=== PATIENT | male | born 1980 | race Caucasian/White ===

== ENCOUNTER 2016-11-16 15:42 | Observation (INO) | payer OTHER ==
[2016-11-16] MEDS ORDERED: SODIUM CHLORIDE 0.9% 500 ML IV ONE (16:40)
[2016-11-16] MEDS ORDERED: INSULIN REGULAR 100 UNIT/ML VIAL IV ONE (16:41)
[2016-11-16 16:42] LABS: Glucose,Whole Blood 486 mg/dL (75-99)
[2016-11-16] MEDS: SODIUM CHLORIDE 0.9% 1,000 ML IV SCH ×2 (19:01→23:22)
[2016-11-16 19:15] LABS: Glucose,Whole Blood >600 mg/dL (75-99)
[2016-11-16 19:16] LABS: Basophils % (A) 0 %; CH 31.2; CHCM 34.3; Eosinophils % (A) 0 %; HCT 46.8 % (39.0-53.0); HDW 2.73; HGB 15.6 gm/dL (13.0-17.5); Luc # (Auto) 0.36; Luc % (Auto) 4; Lymphocytes % (A) 31 %; MCH 30.4 pg (25.0-35.0); MCHC 33.3 g/dL (31.0-37.0); MCV 91.2 fL (80.0-100.0); Mean Platelet Volume 7.9; Monocytes # (A) 0.7 k/uL (0-1.0); Monocytes % (A) 7 %; Neutrophils # (A) 5.4 k/uL (1.3-7.7); Neutrophils % (A) 57 %; RBC 5.13 m/uL (4.30-5.90); RDW 13.6 % (11.5-15.5); WBC 9.5 k/uL (3.8-10.6); WBC (Perox) 9.28
[2016-11-16 19:22] LABS: ALT 38 U/L (21-72); AST 33 U/L (17-59); Alkaline Phosphatase 73 U/L (38-126); Anion Gap 16 mmol/L; Blood Urea Nitrogen 24 mg/dL (9-20); Calcium 10.5 mg/dL (8.4-10.2); Carbon Dioxide 19 mmol/L (22-30); Chloride 100 mmol/L (98-107); Non-African American GFR(MDRD) >60 (>60 ml/min/1.73 sqM); Potassium 4.9 mmol/L (3.5-5.1); Sodium 135 mmol/L (137-145); Total Bilirubin 0.7 mg/dL (0.2-1.3); Total Protein 7.8 g/dL (6.3-8.2)
[2016-11-16 19:32] LABS: Glucose 587 mg/dL (74-99)
[2016-11-16 20:10] LABS: Glucose,Whole Blood 347 mg/dL (75-99)
--- NOTE | 2016-11-16 20:29 | ED ---
General Adult HPI - General Chief complaint: Psychiatric Symptoms Stated complaint: Mental health Time Seen by Provider: 11/16/16 16:29 Source: patient, police, EMS, RN notes reviewed, old records reviewed Mode of arrival: EMS Limitations: no limitations - History of Present Illness Initial comments: Chief complaint and history of present illness a 36-year-old male with history of depression. Petition was filled out because he stated he missed his father wanted to kill himself. Patient was brought emergency room. Emergency room the patient's blood sugar was elevated at 500. The patient is noncompliant. Patient denying wanting to at this time. - Related Data Home Medications Medication Instructions Recorded Confirmed Acarbose 50 mg PO TID 11/16/16 11/16/16 Desmopressin [Ddavp] 0.2 mg PO DAILY 11/16/16 11/16/16 Divalproex ER [Depakote ER] 250 mg PO DAILY 11/16/16 11/16/16 Divalproex Sodium [Depakote] 1,000 mg PO BID 11/16/16 11/16/16 Famotidine [Pepcid] 20 mg PO BID 11/16/16 11/16/16 Fluticasone [place] [Flonase 1 spray EA NOSTRIL DAILY PRN 11/16/16 11/16/16 [place]] Levothyroxine Sodium [Synthroid] 50 mcg PO DAILY 11/16/16 11/16/16 Lisinopril [Zestril] 10 mg PO DAILY 11/16/16 11/16/16 Prazosin [Minipress] 3 mg PO HS 11/16/16 11/16/16 Simvastatin [Zocor] 20 mg PO HS 11/16/16 11/16/16 Venlafaxine HCl [Effexor XR] 75 mg PO HS 11/16/16 11/16/16 Venlafaxine HCl [Effexor XR] 150 mg PO QAM 11/16/16 11/16/16 cloZAPine [Clozaril] 100 mg PO QAM 11/16/16 11/16/16 cloZAPine [Clozaril] 400 mg PO HS 11/16/16 11/16/16 metFORMIN HCL [Glucophage] 850 mg PO TID 11/16/16 11/16/16 Allergies Allergy/AdvReac Type Severity Reaction Status Date / Time No Known Allergies Allergy Verified 06/02/15 13:42 Review of Systems ROS Statement: Those systems with pertinent positive or pertinent negative responses have been documented in the HPI. Review of systems. Patient denies any headache chest pain shortness breath GI/ problems. Patient has mental health issues. He is noncompliant with his diet. His medications are apparently set out for him and the geriatric social work professor who visits him weekly states the pills are normally gone in normal fashion. But she states she is otherwise noncompliant with diet. After being made to find him a spot where he can be better controlled. Past medical problems non-insulin diabetes mellitus but extremely poorly compliant. GERD reflex. Hernia repair. Mental health issues. Medications as listed on the chart. Family history unknown no known ALLERGIES. Patient is a heavy smoker. Strongly encouraged to stop ROS Other: All systems not noted in ROS Statement are negative. Past Medical History Past Medical History: Diabetes Mellitus, GERD/Reflux History of Any Multi-Drug Resistant Organisms: None Reported Past Surgical History: Hernia Repair Past Psychological History: Anxiety Smoking Status: Current every day smoker Past Alcohol Use History: None Reported Past Drug Use History: None Reported General Exam - General Exam Comments Initial Comments: General: The patient is awake and alert, in no distress, and does not appear acutely ill. At this time is patient's denying wanting to kill himself. He did say that his father soldering technician with a petition. He states he misses his father. Vital signs show temperature 98.9 pulse 89 respiratory rate 22 pulse ox 96 been room air blood pressure 165/106. Repeat blood pressure was 161/76. Eye: Pupils are equal, round and reactive to light, extra-ocular movements are intact ; there is normal conjunctiva bilaterally. No signs of icterus. Ears, nose, mouth and throat: Patient has had surgery for cleft lip and cleft palate. Neck: The neck is supple, there is no tenderness. Cardiovascular: There is a regular rate and rhythm. No murmur, rub or gallop is appreciated. Respiratory: Lungs are clear to auscultation, respirations are non-labored, breath sounds are equal. No wheezes, stridor, rales, or rhonchi. Gastrointestinal: Soft, non-distended, non-tender abdomen without masses or organomegaly noted. There is no rebound or guarding present. No CVA tenderness. Bowel sounds are unremarkable. Back: There is no tenderness to palpation in the midline. There is no obvious deformity. No rashes noted. Musculoskeletal: Normal ROM, no tenderness, There is no pedal edema. There is no calf tenderness or swelling. Sensation intact. Pulses equal bilaterally 2+. Neurological: No evidence of a neurological problems at this time. Skin: Skin is warm and dry and no rashes or lesions are noted. Psychiatric: Patient's a constant talker. Easily becomes angry. Denies being suicidal does not want to kill himself now. States he does misses father though. States she does not want to live with others in a usp. Admits doesn't eat properly therefore control his glucose and diabetic problem better than he should. Limitations: no limitations Course Vital Signs 11/16/16 11/16/16 16:14 21:00 Temperature 98.9 F 98.9 F Pulse Rate 89 78 Respiratory 22 18 Rate Blood Pressure 165/106 163/71 O2 Sat by Pulse 96 96 Oximetry Medical Decision Making - Medical Decision Making Medical decision making patient is noncompliant. Pills are set up for him by his psychiatric team. Does not follow a proper diet. Average being made to find him a facility where he can be watched more closely and group-type home. His vital signs were stable upon arrival to emergency room because blood sugar was significantly elevated. The patient's initial blood glucose per laboratories over 600. Patient had IV hydration was given 5 units of regular insulin IV and repeat blood test was IV hydration. Patient will be placed on subcu insulin scale. The patient's potassium is 4.9 BUN 24 creatinine 0.92 with a GFR greater than 60. Glucose as noted above. Acetone negative. 370. Case discussed with Dr. Saleh on-call hospitalist. The patient be admitted continued IV hydration with sliding insulin scale. - Lab Data Result diagrams: 11/16/16 18:56 11/16/16 18:56 Lab Results 11/16/16 11/16/16 11/16/16 Range/Units 16:13 18:53 18:56 WBC 9.5 (3.8-10.6) k/uL RBC 5.13 (4.30-5.90) m/uL Hgb 15.6 (13.0-17.5) gm/dL Hct 46.8 (39.0-53.0) % MCV 91.2 (80.0-100.0) fL MCH 30.4 (25.0-35.0) pg MCHC 33.3 (31.0-37.0) g/dL RDW 13.6 (11.5-15.5) % Plt Count 204 (150-450) k/uL Neutrophils % 57 % Lymphocytes % 31 % Monocytes % 7 % Eosinophils % 0 % Basophils % 0 % Neutrophils # 5.4 (1.3-7.7) k/uL Lymphocytes # 3.0 (1.0-4.8) k/uL Monocytes # 0.7 (0-1.0) k/uL Eosinophils # 0.0 (0-0.7) k/uL Basophils # 0.0 (0-0.2) k/uL Sodium (137-145) mmol/L Potassium (3.5-5.1) mmol/L Chloride (98-107) mmol/L Carbon Dioxide (22-30) mmol/L Anion Gap mmol/L BUN (9-20) mg/dL Creatinine (0.66-1.25) mg/dL Est GFR (MDRD) Af Amer (>60 ml/min/1.73 sqM) Est GFR (MDRD) Non-Af (>60 ml/min/1.73 sqM) Glucose (74-99) mg/dL POC Glucose (mg/dL) 486 H >600 H (75-99) mg/dL POC Glu Recoil [place] Winder ID Mitra, Alysha Manriquez, Alysha Calcium (8.4-10.2) mg/dL Total Bilirubin (0.2-1.3) mg/dL AST (17-59) U/L ALT (21-72) U/L Alkaline Phosphatase (38-126) U/L Total Protein (6.3-8.2) g/dL Albumin (3.5-5.0) g/dL Urine Opiates Screen (NotDetected) Ur Oxycodone Screen (NotDetected) Urine Methadone Screen (NotDetected) Ur Propoxyphene Screen (NotDetected) Ur Barbiturates Screen (NotDetected) U Tricyclic Antidepress (NotDetected) Ur Phencyclidine Scrn (NotDetected) Ur Amphetamines Screen (NotDetected) U Methamphetamines Scrn (NotDetected) U Benzodiazepines Scrn (NotDetected) Urine Cocaine Screen (NotDetected) U Marijuana (THC) Screen (NotDetected) Acetone, Qual (Negative) 11/16/16 11/16/16 11/16/16 Range/Units 18:56 20:06 20:09 WBC (3.8-10.6) k/uL RBC (4.30-5.90) m/uL Hgb (13.0-17.5) gm/dL Hct (39.0-53.0) % MCV (80.0-100.0) fL MCH (25.0-35.0) pg MCHC (31.0-37.0) g/dL RDW (11.5-15.5) % Plt Count (150-450) k/uL Neutrophils % % Lymphocytes % % Monocytes % % Eosinophils % % Basophils % % Neutrophils # (1.3-7.7) k/uL Lymphocytes # (1.0-4.8) k/uL Monocytes # (0-1.0) k/uL Eosinophils # (0-0.7) k/uL Basophils # (0-0.2) k/uL Sodium 135 L (137-145) mmol/L Potassium 4.9 (3.5-5.1) mmol/L Chloride 100 (98-107) mmol/L Carbon Dioxide 19 L (22-30) mmol/L Anion Gap 16 mmol/L BUN 24 H (9-20) mg/dL Creatinine 0.92 (0.66-1.25) mg/dL Est GFR (MDRD) Af Amer >60 (>60 ml/min/1.73 sqM) Est GFR (MDRD) Non-Af >60 (>60 ml/min/1.73 sqM) Glucose 587 H* (74-99) mg/dL POC Glucose (mg/dL) 347 H (75-99) mg/dL POC Glu [place]oil [place] Winder ID [place], Nguyen Calcium 10.5 H (8.4-10.2) mg/dL Total Bilirubin 0.7 (0.2-1.3) mg/dL AST 33 (17-59) U/L ALT 38 (21-72) U/L Alkaline Phosphatase 73 (38-126) U/L Total Protein 7.8 (6.3-8.2) g/dL Albumin 4.7 (3.5-5.0) g/dL Urine Opiates Screen Not Detected (NotDetected) Ur Oxycodone Screen Not Detected (NotDetected) Urine Methadone Screen Not Detected (NotDetected) Ur Propoxyphene Screen Not Detected (NotDetected) Ur Barbiturates Screen Not Detected (NotDetected) U Tricyclic Antidepress Not Detected (NotDetected) Ur Phencyclidine Scrn Not Detected (NotDetected) Ur Amphetamines Screen Not Detected (NotDetected) U Methamphetamines Scrn Not Detected (NotDetected) U Benzodiazepines Scrn Not Detected (NotDetected) Urine Cocaine Screen Not Detected (NotDetected) U Marijuana (THC) Screen Not Detected (NotDetected) Acetone, Qual Negative (Negative) 11/16/16 Range/Units 20:50 WBC (3.8-10.6) k/uL RBC (4.30-5.90) m/uL Hgb (13.0-17.5) gm/dL Hct (39.0-53.0) % MCV (80.0-100.0) fL MCH (25.0-35.0) pg MCHC (31.0-37.0) g/dL RDW (11.5-15.5) % Plt Count (150-450) k/uL Neutrophils % % Lymphocytes % % Monocytes % % Eosinophils % % Basophils % % Neutrophils # (1.3-7.7) k/uL Lymphocytes # (1.0-4.8) k/uL Monocytes # (0-1.0) k/uL Eosinophils # (0-0.7) k/uL Basophils # (0-0.2) k/uL Sodium (137-145) mmol/L Potassium (3.5-5.1) mmol/L Chloride (98-107) mmol/L Carbon Dioxide (22-30) mmol/L Anion Gap mmol/L BUN (9-20) mg/dL Creatinine (0.66-1.25) mg/dL Est GFR (MDRD) Af Amer (>60 ml/min/1.73 sqM) Est GFR (MDRD) Non-Af (>60 ml/min/1.73 sqM) Glucose (74-99) mg/dL POC Glucose (mg/dL) 371 H (75-99) mg/dL POC Glu Recoil [place] Winder ID Nguyen Kovacs Calcium (8.4-10.2) mg/dL Total Bilirubin (0.2-1.3) mg/dL AST (17-59) U/L ALT (21-72) U/L Alkaline Phosphatase (38-126) U/L Total Protein (6.3-8.2) g/dL Albumin (3.5-5.0) g/dL Urine Opiates Screen (NotDetected) Ur Oxycodone Screen (NotDetected) Urine Methadone Screen (NotDetected) Ur Propoxyphene Screen (NotDetected) Ur Barbiturates Screen (NotDetected) U Tricyclic Antidepress (NotDetected) Ur Phencyclidine Scrn (NotDetected) Ur Amphetamines Screen (NotDetected) U Methamphetamines Scrn (NotDetected) U Benzodiazepines Scrn (NotDetected) Urine Cocaine Screen (NotDetected) U Marijuana (THC) Screen (NotDetected) Acetone, Qual (Negative) Disposition Clinical Impression: Acute anxiety, Hyperglycemia without ketosis Disposition: ADMITTED IP TO THIS [facility] Condition: Stable
[2016-11-16 20:51] LABS: Glucose,Whole Blood 371 mg/dL (75-99)
[2016-11-16] MEDS ORDERED: INSULIN REGULAR 100 UNIT/ML VIAL IV STA (20:55)
[2016-11-16] MEDS ORDERED: NALOXONE 0.4 MG/ML 1 ML VIAL IV PRN (21:31)
[2016-11-16] MEDS ORDERED: ACETAMINOPHEN TAB 325 MG TAB PO PRN (21:31)
[2016-11-16 21:32] LABS: Glucose,Whole Blood 324 mg/dL (75-99)
[2016-11-16] MEDS ORDERED: FLUTICASONE 50MCG/SPRAY NASAL 16GM EA NOSTRIL PRN (21:34)
[2016-11-16 23:15] VITALS: BMI 30.7
[2016-11-16 23:19] LABS: Glucose,Whole Blood 308 mg/dL (75-99)
[2016-11-16] MEDS: ACARBOSE 25 MG TAB PO SCH (23:22)
[2016-11-16] MEDS: metFORMIN 850 MG TAB PO SCH (23:23)
[2016-11-17] MEDS: INSULIN LISPRO (humaLOG) 300 UNIT/3 ML VIAL SQ SCH ×4 (00:13→17:16)
[2016-11-17 04:59] LABS: Glucose,Whole Blood 331 mg/dL (75-99)
[2016-11-17] MEDS ORDERED: LEVOTHYROXINE 50 MCG TAB PO SCH (06:30)
[2016-11-17 06:37] LABS: Anion Gap 15 mmol/L; Blood Urea Nitrogen 23 mg/dL (9-20); Calcium 10.1 mg/dL (8.4-10.2); Carbon Dioxide 18 mmol/L (22-30); Chloride 108 mmol/L (98-107); Glucose 359 mg/dL (74-99); Magnesium 1.3 mg/dL (1.6-2.3); Non-African American GFR(MDRD) >60 (>60 ml/min/1.73 sqM); Potassium 4.4 mmol/L (3.5-5.1); Sodium 141 mmol/L (137-145)
[2016-11-17] MEDS: SODIUM CHLORIDE 0.9% 1,000 ML IV SCH ×4 (06:46→17:17)
[2016-11-17] MEDS ORDERED: LORazepam 2 MG/ML SYRINGE IV STA (07:17)
[2016-11-17] MEDS ORDERED: LORazepam 2 MG/ML SYRINGE ONE (07:20)
[2016-11-17] MEDS ORDERED: HALOPERIDOL LACTATE 5 MG/ML 1 ML VIAL IM PRN ×2 (07:32→08:35)
[2016-11-17] MEDS ORDERED: LORazepam 2 MG/ML SYRINGE IM ONE (08:36)
[2016-11-17] MEDS ORDERED: diphenhydrAMINE 50 MG/ML 1 ML VIAL IM STA (08:37)
[2016-11-17] MEDS ORDERED: FAMOTIDINE 20 MG TAB PO SCH (09:00)
[2016-11-17] MEDS ORDERED: VENLAFAXINE HCL ER 150 MG CAP PO SCH (09:00)
[2016-11-17] MEDS ORDERED: DESMOPRESSIN 0.2 MG TAB PO SCH (09:00)
[2016-11-17] MEDS ORDERED: LISINOPRIL 10 MG TAB PO SCH (09:00)
[2016-11-17] MEDS ORDERED: cloZAPine 100 MG TAB PO SCH ×2 (09:00→21:00)
[2016-11-17] MEDS ORDERED: DIVALPROEX 500 MG TABLET.DR PO SCH (09:00)
[2016-11-17 11:31] VITALS: RESP 16
[2016-11-17 11:43] LABS: Glucose,Whole Blood 266 mg/dL (75-99)
[2016-11-17] MEDS: ACARBOSE 25 MG TAB PO SCH ×2 (11:50→15:59)
[2016-11-17] MEDS: metFORMIN 850 MG TAB PO SCH ×2 (11:50→15:59)
[2016-11-17] MEDS ORDERED: DIVALPROEX ER 250 MG TAB.ER.24H PO SCH (12:00)
[2016-11-17 16:06] VITALS: BP 106/57; PULSE 70; TEMP 96.8
--- NOTE | 2016-11-17 16:59 | HP ---
H&P and DISCHARGE SUMMARY DATE OF ADMISSION: Patient is a 36-year-old who was agitated and petitioned by law enforcement people and patient was subsequently brought in here. He was admitted to Medical Service because of hyperglycemia with highly elevated blood sugars. Patient received IV fluids last night. Patient also has some anion gap metabolic acidosis secondary to hyperchloremia. Patient was unable to prior much of the history to me, as just before my evaluation he received his antipsychotic medications, because of which patient was excessively drowsy, although I was able to get history from the patient. Patient denied any fever, chills, nausea, vomiting, abdominal pain. REVIEW OF SYSTEMS: As mentioned above. The rest of the review of systems was not reviewed because of his clinical condition. Home medications include: 1. Acarbose. 2. Desmopressin. 3. Divalproex. 4. Famotidine. 5. Fluticasone. 6. Levothyroxine. 7. Lisinopril. 8. Prazosin. 9. Simvastatin. 10. Venlafaxine. 11. Clozapine. 12. Metformin. ALLERGIES: NO KNOWN DRUG ALLERGIES. PAST MEDICAL HISTORY: 1. Diabetes mellitus. 2. Gastroesophageal reflux disease. 3. Bipolar disorder. 4. Patient had hernia repair in the past. Patient does smoke 2 packs per day. Denied any alcohol abuse or any drug abuse. FAMILY HISTORY: Significant for lung cancer. Dad of lung cancer in 2011. PHYSICAL EXAMINATION: VITAL SIGNS: Temperature 97.5, pulse of 74, respiratory rate of 16. Blood pressure is 116/59. Saturating at 99% on room air. GENERAL: The patient is alert and oriented x3, not in any acute distress. Well developed, well nourished. HEENT: Pupils are round and equally reacting to light. EOMI. No scleral icterus. No conjunctival pallor. Normocephalic, atraumatic. No pharyngeal erythema. No thyromegaly. CARDIOVASCULAR: S1 and S2 present. No murmurs, rubs, or gallops. PULMONARY: Chest is clear to auscultation, no wheezing or crackles. ABDOMEN: Soft, nontender, nondistended, normoactive bowel sounds. No palpable organomegaly. MUSCULOSKELETAL: No joint swelling or deformity. EXTREMITIES: No cyanosis, clubbing, or pedal edema. NEUROLOGICAL: As mentioned above in the history itself. SKIN: No rashes. PSYCHIATRIC: As mentioned above. LABORATORY DATA: CBC, CMP are abnormal for mildly elevated chloride secondary to IV fluids; 108. Bicarbonate of 18. Anion gap of 15. Blood sugars when he came in were 587, now 359. Patient was resumed on metformin. Magnesium is 1.3. ASSESSMENT AND PLAN: 1. Hyperglycemia secondary to noncompliance with medications. I will change his regimen to metformin 1000 b.i.d. Patient is cleared to be discharged from medical perspective to psychiatric facility. I will also start him on Januvia. I recommend checking blood sugars twice a day. 2. Gastroesophageal reflux disease. 3. Psychiatric issues. Management as per Psychiatry. 4. Acute psychosis and suicidal ideations. I did complete the medical certification. 5. Hypomagnesemia. Magnesium will be supplemented. 6. Anion gap metabolic acidosis secondary to hyperchloremia. 7. Hypothyroidism. Patient is cleared to be discharged from medical perspective to psychiatric facility. This dictation is both H&P and discharge summary. Discharge diet diabetic 1800-calorie diet. Activity as tolerated. Patient is on lisinopril as well. Patient probably has hypertension, or patient may be on lisinopril as ( ) agent because of diabetes mellitus.
[2016-11-17 17:38] LABS: Glucose,Whole Blood 203 mg/dL (75-99)
[2016-11-17] MEDS ORDERED: PRAZOSIN 1 MG CAP PO SCH (21:00)
[2016-11-17] MEDS ORDERED: ATORVASTATIN 10 MG TAB PO SCH (21:00)
[2016-11-17] MEDS ORDERED: VENLAFAXINE HCL ER 75 MG CAP PO SCH (21:00)
[2016-11-18 08:17] LABS: Norclozapine <25 ng/mL (200-700)
[2016-11-29 08:29] LABS: Glucose,Whole Blood 250 mg/dL (75-99)
== END 2016-11-17 17:26 ==
LOC: SUPCPDRO 15:42 → EC 15:42 → 6SEL 21:31 → INTOOBSV 21:31 → 6SEL 23:11
PROVIDERS: ADMIT Internal Medicine; ATTEND Internal Medicine
DX: E11.65 Type 2 diabetes mellitus with hyperglycemia (principal); E87.2 Acidosis; R45.851 Suicidal ideations; F23 Brief psychotic disorder; F31.9 Bipolar disorder, unspecified; I10 Essential (primary) hypertension; K21.9 Gastro-esophageal reflux disease without esophagitis; F41.9 Anxiety disorder, unspecified; E87.8 Other disorders of electrolyte and fluid balance, not elsewhere classified; E83.42 Hypomagnesemia; E03.9 Hypothyroidism, unspecified; F17.200 Nicotine dependence, unspecified, uncomplicated; Z79.84 Long term (current) use of oral hypoglycemic drugs; Z79.51 Long term (current) use of inhaled steroids; Z79.899 Other long term (current) drug therapy; Z80.1 Family history of malignant neoplasm of trachea, bronchus and lung; Z71.6 Tobacco abuse counseling; Z91.11 Patient's noncompliance with dietary regimen; Z91.14 Patient's other noncompliance with medication regimen; Z87.730 Personal history of (corrected) cleft lip and palate
CPT/HCPCS: 99285; 96374; 96376; 82075; 96361; 36415; 80159; 80164; 80053; 80048; 83036; 82009; 83735; 85025; 80306; G0378 ×2; J2060; J1200; J1630; 96372; 96375

== ENCOUNTER 2016-11-17 15:24 | Inpatient (IN) | payer MEDICAID, OTHER ==
--- NOTE | 2016-11-17 17:28 | HP ---
DATE OF ADMISSION: 11/17/2016 IDENTIFYING DATA: Patient is a 36-year-old male, date of 1980. He came to the emergency department after some difficulties in the community. He lives alone. He is followed by [facility]. Patient was admitted to the medical floor initially and referred to the psychiatric unit for followup. CHIEF COMPLAINT: The patient had an episode of agitation and [place] He then came to the emergency room reporting he was depressed and that he had thoughts of killing himself because he was missing his father and wanted to . He was petitioned for involuntary hospitalization. HISTORY OF PRESENTING ILLNESS: The patient has long-term psychiatric issues. His current situation is not completely clear. It is noted that he saw Dr. Conti at [facility] November 09. In Dr. Conti's note, he indicates that the patient was saying he had nightmares of seeing people from [facility] in his room. He was not sure if he was awake or asleep when he saw these visions. He had anger at having lost his father in [place]. He talked about being angry at the president. He described a lot of frustration when he misses the bus or believes the business teacher does not pick him up. He described feeling like he wanted to throw things at the bus, though he had not been doing that. He described [place] time as going well. When he saw Dr. Conti on this past Tuesday, he was quite animated and loud. He expressed wishes that he could act out his rage, but he had no plans to do so. He was assessed as being oriented. At his appointment, Dr. Conti increased his Clozaril to 450 mg at bedtime in addition to Clozaril 100 mg in the morning. Also he was on Depakote 1250 mg in the morning, 1000 mg in the evening, and Effexor 150 mg in the morning, 75 mg in the evening[address] Dr. Conti indicated that he would get a Depakote and Clozaril level prior to his appointment in one month. It is noted that September 07 his Clozapine level was 172/88. The patient was admitted to the medical floor from the emergency room due to blood glucose of 500 early in the morning on the day after admission to the medical floor. He got very agitated and loud. He was very restless. He required physical intervention, IM medications, and ultimately he was placed in restraints. He had an initial dose of Haldol 2 mg IM and Ativan 2 mg IM around 7:30 in the morning. At 9:17 in the morning he received Haldol 10 mg IM, Ativan 2 mg IM and Benadryl 100 mg IM due to continued agitation. After he received the medications he was able to rest. Restraints were removed. Patient has been resting quietly. I had contact with the patient's disease case manager rn, Ms. Rodriguez, at [facility]. She indicated that on the day prior to admission she had seen the patient in the community. He apparently had created quite a scene at the bus garage and was in an agitate state and was angry at the business teacher. She was able to calm him down, and afterwards he did fairly well. She saw him in the emergency department and said that he was talking appropriately; he was laughing and joking prior to being seen by the doctors. She indicates that he has tended to have a behavior pattern where he can easily get into an agitated state, often over issues that are difficult to be clear about, but then he gets back to his baseline quickly. She was not aware of any ongoing issues of stress that might be affecting his behavior currently. She stated that she was uncertain whether or not he would take medications appropriately when at home, though she had concerns that he might not be able to do that, as he has had a history in the past of not being able to keep up with his medications. She indicated that there may be an option through Mental Health for him to go into a supervised home where he could get additional support, though she does understand that he would not be inclined to make that change. It is noted that today we did a Depakote level that was less than 10, suggesting that he has not been taking his medications. I also ordered a Clozapine level, which is a send-out and not available today. When I talked to the patient later in the day, he agreed with the thought that he probably was not taking medications for the last 2 weeks, although it is not clear how accurate his reporting is of that. It is noted that the patient's last psychiatric hospitalization at this facility was July 2012. At that time he was admitted due to an episode of agitation, threatening suicide and homicide. He stated that "I snapped." He said that someone at [facility] had made a motion with their hands as if they were shooting a gun, and then he started focusing on that and that it expanded into his having persistent thoughts about killing in general. It was reported that he has a history of auditory hallucinations with voices telling him to kill others and to commit suicide. According to the admission note, he denied any prior psychiatric hospitalizations. He apparently has been on a number of psychotropic medications in the past. When he was admitted in 2011 he was on in Effexor, Risperdal, Zyprexa, Depakote, clonidine and Strattera. There was no report of substance abuse history. During his hospitalization he was started on Clozapine. He improved and was stable for discharge. He was continued on Effexor, Strattera, clonidine and Depakote, though Risperdal and Zyprexa were discontinued. The patient was not able to provide much information about current function or current psychiatric symptoms. He is admitted for further evaluation. Medical history, review of systems and physical exam as per medical consultation from his general hospital admission. MENTAL STATUS EXAM: Patient was seen initially when he was in restraints. He was moderately restless. He would fight against the restraints for 20 to 30 seconds, then he would relax. He made various comments. He said that he had seen someone at the foot of his bed named Wagner Murrieta. He made a comment at one point that he can see him, though he knows I cannot see him. He made references to some other people in vague ways. He was somewhat disorganized in his thoughts. He did respond generally in an appropriate way to questions asked. He seemed oriented to his immediate circumstances. He was somewhat angry at times, though he could calm himself down for short periods as well. His mood was dysphoric. He was significantly distressed. When I saw the patient about 3 in the afternoon he was sleeping. He was arousable. He answered a few questions. He said he was having some trouble with a hoarse throat. He indicated that he had not been taking medications. He was in a calm state. He was out of restraints. He was resting quietly. ASSESSMENT: This 36-year-old male has long-term psychiatric issues. He has been diagnosed with bipolar 1 disorder and mild intellectual disability. He may have difficulties functioning in an independent setting. It is quite likely that he has not been taking medications for some time. Even the Clozapine blood level going back to August suggests that he was not taking it consistently. His other level is likely to be lower than would be expected for a dose of 500 mg a day. We will continue to coordinate with [facility] for treatment and discharge planning. DIAGNOSES: 1. Bipolar 1 disorder. 2. Intellectual disability, mild. 3. Type 2 diabetes. 4. Willis's palsy. 5. Essential hypertension. RECOMMENDATIONS: Patient will be admitted for comprehensive medical, psychiatric and psychosocial evaluation. We will make efforts to engage the patient in individual and group therapeutic activities. Will restart the patient on Clozapine. We will need to do a titration, given that he likely has not been on the medication for some period of time. I will continue him off Effexor and Depakote at this point. We may need to stabilize him with an oral antipsychotic such as Haldol in the short term until Clozapine can get established. Will coordinate with [facility] for treatment and discharge planning.
[2016-11-17] MEDS ORDERED: FLUTICASONE 50MCG/SPRAY NASAL 16GM EA NOSTRIL PRN (17:58)
[2016-11-17] MEDS ORDERED: HALOPERIDOL LACTATE 5 MG/ML 1 ML VIAL IM PRN ×2 (17:58)
[2016-11-17] MEDS ORDERED: MAGNESIUM HYDROXIDE 2,400 MG/10 ML CUP PO PRN (18:00)
[2016-11-17 20:16] LABS: Glucose,Whole Blood 261 mg/dL (75-99)
[2016-11-17] MEDS ORDERED: metFORMIN 850 MG TAB PO SCH (22:00)
[2016-11-17] MEDS: INSULIN LISPRO (humaLOG) 300 UNIT/3 ML VIAL SQ SCH ×2 (22:29→22:33)
[2016-11-17] MEDS: ATORVASTATIN 10 MG TAB PO SCH (22:36)
[2016-11-17] MEDS: ACARBOSE 25 MG TAB PO SCH (22:36)
[2016-11-17] MEDS: PRAZOSIN 1 MG CAP PO SCH (22:36)
[2016-11-17] MEDS: metFORMIN 500 MG TAB PO SCH (22:37)
[2016-11-17] MEDS: FAMOTIDINE 20 MG TAB PO SCH (22:37)
[2016-11-17 22:53] LABS: Hemoglobin A1C 10.3 % (4.2-6.1)
[2016-11-18] MEDS: LEVOTHYROXINE 50 MCG TAB PO SCH (06:04)
[2016-11-18] MEDS: INSULIN LISPRO (humaLOG) 300 UNIT/3 ML VIAL SQ SCH ×4 (08:04→20:43)
[2016-11-18] MEDS: DESMOPRESSIN 0.2 MG TAB PO SCH (08:07)
[2016-11-18] MEDS: ACARBOSE 25 MG TAB PO SCH ×3 (08:07→21:25)
[2016-11-18] MEDS: LISINOPRIL 10 MG TAB PO SCH (08:09)
[2016-11-18] MEDS: LINAGLIPTIN 5 MG TABLET PO SCH (08:09)
[2016-11-18] MEDS: FAMOTIDINE 20 MG TAB PO SCH ×2 (08:11→20:13)
[2016-11-18] MEDS: metFORMIN 500 MG TAB PO SCH ×2 (08:11→20:28)
[2016-11-18] MEDS ORDERED: cloZAPine 25 MG TAB PO STA (09:07)
[2016-11-18] MEDS ORDERED: LORazepam 2 MG/ML SYRINGE IV PRN (09:56)
[2016-11-18] MEDS ORDERED: LORazepam 2 MG/ML SYRINGE IM PRN (09:58)
--- NOTE | 2016-11-18 10:36 | PN ---
DATE OF SERVICE: 11/18/2016 CHIEF COMPLAINT: The patient had an episode of agitation and [place]. He then came to the emergency room reporting he was depressed and that he had thoughts of killing himself because he was missing his father and wanted to . He was petitioned for involuntary hospitalization. INTERVAL HISTORY: Patient has been doing fair. He had a quiet evening last night. He slept on and off during the day after he received his p.r.n. Haldol of 10 mg IM along with a p.r.n. of Ativan 2 mg. He was transferred to the psychiatric unit late afternoon. He was quiet in the evening. He spent a fair amount of time in his room. He was awake. He responded appropriately to staff. He was quiet and calm. He slept fairly well last night. Today, he has been up and about. He prefers to stay in his room. He says he needs some quiet time today so he can adjust to the unit. He was a little reluctant to think about going to any groups today. He did again confirm today that he has not been taking medications, though he was vague about the length of time he has been off medications. It is noted that his clozapine level that was drawn yesterday was 0 as was his Depakote level. So the likelihood is he has not been taking medications at least for one week though probably longer. He does not voice any significant complaints today. He is reserved in his manner. He did make a number of comments about feeling relieved that he has been transferred to the psychiatric unit. He did not identify any immediate problems or concerns. He has not had change in his general health. He tolerates his psychotropic medications. MENTAL STATUS: Patient was initially seen in the day area than he was later seen in his room. He gave fair eye contact. Psychomotor activity was a little restless. Speech was coherent and goal directed. He does have some articulation difficulties. He was spontaneous and somewhat interactive. His thoughts were generally reality based. His affect was a little blunted. His mood was quiet. He seemed somewhat anxious and it was difficult to say how distressed he might feel. ASSESSMENT: I will continue the current diagnosis and treatment plan. We will make efforts to engage the patient in individual and group therapeutic activities. I discussed his case with the [facility] liaison who did have communication with Dr. Patel. Dr. Patel was concerned about how his medications would be reinitiated given that he has been off of medications. The plan is to restart him on clozapine. We will make an effort to do a somewhat more rapid titration though being cautious regarding risk for seizures. Today he will be on 25 mg twice a day, tomorrow he will be on 25 mg 3 times a day depending on how he tolerates the medication will continue to titrate up on his medication. He will continue off Depakote and Effexor if we can get him into a reasonable therapeutic level on clozapine and he can get somewhat stable in his mood, I would look to discharge him early to mid week next week.
[2016-11-18 12:56] LABS: Glucose,Whole Blood 231 mg/dL (75-99)
[2016-11-18] MEDS: HALOPERIDOL LACTATE 5 MG/ML 1 ML VIAL IM PRN (13:46)
[2016-11-18 15:11] VITALS: BMI 34.2
[2016-11-18] MEDS: MAG HYDROX/AL HYDROX/SIMETH 30 ML CUP PO PRN (16:30)
[2016-11-18 17:47] LABS: Glucose,Whole Blood 179 mg/dL (75-99)
[2016-11-18 20:04] LABS: Glucose,Whole Blood 224 mg/dL (75-99)
--- NOTE | 2016-11-18 20:04 | CONS ---
DATE OF CONSULTATION: REASON FOR CONSULTATION: Recommendations regarding multiple medical problems including diabetes mellitus. Patient was admitted to my service yesterday because of elevated blood sugars. Patient was transitioned to oral medications. Patient was having suicidal ideations and agitation episodes. Because of this, patient was transferred to psychiatric facility and patient is still agitated apparently today morning and I am not able to get much of the history from the patient; although, patient denied any chest pain. The patient denied any fevers or chills. Patient denied any nausea, vomiting, abdominal pain, shortness of breath. Patient has been eating well and patient is on diabetic diet. REVIEW OF SYSTEMS: Apart from above mentioned review of systems the rest of the review of systems are negative. MEDICATIONS: His medications were reviewed. The patient's blood sugars are high in spite of three oral hypoglycemic agents, because of which I added Lantus. PAST MEDICAL HISTORY: Diabetes mellitus, gastroesophageal reflux disease, bipolar disorder. The patient does smoke 2 packs per day. FAMILY HISTORY: Significant for lung cancer in father who in 2011. PHYSICAL EXAMINATION: VITAL SIGNS: Temperature 98.0, pulse 77, respiratory rate of 16, blood pressure is 103/59. Saturating at 100% on room air. GENERAL: The patient is alert and oriented x3, not in any acute distress. Well developed, well nourished. HEENT: Pupils are round and equally reacting to light. EOMI. No scleral icterus. No conjunctival pallor. Normocephalic, atraumatic. No pharyngeal erythema. No thyromegaly. CARDIOVASCULAR: S1 and S2 present. No murmurs, rubs, or gallops. PULMONARY: Chest is clear to auscultation, no wheezing or crackles. ABDOMEN: Soft, nontender, nondistended, normoactive bowel sounds. No palpable organomegaly. MUSCULOSKELETAL: No joint swelling or deformity. EXTREMITIES: No cyanosis, clubbing, or pedal edema. NEUROLOGICAL: Gross neurological examination did not reveal any focal deficits. SKIN: No rashes. PSYCHIATRIC: Defer to primary service. LABORATORY DATA: Hemoglobin A1c is 10.3. TSH is 1.95. ASSESSMENT AND PLAN: 1. Diabetes mellitus, uncontrolled blood sugars due to noncompliance with medications. Management as mentioned above. Will add 10 units of Lantus. Continue to recheck blood sugars twice a day. 2. Gastroesophageal reflux disease. 3. Acute psychosis and suicidal ideation and management as per primary services. 4. Hypomagnesemia was supplemented and will recheck the magnesium today. 5. Hypothyroidism. Continue with levothyroxine. TSH is essentially within normal limits at this time. Thank you for letting me participate in this patient's care. Will sign off at this point of time. Call us back if needed.
[2016-11-18] MEDS: ATORVASTATIN 10 MG TAB PO SCH (20:28)
[2016-11-18] MEDS: ACETAMINOPHEN TAB 325 MG TAB PO PRN (20:29)
[2016-11-18] MEDS ORDERED: cloZAPine 25 MG TAB PO SCH (21:00)
[2016-11-18] MEDS: PRAZOSIN 1 MG CAP PO SCH (21:25)
[2016-11-18] MEDS: INSULIN GLARGINE 100 UNIT/ML 10 ML VIAL SQ SCH (21:25)
[2016-11-19] MEDS: LEVOTHYROXINE 50 MCG TAB PO SCH (05:48)
[2016-11-19 05:52] LABS: Glucose,Whole Blood 247 mg/dL (75-99)
[2016-11-19] MEDS: INSULIN LISPRO (humaLOG) 300 UNIT/3 ML VIAL SQ SCH ×4 (07:56→19:50)
[2016-11-19] MEDS ORDERED: cloZAPine 25 MG TAB PO SCH (09:00)
[2016-11-19] MEDS: metFORMIN 500 MG TAB PO SCH ×2 (09:36→19:55)
[2016-11-19] MEDS: MAGNESIUM OXIDE 400 MG TAB PO SCH ×3 (09:36→19:55)
[2016-11-19] MEDS: DESMOPRESSIN 0.2 MG TAB PO SCH (09:36)
[2016-11-19] MEDS: LISINOPRIL 10 MG TAB PO SCH (09:36)
[2016-11-19] MEDS: ACARBOSE 25 MG TAB PO SCH ×3 (09:36→19:54)
[2016-11-19] MEDS: LINAGLIPTIN 5 MG TABLET PO SCH (09:37)
[2016-11-19] MEDS: FAMOTIDINE 20 MG TAB PO SCH ×2 (09:37→19:56)
[2016-11-19 12:50] LABS: Glucose,Whole Blood 238 mg/dL (75-99)
[2016-11-19] MEDS: MAG HYDROX/AL HYDROX/SIMETH 30 ML CUP PO PRN (15:51)
[2016-11-19] MEDS: cloZAPine 25 MG TAB PO SCH ×2 (16:39→19:55)
[2016-11-19 16:52] LABS: Glucose,Whole Blood 231 mg/dL (75-99)
[2016-11-19 19:40] LABS: Glucose,Whole Blood 282 mg/dL (75-99)
[2016-11-19] MEDS: INSULIN GLARGINE 100 UNIT/ML 10 ML VIAL SQ SCH (19:51)
[2016-11-19] MEDS: ATORVASTATIN 10 MG TAB PO SCH (19:54)
[2016-11-19] MEDS: PRAZOSIN 1 MG CAP PO SCH (19:54)
--- NOTE | 2016-11-19 20:00 | PN ---
DATE OF SERVICE: 11/19/2015 CHIEF COMPLAINT: The patient had an episode of agitation and threatening [place]. He then came to the emergency room reporting he was depressed and that he had thoughts of killing himself because he was missing his father and wanted to . He was petitioned for involuntary hospitalization. INTERVAL HISTORY: Patient has been doing fair. He had a quiet evening last night. He had an episode of vomiting one time. He was saying that his stomach was upset. He has not had any more problems with GI upset. He slept fairly well today. He spent some time in bed. He will come out in the day area. He does not attend groups. He has some times when he suddenly can get in an agitated state of some kind. He can quickly change from that back to a very calm and smiling manner. He had an episode earlier of saying he was going to hit his head against the wall, though he only went through some very slight motions without actual self-harm behavior. He has said that he needs to spend some time to get adjusted to the unit before he feels he can get to groups. He has generally been cooperative. He does have some ups and downs in his mood, though it seems as though it mostly relates to how he may choose to interact with others. He has not had change in his general health. He tolerates his startup of Clozaril. MENTAL STATUS: Patient was in his room. He gave fair eye contact. Psychomotor activity was mostly quiet, then at one point he started rubbing his right wrist. He very quickly started pulling on his wrist band and then got into a restless state where he was hitting his hand against the bed. He quieted down from that fairly quickly. His affect was a little constricted, his mood reserved. It was difficult to say if he was distressed. ASSESSMENT: I will continue the current diagnosis and treatment plan. Will continue psychotropic medications the same. Today he will receive Clozaril a total of 75 mg a day. Tomorrow he will start 50 mg twice a day. We will continue to titrate up in a fairly quick fashion. Input from Mental Health has raised concern that he may not be able to take his medications appropriately on his own without adequate supervision. Apparently he has had bubble packs, and we were informed that the bubble packs appeared to be opened up appropriately, yet blood levels have revealed that he has not been taking medications. Mental Health has shared that it would be very difficult for him to make an adjustment to a alf, though independent living is also something of question. We will continue to coordinate with Mental Health. We will continue to focus on stabilization and discharge planning.
[2016-11-19] MEDS: ACETAMINOPHEN TAB 325 MG TAB PO PRN (20:13)
[2016-11-20] MEDS: LEVOTHYROXINE 50 MCG TAB PO SCH (05:33)
[2016-11-20 06:16] LABS: Glucose,Whole Blood 236 mg/dL (75-99)
[2016-11-20] MEDS: INSULIN LISPRO (humaLOG) 300 UNIT/3 ML VIAL SQ SCH ×4 (07:42→20:01)
[2016-11-20] MEDS: LINAGLIPTIN 5 MG TABLET PO SCH (08:26)
[2016-11-20] MEDS: ACARBOSE 25 MG TAB PO SCH ×3 (08:26→20:09)
[2016-11-20] MEDS: MAGNESIUM OXIDE 400 MG TAB PO SCH ×3 (08:26→20:08)
[2016-11-20] MEDS: cloZAPine 25 MG TAB PO SCH ×2 (08:27→20:09)
[2016-11-20] MEDS: metFORMIN 500 MG TAB PO SCH ×2 (08:27→20:09)
[2016-11-20] MEDS: ACETAMINOPHEN TAB 325 MG TAB PO PRN ×2 (08:28→14:52)
[2016-11-20] MEDS: LISINOPRIL 10 MG TAB PO SCH (08:40)
[2016-11-20] MEDS: FAMOTIDINE 20 MG TAB PO SCH ×2 (08:40→20:09)
[2016-11-20] MEDS: DESMOPRESSIN 0.2 MG TAB PO SCH (08:41)
[2016-11-20 12:43] LABS: Glucose,Whole Blood 322 mg/dL (75-99)
[2016-11-20] MEDS: NICOTINE 21MG/24HR PATCH TRANSDERM SCH (16:19)
[2016-11-20 17:54] LABS: Glucose,Whole Blood 295 mg/dL (75-99)
--- NOTE | 2016-11-20 18:44 | PN ---
DATE OF SERVICE : 11/20/2016 CHIEF COMPLAINT: The patient had an episode of agitation and threatening when he was [place] the [place]. He then came to the emergency room reporting he was depressed and that he had thoughts of killing himself because he was missing his father and wanted to . He was petitioned for involuntary hospitalization. INTERVAL HISTORY: Patient has been doing fair. He continues on ups and downs in mood and function. He can get loud and intense. Sometimes he can be demanding, though it is difficult to be clear what he might actually be wanting, then very quickly with staff support he can get into a calm mood with reasonable manner. He attends some groups and not others. He may tend to be loud and at times can monopolize the discussion. It may take some support from staff to help him be a little bit more connected to the discussion at hand. He seems to be showing gradual improvement in his mood. He does wander about the unit. Sometimes he gets a little loud though, that can be as much in a good mood as anything else. We discussed discharge planning. The patient is willing to focus on discharge by the middle of the week. It is noteworthy that he said that at home, he was only taking oral medicines. In regards to his diabetes though he has been running high blood sugars here. It is uncertain whether he has been able to manage his diabetes at home on his own with the resources that he has. Given that he has struggled just to take oral medications it would be uncertain whether he would be able to find a regimen for managing insulin that he could handle. He does say he has a glucometer at home, though he seemed to suggest that it may have been an older one that his father has had. We will need to address issues regarding the management of his diabetes. He tolerates his psychotropic medications. He has not had problems with the titration of Clozaril. MENTAL STATUS: Patient was in the day area. He gave fair eye contact. He was a little restless. His thoughts were clear. Sometimes he gets loud and intense. Other times he responds in a more contained manner. He has clear thoughts. Sometimes he does ramble a little. His affect was intense. His mood upbeat at times. He did not appear to be distressed. ASSESSMENT: I will continue the current diagnosis and general treatment plan. Today his clozapine is up to 50 mg twice a day. I will increase his dose tomorrow to 50 mg in the morning, 100 mg in the evening. We may be able to give him up to at least 300 mg prior to discharge. We will need to coordinate with community mental health in regards to a number of issues including a supportive living situation and medication management. The patient has had some problems with ambulation and was requesting a cane. It is noted that he has had problems in the past when he had a cane because it apparently had become a weapon for him. I will get a physical therapy consult, though would be quite reluctant to look at something such as a cane for ambulation. He might benefit by a referral for some ongoing physical therapy. LUCY
[2016-11-20 19:52] LABS: Glucose,Whole Blood 277 mg/dL (75-99)
[2016-11-20] MEDS: INSULIN GLARGINE 100 UNIT/ML 10 ML VIAL SQ SCH (20:02)
[2016-11-20] MEDS: PRAZOSIN 1 MG CAP PO SCH (20:08)
[2016-11-20] MEDS: ATORVASTATIN 10 MG TAB PO SCH (20:09)
[2016-11-21] MEDS: ACETAMINOPHEN TAB 325 MG TAB PO PRN ×3 (00:29→18:09)
[2016-11-21] MEDS: HALOPERIDOL LACTATE 5 MG/ML 1 ML VIAL IM PRN (02:23)
[2016-11-21] MEDS: LEVOTHYROXINE 50 MCG TAB PO SCH (04:49)
[2016-11-21 05:24] LABS: Glucose,Whole Blood 301 mg/dL (75-99)
[2016-11-21] MEDS: INSULIN LISPRO (humaLOG) 300 UNIT/3 ML VIAL SQ SCH ×4 (07:40→20:36)
[2016-11-21] MEDS ORDERED: cloZAPine 25 MG TAB PO SCH (09:00)
[2016-11-21] MEDS: metFORMIN 500 MG TAB PO SCH ×2 (09:47→20:18)
[2016-11-21] MEDS: DESMOPRESSIN 0.2 MG TAB PO SCH (09:47)
[2016-11-21] MEDS: MAGNESIUM OXIDE 400 MG TAB PO SCH ×3 (09:47→20:18)
[2016-11-21] MEDS: ACARBOSE 25 MG TAB PO SCH ×3 (09:47→20:18)
[2016-11-21] MEDS: NICOTINE 21MG/24HR PATCH TRANSDERM SCH (09:48)
[2016-11-21] MEDS ORDERED: INSULIN GLARGINE 100 UNIT/ML 10 ML VIAL SQ ONE (09:54)
[2016-11-21] MEDS: FAMOTIDINE 20 MG TAB PO SCH ×2 (10:00→20:19)
[2016-11-21] MEDS: LISINOPRIL 10 MG TAB PO SCH (10:00)
[2016-11-21] MEDS: LINAGLIPTIN 5 MG TABLET PO SCH (10:00)
[2016-11-21 12:43] LABS: Glucose,Whole Blood 230 mg/dL (75-99)
[2016-11-21 17:40] LABS: Glucose,Whole Blood 185 mg/dL (75-99)
[2016-11-21] MEDS: PRAZOSIN 1 MG CAP PO SCH (20:18)
[2016-11-21] MEDS: cloZAPine 100 MG TAB PO SCH (20:19)
[2016-11-21] MEDS: ATORVASTATIN 10 MG TAB PO SCH (20:19)
[2016-11-21] MEDS: INSULIN GLARGINE 100 UNIT/ML 10 ML VIAL SQ SCH (20:19)
[2016-11-21 20:30] LABS: Glucose,Whole Blood 263 mg/dL (75-99)
[2016-11-21] MEDS ORDERED: cloZAPine 100 MG TAB PO SCH (21:00)
[2016-11-22] MEDS: LEVOTHYROXINE 50 MCG TAB PO SCH (07:14)
[2016-11-22 07:29] LABS: Glucose,Whole Blood 311 mg/dL (75-99)
[2016-11-22] MEDS: INSULIN LISPRO (humaLOG) 300 UNIT/3 ML VIAL SQ SCH ×5 (08:03→20:55)
[2016-11-22] MEDS: LISINOPRIL 10 MG TAB PO SCH (09:02)
[2016-11-22] MEDS: DESMOPRESSIN 0.2 MG TAB PO SCH (09:02)
[2016-11-22] MEDS: NICOTINE 21MG/24HR PATCH TRANSDERM SCH (09:02)
[2016-11-22] MEDS: cloZAPine 100 MG TAB PO SCH ×2 (09:02→20:46)
[2016-11-22] MEDS: ACARBOSE 25 MG TAB PO SCH ×3 (09:02→20:50)
[2016-11-22] MEDS: LINAGLIPTIN 5 MG TABLET PO SCH (09:03)
[2016-11-22] MEDS: metFORMIN 500 MG TAB PO SCH ×2 (09:03→20:46)
[2016-11-22] MEDS: MAGNESIUM OXIDE 400 MG TAB PO SCH ×3 (09:03→20:51)
--- NOTE | 2016-11-22 10:12 | PN ---
DATE OF SERVICE: 11/21/2016 CHIEF COMPLAINT: The patient had an episode of agitation and threatening [place]. He then came to the emergency room reporting he was depressed and that he had thoughts of killing himself because he was missing his father and wanted to . He was petitioned for involuntary hospitalization. INTERVAL HISTORY: Patient has been doing fair. He had a quiet evening last night. He said that he found out his uncle had . He was quite distressed about that. He has not been attending activities or groups. He will attend a group on occasion. When he does some of the time he can get quite loud and intense. He may talk excessively and does not really present in a way where he interacts with others. At times he can get intense and will be insistent on one thing or another. His mood fluctuates very quickly. He can be upset one moment, where he is almost yelling very loudly and the next moment he might be smiling and joking. He slept fairly well last night. Today, he has been more withdrawn. He spent much of the day in his room lying down. He does not really identify what issues or concerns he has. He has not done much interacting with staff or others today. He has not had change in his general health. He tolerates his psychotropic medications. He has not shown any difficulty with the titration up on his clozapine. MENTAL STATUS: I saw the patient at 2 different times, one late in the morning and the other mid-afternoon. Both times, he was in bed. He gave fair eye contact. He said a few things. He did not say much. His thoughts were clear. His affect was blunted. His mood quiet. It was difficult to say if he was distressed. ASSESSMENT: I will continue the current diagnosis and treatment plan. Will continue to titrate up on his clozapine starting tomorrow. He will be on 100 mg twice a day. I would look to get the patient up to 300 mg a day and possibly higher than that. He is not on any other psychotropic medication. We may need to be prepared to give the patient's some p.r.n. medications, given that he does have an inclination towards getting quite intense over things that are very difficult for others to discern. I will add Haldol 5 mg IM twice a day. In this regard, will continue to focus on stabilization. Will coordinate with [facility] for discharge planning.
[2016-11-22] MEDS: FAMOTIDINE 20 MG TAB PO SCH ×2 (10:15→20:46)
[2016-11-22 12:08] LABS: Glucose,Whole Blood 257 mg/dL (75-99)
[2016-11-22 17:33] LABS: Glucose,Whole Blood 257 mg/dL (75-99)
--- NOTE | 2016-11-22 20:39 | PN ---
DATE OF SERVICE : 11/22/2016 CHIEF COMPLAINT: The patient had an episode of agitation and threatening [place]. He then came to the emergency room reporting he was depressed and that he had thoughts of killing himself because he was missing his father and wanted to . He was petitioned for involuntary hospitalization. INTERVAL HISTORY: Patient has been doing fair. He had a quiet evening last night. He did not attend groups. He does wander about the unit. At times he can get loud and mostly his mood has been fairly even. He will get loud and intense more as a person in his personality style of interacting with others than out of that any signs of distress. He slept fairly well last night. Today he has been up and about. We had a discussion about his attending groups and working to compose himself to interact appropriately in group. He was able to do that this morning. Staff thought he had a good interaction in groups. He had one period where he was crying talking about family losses, though he seemed to get back to good mood fairly quickly. He had been choosing to eat in a separate room from others in the dining room. I encouraged him to use the dining room and to develop more comfort in social settings. I discussed with the patient that it would be likely that he would go into foster care temporarily with the main focus to get better control of his diabetes. For the most part the patient was accepting of this idea. Had a discussion with his psychiatrist Dr. Conti who agreed with the treatment plan. It is noted that his blood sugars have been running over 200, at noon today it was 257, yesterday at 4:00 p.m. it was 311. It is not likely that the patient would be able to manage insulin any time soon and would need quite a bit of support. We have made contact with the hospitalist for further attention to his elevated blood sugars. He has not had problems with the titration up on his clozapine. He has been cooperative. He tolerates his clozapine fairly well. MENTAL STATUS: Patient was in the day area. He generally was appropriate in his interactions. He responded to questions with direct responses. He seemed calmer than he has been on the previous day. His affect was in a reasonable range. He joked a little. There were times where people could passed him by without him getting into any kind of reaction response where as previously he tended to get stimulated by anyone going by him. His affect was in a reasonable range. His mood was even. He did not appear to be distressed. There were no psychotic symptoms. ASSESSMENT: I will continue the current diagnosis and treatment plan. He will be on 200 mg at clozapine today. Tomorrow will go up to 300 mg. It is noted that we are coordinating with [facility] for a placement in a jail at least temporarily to help address issues of his diabetes. I will order a basic metabolic profile and hemoglobin A1c for the morning. It is noted that he just had an eye exam with Dr. Booth in October. I discussed with the patient the risks regarding his diabetes, particularly in terms of eye sight and major organs. The patient has some understanding of the effects of diabetes. On 11/17 his creatinine was 0.8. His magnesium was low 1.1. He is on supplementation, hemoglobin A1c was 10.3. We will continue to focus on stabilization, particularly for his diabetes as well as mental health issues. I would look to discharge the patient later in the week. LUCY
[2016-11-22] MEDS: ATORVASTATIN 10 MG TAB PO SCH (20:45)
[2016-11-22 20:46] LABS: Glucose,Whole Blood 199 mg/dL (75-99)
[2016-11-22] MEDS: PRAZOSIN 1 MG CAP PO SCH (20:52)
[2016-11-22] MEDS: INSULIN GLARGINE 100 UNIT/ML 10 ML VIAL SQ SCH (20:54)
[2016-11-22] MEDS ORDERED: INSULIN GLARGINE 100 UNIT/ML 10 ML VIAL SQ SCH (21:00)
[2016-11-23] MEDS: LEVOTHYROXINE 50 MCG TAB PO SCH (06:51)
[2016-11-23 06:59] LABS: Glucose,Whole Blood 214 mg/dL (75-99)
[2016-11-23] MEDS: INSULIN LISPRO (humaLOG) 300 UNIT/3 ML VIAL SQ SCH ×7 (07:34→21:17)
[2016-11-23] MEDS: DESMOPRESSIN 0.2 MG TAB PO SCH (08:06)
[2016-11-23] MEDS: ACARBOSE 25 MG TAB PO SCH ×3 (08:06→21:19)
[2016-11-23] MEDS: NICOTINE 21MG/24HR PATCH TRANSDERM SCH (08:06)
[2016-11-23] MEDS: cloZAPine 100 MG TAB PO SCH (08:07)
[2016-11-23] MEDS: metFORMIN 500 MG TAB PO SCH ×2 (08:07→21:17)
[2016-11-23] MEDS: LINAGLIPTIN 5 MG TABLET PO SCH (08:07)
[2016-11-23] MEDS: FAMOTIDINE 20 MG TAB PO SCH ×2 (08:08→21:16)
[2016-11-23] MEDS: LISINOPRIL 10 MG TAB PO SCH (08:41)
[2016-11-23] MEDS: MAGNESIUM OXIDE 400 MG TAB PO SCH ×3 (08:41→21:20)
[2016-11-23 12:07] LABS: Anion Gap 12 mmol/L; Blood Urea Nitrogen 12 mg/dL (9-20); Calcium 9.6 mg/dL (8.4-10.2); Carbon Dioxide 26 mmol/L (22-30); Chloride 102 mmol/L (98-107); Glucose 269 mg/dL (74-99); Non-African American GFR(MDRD) >60 (>60 ml/min/1.73 sqM); Potassium 4.8 mmol/L (3.5-5.1); Sodium 140 mmol/L (137-145)
[2016-11-23 12:12] LABS: Hemoglobin A1C 10.1 % (4.2-6.1)
[2016-11-23 12:44] LABS: Glucose,Whole Blood 248 mg/dL (75-99)
[2016-11-23] MEDS: ACETAMINOPHEN TAB 325 MG TAB PO PRN (16:11)
[2016-11-23 17:20] LABS: Glucose,Whole Blood 208 mg/dL (75-99)
--- NOTE | 2016-11-23 18:17 | PN ---
DATE OF SERVICE: 11/23/2016 INTERVAL HISTORY: Patient has been doing fair. He had a quiet evening last night He slept fairly well. Apparently at one point he woke up and was angry because his heater was noisy. He was able to settle down after that and slept the rest of the night. Today he has been up and about. He has been a little more appropriate overall in his behavior. He has attended some groups. He does do better when he is given some cleared by guidelines in regards to the expectations for his behavior and general function. It is noteworthy that this morning he had demonstrated to me that he was able to appropriately administer his insulin. He prepared the skin and injected the insulin appropriately in his abdomen without difficulty. He has been getting along fairly well. He does have some ups and downs in his mood, though he seems to be managing adequately. He has not had significant change in his general health. It is noteworthy that his blood sugars are improving. He has had 5 blood sugars in the last 24 hours that generally are in the low to mid 200 range. Last evening his blood sugar was 199. He had a hemoglobin A1c of 10.1 this morning with a glucose of 269. He had some ups and downs and thoughts about moving into a foster home was supposed to return to independent living. He seems to tolerate his psychotropic medications. MENTAL STATUS: Patient was in the day area. He gave good eye contact. He was not restless. Psychomotor activity was normal. Thoughts were clear. He responded appropriately. His affect was a little blunted. His mood was quiet. He did not appear to be distressed. ASSESSMENT: I will continue the current diagnosis and treatment plan. We will continue psychotropic medications the same with the continued titration up on his clozapine. Tomorrow we will start 100 mg in the morning and 300 mg in the evening, on Tuesday I will get a clozapine level, I would aim to discharge by the end of the week or early in the following week.
[2016-11-23 20:17] LABS: Glucose,Whole Blood 116 mg/dL (75-99)
[2016-11-23] MEDS ORDERED: cloZAPine 100 MG TAB PO SCH (21:00)
[2016-11-23] MEDS: ATORVASTATIN 10 MG TAB PO SCH (21:15)
[2016-11-23] MEDS: INSULIN GLARGINE 100 UNIT/ML 10 ML VIAL SQ SCH (21:26)
[2016-11-23] MEDS: PRAZOSIN 1 MG CAP PO SCH (23:05)
[2016-11-24 07:30] LABS: Glucose,Whole Blood 176 mg/dL (75-99)
[2016-11-24] MEDS: INSULIN LISPRO (humaLOG) 300 UNIT/3 ML VIAL SQ SCH ×7 (07:53→21:38)
[2016-11-24] MEDS: LEVOTHYROXINE 50 MCG TAB PO SCH (07:56)
[2016-11-24] MEDS: NICOTINE 21MG/24HR PATCH TRANSDERM SCH (09:40)
[2016-11-24] MEDS: metFORMIN 500 MG TAB PO SCH ×2 (09:40→21:41)
[2016-11-24] MEDS: cloZAPine 100 MG TAB PO SCH ×2 (09:41→21:35)
[2016-11-24] MEDS: MAGNESIUM OXIDE 400 MG TAB PO SCH ×3 (09:41→21:37)
[2016-11-24] MEDS: LISINOPRIL 10 MG TAB PO SCH (09:41)
[2016-11-24] MEDS: DESMOPRESSIN 0.2 MG TAB PO SCH (09:41)
[2016-11-24] MEDS: LINAGLIPTIN 5 MG TABLET PO SCH (09:41)
[2016-11-24] MEDS: ACARBOSE 25 MG TAB PO SCH ×3 (09:41→21:37)
[2016-11-24] MEDS: FAMOTIDINE 20 MG TAB PO SCH ×2 (09:43→21:37)
[2016-11-24 13:14] LABS: Glucose,Whole Blood 206 mg/dL (75-99)
--- NOTE | 2016-11-24 13:32 | PN ---
DATE OF SERVICE: 11/24/2016 CHIEF COMPLAINT: The patient had an episode of agitation and threatening [place]. He then came to the emergency room reporting he was depressed and that he had thoughts of killing himself because he was missing his father and wanted to . He was petitioned for involuntary hospitalization. INTERVAL HISTORY: Patient has been doing better. He continues with some ups and downs where he will have times that he gets loud and intense sometimes he can seem irritable and negative. Generally with the staff support he can get out of that mood fairly quickly. He continues to have negative thoughts about going into a assisted, though he overall has been excepting accepting that. He has been attending groups and has been more appropriate in groups. He responds to staff support and some guidance in regards to proper behavior. He has been improving in terms of blood sugars. His numbers are trending below 200. He tolerates his psychotropic medications. MENTAL STATUS: Patient gave good eye contact. He was a little restless. He answered questions appropriately, sometimes he rambles though he can be brought back on track. His affect was in a reasonable range. His mood was even. He was not distressed. ASSESSMENT: I will continue the current diagnosis and treatment plan. Will continue to focus on discharge planning. His clozapine and is up to 100 mg in the morning and 300 mg at bedtime. I will keep him at that dose. We will get a blood level of clozapine on Tuesday. We will plan for discharge when a assisted bed is available, that will be as per [facility] direction.
[2016-11-24 17:16] LABS: Glucose,Whole Blood 201 mg/dL (75-99)
[2016-11-24] MEDS: ATORVASTATIN 10 MG TAB PO SCH (21:35)
[2016-11-24] MEDS: PRAZOSIN 1 MG CAP PO SCH (21:36)
[2016-11-24] MEDS: INSULIN GLARGINE 100 UNIT/ML 10 ML VIAL SQ SCH (21:38)
[2016-11-24 21:41] LABS: Glucose,Whole Blood 153 mg/dL (75-99)
[2016-11-25] MEDS: LEVOTHYROXINE 50 MCG TAB PO SCH (06:53)
[2016-11-25 07:03] LABS: Glucose,Whole Blood 171 mg/dL (75-99)
[2016-11-25] MEDS: INSULIN LISPRO (humaLOG) 300 UNIT/3 ML VIAL SQ SCH ×7 (08:08→20:05)
[2016-11-25] MEDS: ACARBOSE 25 MG TAB PO SCH ×3 (08:11→20:10)
[2016-11-25] MEDS: cloZAPine 100 MG TAB PO SCH ×2 (08:12→20:09)
[2016-11-25] MEDS: LISINOPRIL 10 MG TAB PO SCH (08:12)
[2016-11-25] MEDS: DESMOPRESSIN 0.2 MG TAB PO SCH (08:12)
[2016-11-25] MEDS: LINAGLIPTIN 5 MG TABLET PO SCH (08:12)
[2016-11-25] MEDS: MAGNESIUM OXIDE 400 MG TAB PO SCH ×3 (08:12→20:09)
[2016-11-25] MEDS: metFORMIN 500 MG TAB PO SCH ×2 (08:12→20:10)
[2016-11-25] MEDS: FAMOTIDINE 20 MG TAB PO SCH ×2 (08:12→20:09)
[2016-11-25] MEDS: NICOTINE 21MG/24HR PATCH TRANSDERM SCH (09:10)
[2016-11-25 12:42] LABS: Glucose,Whole Blood 207 mg/dL (75-99)
[2016-11-25] MEDS: ACETAMINOPHEN TAB 325 MG TAB PO PRN (17:49)
[2016-11-25 18:05] LABS: Glucose,Whole Blood 167 mg/dL (75-99)
--- NOTE | 2016-11-25 19:07 | PN ---
DATE OF SERVICE: 11/25/2016 CHIEF COMPLAINT: Patient had an episode of agitation and threatening [place] He then came to the emergency room reporting he was depressed and that he had thoughts of killing himself because he was missing his father and wanted to . He was petition for involuntary hospitalization. INTERVAL HISTORY: Patient has been doing fairly well. He has been making progress. He continues with some ups and downs in his behavior. He can get intense and at times somewhat distressed. He gets frustrated easily and then will show a lot of physical reaction like waving his arms, getting loud or at times jumping up and down for the most part. For the most part, he quiets down fairly easily. He does respond to staff support. He has been making more effort in most of his activities. He comes to most of the groups and is appropriate in the groups. He continues to work on managing his insulin injections. He has a better outlook. He has been cooperative. He has not had change in his general health other than his blood sugars have been improving. He does tend to run a high blood sugar at noon though other than his numbers come down, he tolerates his psychotropic medications. MENTAL STATUS: Patient had good eye contact. He was a little restless. He answered questions with direct responses. His thoughts were clear. His affect was at times a little intense. His mood was even. He did not appear to be distressed. ASSESSMENT: I will continue the current diagnosis and treatment plan. We will continue psychotropic medications the same. At this point we have coordinated with [facility] with a plan that when an appropriate bed opens up in a foster home, that she would be discharged. There may be an opening available as early as tomorrow at which time it would be appropriate for him to be discharged.
[2016-11-25] MEDS: INSULIN GLARGINE 100 UNIT/ML 10 ML VIAL SQ SCH (20:04)
[2016-11-25 20:07] LABS: Glucose,Whole Blood 204 mg/dL (75-99)
[2016-11-25] MEDS: PRAZOSIN 1 MG CAP PO SCH (20:09)
[2016-11-25] MEDS: ATORVASTATIN 10 MG TAB PO SCH (20:09)
[2016-11-26 05:19] LABS: Glucose,Whole Blood 241 mg/dL (75-99)
[2016-11-26] MEDS: LEVOTHYROXINE 50 MCG TAB PO SCH (05:41)
[2016-11-26 07:10] VITALS: BP 143/73; PULSE 103; RESP 16; TEMP 97.3
[2016-11-26] MEDS: INSULIN LISPRO (humaLOG) 300 UNIT/3 ML VIAL SQ SCH ×6 (08:01→18:19)
[2016-11-26] MEDS: DESMOPRESSIN 0.2 MG TAB PO SCH (08:32)
[2016-11-26] MEDS: ACARBOSE 25 MG TAB PO SCH ×2 (08:32→16:19)
[2016-11-26] MEDS: cloZAPine 100 MG TAB PO SCH (08:32)
[2016-11-26] MEDS: FAMOTIDINE 20 MG TAB PO SCH (08:33)
[2016-11-26] MEDS: MAGNESIUM OXIDE 400 MG TAB PO SCH ×2 (08:34→16:19)
[2016-11-26] MEDS: NICOTINE 21MG/24HR PATCH TRANSDERM SCH (08:34)
[2016-11-26] MEDS: LINAGLIPTIN 5 MG TABLET PO SCH (08:34)
[2016-11-26] MEDS: metFORMIN 500 MG TAB PO SCH (08:34)
[2016-11-26] MEDS: LISINOPRIL 10 MG TAB PO SCH (08:34)
[2016-11-26 12:28] LABS: Glucose,Whole Blood 216 mg/dL (75-99)
[2016-11-26 13:49] LABS: Basophils % (A) 1 %; CH 30.8; CHCM 33.2; Eosinophils % (A) 1 %; HCT 45.4 % (39.0-53.0); HDW 2.72; HGB 14.9 gm/dL (13.0-17.5); Luc # (Auto) 0.19; Luc % (Auto) 3; Lymphocytes # (A) 2.3 k/uL (1.0-4.8); Lymphocytes % (A) 38 %; MCH 30.5 pg (25.0-35.0); MCHC 32.8 g/dL (31.0-37.0); Mean Platelet Volume 7.1; Monocytes # (A) 0.4 k/uL (0-1.0); Monocytes % (A) 6 %; Neutrophils # (A) 3.2 k/uL (1.3-7.7); Neutrophils % (A) 52 %; RBC 4.88 m/uL (4.30-5.90); RDW 13.4 % (11.5-15.5); WBC 6.1 k/uL (3.8-10.6); WBC (Perox) 6.49
[2016-11-26] MEDS: ACETAMINOPHEN TAB 325 MG TAB PO PRN (16:20)
[2016-11-26 17:37] LABS: Glucose,Whole Blood 146 mg/dL (75-99)
--- NOTE | 2016-11-27 09:34 | DS ---
DATE OF ADMISSION: 11/17/2016 DATE OF DISCHARGE: 11/26/2016 DIAGNOSES: 1. Bipolar one disorder. 2. Intellectual disability, mild. 3. Type 2 diabetes. 4. History of Willis's palsy. 5. Essential hypertension. HISTORY OF PRESENTING ILLNESS: Patient had an episode of agitation and [place] He then came to the emergency room reporting he was depressed and had thoughts of killing himself. He had grief over his father dying, apparently this happened many years ago. He has long-term psychiatric issues. He is followed by Dr. Patel at [facility]. His last contact was November 09. Dr. Conti documented that the patient was complaining of nightmares seeing people from [facility] in his room. He described anger issues. He acknowledged frustration when he misses the bus and then feels that he wants to throw things at the bus, though he assured Dr. Patel he has not been doing that. He expressed wishes that he could act out his rage, though again he had not had plans to do that. At November 09 appointment, Dr. Patel increased Clozaril to 450 mg at bedtime and 100 mg in the morning. He was also on Depakote 1250 mg in the morning and 1000 mg in the evening, Effexor 150 mg in the morning, 75 mg in the evening. Dr. Patel indicated he would order a Depakote and Clozaril level at the next appointment. It was noted that September 07 the patient's Clozaril level was 172/88, which likely was low compared to his 500 mg a day dose. During this admission, the patient was seen in the emergency room and then admitted to the medical floor for blood glucose of 500. He was in an agitated state and received p.r.n. medications including Haldol and Ativan IM. He required restraints at one point. We made contacts with [facility] including to his casework manager Jennifer. She had indicated that the patient has had behavior such as described on very common basis that he can go from being agitated to completely normal very quickly. In fact she saw him in the emergency room and he was laughing and joking. She was not aware of any ongoing stress issues that might be affecting his behavior currently. It was noted that on this admission his Depakote level was less than 10. A clozapine level drawn on November 17 was less than 25 for both clozapine and norclozapine. Urine drug screen was unremarkable. The patient was admitted for further evaluation. Medical history and physical exam as per Dr. Law. MENTAL STATUS EXAM: When the patient was initially seen he was in restraints. He had received some p.r.n. medications. He was moderately restless and would fight against his restraints. He would do this for 20 or 30 seconds at a time and then relax for a while. He made various comments that did not make much sense including saying that he saw someone named "Wagner Murrieta" at the foot of his bed that he knew no one else could see. He seemed to be oriented to immediate circumstances. He was angry at times. He could calm down. He was able to cooperate to answer a few questions about recent history. He seemed to be able to give an adequate information in regards to some things of his daily life. He acknowledges that he probably had not been taking medications for the last 2 weeks. He was intense in his affect. His mood dysphoric. He was significantly distressed. There was no clear evidence of a thought disorder despite his talking about seeing someone at the foot of his bed. He was not able to respond adequately to formal cognitive questions. He appeared to be reasonably in touch with his environment. DIAGNOSTIC STUDIES: CBC was unremarkable. Hemoglobin 15.6, MCV 91, Depakote level 0 clozapine level, comprehensive metabolic profile included an elevated glucose 269, creatinine 0.7, hemoglobin A1c 10.1. TSH 1.95, urinalysis 4+ for glucose. COURSE OF HOSPITALIZATION: The patient was admitted for comprehensive medical, psychiatric and psychosocial evaluation. We made efforts to engage the patient in individual and group therapeutic activities. Early at the start of his hospitalization, he was restarted on clozapine. He was titrated with a fairly assertive schedule and by November 24 his dose was 100 mg in the morning and 300 mg in the evening, in the early course of his hospital stay he had a lot of ups and downs in his mood. He could get easily irritated and would start getting into quite a bit of distress. He would flail his arms. He would get loud. He would make various complaints. It was noteworthy that it did not take much in terms of staff support and redirection to calm him down, then a few minutes later he could be smiling and joking. He was resistant to any group activities. He insisted on having his meals in one of the rooms outside of the dining room. He was not attending groups. It was noteworthy that he started showing a reasonable response to staff support and general guidance. We would give him directions that he needed to eat at the dining room. We also gave him some guidance as to how he should maintain his behavior. When he does that, he was able to reach a point where he could regularly eat in the dining room and seemed to be fairly comfortable with that and also maintain appropriate behavior. The same was true for groups. We would give him guidance as to the importance of attending groups, sitting quietly, not being disruptive, though talking about things that would be important for him. Early on when he started attending groups, he at times would take over the conversation and ramble about things not felt connected to the issues at hand. As his hospital stay went on he became more appropriate in groups and actually was able to contribute in quite a positive way. He slept well at night. His mood gradually improved to where he was not having much for any kind of upsets, irritability or disruptive behavior. Initially he was quite resistant to the idea of going into a mcc, though we worked on helping him make an adjustment to the idea that he would be discharged to a mcc. The main reason for mcc placement was his difficulties with his diabetes. Early on in his hospital stay his blood sugars were running consistently over 300. His levels gradually came down and over the last 3 days of his hospitalization, his blood sugars were in the 200 or lower range. Typically he would have a high glucose around noon time and later in the afternoon. It was noteworthy that we spent time doing diabetic education with the patient. He seemed to respond fairly well to that. He voiced good understanding about dietary issues. He was able to administer his own insulin. He said he did have a glucometer at home, though it was questionable whether it was functioning adequately. We discussed with the patient that it is critical for him to go to a mcc and get close support for managing his diabetes before he would return to any more independent living situation. We also encouraged him towards thinking about socialization activities which he had responded to in a fairly positive way. He was able to engage in productive conversations regarding discharge planning. He felt positive about the plan to move into a mcc, which was set up for the time of discharge. CONDITION AT DISCHARGE: The patient was stable. His mood was significantly improved. He was cooperative. He was making efforts to learn more on diabetic management. He was not having significant mood changes or difficulties in his behavior. He tolerated his Clozaril well. RECOMMENDATIONS AND FOLLOW-UP: The patient is discharged to a mcc that is being set up for this afternoon. DISCHARGE MEDICATIONS include: 1. Clozapine 100 mg in the morning, 300 mg in the evening. Clozapine level was drawn on the day of discharge. 2. His other psychotropic medications were discontinued and will not be continued. 3. He is also on Precose 50 mg 3 times a day. 4. Lipitor 10 mg daily. 5. DDAVP 0.1 mg daily. 6. Pepcid 20 mg twice a day, 7. Flonase. 8. Humalog. 9. Lantus insulin as per diabetic protocol. 10. Synthroid 50 mcg daily. 11. Tradjenta 5 mg daily. 12. Zestril 10 mg daily. 13. Minipres 3 mg at bedtime. 14. Metformin 1000 mg twice a day. 15. Januvia 100 mg daily. He will have a follow-up appointment set up with Dr. Patel and with his primary care physician.
[2016-11-29 12:57] LABS: Norclozapine 308 ng/mL (200-700)
== END 2016-11-26 19:25 | disposition home or self-care (01) | DRG 885 ==
LOC: 3MHU 17:27
PROVIDERS: ADMIT Psychiatry & Neurology Psychiatry; ATTEND Psychiatry & Neurology Psychiatry
DX: F31.9 Bipolar disorder, unspecified (principal); E11.65 Type 2 diabetes mellitus with hyperglycemia; R45.851 Suicidal ideations; I10 Essential (primary) hypertension; E03.9 Hypothyroidism, unspecified; E83.42 Hypomagnesemia; F70 Mild intellectual disabilities; G51.0 Bell's palsy; K21.9 Gastro-esophageal reflux disease without esophagitis; Z78.1 Physical restraint status; Z87.891 Personal history of nicotine dependence; Z91.14 Patient's other noncompliance with medication regimen; Z79.84 Long term (current) use of oral hypoglycemic drugs; Z79.899 Other long term (current) drug therapy
CPT/HCPCS: 80048; 80159; 83036; 83735; 84443; 85025

== ENCOUNTER 2017-11-26 16:33 | Emergency (ER) | payer OTHER ==
[2017-11-26] MEDS ORDERED: HALOPERIDOL LACTATE 5 MG/ML 1 ML VIAL IM PRN (16:50)
[2017-11-26] MEDS ORDERED: LORazepam 2 MG/ML INJ IM STA (16:50)
--- NOTE | 2017-11-26 16:53 | ED ---
General Adult HPI - General Chief complaint: Psychiatric Symptoms Stated complaint: Mental health Time Seen by Provider: 11/26/17 16:36 Source: patient, police, EMS, RN notes reviewed Mode of arrival: EMS - History of Present Illness Initial comments: Patient is an agitated 37-year-old male presenting to the emergency department with police escort. Patient is angry and agitated. Patient is attempting to bite police officers on arrival. Patient also tries to bite myself during examination. Patient states his feelings have been hurt. Patient has no complaints otherwise. - Related Data Home Medications Medication Instructions Recorded Confirmed Acarbose [Precose] 50 mg PO AC-TID 09/30/17 11/26/17 Ibuprofen [Motrin] 600 mg PO BID PRN 09/30/17 11/26/17 Insulin Glargine [Lantus] 31 unit SQ HS 09/30/17 11/26/17 Levothyroxine Sodium [Synthroid] 50 mcg PO DAILY 09/30/17 11/26/17 Magnesium Oxide [Mag-Ox] 250 mg PO DAILY 09/30/17 11/26/17 Prazosin [Minipress] 5 mg PO HS 09/30/17 11/26/17 Simvastatin [Zocor] 20 mg PO HS 09/30/17 11/26/17 Albuterol Inhaler [Ventolin Hfa 2 puff INHALATION RT-Q6H PRN 11/26/17 11/26/17 Inhaler] Benztropine Mesylate [Cogentin] 2 mg PO BID 11/26/17 11/26/17 Desmopressin Acetate [DDAVP] 0.1 mg PO DAILY 11/26/17 11/26/17 Gabapentin [Neurontin] 300 mg PO BID 11/26/17 11/26/17 cloZAPine [Clozaril] 400 mg PO HS 11/26/17 11/26/17 fluPHENAZine DECANOATE [Prolixin 50 mg IM Q7D 11/26/17 11/26/17 Decanoate] Previous Rx's Medication Instructions Recorded Famotidine [Pepcid] 20 mg PO BID 30 Days tab 11/26/16 INSULIN LISPRO (humaLOG) [humaLOG] 5 unit SQ AC-TID 30 Days vial 11/26/16 Lisinopril [Zestril] 10 mg PO DAILY 30 Days tab 11/26/16 cloZAPine [Clozaril] 100 mg PO DAILY 30 Days tab 11/26/16 metFORMIN HCL [Glucophage] 1,000 mg PO BID 30 Days tab 11/26/16 sitaGLIPtin [Januvia] 100 mg PO DAILY #30 tab 11/26/16 Allergies Allergy/AdvReac Type Severity Reaction Status Date / Time No Known Allergies Allergy Verified 11/26/17 17:18 Review of Systems ROS Statement: Those systems with pertinent positive or pertinent negative responses have been documented in the HPI. ROS Other: All systems not noted in ROS Statement are negative. Constitutional: Denies: fever Eyes: Denies: eye pain ENT: Denies: ear pain Respiratory: Denies: cough Cardiovascular: Denies: chest pain Endocrine: Denies: fatigue Gastrointestinal: Denies: abdominal pain Genitourinary: Denies: dysuria Musculoskeletal: Denies: back pain Skin: Denies: rash Neurological: Denies: headache Past Medical History Past Medical History: Diabetes Mellitus, GERD/Reflux, Hypertension, Neurologic Disorder, Thyroid Disorder Additional Past Medical History / Comment(s): This is obtained by reviewing medical records History of Any Multi-Drug Resistant Organisms: None Reported Past Surgical History: Hernia Repair Additional Past Surgical History / Comment(s): tubes in both ears, cleft lip surgery Past Anesthesia/Blood Transfusion Reactions: No Reported Reaction Past Psychological History: Bipolar, Depression Smoking Status: Heavy tobacco smoker Past Alcohol Use History: Occasional Past Drug Use History: None Reported - Past Family History Father Family Medical History: Cancer Additional Family Medical History / Comment(s): Dad had lung cancer, in 2011 Mother Family Medical History: Rheumatoid Arthritis (RA) Additional Family Medical History / Comment(s): Mother has paranoia schizophrenic General Exam Limitations: no limitations General appearance: alert, in no apparent distress Head exam: Present: atraumatic Eye exam: Present: normal appearance Neck exam: Present: normal inspection. Absent: tenderness Respiratory exam: Present: normal lung sounds bilaterally Cardiovascular Exam: Present: regular rate, normal rhythm GI/Abdominal exam: Present: soft. Absent: tenderness Extremities exam: Present: normal inspection Neurological exam: Present: alert Psychiatric exam: Present: agitated Skin exam: Present: normal color Course Vital Signs 11/26/17 16:40 Temperature 98 F Pulse Rate 75 Respiratory 20 Rate Blood Pressure 148/69 O2 Sat by Pulse 96 Oximetry - Reevaluation(s) Reevaluation #1: 11/26/17 20:48 Patient was seen by mental health services with plans for discharge. Patient is reevaluated and resting comfortably in bed. Restraints have been removed. Patient no longer appears combative. Patient denies suicidal or homicidal thoughts. Procedures - Restraint - Face to Face Restraint Occurrence 1 Patient's Immediate Situation: Endangers self safety, Endangers others' safety, Endangers staff safety, Violent behavior Patient's Reaction to the Intervention: Angry Patient's Medical & Behavioral Condition: Awake, Alert Need to Continue or Terminate Restraint or Seclusion: Continue Face to Face Eval of Restraint Date: 11/26/17 Face to Face Eval of Restraint Time: 16:51 Medical Decision Making - Lab Data Result diagrams: 11/26/17 17:20 11/26/17 17:20 Lab Results 11/26/17 11/26/17 Range/Units 17:20 17:20 WBC 6.9 (3.8-10.6) k/uL RBC 5.34 (4.30-5.90) m/uL Hgb 15.8 (13.0-17.5) gm/dL Hct 47.4 (39.0-53.0) % MCV 88.7 (80.0-100.0) fL MCH 29.6 (25.0-35.0) pg MCHC 33.4 (31.0-37.0) g/dL RDW 12.8 (11.5-15.5) % Plt Count 168 (150-450) k/uL Neutrophils % 72 % Lymphocytes % 21 % Monocytes % 4 % Eosinophils % 0 % Basophils % 0 % Neutrophils # 5.0 (1.3-7.7) k/uL Lymphocytes # 1.5 (1.0-4.8) k/uL Monocytes # 0.3 (0-1.0) k/uL Eosinophils # 0.0 (0-0.7) k/uL Basophils # 0.0 (0-0.2) k/uL Sodium 140 (137-145) mmol/L Potassium 3.9 (3.5-5.1) mmol/L Chloride 105 (98-107) mmol/L Carbon Dioxide 20 L (22-30) mmol/L Anion Gap 15 mmol/L BUN 16 (9-20) mg/dL Creatinine 0.70 (0.66-1.25) mg/dL Est GFR (MDRD) Af Amer >60 (>60 ml/min/1.73 sqM) Est GFR (MDRD) Non-Af >60 (>60 ml/min/1.73 sqM) Glucose 176 H (74-99) mg/dL Calcium 10.3 H (8.4-10.2) mg/dL Serum Alcohol <10 mg/dL Disposition Clinical Impression: Aggression Disposition: HOME SELF-CARE Condition: Stable Instructions: Bipolar Disorder (ED), Depression (ED) Additional Instructions: Please follow-up with mental health services tomorrow and Tuesday as planned. Please follow-up with primary care physician in the next day or 2 for recheck, number provided. Return for worsening symptoms or other concerns. Referrals: Bonifacio Aldridge MD [REFERRING] - 1-2 days Time of Disposition: 20:50
[2017-11-26 17:34] LABS: Basophils % (A) 0 %; Eosinophils % (A) 0 %; HCT 47.4 % (39.0-53.0); HGB 15.8 gm/dL (13.0-17.5); Lymphocytes # (A) 1.5 k/uL (1.0-4.8); Lymphocytes % (A) 21 %; MCH 29.6 pg (25.0-35.0); MCHC 33.4 g/dL (31.0-37.0); MCV 88.7 fL (80.0-100.0); Mean Platelet Volume 7.3; Monocytes # (A) 0.3 k/uL (0-1.0); Monocytes % (A) 4 %; Neutrophils % (A) 72 %; Platelet Count 168 k/uL (150-450); RBC 5.34 m/uL (4.30-5.90); RDW 12.8 % (11.5-15.5); WBC 6.9 k/uL (3.8-10.6)
[2017-11-26 17:56] LABS: Alcohol <10 mg/dL; Anion Gap 15 mmol/L; Blood Urea Nitrogen 16 mg/dL (9-20); Calcium 10.3 mg/dL (8.4-10.2); Carbon Dioxide 20 mmol/L (22-30); Chloride 105 mmol/L (98-107); Glucose 176 mg/dL (74-99); Potassium 3.9 mmol/L (3.5-5.1); Sodium 140 mmol/L (137-145)
[2017-11-26 22:27] VITALS: BP 136/66; PULSE 92; RESP 14; TEMP 98.7
== END 2017-11-26 22:40 | disposition home or self-care (01) ==
LOC: EC 16:33
DX: F91.2 Conduct disorder, adolescent-onset type (principal); I10 Essential (primary) hypertension; E11.9 Type 2 diabetes mellitus without complications; E07.9 Disorder of thyroid, unspecified; F31.9 Bipolar disorder, unspecified; F17.200 Nicotine dependence, unspecified, uncomplicated; Z79.4 Long term (current) use of insulin; Z79.899 Other long term (current) drug therapy; Z81.8 Family history of other mental and behavioral disorders
CPT/HCPCS: 99285; 96372; 36415; 80048; 85025; 80320; J2060

== ENCOUNTER 2017-11-27 08:38 | Inpatient (IN) | payer MEDICAID, OTHER ==
[2017-11-27] MEDS ORDERED: LORazepam 2 MG/ML INJ IM STA (08:47)
--- NOTE | 2017-11-27 08:49 | ED ---
Psych HPI - General Source: patient, police, EMS, RN notes reviewed Mode of arrival: EMS Limitations: no limitations <Samir Koo - Last Filed: 11/27/17 10:48> <Ramón Celaya - Last Filed: 11/27/17 10:52> - General Stated Complaint: Mental Health Time Seen by Provider: 11/27/17 08:39 - History of Present Illness Initial Comments: 37-year-old male presents emergency Department via EMS with police escort for psychiatric evaluation. Patient was here yesterday for similar complaints. Patient states he is suicidal and is screaming out for his dad. Patient states that he wants to hurt himself. Patient is attempting to his arm staff. Patient reportedly had a knife at home when he called stating that usually kill himself. (Samir Koo) - Related Data Home Medications Medication Instructions Recorded Confirmed Acarbose [Precose] 50 mg PO AC-TID 09/30/17 11/27/17 Ibuprofen [Motrin] 600 mg PO BID PRN 09/30/17 11/27/17 Insulin Glargine [Lantus] 31 unit SQ HS 09/30/17 11/27/17 Levothyroxine Sodium [Synthroid] 50 mcg PO DAILY 09/30/17 11/27/17 Magnesium Oxide [Mag-Ox] 250 mg PO DAILY 09/30/17 11/27/17 Prazosin [Minipress] 5 mg PO HS 09/30/17 11/27/17 Simvastatin [Zocor] 20 mg PO HS 09/30/17 11/27/17 Albuterol Inhaler [Ventolin Hfa 2 puff INHALATION RT-Q6H PRN 11/26/17 11/27/17 Inhaler] Benztropine Mesylate [Cogentin] 2 mg PO BID 11/26/17 11/27/17 Desmopressin Acetate [DDAVP] 0.1 mg PO DAILY 11/26/17 11/27/17 Gabapentin [Neurontin] 300 mg PO BID 11/26/17 11/27/17 cloZAPine [Clozaril] 400 mg PO HS 11/26/17 11/27/17 fluPHENAZine DECANOATE [Prolixin 50 mg IM Q7D 11/26/17 11/27/17 Decanoate] Previous Rx's Medication Instructions Recorded Famotidine [Pepcid] 20 mg PO BID 30 Days tab 11/26/16 INSULIN LISPRO (humaLOG) [humaLOG] 5 unit SQ AC-TID 30 Days vial 11/26/16 Lisinopril [Zestril] 10 mg PO DAILY 30 Days tab 11/26/16 cloZAPine [Clozaril] 100 mg PO DAILY 30 Days tab 11/26/16 metFORMIN HCL [Glucophage] 1,000 mg PO BID 30 Days tab 11/26/16 sitaGLIPtin [Januvia] 100 mg PO DAILY #30 tab 11/26/16 Allergies Allergy/AdvReac Type Severity Reaction Status Date / Time No Known Allergies Allergy Verified 11/27/17 08:58 Review of Systems ROS Other: All systems not noted in ROS Statement are negative. <Samir Koo - Last Filed: 11/27/17 10:48> ROS Other: All systems not noted in ROS Statement are negative. <Ramón Celaya - Last Filed: 11/27/17 10:52> ROS Statement: Those systems with pertinent positive or pertinent negative responses have been documented in the HPI. Past Medical History Past Medical History: Diabetes Mellitus, GERD/Reflux, Hypertension, Neurologic Disorder, Thyroid Disorder Additional Past Medical History / Comment(s): This is obtained by reviewing medical records History of Any Multi-Drug Resistant Organisms: None Reported Past Surgical History: Hernia Repair Additional Past Surgical History / Comment(s): tubes in both ears, cleft lip surgery Past Anesthesia/Blood Transfusion Reactions: No Reported Reaction Past Psychological History: Bipolar, Depression Smoking Status: Heavy tobacco smoker Past Alcohol Use History: Occasional Past Drug Use History: None Reported - Past Family History Father Family Medical History: Cancer Additional Family Medical History / Comment(s): Dad had lung cancer, in 2011 Mother Family Medical History: Rheumatoid Arthritis (RA) Additional Family Medical History / Comment(s): Mother has paranoia schizophrenic <Samir Koo - Last Filed: 11/27/17 10:48> General Exam General appearance: alert, in no apparent distress, anxious Head exam: Present: atraumatic, normocephalic, normal inspection Eye exam: Present: normal appearance, PERRL, EOMI. Absent: scleral icterus, conjunctival injection, periorbital swelling ENT exam: Present: normal exam, normal oropharynx, mucous membranes moist Neck exam: Present: normal inspection, full ROM. Absent: tenderness, meningismus, lymphadenopathy Respiratory exam: Present: normal lung sounds bilaterally. Absent: respiratory distress, wheezes, rales, rhonchi, stridor Cardiovascular Exam: Present: regular rate, normal rhythm, normal heart sounds. Absent: systolic murmur, diastolic murmur, rubs, gallop, clicks GI/Abdominal exam: Present: soft, normal bowel sounds. Absent: distended, tenderness, guarding, rebound, rigid Psychiatric exam: Present: agitated Skin exam: Present: warm, dry, intact, normal color. Absent: rash <Samir Koo - Last Filed: 11/27/17 10:48> Course <Samir Koo - Last Filed: 11/27/17 10:48> <Ramón Celaya - Last Filed: 11/27/17 10:52> Vital Signs 11/27/17 08:44 Temperature 97.4 F L Pulse Rate 84 Respiratory 16 Rate Blood Pressure 155/113 O2 Sat by Pulse 95 Oximetry - Reevaluation(s) Reevaluation #1: 11/27/17 10:52 Patient was seen by mental health services, who will admit. Patient reevaluated by myself, Dr. Celaya. Patient resting comfortably in bed. Patient has continued suicidal thoughts. Positive clinical certificate completed. ( Ramón Celaya) Procedures - Restraint - Face to Face Restraint Occurrence 1 Patient's Immediate Situation: Endangers staff safety, Violent behavior Patient's Reaction to the Intervention: Uncooperative Patient's Medical & Behavioral Condition: Awake, Alert, Follows directions, Suicidal thoughts Need to Continue or Terminate Restraint or Seclusion: Continue Face to Face Eval of Restraint Date: 11/27/17 Face to Face Eval of Restraint Time: 08:48 <Samir Koo - Last Filed: 11/27/17 10:48> Disposition <Samir Koo - Last Filed: 11/27/17 10:48> <Ramón Celaya - Last Filed: 11/27/17 10:52> Clinical Impression: Depression, Suicidal ideation Disposition: ADMITTED IP TO THIS [facility] Condition: Stable Referrals: None,Stated [Primary Care Provider] - 1-2 days
[2017-11-27 11:25] LABS: Basophils % (A) 0 %; Eosinophils % (A) 1 %; HCT 48.7 % (39.0-53.0); HGB 15.9 gm/dL (13.0-17.5); Lymphocytes # (A) 1.7 k/uL (1.0-4.8); Lymphocytes % (A) 26 %; MCH 29.2 pg (25.0-35.0); MCHC 32.6 g/dL (31.0-37.0); MCV 89.6 fL (80.0-100.0); Mean Platelet Volume 7.5; Monocytes # (A) 0.3 k/uL (0-1.0); Monocytes % (A) 4 %; Neutrophils # (A) 4.4 k/uL (1.3-7.7); Neutrophils % (A) 67 %; Platelet Count 164 k/uL (150-450); RBC 5.44 m/uL (4.30-5.90); WBC 6.5 k/uL (3.8-10.6)
[2017-11-27 11:41] LABS: ALT 28 U/L (21-72); AST 26 U/L (17-59); Albumin 4.6 g/dL (3.5-5.0); Alkaline Phosphatase 49 U/L (38-126); Anion Gap 13 mmol/L; Blood Urea Nitrogen 16 mg/dL (9-20); Calcium 10.4 mg/dL (8.4-10.2); Carbon Dioxide 25 mmol/L (22-30); Chloride 102 mmol/L (98-107); Glucose 208 mg/dL (74-99); Potassium 4.3 mmol/L (3.5-5.1); Sodium 140 mmol/L (137-145); Total Bilirubin 0.7 mg/dL (0.2-1.3); Total Protein 7.2 g/dL (6.3-8.2)
[2017-11-27] MEDS ORDERED: MAGNESIUM HYDROXIDE 2,400 MG/10 ML CUP PO PRN (11:49)
[2017-11-27] MEDS ORDERED: MAG HYDROX/AL HYDROX/SIMETH 30 ML CUP PO PRN (11:49)
[2017-11-27] MEDS ORDERED: IBUPROFEN 600 MG TAB PO PRN (12:12)
[2017-11-27] MEDS ORDERED: LORazepam 2 MG/ML INJ IM PRN (12:39)
[2017-11-27] MEDS: INSULIN ASPART 100 UNIT/ML 1 ML 10 ML VIAL SQ SCH ×2 (13:18→18:01)
[2017-11-27] MEDS: NICOTINE 7MG/24HR PATCH TRANSDERM SCH (13:19)
[2017-11-27] MEDS: ACARBOSE 25 MG TAB PO SCH ×3 (13:20→18:01)
[2017-11-27 13:56] LABS: Glucose,Whole Blood 165 mg/dL (75-99)
[2017-11-27 14:01] VITALS: BMI 26.1
--- NOTE | 2017-11-27 14:27 | HP ---
HISTORY AND PHYSICAL DATE OF SERVICE: 11/27/2017. IDENTIFYING DATA: This patient is a 37-year-old single male who was admitted to the mental health unit on a petition filled out by police for acute suicidal ideation. HISTORY OF PRESENT ILLNESS: The patient presents with a petition completed by police officers stating "observed Pack holding knife stating that he wished to kill himself. Pack stated he wished to multiple times." The patient was brought to the emergency room. In the emergency room, he became acutely agitated and required use of physical restraints. He was medicated in the emergency room and transferred to the mental health unit. At this time, the patient is a tired-appearing, almost lethargic. He is able to participate in interview in a very limited capacity. Of note, he does have an established diagnosis of intellectual disability. The patient states that he is here because he misses his father. He indicates that he has seen his father at the foot of the bed. He endorses ongoing thoughts of wanting to kill himself and hurt other people. He identifies no specific person that he wants to harm. He has a history of bipolar disorder and is on several medications. He does follow with [facility] for outpatient mental health services. This is his 2nd presentation to the emergency room this weekend. Initially, he was seen the other day and found to be not an acute risk. We contacted [facility] crisis unit to come up with a safety plan to divert the admission. The patient, however, presented again to the hospital feeling unsafe. PAST PSYCHIATRIC HISTORY: He has had several hospitalizations in the past. He was last on this mental health unit under the care of Dr. Francis in September of 2017. He was also here under the care of Dr. Reyes in November of 2016. CURRENT PSYCHOTROPIC MEDICATIONS: Include Cogentin 2 mg twice daily, Clozaril 100 mg in the morning, 400 mg in the evening. He may be on an additional 50 mg of Clozaril as well. Neurontin 300 mg twice daily. Minipress 5 mg at bedtime. He may also be receiving Prolixin Decanoate weekly. The patient is unable to provide any information regarding his medications. SUICIDE ATTEMPT HISTORY: Unknown. PAST MEDICAL HISTORY: Has a history of diabetes, GERD, hypertension, hypothyroidism, and hyperlipidemia. ALLERGIES: No known drug allergies. CHEMICAL DEPENDENCY HISTORY: He reports using no alcohol or illicit drugs. FAMILY PSYCHIATRIC AND CHEMICAL DEPENDENCY HISTORY: Unknown. SOCIAL HISTORY: The patient is a single male. He has no children. He lives alone. He states he manages his medications on his own. However, he does believe that he has [facility] involvement in his outpatient care. LEGAL AND ABUSE HISTORY: Unknown. MENTAL STATUS EXAM: The patient is a male appearing older than the stated age. He has an upper lip deformity consistent with cleft palate. His speech is mumbled at this time. He is in no acute distress. He is dressed in hospital attire. Because of recent medication he has difficulty standing or with ambulation but is doing well lying in bed. He keeps his eyes close for the duration of our conversation. He indicates he has ongoing suicidal ideation. He endorses having aggressive thoughts toward others, but specifies no individual or group. He states that he can see his father sitting at the foot of his bed and indicates he can hear his voice. Due to the patient's lethargy, the interview was terminated. Strengths: Housing income, [facility] support as an outpatient. Weaknesses: Poor coping skill, development. Intellect: Below average. IMPRESSIONS: 1. Bipolar I disorder, depressed, intellectual disability. 2. Medical comorbidities include diabetes, GERD, hypertension, hypothyroidism, hyperlipidemia. PLAN: The patient has been admitted to the mental health unit. I did complete a 2nd clinical certificate. The patient will be continued on his Clozaril 100 mg in the morning, 400 mg at bedtime, Neurontin 300 mg twice daily, Cogentin 2 mg twice daily, Minipress 5 mg at bedtime. We will have to confirm with [facility] when he received his last Prolixin Decanoate injection. Vital signs reviewed. He will be seen by internal medicine for routine history and physical exam. Social Work will meet with the patient to complete a psychosocial assessment. We will monitor him for safety. MMODL / IJN: [id number] /
[2017-11-27] MEDS: ALBUTEROL INHALER 60 PUFF/8 GM INHALER INHALATION PRN (16:51)
[2017-11-27 17:28] LABS: Glucose,Whole Blood 108 mg/dL (75-99)
[2017-11-27 17:58] LABS: Hemoglobin A1C 7.6 % (4.0-6.0)
--- NOTE | 2017-11-27 18:22 | P.HPMEDMHU ---
History of Present Illness H&P Date: 11/27/17 Chief Complaint: suicidal ideations 37-year-old male that comes in with suicidal ideation. Patient with some history of mental retardation. Patient says he misses his dad Review of Systems Constitutional: Denies fatigue, Denies weakness, Denies weight loss Cardiovascular: Denies chest pain, Denies edema, Denies orthopnea Respiratory: Denies cough, Denies hemoptysis, Denies pleurisy Gastrointestinal: Denies abdominal pain, Denies hematochezia, Denies melena Genitourinary: Denies dysuria, Denies nocturia Musculoskeletal: Denies atrophy, Denies gait dysfunction, Denies leg numbness/ tingling Integumentary: Denies acne, Denies rash Neurological: Denies head injury, Denies tingling, Denies tremors Psychiatric: Reports depression, Reports sadness/tearfulness, Reports suicidal ideation, Denies anxiety Endocrine: Denies flushing Hematologic/Lymphatic: Denies lymphedema Allergic/Immunologic: Denies urticaria, Denies wheezing Past Medical History Past Medical History: Diabetes Mellitus, GERD/Reflux, Hypertension, Neurologic Disorder, Thyroid Disorder Additional Past Medical History / Comment(s): This is obtained by reviewing medical records History of Any Multi-Drug Resistant Organisms: None Reported Past Surgical History: Hernia Repair Additional Past Surgical History / Comment(s): tubes in both ears, cleft lip surgery Past Anesthesia/Blood Transfusion Reactions: No Reported Reaction Past Psychological History: Bipolar, Depression Additional Psychological History / Comment(s): mild intellectual disorder Smoking Status: Current every day smoker Past Alcohol Use History: Occasional Past Drug Use History: None Reported - Past Family History Father Family Medical History: Cancer Additional Family Medical History / Comment(s): Dad had lung cancer, in 2011 Mother Family Medical History: Rheumatoid Arthritis (RA) Additional Family Medical History / Comment(s): Mother has paranoia schizophrenic Medications and Allergies Home Medications Medication Instructions Recorded Confirmed Type Famotidine [Pepcid] 20 mg PO BID 30 Days tab 11/26/16 11/27/17 Rx INSULIN LISPRO (humaLOG) [humaLOG] 5 unit SQ AC-TID 30 Days vial 11/26/1611/27 Rx Lisinopril [Zestril] 10 mg PO DAILY 30 Days tab 11/26/16 11/27/17 Rx cloZAPine [Clozaril] 100 mg PO DAILY 30 Days tab 11/26/16 11/27/17 Rx metFORMIN HCL [Glucophage] 1,000 mg PO BID 30 Days tab 11/26/16 11/27/17 Rx sitaGLIPtin [Januvia] 100 mg PO DAILY #30 tab 11/26/16 11/27/17 Rx Acarbose [Precose] 50 mg PO AC-TID 09/30/17 11/27/17 History Ibuprofen [Motrin] 600 mg PO BID PRN 09/30/17 11/27/17 History Insulin Glargine [Lantus] 31 unit SQ HS 09/30/17 11/27/17 History Levothyroxine Sodium [Synthroid] 50 mcg PO DAILY 09/30/17 11/27/17 History Magnesium Oxide [Mag-Ox] 250 mg PO DAILY 09/30/17 11/27/17 History Prazosin [Minipress] 5 mg PO HS 09/30/17 11/27/17 History Simvastatin [Zocor] 20 mg PO HS 09/30/17 11/27/17 History Albuterol Inhaler [Ventolin Hfa 2 puff INHALATION RT-Q6H PRN 11/26/17 11/27/17 History Inhaler] Benztropine Mesylate [Cogentin] 2 mg PO BID 11/26/17 11/27/17 History Desmopressin Acetate [DDAVP] 0.1 mg PO DAILY 11/26/17 11/27/17 History Gabapentin [Neurontin] 300 mg PO BID 11/26/17 11/27/17 History cloZAPine [Clozaril] 400 mg PO HS 11/26/17 11/27/17 History fluPHENAZine DECANOATE [Prolixin 50 mg IM Q7D 11/26/17 11/27/17 History Decanoate] Allergies Allergy/AdvReac Type Severity Reaction Status Date / Time No Known Allergies Allergy Verified 11/27/17 08:58 Physical Exam Vitals: Vital Signs Temp Pulse Pulse Resp BP BP Pulse Ox 11/27/17 13:47 90 16 104/56 99 11/27/17 11:58 97.7 F 102 H 15 126/62 97 11/27/17 10:54 98.2 F 90 18 129/70 98 11/27/17 08:44 97.4 F L 84 16 155/113 95 Intake and Output 02/11/18 02/11/18 02/11/18 06:59 14:59 22:59 Other: Weight 64.8 kg Patient Weight 11/28/17 06:59 Weight 64.8 kg - Constitutional General appearance: no acute distress - EENT Scar over his lip from previous surgery of cleft palate Eyes: EOMI, PERRLA - Neck Neck: no lymphadenopathy - Respiratory Respiratory: bilateral: CTA, negative: rales, rhonchi, wheezing - Cardiovascular Heart sounds: normal: S1, S2 - Gastrointestinal Scar in mid abdomen which seems from a previous exploratory laparotomy General gastrointestinal: no scaphoid, soft, no splenomegaly - Neurologic Neurologic: CNII-XII intact - Musculoskeletal Musculoskeletal: gait normal - Psychiatric Psychiatric: A&O x's 3, intact judgment & insight Cranial Nerve Examination - Cranial Nerves Cranial Nerve II- Optic: Intact Cranial Nerve III- Oculomotor: Intact Cranial Nerve IV- Trochlear: Intact Cranial Nerve V- Trigeminal: Intact Cranial Nerve - Abducens: Intact Cranial Nerve VII- Facial: Intact Cranial Nerve VIII- Auditory: Intact Cranial Nerve IX- Glossopharyngeal: Intact Cranial Nerve X- Vagus: Intact Cranial Nerve XI- Accessory: Intact Cranial Nerve XII- Hypoglossal: Intact Results CBC & Chem 7: 11/27/17 11:11 11/27/17 11:11 Labs: Abnormal Lab Results - Last 24 Hours (Table) 11/27/17 11/27/17 11/27/17 Range/Units 11:11 13:08 17:14 Glucose 208 H (74-99) mg/dL POC Glucose (mg/dL) 165 H 108 H (75-99) mg/dL Calcium 10.4 H (8.4-10.2) mg/dL Thrombosis Risk Factor Assmnt - Choose All That Apply Each Factor Represents 1 point: Abnormal pulmonary function (COPD) Other Risk Factors: No Thrombosis Risk Factor Assessment Total Risk Factor Score: 1 Thrombosis Risk Factor Assessment Level: Low Risk Assessment and Plan (1) Suicidal ideation Current Visit: Yes Status: Acute Code(s): R45.851 - SUICIDAL IDEATIONS SNOMED Code(s): 5569345 (2) Diabetes mellitus Narrative/Plan: Accu-Chek before meals and at bedtime Patient not sure what he takes at home Told that he takes insulin Not clear whether patient is compliant List shows patient on trajendta and metformin and metformin Current Visit: No Status: Acute Code(s): E11.9 - TYPE 2 DIABETES MELLITUS WITHOUT COMPLICATIONS SNOMED Code(s): 48989076 (3) Hyperlipidemia Narrative/Plan: Lipitor Current Visit: No Status: Acute Code(s): E78.5 - HYPERLIPIDEMIA, UNSPECIFIED SNOMED Code(s): 70800451 (4) Hypertension Narrative/Plan: Mostly controlled Current Visit: Yes Status: Acute Code(s): I10 - ESSENTIAL (PRIMARY) HYPERTENSION SNOMED Code(s): 53736565 (5) Hypothyroidism Narrative/Plan: On Synthroid Current Visit: No Status: Acute Code(s): E03.9 - HYPOTHYROIDISM, UNSPECIFIED SNOMED Code(s): 61039621
[2017-11-27 20:07] LABS: Glucose,Whole Blood 207 mg/dL (75-99)
[2017-11-27] MEDS: metFORMIN 500 MG TAB PO SCH (20:31)
[2017-11-27] MEDS: PRAZOSIN 1 MG CAP PO SCH (20:32)
[2017-11-27] MEDS: BENZTROPINE MESYLATE 1 MG TAB PO SCH (20:32)
[2017-11-27] MEDS: ATORVASTATIN 10 MG TAB PO SCH (20:32)
[2017-11-27] MEDS: GABAPENTIN 300 MG CAP PO SCH (20:33)
[2017-11-27] MEDS: FAMOTIDINE 20 MG TAB PO SCH (20:33)
[2017-11-27] MEDS: cloZAPine 100 MG TAB PO SCH (20:33)
[2017-11-27] MEDS ORDERED: INSULIN DETEMIR 100 UNIT/ML 10 ML VIAL SQ SCH (21:00)
[2017-11-28] MEDS: LEVOTHYROXINE 50 MCG TAB PO SCH (06:07)
[2017-11-28 06:24] LABS: Glucose,Whole Blood 166 mg/dL (75-99)
[2017-11-28] MEDS: INSULIN ASPART 100 UNIT/ML 1 ML 10 ML VIAL SQ SCH ×4 (08:26→19:13)
[2017-11-28] MEDS: ACARBOSE 25 MG TAB PO SCH ×3 (08:26→19:12)
[2017-11-28] MEDS: GABAPENTIN 300 MG CAP PO SCH (08:27)
[2017-11-28] MEDS: BENZTROPINE MESYLATE 1 MG TAB PO SCH (08:27)
[2017-11-28] MEDS: cloZAPine 100 MG TAB PO SCH (08:27)
[2017-11-28] MEDS: FAMOTIDINE 20 MG TAB PO SCH (08:27)
[2017-11-28] MEDS: LINAGLIPTIN 5 MG TABLET PO SCH (08:27)
[2017-11-28] MEDS: metFORMIN 500 MG TAB PO SCH (08:27)
[2017-11-28] MEDS: LISINOPRIL 10 MG TAB PO SCH (08:28)
[2017-11-28] MEDS: DESMOPRESSIN 0.2 MG TAB PO SCH (08:30)
[2017-11-28] MEDS: NICOTINE 7MG/24HR PATCH TRANSDERM SCH (08:30)
[2017-11-28] MEDS: ALBUTEROL INHALER 60 PUFF/8 GM INHALER INHALATION PRN ×2 (10:00→14:16)
[2017-11-28 12:52] LABS: Glucose,Whole Blood 186 mg/dL (75-99)
[2017-11-28] MEDS: LORazepam 1 MG TAB PO PRN (15:00)
--- NOTE | 2017-11-28 15:31 | P.PN ---
Progress Note - Text Progress Note Date: 11/28/17 Interval History: Patient is a 37-year-old male who was admitted after he was threatening suicide with a knife the police brought him to the emergency room. Patient has a history of an intellectual disability. Patient has been followed at [facility]. Patient reports today that he misses his father who in 2011 and states that his father's birthday is coming up soon in November. He states that he is not currently suicidal and states that he slept well last evening and his appetite is good. He states when he gets scared she gets upset and stated to me that he was scared about meeting with the court appointed forestry extension specialist and made the statement that he will "kick some [place] ass" . Patient states he gets loud when he is scared and has threatened people with his cane in the past when he has been scared or angry such as when someone wanted him to quit smoking at a bus stop. Patient had no other concerns at this time. Mental Status:Appearance/Attitude: Patient is appropriately dressed, makes good eye contact and is superficially cooperative. Behavior: Patient does not display any psychomotor agitation or retardation. Speech/Language: Patient's speech is at times slightly garbled, he easily increases the volume of his speech and he is coherent. Thought Process: Patient was goal-directed, was no evidence of tangential circumstantial thought and he exhibited no loose associations or flight of ideas. Thought Content: Patient denied any auditory or visual hallucinations and no paranoid or delusional ideation was elicited. Patient stated that he had become upset at home about his father's which was in 2011 and with further questioning stated his father's birthday is coming up soon. The patient then went on to discuss how when he becomes scared he can become physically threatening and his voice increased in volume throughout this period patient was redirected to lower his voice which he did so. Patient states that he has been sleeping and eating well. Patient when discussing his concerns about meeting with the court appointed forestry extension specialist tomorrow stated that if he gets scared he will "kick some [place] ass". Suicidal/Homicidal Ideation: Denied any current suicidal or homicidal ideation. Sensorium/Cognition: Patient is alert and oriented to person, place, and time and his recent and remote memory were grossly intact. Patient has a history of intellectual disability. Mood/Affect: Patient's mood is irritable and his affect is labile. Insight/Judgment: Patient's insight and judgment are impaired. Assessment: Patient was admitted and continued on his current medications of Clozaril 100 mg in the morning 4 mg at bedtime, his Neurontin and Cogentin and will receive Prolixin Decanoate 50milligrams intramuscularly tomorrow. Patient has been living alone there is some concern about whether he should return to live in his own apartment. Patient can be loud and intrusive at times with redirection he will lower his voice. Patient states that he felt suicidal on admission due to being upset about his father's . He currently is denying any suicidal ideation and no psychotic symptoms were elicited. Plan: Patient will continue on Clozaril 100 mg in the morning 400 mg at bedtime , Neurontin 300 mg twice a day and Cogentin 2 mg twice a day confirmed with [facility] that the patient will receive Prolixin Decanoate 50mg tomorrow and then on a weekly basis. We'll continue to explore discharge plans regarding where he will live. Patient has a public guardian.
[2017-11-28] MEDS: ZIPRASIDONE 20 MG VIAL IM PRN (15:40)
[2017-11-28 17:22] LABS: Glucose,Whole Blood 104 mg/dL (75-99)
[2017-11-28 20:12] LABS: Glucose,Whole Blood 101 mg/dL (75-99)
[2017-11-28] MEDS: INSULIN DETEMIR 100 UNIT/ML 10 ML VIAL SQ SCH (21:12)
[2017-11-29] MEDS: ATORVASTATIN 10 MG TAB PO SCH ×2 (01:18→20:42)
[2017-11-29] MEDS: metFORMIN 500 MG TAB PO SCH ×3 (01:19→20:46)
[2017-11-29] MEDS: PRAZOSIN 1 MG CAP PO SCH ×2 (01:19→20:42)
[2017-11-29] MEDS: FAMOTIDINE 20 MG TAB PO SCH ×3 (01:19→20:45)
[2017-11-29] MEDS: BENZTROPINE MESYLATE 1 MG TAB PO SCH ×3 (01:19→20:46)
[2017-11-29] MEDS: GABAPENTIN 300 MG CAP PO SCH ×3 (01:19→20:47)
[2017-11-29] MEDS: cloZAPine 100 MG TAB PO SCH ×3 (01:19→20:42)
[2017-11-29 06:57] VITALS: TEMP 97.5
[2017-11-29 07:36] LABS: Glucose,Whole Blood 162 mg/dL (75-99)
[2017-11-29] MEDS: LEVOTHYROXINE 50 MCG TAB PO SCH (07:44)
[2017-11-29] MEDS: DESMOPRESSIN 0.2 MG TAB PO SCH (07:51)
[2017-11-29] MEDS: ACARBOSE 25 MG TAB PO SCH ×4 (07:52→18:13)
[2017-11-29] MEDS: LINAGLIPTIN 5 MG TABLET PO SCH (07:53)
[2017-11-29] MEDS: NICOTINE 7MG/24HR PATCH TRANSDERM SCH (07:54)
[2017-11-29] MEDS: INSULIN ASPART 100 UNIT/ML 1 ML 10 ML VIAL SQ SCH ×3 (07:59→18:11)
[2017-11-29 08:16] LABS: Clozapine (Clozaril) <25 ng/mL (200-700); Norclozapine <25 ng/mL (200-700)
[2017-11-29] MEDS ORDERED: fluPHENAZine DECANOATE 25 MG/ML 5ML MDV IM SCH (09:00)
[2017-11-29] MEDS: ALBUTEROL INHALER 60 PUFF/8 GM INHALER INHALATION PRN ×2 (09:06→14:10)
[2017-11-29] MEDS: LISINOPRIL 10 MG TAB PO SCH (09:13)
[2017-11-29] MEDS: ACETAMINOPHEN TAB 325 MG TAB PO PRN (10:37)
[2017-11-29 12:40] LABS: Glucose,Whole Blood 141 mg/dL (75-99)
[2017-11-29] MEDS: LORazepam 1 MG TAB PO PRN (15:56)
--- NOTE | 2017-11-29 17:44 | P.PN ---
Progress Note - Text Progress Note Date: 11/29/17 Interval History: Patient is a 37-year-old male who was seen today and states that he wants to have the knives removed from his apartment so that he doesn't hurt himself or anyone else. Patient deferred and hearing today. Patient reported that he was still slightly depressed and began crying when he mentioned his father and stated that he still misses him. He stated that he was sleeping well and eating well and denied having any suicidal or homicidal thoughts. Patient denied any auditory hallucinations. Patient denied any side effects from his medication. Mental Status: Appearance/Attitude: Patient is appropriately dressed, makes good eye contact and was cooperative. Behavior: Patient did not display any psychomotor agitation or retardation however he can become easily agitated and irritated on the unit becoming loud and intrusive. Speech/Language: Patient's speech is spontaneous and at times he can become very loud and is coherent and speaks with a slight speech impediment Thought Process: Patient is goal-directed, there is no evidence of loose associations or flight of ideas. Thought Content: Patient denies any auditory or visual hallucinations and no paranoid or delusional ideation was elicited. Patient states that he is sleeping and eating well. Patient discussed still missing his father and becomes tearful when he discusses this. Patient also discussed his becoming anxious and then agitated. Suicidal/Homicidal Ideation: Patient denies any current suicidal or homicidal ideation Sensorium/Cognition: Patient is alert and oriented to person, place, and time and his memory is grossly intact. Mood/Affect: Patient's mood is slightly depressed regarding the of his father, he can become irritable on the unit and loud in his affect is appropriate to his mood. Insight/Judgment: Patient's insight and judgment are limited. Assessment: Patient has been loud and intrusive at times on the unit, he responds to verbal redirection. Patient deferred at the hearing today per social work the plan is for the patient to return to his apartment with an increase in services from community mental health. Patient is not exhibiting any suicidal or homicidal ideation. Patient has been attending some groups and activities. Patient reports no side effects from the medications there is no evidence of a psychotic process Plan: Patient will continue on Clozaril 100 mg in the morning foreigner milligrams at bedtime, Cogentin 2 mg twice a day and Prolixin decanoate 50 mg every week, receiving his last injection today. Patient and I discussed discharge for him to return home tomorrow when he was agreeable with this. Patient also asked that the knives be removed from his apartment to prevent him from using them in the future.
[2017-11-29 18:02] LABS: Glucose,Whole Blood 171 mg/dL (75-99)
[2017-11-29 20:27] LABS: Glucose,Whole Blood 90 mg/dL (75-99)
[2017-11-29] MEDS: INSULIN DETEMIR 100 UNIT/ML 10 ML VIAL SQ SCH (20:57)
[2017-11-29] MEDS: ZIPRASIDONE 20 MG VIAL IM PRN (21:17)
[2017-11-30] MEDS: INSULIN ASPART 100 UNIT/ML 1 ML 10 ML VIAL SQ SCH (07:56)
[2017-11-30] MEDS: BENZTROPINE MESYLATE 1 MG TAB PO SCH (08:07)
[2017-11-30] MEDS: metFORMIN 500 MG TAB PO SCH (08:07)
[2017-11-30] MEDS: DESMOPRESSIN 0.2 MG TAB PO SCH (08:07)
[2017-11-30] MEDS: FAMOTIDINE 20 MG TAB PO SCH (08:07)
[2017-11-30] MEDS: GABAPENTIN 300 MG CAP PO SCH (08:07)
[2017-11-30] MEDS: LEVOTHYROXINE 50 MCG TAB PO SCH (08:07)
[2017-11-30] MEDS: cloZAPine 100 MG TAB PO SCH (08:08)
[2017-11-30] MEDS: LINAGLIPTIN 5 MG TABLET PO SCH (08:08)
[2017-11-30] MEDS: LISINOPRIL 10 MG TAB PO SCH (08:08)
[2017-11-30] MEDS: NICOTINE 7MG/24HR PATCH TRANSDERM SCH (08:09)
[2017-11-30 08:27] LABS: Glucose,Whole Blood 150 mg/dL (75-99)
[2017-11-30 08:35] VITALS: BP 117/61; PULSE 102; RESP 18
[2017-11-30] MEDS: ACETAMINOPHEN TAB 325 MG TAB PO PRN (08:55)
--- NOTE | 2017-11-30 11:53 | P.DS ---
Providers Date of admission: 11/27/17 11:42 Expected date of discharge: 11/30/17 Attending physician: Shaila Spangler MD Consults: 11/27/17 12:09 Consult Physician Routine Consulting Provider: Eric Madrid Consult Reason/Comments: H&P, with medical follow up Do you want consulting provider notified?: Already Contacted Primary care physician: Stated None Hospital Course: Discharge Diagnosis: Bipolar type I disorder, depressed; intellectual disability Reason for Admission: Patient is a 37-year-old male who was brought to the emergency room by the police for suicidal ideation. Patient states that he was holding a knife to his throat and wish to kill himself. Patient was extremely agitated and required physical restraints in the emergency room. He was medicated there and then admitted to the mental health unit. Patient reported that he was feeling depressed because he missed his father and stated that he had seen his father at the foot of his bed. He stated that he had suicidal thoughts of wanting to kill himself as well as hurt other people. He identified no person that he wanted to harm. Patient had been seen earlier this weekend and was deemed not a risk and return to his home. Patient is followed by [facility], lives in his own apartment. Patient also has a diagnosis of intellectual disability. Patient was recently in the hospital here in September 2017 as well as in November 2016. Patient on admission presented with mumbled speech at times is likely due to a cleft palate. He endorsed suicidal ideation and on admission as well as aggressive thoughts toward others. He identified no specific target. He reported that he can see and hear his father and misses him. Patient had a knife and stated that he was going to kill himself and so was admitted to the hospital. Patient is followed by [facility] and also has a public guardian. Hospital Course: Patient was admitted on a involuntary basis and deferred his hearing. Patient was ordered group and activity therapy as well as was maintained on routine observation. Routine laboratory studies as well as a medical consultation were obtained. Patient was maintained on his prior medications of Clozaril 100 mg in the morning and 400 mg at bedtime, Neurontin 300 mg twice a day, Cogentin 2 mg twice a day and it was confirmed that he received Prolixin decanoate 50mg IM on a weekly basis, his next dose was due on November 29. Patient remained loud at times on the unit and stated that he becomes easily agitated when he is anxious or scared. Patient discussed that he missed his father, became anxious and upset and took out a knife and was thinking of killing himself. Patient stated that he has become agitated when asked to not smoke on the bus and raised his cane at people. Patient maintained on his medications and he reported no side effects. Patient attended some groups and activities, was discussed with the patient that when he is feeling frightened or scared that he needs to not threaten others or thinking of hurting himself. Patient reported that he would contact his casework manager at [facility] if he was feeling these things during business hours or the crisis line if he was feeling this way outside of business hours. Patient was to return to his apartment and services from [facility] would be increased. Patient improved and he reported no further suicidal or homicidal ideation, stated that he was sleeping and eating well and was not experiencing any paranoid ideation. Patient reported that he had a dream about one of his uncles and in this dream the uncle encouraged the patient to not get agitated when he was anxious or frightened. Patient felt that he was ready to return back to his own apartment Allergies No Known Allergies Allergy (Verified 11/28/17 21:50) Lab Results 11/26/17 11/27/17 11/27/17 Range/Units 17:20 11:11 11:11 WBC 6.5 (3.8-10.6) k/uL RBC 5.44 (4.30-5.90) m/uL Hgb 15.9 (13.0-17.5) gm/dL Hct 48.7 (39.0-53.0) % MCV 89.6 (80.0-100.0) fL MCH 29.2 (25.0-35.0) pg MCHC 32.6 (31.0-37.0) g/dL RDW 13.0 (11.5-15.5) % Plt Count 164 (150-450) k/uL Neutrophils % 67 % Lymphocytes % 26 % Monocytes % 4 % Eosinophils % 1 % Basophils % 0 % Neutrophils # 4.4 (1.3-7.7) k/uL Lymphocytes # 1.7 (1.0-4.8) k/uL Monocytes # 0.3 (0-1.0) k/uL Eosinophils # 0.0 (0-0.7) k/uL Basophils # 0.0 (0-0.2) k/uL Sodium 140 (137-145) mmol/L Potassium 4.3 (3.5-5.1) mmol/L Chloride 102 (98-107) mmol/L Carbon Dioxide 25 (22-30) mmol/L Anion Gap 13 mmol/L BUN 16 (9-20) mg/dL Creatinine 0.75 (0.66-1.25) mg/dL Est GFR (MDRD) Af Amer >60 (>60 ml/min/1.73 sqM) Est GFR (MDRD) Non-Af >60 (>60 ml/min/1.73 sqM) Glucose 208 H (74-99) mg/dL POC Glucose (mg/dL) (75-99) mg/dL POC Glu Metal Temperer ID [address] Glu mg/dL Hemoglobin A1c (4.0-6.0) % Calcium 10.4 H (8.4-10.2) mg/dL Total Bilirubin 0.7 (0.2-1.3) mg/dL AST 26 (17-59) U/L ALT 28 (21-72) U/L Alkaline Phosphatase 49 (38-126) U/L Total Protein 7.2 (6.3-8.2) g/dL Albumin 4.6 (3.5-5.0) g/dL Triglycerides 75 (<150) mg/dL Cholesterol 152 (<200) mg/dL LDL Cholesterol, Calc 89 (0-99) mg/dL HDL Cholesterol 48 (40-60) mg/dL TSH 0.627 (0.465-4.680) mIU/L Clozapine (200-700) ng/mL Norclozapine (200-700) ng/mL 11/27/17 11/27/17 11/27/17 Range/Units 11:11 11:11 13:08 WBC (3.8-10.6) k/uL RBC (4.30-5.90) m/uL Hgb (13.0-17.5) gm/dL Hct (39.0-53.0) % MCV (80.0-100.0) fL MCH (25.0-35.0) pg MCHC (31.0-37.0) g/dL RDW (11.5-15.5) % Plt Count (150-450) k/uL Neutrophils % % Lymphocytes % % Monocytes % % Eosinophils % % Basophils % % Neutrophils # (1.3-7.7) k/uL Lymphocytes # (1.0-4.8) k/uL Monocytes # (0-1.0) k/uL Eosinophils # (0-0.7) k/uL Basophils # (0-0.2) k/uL Sodium (137-145) mmol/L Potassium (3.5-5.1) mmol/L Chloride (98-107) mmol/L Carbon Dioxide (22-30) mmol/L Anion Gap mmol/L BUN (9-20) mg/dL Creatinine (0.66-1.25) mg/dL Est GFR (MDRD) Af Amer (>60 ml/min/1.73 sqM) Est GFR (MDRD) Non-Af (>60 ml/min/1.73 sqM) Glucose (74-99) mg/dL POC Glucose (mg/dL) 165 H (75-99) mg/dL POC Glu Metal Temperer Heather العلي [address] Glu mg/dL 171 Hemoglobin A1c 7.6 H (4.0-6.0) % Calcium (8.4-10.2) mg/dL Total Bilirubin (0.2-1.3) mg/dL AST (17-59) U/L ALT (21-72) U/L Alkaline Phosphatase (38-126) U/L Total Protein (6.3-8.2) g/dL Albumin (3.5-5.0) g/dL Triglycerides (<150) mg/dL Cholesterol (<200) mg/dL LDL Cholesterol, Calc (0-99) mg/dL HDL Cholesterol (40-60) mg/dL TSH (0.465-4.680) mIU/L Clozapine <25 L (200-700) ng/mL Norclozapine <25 (200-700) ng/mL 11/27/17 11/27/17 11/28/17 Range/Units 17:14 20:06 06:16 WBC (3.8-10.6) k/uL RBC (4.30-5.90) m/uL Hgb (13.0-17.5) gm/dL Hct (39.0-53.0) % MCV (80.0-100.0) fL MCH (25.0-35.0) pg MCHC (31.0-37.0) g/dL RDW (11.5-15.5) % Plt Count (150-450) k/uL Neutrophils % % Lymphocytes % % Monocytes % % Eosinophils % % Basophils % % Neutrophils # (1.3-7.7) k/uL Lymphocytes # (1.0-4.8) k/uL Monocytes # (0-1.0) k/uL Eosinophils # (0-0.7) k/uL Basophils # (0-0.2) k/uL Sodium (137-145) mmol/L Potassium (3.5-5.1) mmol/L Chloride (98-107) mmol/L Carbon Dioxide (22-30) mmol/L Anion Gap mmol/L BUN (9-20) mg/dL Creatinine (0.66-1.25) mg/dL Est GFR (MDRD) Af Amer (>60 ml/min/1.73 sqM) Est GFR (MDRD) Non-Af (>60 ml/min/1.73 sqM) Glucose (74-99) mg/dL POC Glucose (mg/dL) 108 H 207 H 166 H (75-99) mg/dL POC Glu Metal Temperer Heather العلي [place], [place] [address] Glu mg/dL Hemoglobin A1c (4.0-6.0) % Calcium (8.4-10.2) mg/dL Total Bilirubin (0.2-1.3) mg/dL AST (17-59) U/L ALT (21-72) U/L Alkaline Phosphatase (38-126) U/L Total Protein (6.3-8.2) g/dL Albumin (3.5-5.0) g/dL Triglycerides (<150) mg/dL Cholesterol (<200) mg/dL LDL Cholesterol, Calc (0-99) mg/dL HDL Cholesterol (40-60) mg/dL TSH (0.465-4.680) mIU/L Clozapine (200-700) ng/mL Norclozapine (200-700) ng/mL 02/10/0311/28/17 11/28/17 Range/Units 12:46 17:12 20:08 WBC (3.8-10.6) k/uL RBC (4.30-5.90) m/uL Hgb (13.0-17.5) gm/dL Hct (39.0-53.0) % MCV (80.0-100.0) fL MCH (25.0-35.0) pg MCHC (31.0-37.0) g/dL RDW (11.5-15.5) % Plt Count (150-450) k/uL Neutrophils % % Lymphocytes % % Monocytes % % Eosinophils % % Basophils % % Neutrophils # (1.3-7.7) k/uL Lymphocytes # (1.0-4.8) k/uL Monocytes # (0-1.0) k/uL Eosinophils # (0-0.7) k/uL Basophils # (0-0.2) k/uL Sodium (137-145) mmol/L Potassium (3.5-5.1) mmol/L Chloride (98-107) mmol/L Carbon Dioxide (22-30) mmol/L Anion Gap mmol/L BUN (9-20) mg/dL Creatinine (0.66-1.25) mg/dL Est GFR (MDRD) Af Amer (>60 ml/min/1.73 sqM) Est GFR (MDRD) Non-Af (>60 ml/min/1.73 sqM) Glucose (74-99) mg/dL POC Glucose (mg/dL) 186 H 104 H 101 H (75-99) mg/dL POC Glu Metal Temperer Kevin Napoles, Zina Pompa [address] Glu mg/dL Hemoglobin A1c (4.0-6.0) % Calcium (8.4-10.2) mg/dL Total Bilirubin (0.2-1.3) mg/dL AST (17-59) U/L ALT (21-72) U/L Alkaline Phosphatase (38-126) U/L Total Protein (6.3-8.2) g/dL Albumin (3.5-5.0) g/dL Triglycerides (<150) mg/dL Cholesterol (<200) mg/dL LDL Cholesterol, Calc (0-99) mg/dL HDL Cholesterol (40-60) mg/dL TSH (0.465-4.680) mIU/L Clozapine (200-700) ng/mL Norclozapine (200-700) ng/mL 11/29/17 11/29/17 11/29/17 Range/Units 07:30 12:24 17:59 WBC (3.8-10.6) k/uL RBC (4.30-5.90) m/uL Hgb (13.0-17.5) gm/dL Hct (39.0-53.0) % MCV (80.0-100.0) fL MCH (25.0-35.0) pg MCHC (31.0-37.0) g/dL RDW (11.5-15.5) % Plt Count (150-450) k/uL Neutrophils % % Lymphocytes % % Monocytes % % Eosinophils % % Basophils % % Neutrophils # (1.3-7.7) k/uL Lymphocytes # (1.0-4.8) k/uL Monocytes # (0-1.0) k/uL Eosinophils # (0-0.7) k/uL Basophils # (0-0.2) k/uL Sodium (137-145) mmol/L Potassium (3.5-5.1) mmol/L Chloride (98-107) mmol/L Carbon Dioxide (22-30) mmol/L Anion Gap mmol/L BUN (9-20) mg/dL Creatinine (0.66-1.25) mg/dL Est GFR (MDRD) Af Amer (>60 ml/min/1.73 sqM) Est GFR (MDRD) Non-Af (>60 ml/min/1.73 sqM) Glucose (74-99) mg/dL POC Glucose (mg/dL) 162 H 141 H 171 H (75-99) mg/dL POC Glu Metal Temperer Marianna Hair, Brandi Hair [address] Glu mg/dL Hemoglobin A1c (4.0-6.0) % Calcium (8.4-10.2) mg/dL Total Bilirubin (0.2-1.3) mg/dL AST (17-59) U/L ALT (21-72) U/L Alkaline Phosphatase (38-126) U/L Total Protein (6.3-8.2) g/dL Albumin (3.5-5.0) g/dL Triglycerides (<150) mg/dL Cholesterol (<200) mg/dL LDL Cholesterol, Calc (0-99) mg/dL HDL Cholesterol (40-60) mg/dL TSH (0.465-4.680) mIU/L Clozapine (200-700) ng/mL Norclozapine (200-700) ng/mL 11/29/17 11/30/17 Range/Units 20:23 08:06 WBC (3.8-10.6) k/uL RBC (4.30-5.90) m/uL Hgb (13.0-17.5) gm/dL Hct (39.0-53.0) % MCV (80.0-100.0) fL MCH (25.0-35.0) pg MCHC (31.0-37.0) g/dL RDW (11.5-15.5) % Plt Count (150-450) k/uL Neutrophils % % Lymphocytes % % Monocytes % % Eosinophils % % Basophils % % Neutrophils # (1.3-7.7) k/uL Lymphocytes # (1.0-4.8) k/uL Monocytes # (0-1.0) k/uL Eosinophils # (0-0.7) k/uL Basophils # (0-0.2) k/uL Sodium (137-145) mmol/L Potassium (3.5-5.1) mmol/L Chloride (98-107) mmol/L Carbon Dioxide (22-30) mmol/L Anion Gap mmol/L BUN (9-20) mg/dL Creatinine (0.66-1.25) mg/dL Est GFR (MDRD) Af Amer (>60 ml/min/1.73 sqM) Est GFR (MDRD) Non-Af (>60 ml/min/1.73 sqM) Glucose (74-99) mg/dL POC Glucose (mg/dL) 90 150 H (75-99) mg/dL POC Glu Metal Temperer Brandi Diaz Cindy [address] Glu mg/dL Hemoglobin A1c (4.0-6.0) % Calcium (8.4-10.2) mg/dL Total Bilirubin (0.2-1.3) mg/dL AST (17-59) U/L ALT (21-72) U/L Alkaline Phosphatase (38-126) U/L Total Protein (6.3-8.2) g/dL Albumin (3.5-5.0) g/dL Triglycerides (<150) mg/dL Cholesterol (<200) mg/dL LDL Cholesterol, Calc (0-99) mg/dL HDL Cholesterol (40-60) mg/dL TSH (0.465-4.680) mIU/L Clozapine (200-700) ng/mL Norclozapine (200-700) ng/mL Discharge Mental Status: Appearance/Attitude: Patient was dressed appropriately , made good eye contact, was cooperative. Behavior: Patient did not exhibit any psychomotor agitation or retardation, however on the unit at times he does become loud and when I asked him why he speaks in such a loud voice he told me that he had hearing aids in the past but they were flushed down the toilet by a roommate. Speech/Language: Patient's speech is spontaneous and at times mumbled and he is coherent. His speech at times is loud and he states this is secondary to not having his hearing aids. Thought Process: Patient was goal-directed, and there is no evidence of loose associations or flight of ideas. Thought Content: Patient denied any auditory or visual hallucinations and no delusions or paranoid ideation was elicited. Patient states he is sleeping and eating well. Patient states that he continues to miss his father but states that he had a dream about his uncle that was telling him to remain calm. Suicidal/Homicidal Ideation: Patient denied any current suicidal or homicidal ideation and requested that [facility] remove all the knives from his apartment. Sensorium/Cognition: Patient was alert and oriented to person, place, time and his recent and remote memory were grossly intact. Patient has a history of intellectual disability. Mood/Affect: Patient's mood was pleasant at times he can become anxious and loud and his affect was appropriate to his mood Insight/Judgment: Patient's insight and judgment are limited. Risk Assessment: Patient's risk for self-harm is moderate secondary to his limited coping skills Discharge Plan: Patient will return to live in his own apartment, he will be followed by [facility], he continues to have a public guardian. Patient will continue on Clozaril 100 mg in the morning and 4 mg at bedtime, Neurontin 300 mg twice a day Cogentin 2 mg twice a day and Prolixin Decanoate 50mg IM every 7 days his last dose on 11/29/16. Patient will continue on his home medications for his diabetes, GERD, HTN, hypothyroidism and elevated lipids. No prescriptions were given as patient has sufficient medication at home. Patient Condition at Discharge: Stable Plan - Discharge Summary Discharge Rx Participant: No New Discharge Prescriptions: Continue Famotidine [Pepcid] 20 mg PO BID 30 Days tab INSULIN LISPRO (humaLOG) [humaLOG] 5 unit SQ AC-TID 30 Days vial Lisinopril [Zestril] 10 mg PO DAILY 30 Days tab cloZAPine [Clozaril] 100 mg PO DAILY 30 Days tab metFORMIN HCL [Glucophage] 1,000 mg PO BID 30 Days tab sitaGLIPtin [Januvia] 100 mg PO DAILY #30 tab Simvastatin [Zocor] 20 mg PO HS Acarbose [Precose] 50 mg PO AC-TID Prazosin [Minipress] 5 mg PO HS Magnesium Oxide [Mag-Ox] 250 mg PO DAILY Levothyroxine Sodium [Synthroid] 50 mcg PO DAILY Insulin Glargine [Lantus] 31 unit SQ HS Ibuprofen [Motrin] 600 mg PO BID PRN PRN Reason: Pain fluPHENAZine DECANOATE [Prolixin Decanoate] 50 mg IM Q7D Gabapentin [Neurontin] 300 mg PO BID Albuterol Inhaler [Ventolin Hfa Inhaler] 2 puff INHALATION RT-Q6H PRN PRN Reason: Wheezing Desmopressin Acetate [DDAVP] 0.1 mg PO DAILY cloZAPine [Clozaril] 400 mg PO HS Benztropine Mesylate [Cogentin] 2 mg PO BID Discharge Medication List Famotidine [Pepcid] 20 mg PO BID 30 Days tab 11/26/16 [Rx] INSULIN LISPRO (humaLOG) [humaLOG] 5 unit SQ AC-TID 30 Days vial 11/26/16 [Rx] Lisinopril [Zestril] 10 mg PO DAILY 30 Days tab 11/26/16 [Rx] cloZAPine [Clozaril] 100 mg PO DAILY 30 Days tab 11/26/16 [Rx] metFORMIN HCL [Glucophage] 1,000 mg PO BID 30 Days tab 11/26/16 [Rx] sitaGLIPtin [Januvia] 100 mg PO DAILY #30 tab 11/26/16 [Rx] Acarbose [Precose] 50 mg PO AC-TID 09/30/17 [History] Ibuprofen [Motrin] 600 mg PO BID PRN 09/30/17 [History] Insulin Glargine [Lantus] 31 unit SQ HS 09/30/17 [History] Levothyroxine Sodium [Synthroid] 50 mcg PO DAILY 09/30/17 [History] Magnesium Oxide [Mag-Ox] 250 mg PO DAILY 09/30/17 [History] Prazosin [Minipress] 5 mg PO HS 09/30/17 [History] Simvastatin [Zocor] 20 mg PO HS 09/30/17 [History] Albuterol Inhaler [Ventolin Hfa Inhaler] 2 puff INHALATION RT-Q6H PRN 11/26/17 [ History] Benztropine Mesylate [Cogentin] 2 mg PO BID 11/26/17 [History] Desmopressin Acetate [DDAVP] 0.1 mg PO DAILY 11/26/17 [History] Gabapentin [Neurontin] 300 mg PO BID 11/26/17 [History] cloZAPine [Clozaril] 400 mg PO HS 11/26/17 [History] fluPHENAZine DECANOATE [Prolixin Decanoate] 50 mg IM Q7D 11/26/17 [History] Follow up Appointment(s)/Referral(s): [facility] [Outside] - 12/06/17 1:00 pm (12-06-17 @ 1:00 with Gerard Motta 12-09-17 @ 1:[address] Herron ) None,Stated [Primary Care Provider] - 1-2 days Discharge Disposition: HOME SELF-CARE
== END 2017-11-30 12:26 | disposition home or self-care (01) | DRG 881 ==
LOC: EC 08:38 → EEVIPCON 08:38 → 3MHU 11:42
PROVIDERS: ADMIT Psychiatry & Neurology Psychiatry; ATTEND Psychiatry & Neurology Psychiatry
DX: F32.9 Major depressive disorder, single episode, unspecified (principal); R45.851 Suicidal ideations; Z78.1 Physical restraint status; E11.9 Type 2 diabetes mellitus without complications; E03.9 Hypothyroidism, unspecified; E78.5 Hyperlipidemia, unspecified; F17.200 Nicotine dependence, unspecified, uncomplicated; F79 Unspecified intellectual disabilities; I10 Essential (primary) hypertension; K21.9 Gastro-esophageal reflux disease without esophagitis; Z79.4 Long term (current) use of insulin; Z79.899 Other long term (current) drug therapy
CPT/HCPCS: 36415; 80053; 80061; 80159; 82075; 83036; 84443; 85025; 94640; 96372; 99285

== ENCOUNTER → 2018-05-02 | Outpatient (CLI) | payer OTHER | END | disposition home or self-care (01) | LOC: LABWHC1 09:12 | PROVIDERS: ATTEND Psychiatry & Neurology Psychiatry | DX: Z51.81 Encounter for therapeutic drug level monitoring (principal); Z79.899 Other long term (current) drug therapy | CPT/HCPCS: 36415; 80178 ==

== ENCOUNTER 2019-02-19 16:38 | Inpatient (IN) | payer MEDICAID, OTHER ==
[2019-02-19 17:36] LABS: Amphetamine Screen,Urine Not Detected (NotDetected); Barbiturate Screen,Urine Not Detected (NotDetected); Benzodiazepines Screen,Urine Not Detected (NotDetected); Cocaine Screen,Urine Not Detected (NotDetected); Methadone Screen, Urine Not Detected (NotDetected); Opiate Screen,Urine Not Detected (NotDetected); Oxycodone Screen, Urine Not Detected (NotDetected); Phencyclidine Screen,Urine Not Detected (NotDetected); Tricyclic Antidepressant,Urine Not Detected (NotDetected); Urn Cannabinoid Scrn Not Detected (NotDetected)
[2019-02-19] MEDS ORDERED: ACETAMINOPHEN TAB 500 MG TAB PO STA (19:53)
[2019-02-19 21:08] LABS: Basophils % (A) 1 %; Eosinophils # (A) 0.2 k/uL (0-0.7); Eosinophils % (A) 2 %; HGB 14.2 gm/dL (13.0-17.5); Lymphocytes # (A) 2.6 k/uL (1.0-4.8); Lymphocytes % (A) 35 %; MCH 29.3 pg (25.0-35.0); MCHC 33.1 g/dL (31.0-37.0); MCV 88.6 fL (80.0-100.0); Monocytes # (A) 0.4 k/uL (0-1.0); Monocytes % (A) 5 %; Neutrophils % (A) 55 %; Platelet Count 187 k/uL (150-450); RBC 4.85 m/uL (4.30-5.90); RDW 14.1 % (11.5-15.5); WBC 7.4 k/uL (3.8-10.6)
[2019-02-19 21:17] LABS: ALT 29 U/L (21-72); AST 43 U/L (17-59); Albumin 4.4 g/dL (3.5-5.0); Alkaline Phosphatase 52 U/L (38-126); Anion Gap 10 mmol/L; Blood Urea Nitrogen 10 mg/dL (9-20); Calcium 10.4 mg/dL (8.4-10.2); Carbon Dioxide 25 mmol/L (22-30); Chloride 105 mmol/L (98-107); Glucose 280 mg/dL (74-99); Potassium 4.1 mmol/L (3.5-5.1); Sodium 140 mmol/L (137-145); Total Bilirubin 0.3 mg/dL (0.2-1.3); Total Protein 6.9 g/dL (6.3-8.2)
[2019-02-19 21:33] LABS: Appearance,Urine Clear (Clear); Bilirubin,Urine Negative (Negative); Blood,Urine Negative (Negative); Color,Urine Light Yellow; Glucose,Urine (UA) 4+ (Negative); Ketones,Urine Negative (Negative); Leukocyte Esterase,Urine Negative (Negative); Nitrite,Urine Negative (Negative); Protein,Urine Negative (Negative); Specific Gravity,Urine 1.005 (1.001-1.035); Urobilinogen,Urine <2.0 mg/dL (<2.0)
[2019-02-20] MEDS ORDERED: ALBUTEROL NEBULIZED 2.5 MG/3 ML INHALATION PRN (00:37)
--- NOTE | 2019-02-20 00:37 | ED ---
Psych HPI - General Chief Complaint: Psychiatric Symptoms Stated Complaint: Mental Health Time Seen by Provider: 02/19/19 16:44 Source: patient Mode of arrival: ambulatory - History of Present Illness Initial Comments: This 39-year-old white male presents with a complaint of feeling depressed. He does relate that he's had some suicidal ideations. He has not acted out on any of these other than putting some scratches to his left forearm. He apparently was complaining of some homicidal ideations but denies these well in the emergency department. He denies overdosing. He denies any medical complaints. He apparently has a long history of psychiatric problems. No other complaints or modifying factors. - Related Data Home Medications Medication Instructions Recorded Confirmed Acarbose [Precose] 50 mg PO AC-TID 09/30/17 02/19/19 Levothyroxine Sodium [Synthroid] 50 mcg PO DAILY 09/30/17 02/19/19 Prazosin [Minipress] 5 mg PO HS 09/30/17 02/19/19 Simvastatin [Zocor] 20 mg PO HS 09/30/17 02/19/19 Gabapentin [Neurontin] 300 mg PO BID 11/26/17 02/19/19 cloZAPine [Clozaril] 400 mg PO HS 11/26/17 02/19/19 fluPHENAZine DECANOATE [Prolixin 50 mg IM Q14D 11/26/17 02/19/19 Decanoate] Acetaminophen Tab [Tylenol Tab] 500 mg PO TID PRN 02/19/19 02/19/19 Albuterol Sulfate [Proair 2 puff PO RT-Q4H PRN 02/19/19 02/19/19 Respiclick] Cholecalciferol [Vitamin D3 (25 5,000 unit PO DAILY 02/19/19 02/19/19 Mcg = 1000 Iu)] Desmopressin [Ddavp] 0.2 mg PO HS 02/19/19 02/19/19 Magnesium Oxide [Mag-Ox] 400 mg PO BID 02/19/19 02/19/19 Previous Rx's Medication Instructions Recorded Famotidine [Pepcid] 20 mg PO BID 30 Days tab 11/26/16 Lisinopril [Zestril] 10 mg PO DAILY 30 Days tab 11/26/16 cloZAPine [Clozaril] 100 mg PO DAILY 30 Days tab 11/26/16 metFORMIN HCL [Glucophage] 1,000 mg PO BID 30 Days tab 11/26/16 sitaGLIPtin [Januvia] 100 mg PO DAILY #30 tab 11/26/16 Allergies Allergy/AdvReac Type Severity Reaction Status Date / Time No Known Allergies Allergy Verified 02/19/19 17:31 Review of Systems ROS Statement: Those systems with pertinent positive or pertinent negative responses have been documented in the HPI. ROS Other: All systems not noted in ROS Statement are negative. Past Medical History Past Medical History: Diabetes Mellitus, GERD/Reflux, Hypertension, Neurologic Disorder, Thyroid Disorder Additional Past Medical History / Comment(s): This is obtained by reviewing [facility] History of Any Multi-Drug Resistant Organisms: None Reported Past Surgical History: Hernia Repair Additional Past Surgical History / Comment(s): tubes in both ears, cleft lip surgery Past Anesthesia/Blood Transfusion Reactions: No Reported Reaction Past Psychological History: Bipolar, Depression Smoking Status: Current every day smoker Past Alcohol Use History: Occasional Past Drug Use History: None Reported - Past Family History Father Family Medical History: Cancer Additional Family Medical History / Comment(s): Dad had lung cancer, in 2011 Mother Family Medical History: Rheumatoid Arthritis (RA) Additional Family Medical History / Comment(s): Mother has paranoia schizophrenic General Exam - General Exam Comments Initial Comments: GENERAL: The patient is well nourished and well hydrated. VITAL SIGNS: Heart rate, blood pressure, respiratory rate reviewed as recorded in nurse's notes. EYES: Pupils are round and reactive. Extraocular movements are intact. No con junctival / lid redness or swelling. ENT: No external evidence of injury, swelling, or ecchymosis. Airway is patent. Throat is clear. NECK: Nontender. No swelling or evidence of injury. No subcutaneous emphysema. Trachea is midline. No thyroid mass. HEART: Regular rate and rhythm. Good peripheral pulses. LUNGS/CHEST: Breath sounds clear and equal bilaterally. No rales, rhonchi, or wheezes. No ecchymosis, subcutaneous emphysema, or tenderness. ABDOMEN: Abdomen soft without tenderness. No palpable masses or organomegaly. No peritoneal signs. No abdominal wall swelling or ecchymosis. EXTREMITIES: No extremity tenderness. Normal muscle tone and function. No thoracolumbar tenderness. NEUROLOGIC: Sensation is grossly intact. Cranial nerve exam reveals face is symmetrical, tongue is midline, speech is clear. SKIN: There is a minimal abrasion noted to the left forearm. No induration or masses noted. PSYCHIATRIC: Alert and oriented. Appropriate behavior and judgment. Limitations: no limitations Course Vital Signs 02/19/19 16:38 Temperature 97.6 F Pulse Rate 93 Respiratory 18 Rate Blood Pressure 132/81 O2 Sat by Pulse 99 Oximetry Medical Decision Making - Medical Decision Making The patient was seen and examined. All diagnostics were reviewed. The laboratory does show that his blood sugar is slightly elevated at 280. Remainder labs are essentially within normal limits. A psychiatric consult is placed. The evaluated the patient in the emergency department and feels as though he does require further inpatient treatment. All beds are full at our hospital so he'll be transferred to another facility. A certification was comp leted by myself. His medications were reconciled. A consistent carbohydrate diet is ordered as a appears that patient may be here a while waiting for placement. He will be transferred when a bed is available. - Lab Data Result diagrams: 02/19/19 21:00 02/19/19 21:00 Lab Results 02/19/19 02/19/19 02/19/19 Range/Units 14:55 14:55 21:00 WBC (3.8-10.6) k/uL RBC (4.30-5.90) m/uL Hgb (13.0-17.5) gm/dL Hct (39.0-53.0) % MCV (80.0-100.0) fL MCH (25.0-35.0) pg MCHC (31.0-37.0) g/dL RDW (11.5-15.5) % Plt Count (150-450) k/uL Neutrophils % % Lymphocytes % % Monocytes % % Eosinophils % % Basophils % % Neutrophils # (1.3-7.7) k/uL Lymphocytes # (1.0-4.8) k/uL Monocytes # (0-1.0) k/uL Eosinophils # (0-0.7) k/uL Basophils # (0-0.2) k/uL Sodium 140 (137-145) mmol/L Potassium 4.1 (3.5-5.1) mmol/L Chloride 105 (98-107) mmol/L Carbon Dioxide 25 (22-30) mmol/L Anion Gap 10 mmol/L BUN 10 (9-20) mg/dL Creatinine 0.55 L (0.66-1.25) mg/dL Est GFR (CKD-EPI)AfAm >90 (>60 ml/min/1.73 sqM) Est GFR (CKD-EPI)NonAf >90 (>60 ml/min/1.73 sqM) Glucose 280 H (74-99) mg/dL Calcium 10.4 H (8.4-10.2) mg/dL Total Bilirubin 0.3 (0.2-1.3) mg/dL AST 43 (17-59) U/L ALT 29 (21-72) U/L Alkaline Phosphatase 52 (38-126) U/L Total Protein 6.9 (6.3-8.2) g/dL Albumin 4.4 (3.5-5.0) g/dL Urine Color Light Yellow Urine Appearance Clear (Clear) Urine pH 6.0 (5.0-8.0) Ur Specific [place] 1.005 (1.001-1.035) Urine Protein Negative (Negative) Urine Glucose (UA) 4+ H (Negative) Urine Ketones Negative (Negative) Urine Blood Negative (Negative) Urine Nitrite Negative (Negative) Urine Bilirubin Negative (Negative) Urine Urobilinogen <2.0 (<2.0) mg/dL Ur Leukocyte Esterase Negative (Negative) Urine Opiates Screen Not Detected (NotDetected) Ur Oxycodone Screen Not Detected (NotDetected) Urine Methadone Screen Not Detected (NotDetected) Ur Propoxyphene Screen Not Detected (NotDetected) Ur Barbiturates Screen Not Detected (NotDetected) U Tricyclic Antidepress Not Detected (NotDetected) Ur Phencyclidine Scrn Not Detected (NotDetected) Ur Amphetamines Screen Not Detected (NotDetected) U Methamphetamines Scrn Not Detected (NotDetected) U Benzodiazepines Scrn Not Detected (NotDetected) Urine Cocaine Screen Not Detected (NotDetected) U Marijuana (THC) Screen Not Detected (NotDetected) 02/19/19 Range/Units 21:00 WBC 7.4 (3.8-10.6) k/uL RBC 4.85 (4.30-5.90) m/uL Hgb 14.2 (13.0-17.5) gm/dL Hct 43.0 (39.0-53.0) % MCV 88.6 (80.0-100.0) fL MCH 29.3 (25.0-35.0) pg MCHC 33.1 (31.0-37.0) g/dL RDW 14.1 (11.5-15.5) % Plt Count 187 (150-450) k/uL Neutrophils % 55 % Lymphocytes % 35 % Monocytes % 5 % Eosinophils % 2 % Basophils % 1 % Neutrophils # 4.0 (1.3-7.7) k/uL Lymphocytes # 2.6 (1.0-4.8) k/uL Monocytes # 0.4 (0-1.0) k/uL Eosinophils # 0.2 (0-0.7) k/uL Basophils # 0.0 (0-0.2) k/uL Sodium (137-145) mmol/L Potassium (3.5-5.1) mmol/L Chloride (98-107) mmol/L Carbon Dioxide (22-30) mmol/L Anion Gap mmol/L BUN (9-20) mg/dL Creatinine (0.66-1.25) mg/dL Est GFR (CKD-EPI)AfAm (>60 ml/min/1.73 sqM) Est GFR (CKD-EPI)NonAf (>60 ml/min/1.73 sqM) Glucose (74-99) mg/dL Calcium (8.4-10.2) mg/dL Total Bilirubin (0.2-1.3) mg/dL AST (17-59) U/L ALT (21-72) U/L Alkaline Phosphatase (38-126) U/L Total Protein (6.3-8.2) g/dL Albumin (3.5-5.0) g/dL Urine Color Urine Appearance (Clear) Urine pH (5.0-8.0) Ur Specific [place] (1.001-1.035) Urine Protein (Negative) Urine Glucose (UA) (Negative) Urine Ketones (Negative) Urine Blood (Negative) Urine Nitrite (Negative) Urine Bilirubin (Negative) Urine Urobilinogen (<2.0) mg/dL Ur Leukocyte Esterase (Negative) Urine Opiates Screen (NotDetected) Ur Oxycodone Screen (NotDetected) Urine Methadone Screen (NotDetected) Ur Propoxyphene Screen (NotDetected) Ur Barbiturates Screen (NotDetected) U Tricyclic Antidepress (NotDetected) Ur Phencyclidine Scrn (NotDetected) Ur Amphetamines Screen (NotDetected) U Methamphetamines Scrn (NotDetected) U Benzodiazepines Scrn (NotDetected) Urine Cocaine Screen (NotDetected) U Marijuana (THC) Screen (NotDetected) Disposition Clinical Impression: Bipolar 1 disorder, Diabetes mellitus, Suicidal ideation, Depression, Abrasion Disposition: TRANSFER TO PSYCH HOSP/UNIT Condition: Good Is patient prescribed a controlled substance at d/c from ED?: No Referrals: [facility] [Primary Care Provider] - 1-2 days Time of Disposition: 00:42 - Out of Hospital Transfer - Req. Specs Out of Hospital Transfer - Requested Specifics: Psychiatric Non-ICU
[2019-02-20] MEDS ORDERED: LORazepam 1 MG TAB PO PRN (01:56)
[2019-02-20] MEDS ORDERED: ZIPRASIDONE 20 MG VIAL IM PRN (01:56)
[2019-02-20] MEDS: metFORMIN 500 MG TAB PO SCH ×3 (02:31→20:40)
[2019-02-20] MEDS: FAMOTIDINE 20 MG TAB PO SCH ×3 (02:31→20:40)
[2019-02-20] MEDS: ATORVASTATIN 10 MG TAB PO SCH ×2 (02:31→20:40)
[2019-02-20] MEDS: DESMOPRESSIN 0.2 MG TAB PO SCH ×2 (02:31→21:27)
[2019-02-20] MEDS: GABAPENTIN 300 MG CAP PO SCH ×3 (02:31→20:40)
[2019-02-20] MEDS: PRAZOSIN 1 MG CAP PO SCH ×2 (02:32→21:48)
[2019-02-20 02:41] VITALS: RESP 16
[2019-02-20 02:59] VITALS: BMI 26.1
[2019-02-20] MEDS: LEVOTHYROXINE 50 MCG TAB PO SCH (05:49)
[2019-02-20 06:17] LABS: Glucose,Whole Blood 249 mg/dL (75-99)
--- NOTE | 2019-02-20 07:31 | P.MDCNMH ---
History of Present Illness H&P Date: 02/20/19 Chief Complaint: medical management 39 year old male with history of schizophrenia and Diabetes mellitus patient presented due to suicidal ideation, he was thinking of cutting his wrist. he reports overwhelming depression symptoms. otherwise he denies any medical complaints at this time. he denies any chest pain ,trouble breathing,fever,chills. denies any abd pain nausea or vomiting. denies any urinary symptoms he does report right lower back discomfort. that has been going on fora while , pain improves with moving around, but increased with laying down on his back, denies any associated focal neurodeficits. Review of Systems Pertinent positives as noted in HPI. All other systems were reviewed and are negative Past Medical History Past Medical History: Diabetes Mellitus, GERD/Reflux, Hypertension, Neurologic Disorder, Thyroid Disorder Additional Past Medical History / Comment(s): This is obtained by reviewing medical records History of Any Multi-Drug Resistant Organisms: None Reported Past Surgical History: Hernia Repair Additional Past Surgical History / Comment(s): tubes in both ears, cleft lip surgery Past Anesthesia/Blood Transfusion Reactions: No Reported Reaction Smoking Status: Current every day smoker - Past Family History Father Family Medical History: Cancer Additional Family Medical History / Comment(s): Dad had lung cancer, in 2 012 Mother Family Medical History: Rheumatoid Arthritis (RA) Additional Family Medical History / Comment(s): Mother has paranoia schizophrenic Medications and Allergies Home Medications Medication Instructions Recorded Confirmed Type Famotidine [Pepcid] 20 mg PO BID 30 Days tab 11/26/16 02/20/19 Rx Lisinopril [Zestril] 10 mg PO DAILY 30 Days tab 11/26/16 02/20/19 Rx cloZAPine [Clozaril] 100 mg PO DAILY 30 Days tab 11/26/16 02/20/19 Rx metFORMIN HCL [Glucophage] 1,000 mg PO BID 30 Days tab 11/26/16 02/20/19 Rx sitaGLIPtin [Januvia] 100 mg PO DAILY #30 tab 11/26/16 02/20/19 Rx Acarbose [Precose] 50 mg PO AC-TID 09/30/17 02/20/19 History Levothyroxine Sodium [Synthroid] 50 mcg PO DAILY 09/30/17 02/20/19 History Prazosin [Minipress] 5 mg PO HS 09/30/17 02/20/19 History Simvastatin [Zocor] 20 mg PO HS 09/30/17 02/20/19 History Gabapentin [Neurontin] 300 mg PO BID 11/26/17 02/20/19 History cloZAPine [Clozaril] 400 mg PO HS 11/26/17 02/20/19 History fluPHENAZine DECANOATE [Prolixin 50 mg IM Q14D 11/26/17 02/20/19 History Decanoate] Acetaminophen Tab [Tylenol Tab] 500 mg PO TID PRN 02/19/19 02/20/19 History Albuterol Sulfate [Proair 2 puff PO RT-Q4H PRN 02/19/19 02/20/19 History Respiclick] Cholecalciferol [Vitamin D3 (25 5,000 unit PO DAILY 02/19/19 02/20/19 History Mcg = 1000 Iu)] Desmopressin [Ddavp] 0.2 mg PO HS 02/19/19 02/20/19 History Magnesium Oxide [Mag-Ox] 400 mg PO BID 02/19/19 02/20/19 History Allergies Allergy/AdvReac Type Severity Reaction Status Date / Time No Known Allergies Allergy Verified 02/20/19 00:56 Physical Exam Vitals: Vital Signs Temp Pulse Pulse Resp BP BP Pulse Ox 02/20/19 02:52 96.6 F L 80 16 122/74 98 02/20/19 02:40 96.6 F L 80 16 122/74 98 02/20/19 01:37 97.3 F L 77 18 120/60 98 02/19/19 16:38 97.6 F 93 18 132/81 99 Intake and Output 02/19/19 02/20/19 02/20/19 22:59 06:59 14:59 Other: Weight 63.049 kg Constitutional: No acute distress, conversant, pleasant Eyes: Anicteric sclerae, moist conjunctiva, no lid-lag Pupils equal round reactive to light ENMT: NC/AT, cleft lip Oropharynx clear, no erythema, exudates Neck: Supple, FROM, no masses, or JVD No carotid bruits No thyromegaly Lungs: good breath sounds with scattered rhonci Clear to percussion Normal respiratory effort, no accessory muscle use Cardiovascular: Heart regular in rate and rhythm, No murmurs, gallops, or rubs No peripheral edema Abdominal: Soft, discomfort to palpation of right lower back Nontender, no guarding, rebound or rigidity Abdomen moving with respiration Normoactive bowel sounds No hepatomegaly, No splenomegaly No palpable mass No abdominal wall hernia noted Skin: Normal temperature, tone, texture, turgor No induration No subcutaneous nodules No rash, lesions No ulcers Extremities: No digital cyanosis No clubbing Pedal pulses intact and symmetrical Radial pulses intact and symmetrical No calf tenderness Psychiatric: Alert and oriented to person, place and time Appropriate affect poor judgment Neuro Muscles Strength 5/5 in all 4 extremities Sensation to light touch grossly present throughout Cranial nerves II-XII grossly intact No focal sensory deficits Lymphatics: no palpable cervical or supraclavicular , or inguinal lymph nodes Cranial Nerve Examination - Cranial Nerves Cranial Nerve II- Optic: Intact Cranial Nerve III- Oculomotor: Intact Cranial Nerve IV- Trochlear: Intact Cranial Nerve V- Trigeminal: Intact Cranial Nerve - Abducens: Intact Cranial Nerve VII- Facial: Intact Cranial Nerve VIII- Auditory: Intact Cranial Nerve IX- Glossopharyngeal: Intact Cranial Nerve X- Vagus: Intact Cranial Nerve XI- Accessory: Intact Cranial Nerve XII- Hypoglossal: Intact Results CBC & Chem 7: 02/19/19 21:00 02/21/19 10:34 Labs: Abnormal Lab Results - Last 24 Hours (Table) 02/19/19 02/19/19 02/20/19 Range/Units 14:55 21:00 05:56 Creatinine 0.55 L (0.66-1.25) mg/dL Glucose 280 H (74-99) mg/dL POC Glucose (mg/dL) 249 H (75-99) mg/dL Calcium 10.4 H (8.4-10.2) mg/dL Urine Glucose (UA) 4+ H (Negative) Assessment and Plan Assessment: 39 year old male , presented to hospital for suicidal ideation. he has history of DM, hypertension and hLD, currently has no complaints or concerns. Plan: suicidal thoughts management per psych mild hypercalcemia follow up labs in morning diabetes mellitus with hyperglycemia , insulin sliding scale chronic conditions currently stable Hypertension hyperlipidemia hypothyroid continue home meds DVT PPx , patient low risk and ambulatory Thank you for this consultation ,will continue to follow up on labs
[2019-02-20] MEDS: INSULIN ASPART (NovoLOG) 100 UNIT/ML VIAL SQ SCH ×5 (07:35→20:46)
[2019-02-20] MEDS: CHOLECALCIFEROL 1,000 UNIT TAB PO SCH (07:37)
[2019-02-20] MEDS: LISINOPRIL 10 MG TAB PO SCH (07:38)
[2019-02-20] MEDS: NICOTINE 14MG/24HR PATCH TRANSDERM SCH (07:39)
[2019-02-20] MEDS: LINAGLIPTIN 5 MG TABLET PO SCH (07:46)
[2019-02-20] MEDS: ACARBOSE 25 MG TAB PO SCH ×3 (07:47→18:19)
[2019-02-20] MEDS: MAGNESIUM OXIDE 400 MG TAB PO SCH ×2 (08:10→20:40)
[2019-02-20] MEDS ORDERED: fluPHENAZine DECANOATE 25 MG/ML 5ML MDV IM SCH (09:00)
[2019-02-20 09:54] LABS: Potassium 4.4 mmol/L (3.5-5.1)
[2019-02-20 09:55] LABS: ALT 36 U/L (21-72); AST 41 U/L (17-59); Albumin 4.8 g/dL (3.5-5.0); Alkaline Phosphatase 55 U/L (38-126); Anion Gap 10 mmol/L; Bilirubin, Delta 0.3 mg/dL (0.0-0.2); Bilirubin,Unconjugated 0.2 mg/dL (0.0-1.1); Blood Urea Nitrogen 11 mg/dL (9-20); Calcium 10.9 mg/dL (8.4-10.2); Carbon Dioxide 27 mmol/L (22-30); Chloride 104 mmol/L (98-107); Cholesterol 148 mg/dL (<200); Glucose 278 mg/dL (74-99); HDL Cholesterol 55 mg/dL (40-60); LDL Cholesterol,Calculated 70 mg/dL (0-99); Sodium 141 mmol/L (137-145); Total Bilirubin 0.5 mg/dL (0.2-1.3); Total Protein 7.6 g/dL (6.3-8.2); Triglycerides 113 mg/dL (<150)
[2019-02-20] MEDS: cloZAPine 100 MG TAB PO SCH ×2 (11:28→21:27)
[2019-02-20 12:41] LABS: Glucose,Whole Blood 205 mg/dL (75-99)
--- NOTE | 2019-02-20 14:01 | P.HP ---
Psychiatric H&P - . H&P Date: 02/20/19 History & Physical: Allergies Allergy/AdvReac Type Severity Reaction Status Date / Time No Known Allergies Allergy Verified 02/20/19 00:56 Vital Signs Temp 96.6 F L 02/20/19 02:52 Pulse 80 02/20/19 02:52 Resp 16 02/20/19 02:52 BP 122/74 02/20/19 02:52 Pulse Ox 98 02/20/19 02:52 Intake & Output 02/19/19 02/20/19 02/20/19 18:59 06:59 18:59 Weight 63.049 kg Laboratory Last Values WBC 7.4 k/uL (3.8-10.6) 02/19/19 21:00 RBC 4.85 m/uL (4.30-5.90) 02/19/19 21:00 Hgb 14.2 gm/dL (13.0-17.5) 02/19/19 21:00 Hct 43.0 % (39.0-53.0) 02/19/19 21:00 MCV 88.6 fL (80.0-100.0) 02/19/19 21:00 MCH 29.3 pg (25.0-35.0) 02/19/19 21:00 MCHC 33.1 g/dL (31.0-37.0) 02/19/19 21:00 RDW 14.1 % (11.5-15.5) 02/19/19 21:00 Plt Count 187 k/uL (150-450) 02/19/19 21:00 Neutrophils % 55 % 02/19/19 21:00 Lymphocytes % 35 % 02/19/19 21:00 Monocytes % 5 % 02/19/19 21:00 Eosinophils % 2 % 02/19/19 21:00 Basophils % 1 % 02/19/19 21:00 Neutrophils # 4.0 k/uL (1.3-7.7) 02/19/19 21:00 Lymphocytes # 2.6 k/uL (1.0-4.8) 02/19/19 21:00 Monocytes # 0.4 k/uL (0-1.0) 02/19/19 21:00 Eosinophils # 0.2 k/uL (0-0.7) 02/19/19 21:00 Basophils # 0.0 k/uL (0-0.2) 02/19/19 21:00 Sodium 141 mmol/L (137-145) 02/20/19 09:10 Potassium 4.4 mmol/L (3.5-5.1) 02/20/19 09:10 Chloride 104 mmol/L (98-107) 02/20/19 09:10 Carbon Dioxide 27 mmol/L (22-30) 02/20/19 09:10 Anion Gap 10 mmol/L 02/20/19 09:10 BUN 11 mg/dL (9-20) 02/20/19 09:10 Creatinine 0.63 mg/dL (0.66-1.25) L 02/20/19 09:10 Est GFR (CKD-EPI)AfAm >90 (>60 ml/min/1.73 sqM) 02/20/19 09:10 Est GFR (CKD-EPI)NonAf >90 (>60 ml/min/1.73 sqM) 02/20/19 09:10 Glucose 278 mg/dL (74-99) H 02/20/19 09:10 POC Glucose (mg/dL) 205 mg/dL (75-99) H 02/20/19 12:39 POC Glu Counter Weigher ID Karen Strong 02/20/19 12:39 Calcium 10.9 mg/dL (8.4-10.2) H 02/20/19 09:10 Total Bilirubin 0.5 mg/dL (0.2-1.3) 02/20/19 09:10 Conjugated Bilirubin 0.0 mg/dL (0.0-0.3) 02/20/19 09:10 Unconjugated Bilirubin 0.2 mg/dL (0.0-1.1) 02/20/19 09:10 Delta Bilirubin 0.3 mg/dL (0.0-0.2) H 02/20/19 09:10 AST 41 U/L (17-59) 02/20/19 09:10 ALT 36 U/L (21-72) 02/20/19 09:10 Alkaline Phosphatase 55 U/L (38-126) 02/20/19 09:10 Total Protein 7.6 g/dL (6.3-8.2) 02/20/19 09:10 Albumin 4.8 g/dL (3.5-5.0) 02/20/19 09:10 Triglycerides 113 mg/dL (<150) 02/20/19 09:10 Cholesterol 148 mg/dL (<200) 02/20/19 09:10 LDL Cholesterol, Calc 70 mg/dL (0-99) 02/20/19 09:10 HDL Cholesterol 55 mg/dL (40-60) 02/20/19 09:10 TSH 1.660 mIU/L (0.465-4.680) 02/20/19 09:10 Urine Color Light Yellow 02/19/19 14:55 Urine Appearance Clear (Clear) 02/19/19 14:55 Urine pH 6.0 (5.0-8.0) 02/19/19 14:55 Ur Specific [place] 1.005 (1.001-1.035) 02/19/19 14:55 Urine Protein Negative (Negative) 02/19/19 14:55 Urine Glucose (UA) 4+ (Negative) H 02/19/19 14:55 Urine Ketones Negative (Negative) 02/19/19 14:55 Urine Blood Negative (Negative) 02/19/19 14:55 Urine Nitrite Negative (Negative) 02/19/19 14:55 Urine Bilirubin Negative (Negative) 02/19/19 14:55 Urine Urobilinogen <2.0 mg/dL (<2.0) 02/19/19 14:55 Ur Leukocyte Esterase Negative (Negative) 02/19/19 14:55 Urine Opiates Screen Not Detected (NotDetected) 02/19/19 14:55 Ur Oxycodone Screen Not Detected (NotDetected) 02/19/19 14:55 Urine Methadone Screen Not Detected (NotDetected) 02/19/19 14:55 Ur Propoxyphene Screen Not Detected (NotDetected) 02/19/19 14:55 Ur Barbiturates Screen Not Detected (NotDetected) 02/19/19 14:55 U Tricyclic Antidepress Not Detected (NotDetected) 02/19/19 14:55 Ur Phencyclidine Scrn Not Detected (NotDetected) 02/19/19 14:55 Ur Amphetamines Screen Not Detected (NotDetected) 02/19/19 14:55 U Methamphetamines Scrn Not Detected (NotDetected) 02/19/19 14:55 U Benzodiazepines Scrn Not Detected (NotDetected) 02/19/19 14:55 Urine Cocaine Screen Not Detected (NotDetected) 02/19/19 14:55 U Marijuana (THC) Screen Not Detected (NotDetected) 02/19/19 14:55 Assessment and Plan (1) Depression Narrative/Plan: This 39-year-old white male presents with a complaint of feeling depressed. He does relate that he's had some suicidal ideation. He has not acted out on any of these other than putting some scratches to his left forearm. He apparently was complaining of some homicidal ideations but denies these well in the emergency department. He denies overdosing. He denies any medical complaints. He apparently has a long history of psychiatric problems. No other complaints or modifying factors. pt is resting in room. pt states that he is here because "I'm doing a lot better right now. Earlier I was having suicidal thoughts." pt reports "really bad" suicidal ideation earlier with plan to cut. pt was acting erratically and swinging his cane at people when police were picking him up. pt states, "It took 2 officers to calm me down." Per petition, pt also told [employer] that he was having homicidal ideation towards his roommate. pt denies current homicidal ideation and shrugs when asked if he had a target. pt also denies any plan or intent. pt is calm and cooperative throughout assessment. pt motions to his right side and states, "Every time I look over here, I see my dad. Only I can see him. No one else." pt denies any other visual hallucinations. pt denies auditory hallucinations. - Related Data Home Medications Medication Instructions Recorded Confirmed Acarbose [Precose] 50 mg PO AC-TID 09/30/17 02/19/19 Levothyroxine Sodium [Synthroid] 50 mcg PO DAILY 09/30/17 02/19/19 Prazosin [Minipress] 5 mg PO HS 09/30/17 02/19/19 Simvastatin [Zocor] 20 mg PO HS 09/30/17 02/19/19 Gabapentin [Neurontin] 300 mg PO BID 11/26/17 02/19/19 cloZAPine [Clozaril] 400 mg PO HS 11/26/17 02/19/19 fluPHENAZine DECANOATE [Prolixin 50 mg IM Q14D 11/26/17 02/19/19 Decanoate] Acetaminophen Tab [Tylenol Tab] 500 mg PO TID PRN 02/19/19 02/19/19 Albuterol Sulfate [Proair 2 puff PO RT-Q4H PRN 02/19/19 02/19/19 Respiclick] Cholecalciferol [Vitamin D3 (25 5,000 unit PO DAILY 02/19/19 02/19/19 Mcg = 1000 Iu)] Desmopressin [Ddavp] 0.2 mg PO HS 02/19/19 02/19/19 Magnesium Oxide [Mag-Ox] 400 mg PO BID 02/19/19 02/19/19 Previous Rx's Medication Instructions Recorded Famotidine [Pepcid] 20 mg PO BID 30 Days tab 11/26/16 Lisinopril [Zestril] 10 mg PO DAILY 30 Days tab 11/26/16 cloZAPine [Clozaril] 100 mg PO DAILY 30 Days tab 11/26/16 metFORMIN HCL [Glucophage] 1,000 mg PO BID 30 Days tab 11/26/16 sitaGLIPtin [Januvia] 100 mg PO DAILY #30 tab 11/26/16 Allergies Allergy/AdvReac Type Severity Reaction Status Date / Time No Known Allergies Allergy Verified 02/19/19 17:31 Past Medical History Past Medical History: Diabetes Mellitus, GERD/Reflux, Hypertension, Neurologic Disorder, Thyroid Disorder Additional Past Medical History / Comment(s): This is obtained by reviewing medical records History of Any Multi-Drug Resistant Organisms: None Reported Past Surgical History: Hernia Repair Additional Past Surgical History / Comment(s): tubes in both ears, cleft lip surgery Past Anesthesia/Blood Transfusion Reactions: No Reported Reaction Past Psychological History: Bipolar, Depression Smoking Status: Current every day smoker Past Alcohol Use History: Occasional Past Drug Use History: None Reported - Past Family History Father Family Medical History: Cancer Additional Family Medical History / Comment(s): Dad had lung cancer, in 2011 Mother Family Medical History: Rheumatoid Arthritis (RA) Additional Family Medical History / Comment(s): Mother has paranoia schizophrenic MENTAL STATUS EXAM: Appearance: alert, well disheveled, appears stated age, steady gait Behavior: psychomotor agitation++++ no abnormal movements, poor eye contact Attitude: cooperative most of the time spontaneously aggressive Speech: articulation poor, volume loud, fluency and comprehension normal ; primary language: [place] Mood: angry Affect: congruent: labile Thought processes: concrete at times erratic Thought content: patient does not appear to be responding to internal stimuli; patient denies auditory and visual hallucinations, no delusions appreciated Insight: poor Judgment: poor Cognitive: below average, oriented to self, person, place Admitting Diagnosis: [Bipolar type I disorder, depressed; intellectual disability] Patient Strengths - Steady employment/financial stability: [x] Housing stability: [x] Patient Limitations: [medication, pathological/unsupported environment, intellectual impairment, lack of social supports Initial Plan of Care: [He was allowed to sign in on 3 W. mental health unit [facility] for treatment for suicidal illness and occasional homicidal thoughts. He placed on 15 minute checks usual further protocol the mental health unit. He'll be evaluated by medicine, psychiatry, nursing staff, social work and occupational therapy for integration in the [facility] therapeutic environment. He'll be maintained on his medications since he does not display any flagrant psychosis at the current time.] Estimated Length of Stay: [3 days] Initial Discharge Plan: [home, [facility], Prognosis: [Fair] Justification for Inpatient Hospitalization - [Hallucinations, delusions, agitation, anxiety, depression resulting in significant loss of functioning.] [Dangerous to self, others, with need for controlled environment.] [Emotional or behavioral conditions and complications requiring 24 hour medical and nursing care.] [Need for special drug therapy, or other therapeutic program requiring continuous hospitalization.] [Failure of social or occupational functioning.] [Inability to meet basic life and health needs.] [Legally mandated admission.] Current Visit: Yes Status: Acute Priority: Medium Code(s): F32.9 - MAJOR DEPRESSIVE DISORDER, SINGLE EPISODE, UNSPECIFIED SNOMED Code(s): 18395571 (2) Mild intellectual disabilities Current Visit: No Status: Acute Priority: High Code(s): F70 - MILD INTELLECTUAL DISABILITIES SNOMED Code(s): 48237136
[2019-02-20 17:39] LABS: Glucose,Whole Blood 178 mg/dL (75-99)
[2019-02-20 19:15] LABS: Hemoglobin A1C 8.9 % (4.0-6.0)
[2019-02-20 20:05] LABS: Glucose,Whole Blood 173 mg/dL (75-99)
[2019-02-20] MEDS: INSULIN DETEMIR (LEVEMIR) 100 UNIT/ML SYR SQ SCH (20:46)
[2019-02-21] MEDS: LEVOTHYROXINE 50 MCG TAB PO SCH (06:09)
[2019-02-21 07:05] LABS: Glucose,Whole Blood 226 mg/dL (75-99)
[2019-02-21] MEDS: CHOLECALCIFEROL 1,000 UNIT TAB PO SCH (08:29)
[2019-02-21] MEDS: LISINOPRIL 10 MG TAB PO SCH (08:29)
[2019-02-21] MEDS: GABAPENTIN 300 MG CAP PO SCH ×2 (08:29→20:13)
[2019-02-21] MEDS: cloZAPine 100 MG TAB PO SCH ×2 (08:29→20:14)
[2019-02-21] MEDS: FAMOTIDINE 20 MG TAB PO SCH ×2 (08:30→20:13)
[2019-02-21] MEDS: INSULIN ASPART (NovoLOG) 100 UNIT/ML VIAL SQ SCH ×7 (08:30→20:09)
[2019-02-21] MEDS: MAGNESIUM OXIDE 400 MG TAB PO SCH ×2 (08:30→20:16)
[2019-02-21] MEDS: metFORMIN 500 MG TAB PO SCH ×2 (08:30→20:14)
[2019-02-21] MEDS: ACARBOSE 25 MG TAB PO SCH ×3 (08:37→17:15)
[2019-02-21] MEDS: LINAGLIPTIN 5 MG TABLET PO SCH (09:38)
[2019-02-21] MEDS: NICOTINE 14MG/24HR PATCH TRANSDERM SCH (09:40)
[2019-02-21 09:53] LABS: Clozapine (Clozaril) 43 ng/mL (200-700); Norclozapine 56 ng/mL (200-700)
[2019-02-21 11:51] LABS: Anion Gap 10 mmol/L; Blood Urea Nitrogen 17 mg/dL (9-20); Calcium 10.9 mg/dL (8.4-10.2); Carbon Dioxide 25 mmol/L (22-30); Chloride 107 mmol/L (98-107); Glucose 180 mg/dL (74-99); Potassium 4.6 mmol/L (3.5-5.1); Sodium 142 mmol/L (137-145)
[2019-02-21 13:04] LABS: Glucose,Whole Blood 186 mg/dL (75-99)
[2019-02-21] MEDS: ACETAMINOPHEN TAB 500 MG TAB PO PRN (14:16)
[2019-02-21 17:14] LABS: Glucose,Whole Blood 391 mg/dL (75-99)
[2019-02-21 20:04] LABS: Glucose,Whole Blood 125 mg/dL (75-99)
[2019-02-21] MEDS: INSULIN DETEMIR (LEVEMIR) 100 UNIT/ML SYR SQ SCH (20:11)
[2019-02-21] MEDS: PRAZOSIN 1 MG CAP PO SCH (20:13)
[2019-02-21] MEDS: ATORVASTATIN 10 MG TAB PO SCH (20:13)
[2019-02-21] MEDS: DESMOPRESSIN 0.2 MG TAB PO SCH (20:13)
[2019-02-21 20:18] VITALS: BP 116/60; TEMP 98
[2019-02-21 21:05] VITALS: PULSE 76
[2019-02-22] MEDS: LEVOTHYROXINE 50 MCG TAB PO SCH (06:46)
[2019-02-22 06:54] LABS: Glucose,Whole Blood 202 mg/dL (75-99)
[2019-02-22] MEDS: FAMOTIDINE 20 MG TAB PO SCH (07:59)
[2019-02-22] MEDS: cloZAPine 100 MG TAB PO SCH (07:59)
[2019-02-22] MEDS: CHOLECALCIFEROL 1,000 UNIT TAB PO SCH (07:59)
[2019-02-22] MEDS: ACARBOSE 25 MG TAB PO SCH ×2 (07:59→12:18)
[2019-02-22] MEDS: LINAGLIPTIN 5 MG TABLET PO SCH (08:00)
[2019-02-22] MEDS: LISINOPRIL 10 MG TAB PO SCH (08:00)
[2019-02-22] MEDS: metFORMIN 500 MG TAB PO SCH (08:00)
[2019-02-22] MEDS: GABAPENTIN 300 MG CAP PO SCH (08:00)
[2019-02-22] MEDS: NICOTINE 14MG/24HR PATCH TRANSDERM SCH (08:02)
[2019-02-22] MEDS: INSULIN ASPART (NovoLOG) 100 UNIT/ML VIAL SQ SCH ×4 (08:10→13:02)
[2019-02-22] MEDS: MAGNESIUM OXIDE 400 MG TAB PO SCH (08:14)
[2019-02-22] MEDS: ACETAMINOPHEN TAB 500 MG TAB PO PRN (11:16)
--- NOTE | 2019-02-22 11:16 | P.DS ---
Providers Date of admission: 02/20/19 01:42 Expected date of discharge: 02/22/19 Attending physician: Nick Yi DO Consults: 02/20/19 01:56 Consult Physician Routine Consulting Provider: Eric Madrid Consult Reason/Comments: For H & P for Medical Follow Up Do you want consulting provider notified?: Yes Primary care physician: [facility] Diagnosis(es) (1) Depression Allergies Allergy/AdvReac Type Severity Reaction Status Date / Time No Known Allergies Allergy Verified 02/20/19 00:56 Vital Signs Temp 96.6 F L 02/20/19 02:52 Pulse 80 02/20/19 02:52 Resp 16 02/20/19 02:52 BP 122/74 02/20/19 02:52 Pulse Ox 98 02/20/19 02:52 Intake & Output 02/19/19 02/20/19 02/20/19 18:59 06:59 18:59 Weight 63.049 kg Laboratory Last Values WBC 7.4 k/uL (3.8-10.6) 02/19/19 21:00 RBC 4.85 m/uL (4.30-5.90) 02/19/19 21:00 Hgb 14.2 gm/dL (13.0-17.5) 02/19/19 21:00 Hct 43.0 % (39.0-53.0) 02/19/19 21:00 MCV 88.6 fL (80.0-100.0) 02/19/19 21:00 MCH 29.3 pg (25.0-35.0) 02/19/19 21:00 MCHC 33.1 g/dL (31.0-37.0) 02/19/19 21:00 RDW 14.1 % (11.5-15.5) 02/19/19 21:00 Plt Count 187 k/uL (150-450) 02/19/19 21:00 Neutrophils % 55 % 02/19/19 21:00 Lymphocytes % 35 % 02/19/19 21:00 Monocytes % 5 % 02/19/19 21:00 Eosinophils % 2 % 02/19/19 21:00 Basophils % 1 % 02/19/19 21:00 Neutrophils # 4.0 k/uL (1.3-7.7) 02/19/19 21:00 Lymphocytes # 2.6 k/uL (1.0-4.8) 02/19/19 21:00 Monocytes # 0.4 k/uL (0-1.0) 02/19/19 21:00 Eosinophils # 0.2 k/uL (0-0.7) 02/19/19 21:00 Basophils # 0.0 k/uL (0-0.2) 02/19/19 21:00 Sodium 141 mmol/L (137-145) 02/20/19 09:10 Potassium 4.4 mmol/L (3.5-5.1) 02/20/19 09:10 Chloride 104 mmol/L (98-107) 02/20/19 09:10 Carbon Dioxide 27 mmol/L (22-30) 02/20/19 09:10 Anion Gap 10 mmol/L 02/20/19 09:10 BUN 11 mg/dL (9-20) 02/20/19 09:10 Creatinine 0.63 mg/dL (0.66-1.25) L 02/20/19 09:10 Est GFR (CKD-EPI)AfAm >90 (>60 ml/min/1.73 sqM) 02/20/19 09:10 Est GFR (CKD-EPI)NonAf >90 (>60 ml/min/1.73 sqM) 02/20/19 09:10 Glucose 278 mg/dL (74-99) H 02/20/19 09:10 POC Glucose (mg/dL) 205 mg/dL (75-99) H 02/20/19 12:39 POC Glu Ssn/Ssbn Assistant Navigator ID Karen Strong 02/20/19 12:39 Calcium 10.9 mg/dL (8.4-10.2) H 02/20/19 09:10 Total Bilirubin 0.5 mg/dL (0.2-1.3) 02/20/19 09:10 Conjugated Bilirubin 0.0 mg/dL (0.0-0.3) 02/20/19 09:10 Unconjugated Bilirubin 0.2 mg/dL (0.0-1.1) 02/20/19 09:10 Delta Bilirubin 0.3 mg/dL (0.0-0.2) H 02/20/19 09:10 AST 41 U/L (17-59) 02/20/19 09:10 ALT 36 U/L (21-72) 02/20/19 09:10 Alkaline Phosphatase 55 U/L (38-126) 02/20/19 09:10 Total Protein 7.6 g/dL (6.3-8.2) 02/20/19 09:10 Albumin 4.8 g/dL (3.5-5.0) 02/20/19 09:10 Triglycerides 113 mg/dL (<150) 02/20/19 09:10 Cholesterol 148 mg/dL (<200) 02/20/19 09:10 LDL Cholesterol, Calc 70 mg/dL (0-99) 02/20/19 09:10 HDL Cholesterol 55 mg/dL (40-60) 02/20/19 09:10 TSH 1.660 mIU/L (0.465-4.680) 02/20/19 09:10 Urine Color Light Yellow 02/19/19 14:55 Urine Appearance Clear (Clear) 02/19/19 14:55 Urine pH 6.0 (5.0-8.0) 02/19/19 14:55 Ur Specific [place] 1.005 (1.001-1.035) 02/19/19 14:55 Urine Protein Negative (Negative) 02/19/19 14:55 Urine Glucose (UA) 4+ (Negative) H 02/19/19 14:55 Urine Ketones Negative (Negative) 02/19/19 14:55 Urine Blood Negative (Negative) 02/19/19 14:55 Urine Nitrite Negative (Negative) 02/19/19 14:55 Urine Bilirubin Negative (Negative) 02/19/19 14:55 Urine Urobilinogen <2.0 mg/dL (<2.0) 02/19/19 14:55 Ur Leukocyte Esterase Negative (Negative) 02/19/19 14:55 Urine Opiates Screen Not Detected (NotDetected) 02/19/19 14:55 Ur Oxycodone Screen Not Detected (NotDetected) 02/19/19 14:55 Urine Methadone Screen Not Detected (NotDetected) 02/19/19 14:55 Ur Propoxyphene Screen Not Detected (NotDetected) 02/19/19 14:55 Ur Barbiturates Screen Not Detected (NotDetected) 02/19/19 14:55 U Tricyclic Antidepress Not Detected (NotDetected) 02/19/19 14:55 Ur Phencyclidine Scrn Not Detected (NotDetected) 02/19/19 14:55 Ur Amphetamines Screen Not Detected (NotDetected) 02/19/19 14:55 U Methamphetamines Scrn Not Detected (NotDetected) 02/19/19 14:55 U Benzodiazepines Scrn Not Detected (NotDetected) 02/19/19 14:55 Urine Cocaine Screen Not Detected (NotDetected) 02/19/19 14:55 U Marijuana (THC) Screen Not Detected (NotDetected) 02/19/19 14:55 Assessment and Plan (1) Depression Narrative/Plan: This 39-year-old white male presents with a complaint of feeling depressed. He does relate that he's had some suicidal ideation. He has not acted out on any of these other than putting some scratches to his left forearm. He apparently was complaining of some homicidal ideations but denies these well in the emergency department. He denies overdosing. He denies any medical complaints. He apparently has a long history of psychiatric problems. No other complaints o r modifying factors. pt is resting in room. pt states that he is here because "I'm doing a lot better right now. Earlier I was having suicidal thoughts." pt reports "really bad" suicidal ideation earlier with plan to cut. pt was acting erratically and swinging his cane at people when police were picking him up. pt states, "It took 2 officers to calm me down." Per petition, pt also told [facility] that he was having homicidal ideation towards his roommate. pt denies current homicidal ideation and shrugs when asked if he had a target. pt also denies any plan or intent. pt is calm and cooperative throughout assessment. pt motions to his right side and states, "Every time I look over here, I see my dad. Only I can see him. No one else." pt denies any other visual hallucinati ons. pt denies auditory hallucinations. - Related Data Home Medications Medication Instructions Recorded Confirmed Acarbose [Precose] 50 mg PO AC-TID 09/30/17 02/19/19 Levothyroxine Sodium [Synthroid] 50 mcg PO DAILY 09/30/17 02/19/19 Prazosin [Minipress] 5 mg PO HS 09/30/17 02/19/19 Simvastatin [Zocor] 20 mg PO HS 09/30/17 02/19/19 Gabapentin [Neurontin] 300 mg PO BID 11/26/17 02/19/19 cloZAPine [Clozaril] 400 mg PO HS 11/26/17 02/19/19 fluPHENAZine DECANOATE [Prolixin 50 mg IM Q14D 11/26/17 02/19/19 Decanoate] Acetaminophen Tab [Tylenol Tab] 500 mg PO TID PRN 02/19/19 02/19/19 Albuterol Sulfate [Proair 2 puff PO RT-Q4H PRN 02/19/19 02/19/19 Respiclick] Cholecalciferol [Vitamin D3 (25 5,000 unit PO DAILY 02/19/19 02/19/19 Mcg = 1000 Iu)] Desmopressin [Ddavp] 0.2 mg PO HS 02/19/19 02/19/19 Magnesium Oxide [Mag-Ox] 400 mg PO BID 02/19/19 02/19/19 Previous Rx's Medication Instructions Recorded Famotidine [Pepcid] 20 mg PO BID 30 Days tab 11/26/16 Lisinopril [Zestril] 10 mg PO DAILY 30 Days tab 11/26/16 cloZAPine [Clozaril] 100 mg PO DAILY 30 Days tab 11/26/16 metFORMIN HCL [Glucophage] 1,000 mg PO BID 30 Days tab 11/26/16 sitaGLIPtin [Januvia] 100 mg PO DAILY #30 tab 11/26/16 Allergies Allergy/AdvReac Type Severity Reaction Status Date / Time No Known Allergies Allergy Verified 02/19/19 17:31 Past Medical History Past Medical History: Diabetes Mellitus, GERD/Reflux, Hypertension, Neurologic Disorder, Thyroid Disorder Additional Past Medical History / Comment(s): This is obtained by reviewing medical records History of Any Multi-Drug Resistant Organisms: None Reported Past Surgical History: Hernia Repair Additional Past Surgical History / Comment(s): tubes in both ears, cleft lip surgery Past Anesthesia/Blood Transfusion Reactions: No Reported Reaction Past Psychological History: Bipolar, Depression Smoking Status: Current every day smoker Past Alcohol Use History: Occasional Past Drug Use History: None Reported - Past Family History Father Family Medical History: Cancer Additional Family Medical History / Comment(s): Dad had lung cancer, in 05 10 Mother Family Medical History: Rheumatoid Arthritis (RA) Additional Family Medical History / Comment(s): Mother has paranoia schizophrenic MENTAL STATUS EXAM: Appearance: alert, well disheveled, appears stated age, steady gait Behavior: psychomotor agitation++++ no abnormal movements, poor eye contact Attitude: cooperative most of the time spontaneously aggressive Speech: articulation poor, volume loud, fluency and comprehension normal ; primary language: [place] Mood: angry Affect: congruent: labile Thought processes: concrete at times erratic Thought content: patient does not appear to be responding to internal stimuli; patient denies auditory and visual hallucinations, no delusions appreciated Insight: poor Judgment: poor Cognitive: below average, oriented to self, person, place Admitting Diagnosis: [Bipolar type I disorder, depressed; intellectual disability] Current Visit: Yes Status: Acute Priority: Medium (2) Mild intellectual disabilities Current Visit: No Status: Acute Priority: High Hospital Course: Plan of Care: [He was allowed to sign in on [address] [facility] for treatment for suicidal illness and occasional homicidal thoughts. He placed on 15 minute checks usual further protocol the mental health unit. He'll be evaluated by medicine, psychiatry, nursing staff, social work and occupational therapy for integration in the [facility] therapeutic environment. He'll be maintained on his medications since he does not display any flagrant psychosis at the current time. Mental status examination time of discharge 02/22/2019 and 11:15 AM: The patient presents alert, pleasant, and cooperative. There calmly seated without any agitated behavior. [He] reports that [his] mood is good. Affect is congruent and euthymic. [He] deny having any suicidal or homicidal ideation intent or plan. [He] denies any auditory or visual hallucinations. There is no evidence of any delusional thought content. [His] thought process is linear and goal-directed. [He has] speech is fluent and nonpressured. [He is] memory and concentration is grossly intact for the purposes of this session. ] Patient Condition at Discharge: Stable Plan - Discharge Summary New Discharge Prescriptions: New Insulin Detemir (Levemir) [Levemir] 8 unit SQ HS syr INSULIN ASPART (NovoLOG) [NovoLOG (formulary)] 3 unit SQ AC-TID vial INSULIN ASPART (NovoLOG) [NovoLOG (formulary)] 0 unit SQ ACHS vial Continue Famotidine [Pepcid] 20 mg PO BID 30 Days tab Lisinopril [Zestril] 10 mg PO DAILY 30 Days tab cloZAPine [Clozaril] 100 mg PO DAILY 30 Days tab metFORMIN HCL [Glucophage] 1,000 mg PO BID 30 Days tab sitaGLIPtin [Januvia] 100 mg PO DAILY #30 tab Simvastatin [Zocor] 20 mg PO HS Acarbose [Precose] 50 mg PO AC-TID Prazosin [Minipress] 5 mg PO HS Levothyroxine Sodium [Synthroid] 50 mcg PO DAILY fluPHENAZine DECANOATE [Prolixin Decanoate] 50 mg IM Q14D Gabapentin [Neurontin] 300 mg PO BID cloZAPine [Clozaril] 400 mg PO HS Acetaminophen Tab [Tylenol] 500 mg PO TID PRN PRN Reason: Pain Albuterol Sulfate [Proair Respiclick] 2 puff PO RT-Q4H PRN PRN Reason: Shortness Of Breath Cholecalciferol [Vitamin D3 (25 Mcg = 1000 Iu)] 5,000 unit PO DAILY Desmopressin [Ddavp] 0.2 mg PO HS Discontinued Magnesium Oxide [Mag-Ox] 400 mg PO BID Discharge Medication List Famotidine [Pepcid] 20 mg PO BID 30 Days tab 11/26/16 [Rx] Lisinopril [Zestril] 10 mg PO DAILY 30 Days tab 11/26/16 [Rx] cloZAPine [Clozaril] 100 mg PO DAILY 30 Days tab 11/26/16 [Rx] metFORMIN HCL [Glucophage] 1,000 mg PO BID 30 Days tab 11/26/16 [Rx] sitaGLIPtin [Januvia] 100 mg PO DAILY #30 tab 11/26/16 [Rx] Acarbose [Precose] 50 mg PO AC-TID 09/30/17 [History] Levothyroxine Sodium [Synthroid] 50 mcg PO DAILY 09/30/17 [History] Prazosin [Minipress] 5 mg PO HS 09/30/17 [History] Simvastatin [Zocor] 20 mg PO HS 09/30/17 [History] Gabapentin [Neurontin] 300 mg PO BID 11/26/17 [History] cloZAPine [Clozaril] 400 mg PO HS 11/26/17 [History] fluPHENAZine DECANOATE [Prolixin Decanoate] 50 mg IM Q14D 11/26/17 [History] Acetaminophen Tab [Tylenol] 500 mg PO TID PRN 02/19/19 [History] Albuterol Sulfate [Proair Respiclick] 2 puff PO RT-Q4H PRN 02/19/19 [History] Cholecalciferol [Vitamin D3 (25 Mcg = 1000 Iu)] 5,000 unit PO DAILY 02/19/19 [History] Desmopressin [Ddavp] 0.2 mg PO HS 02/19/19 [History] INSULIN ASPART (NovoLOG) [NovoLOG (formulary)] 0 unit SQ ACHS vial 02/22/19 [Rx] INSULIN ASPART (NovoLOG) [NovoLOG (formulary)] 3 unit SQ AC-TID vial 02/22/19 [Rx] Insulin Detemir (Levemir) [Levemir] 8 unit SQ HS syr 02/22/19 [Rx] Follow up Appointment(s)/Referral(s): [facility] [Outside] - 02/26/19 8:00 am (02-26-19 @ 8:[address] Herron 02-26-19 @ 2:00 with Gerard Motta in the home ) [facility] [Primary Care Provider] - 1-2 days Patient Instructions/Handouts: Bipolar Disorder (DC), Depression (DC), Suicide Prevention (DC) Activity/Diet/Wound Care/Special Instructions: Activity and diet as tolerated. No guns or weapons in the home. Refrain from Alcohol or Street drugs not ordered by your physician. TAke all medications as prescribed. Attend all follow up appointments as scheduled. If in need of medication refills, please go to your primary care physician, or to your out patient psychiatric provider. If in crisis, please call , or go the nearest ER. Discharge Disposition: HOME SELF-CARE
--- NOTE | 2019-02-22 11:18 | P.PN ---
Subjective Progress Note Date: 02/21/19 Principal diagnosis: Bipolar type with intellectual disability 02/21/2019: Chart reviewed and interview the patient and he appears stable without any suicidal or homicidal ideation denies any auditory or visual hallucinations. Objective - Vital Signs Vital signs: Vital Signs Temp 98.0 F 02/21/19 20:17 Pulse 94 02/21/19 20:17 Resp 16 02/21/19 07:00 BP 116/60 02/21/19 20:17 Pulse Ox 98 02/20/19 02:52 - Labs CBC & Chem 7: 02/19/19 21:00 02/21/19 10:34 Labs: Abnormal Lab Results - Last 24 Hours (Table) 02/21/19 02/21/19 02/21/19 Range/Units 10:34 12:32 17:11 Glucose 180 H (74-99) mg/dL POC Glucose (mg/dL) 186 H 391 H (75-99) mg/dL Calcium 10.9 H (8.4-10.2) mg/dL 02/21/19 02/22/19 Range/Units 19:59 06:49 Glucose (74-99) mg/dL POC Glucose (mg/dL) 125 H 202 H (75-99) mg/dL Calcium (8.4-10.2) mg/dL Assessment and Plan (1) Depression Narrative/Plan: This 39-year-old white male presents with a complaint of feeling depressed. He does relate that he's had some suicidal ideation. He has not acted out on any of these other than putting some scratches to his left forearm. He apparently was complaining of some homicidal ideations but denies these well in the emergency department. He denies overdosing. He denies any medical complaints. He apparently has a long history of psychiatric problems. No other complaints or modifying factors. pt is resting in room. pt states that he is here because "I'm doing a lot better right now. Earlier I was having suicidal thoughts." pt reports "really bad" suicidal ideation earlier with plan to cut. pt was acting erratically and swinging his cane at people when police were picking him up. pt states, "It took 2 officers to calm me down." Per petition, pt also told [employer] that he was having homicidal ideation towards his roommate. pt denies current homicidal ideation and shrugs when asked if he had a target. pt also denies any plan or intent. pt is calm and cooperative throughout assessment. pt motions to his right side and states, "Every time I look over here, I see my dad. Only I can see him. No one else." pt denies any other visual hallucinations. pt denies auditory hallucinations. - Related Data Home Medications Medication Instructions Recorded Confirmed Acarbose [Precose] 50 mg PO AC-TID 09/30/17 02/19/19 Levothyroxine Sodium [Synthroid] 50 mcg PO DAILY 09/30/17 02/19/19 Prazosin [Minipress] 5 mg PO HS 09/30/17 02/19/19 Simvastatin [Zocor] 20 mg PO HS 09/30/17 02/19/19 Gabapentin [Neurontin] 300 mg PO BID 11/26/17 02/19/19 cloZAPine [Clozaril] 400 mg PO HS 11/26/17 02/19/19 fluPHENAZine DECANOATE [Prolixin 50 mg IM Q14D 11/26/17 02/19/19 Decanoate] Acetaminophen Tab [Tylenol Tab] 500 mg PO TID PRN 02/19/19 02/19/19 Albuterol Sulfate [Proair 2 puff PO RT-Q4H PRN 02/19/19 02/19/19 Respiclick] Cholecalciferol [Vitamin D3 (25 5,000 unit PO DAILY 02/19/19 02/19/19 Mcg = 1000 Iu)] Desmopressin [Ddavp] 0.2 mg PO HS 02/19/19 02/19/19 Magnesium Oxide [Mag-Ox] 400 mg PO BID 02/19/19 02/19/19 Previous Rx's Medication Instructions Recorded Famotidine [Pepcid] 20 mg PO BID 30 Days tab 11/26/16 Lisinopril [Zestril] 10 mg PO DAILY 30 Days tab 11/26/16 cloZAPine [Clozaril] 100 mg PO DAILY 30 Days tab 11/26/16 metFORMIN HCL [Glucophage] 1,000 mg PO BID 30 Days tab 11/26/16 sitaGLIPtin [Januvia] 100 mg PO DAILY #30 tab 11/26/16 Allergies Allergy/AdvReac Type Severity Reaction Status Date / Time No Known Allergies Allergy Verified 02/19/19 17:31 Past Medical History Past Medical History: Diabetes Mellitus, GERD/Reflux, Hypertension, Neurologic Disorder, Thyroid Disorder Additional Past Medical History / Comment(s): This is obtained by reviewing medical records History of Any Multi-Drug Resistant Organisms: None Reported Past Surgical History: Hernia Repair Additional Past Surgical History / Comment(s): tubes in both ears, cleft lip surgery Past Anesthesia/Blood Transfusion Reactions: No Reported Reaction Past Psychological History: Bipolar, Depression Smoking Status: Current every day smoker Past Alcohol Use History: Occasional Past Drug Use History: None Reported - Past Family History Father Family Medical History: Cancer Additional Family Medical History / Comment(s): Dad had lung cancer, in 2011 Mother Family Medical History: Rheumatoid Arthritis (RA) Additional Family Medical History / Comment(s): Mother has paranoia schizophrenic MENTAL STATUS EXAM: Appearance: alert, well disheveled, appears stated age, steady gait Behavior: psychomotor agitation++++ no abnormal movements, poor eye contact Attitude: cooperative most of the time spontaneously aggressive Speech: articulation poor, volume loud, fluency and comprehension normal ; primary language: Tajik Mood: angry Affect: congruent: labile Thought processes: concrete at times erratic Thought content: patient does not appear to be responding to internal stimuli; patient denies auditory and visual hallucinations, no delusions appreciated Insight: poor Judgment: poor Cognitive: below average, oriented to self, person, place Admitting Diagnosis: [Bipolar type I disorder, depressed; intellectual disability] Patient Strengths - Steady employment/financial stability: [x] Housing stability: [x] Patient Limitations: [medication, pathological/unsupported environment, intelle ctual impairment, lack of social supports Initial Plan of Care: [He was allowed to sign in on [facility]. mental health unit [facility] for treatment for suicidal illness and occasional homicidal thoughts. He placed on 15 minute checks usual further protocol the mental health unit. He'll be evaluated by medicine, psychiatry, nursing staff, social work and occupational therapy for integration in the [facility] therapeutic environment. He'll be maintained on his medications since he does not display any flagrant psychosis at the current time. 02/21/2019: He remains on 15 minute checks and appears that his bipolar and suicidal ideation is stable he denies any auditory or visual hallucinations. He is stable on the unit has no difficulty getting along with his peers and staff.] Current Visit: Yes Status: Acute Priority: Low Code(s): F32.9 - MAJOR DEPRESSIVE DISORDER, SINGLE EPISODE, UNSPECIFIED SNOMED Code(s): 64370752 (2) Mild intellectual disabilities Current Visit: No Status: Acute Priority: Low Code(s): F70 - MILD INTELLECTUAL DISABILITIES SNOMED Code(s): 35806012
[2019-02-22 12:32] LABS: Glucose,Whole Blood 125 mg/dL (75-99)
== END 2019-02-22 13:51 | disposition home or self-care (01) | DRG 885 ==
LOC: EC 16:38 → 3MHU 02-20 01:42
PROVIDERS: ADMIT Psychiatry & Neurology Psychiatry; ATTEND Psychiatry & Neurology Psychiatry
DX: F31.30 Bipolar disorder, current episode depressed, mild or moderate severity, unspecified (principal); R45.851 Suicidal ideations; E11.9 Type 2 diabetes mellitus without complications; F17.210 Nicotine dependence, cigarettes, uncomplicated; F70 Mild intellectual disabilities; I10 Essential (primary) hypertension; K21.9 Gastro-esophageal reflux disease without esophagitis; R45.850 Homicidal ideations; Z79.890 Hormone replacement therapy; Z80.1 Family history of malignant neoplasm of trachea, bronchus and lung; Z87.730 Personal history of (corrected) cleft lip and palate; M54.5 Low back pain; E11.65 Type 2 diabetes mellitus with hyperglycemia; Z79.84 Long term (current) use of oral hypoglycemic drugs; Z79.899 Other long term (current) drug therapy; Z81.8 Family history of other mental and behavioral disorders
CPT/HCPCS: 36415; 80048; 80053; 80061; 80076; 80159; 80306; 81003; 82075; 83036; 83970; 84443; 85025; 94640; 99285

== ENCOUNTER 2021-04-12 12:42 | Observation (INO) | payer OTHER ==
[2021-04-12 12:55] LABS: Glucose,Whole Blood 253 mg/dL (75-99)
[2021-04-12] MEDS ORDERED: SODIUM CHLORIDE 0.9% 1,000 ML IV ONE (13:00)
--- NOTE | 2021-04-12 13:12 | ED ---
General Adult HPI - General Chief complaint: Altered Mental Status Stated complaint: Altered Mental Status Time Seen by Provider: 04/12/21 12:52 Source: patient, EMS, RN notes reviewed, old records reviewed, Caregiver Mode of arrival: EMS Limitations: altered mental status - History of Present Illness Initial comments: 41-year-old male presenting with altered mental status, elevated blood sugar. History is very limited, patient is unable to contribute to the history according to EMS he was at [employer] and became altered. He was transported by EMS. There was no suspicion for illicit drugs. He does have history of mental illness and has a public guardian. Uncertain exactly what medications he is currently taking. There was no reported trauma. The nursing staff was able to discuss with the guardian that this patient is normally verbal and somewhat delayed but this is an acute change in his mental status. - Related Data Home Medications Medication Instructions Recorded Confirmed Acarbose [Precose] 50 mg PO AC-TID 09/30/17 02/22/19 Levothyroxine Sodium [Synthroid] 50 mcg PO DAILY 09/30/17 02/22/19 Prazosin [Minipress] 5 mg PO HS 09/30/17 02/22/19 Simvastatin [Zocor] 20 mg PO HS 09/30/17 02/22/19 Gabapentin [Neurontin] 300 mg PO BID 11/26/17 02/22/19 cloZAPine [Clozaril] 400 mg PO HS 11/26/17 02/22/19 fluPHENAZine decanoate [Prolixin 50 mg IM Q14D 11/26/17 02/22/19 Decanoate] Acetaminophen Tab [Tylenol] 500 mg PO TID PRN 02/19/19 02/22/19 Albuterol Sulfate [Proair 2 puff PO RT-Q4H PRN 02/19/19 02/22/19 Respiclick] Cholecalciferol [Vitamin D3 (25 5,000 unit PO DAILY 02/19/19 02/22/19 Mcg = 1000 Iu)] Desmopressin [Ddavp] 0.2 mg PO HS 02/19/19 02/22/19 Previous Rx's Medication Instructions Recorded Famotidine [Pepcid] 20 mg PO BID 30 Days tab 11/26/16 cloZAPine [Clozaril] 100 mg PO DAILY 30 Days tab 11/26/16 lisinopriL [Zestril] 10 mg PO DAILY 30 Days tab 11/26/16 metFORMIN HCL [Glucophage] 1,000 mg PO BID 30 Days tab 11/26/16 sitaGLIPtin [Januvia] 100 mg PO DAILY #30 tab 11/26/16 INSULIN ASPART (NovoLOG) [NovoLOG 0 unit SQ ACHS vial 02/22/19 (formulary)] INSULIN ASPART (NovoLOG) [NovoLOG 3 unit SQ AC-TID vial 02/22/19 (formulary)] Insulin Detemir (Levemir) [Levemir] 8 unit SQ HS syr 02/22/19 Allergies Allergy/AdvReac Type Severity Reaction Status Date / Time No Known Allergies Allergy Verified 04/12/21 16:06 Review of Systems ROS Statement: Those systems with pertinent positive or pertinent negative responses have been documented in the HPI. ROS Other: All systems not noted in ROS Statement are negative. Past Medical History Past Medical History: Diabetes Mellitus, GERD/Reflux, Hypertension, Neurologic Disorder, Thyroid Disorder Additional Past Medical History / Comment(s): This is obtained by reviewing [facility] records History of Any Multi-Drug Resistant Organisms: None Reported Past Surgical History: Hernia Repair Additional Past Surgical History / Comment(s): tubes in both ears, cleft lip surgery Past Anesthesia/Blood Transfusion Reactions: No Reported Reaction Past Psychological History: Bipolar, Depression Past Alcohol Use History: Occasional Past Drug Use History: None Reported - Past Family History Father Family Medical History: Cancer Additional Family Medical History / Comment(s): Dad had lung cancer, in 2011 Mother Family Medical History: Rheumatoid Arthritis (RA) Additional Family Medical History / Comment(s): Mother has paranoia schizophrenic General Exam General appearance: lethargic Head exam: Present: atraumatic, normocephalic Eye exam: Present: normal appearance, PERRL ENT exam: Present: mucous membranes dry Neck exam: Present: normal inspection. Absent: tenderness, meningismus Respiratory exam: Present: normal lung sounds bilaterally. Absent: respiratory distress, wheezes Cardiovascular Exam: Present: regular rate, normal rhythm GI/Abdominal exam: Present: soft. Absent: distended, tenderness, guarding, rebound Extremities exam: Present: normal capillary refill. Absent: pedal edema, joint swelling Neurological exam: Present: other ( will move extremities symmetrically to command) Skin exam: Present: warm, dry, intact Course Vital Signs 04/12/21 04/12/21 12:45 14:17 Temperature 99.3 F Pulse Rate 68 78 Respiratory 18 18 Rate Blood Pressure 121/73 113/63 O2 Sat by Pulse 97 99 Oximetry EKG Findings - EKG Comments: EKG Findings:: EKG: Normal sinus rhythm, rate of 70, MI interval 148, QRS duration 76, QTC 406, no ST segment elevation. Medical Decision Making - Medical Decision Making 41-year-old male with altered mental status. Patient has a nonfocal exam, does appear somewhat rigid and stiff on initial presentation. He does improve while in the emergency Department is able to say his name. His hemodynamics are normal. He has no leukocytosis. No fever. His laboratory testing included CBC, CMP are unremarkable. Urinalysis urine drug screen pending. Head CT negative for intracranial hemorrhage or mass effect, chest x-ray negative for acute cardiopulmonary disease. I will admit this patient for observation on neurology consultation. Case discussed with admitting physician. - Lab Data Result diagrams: 04/12/21 13:18 04/12/21 13:18 Lab Results 04/12/21 04/12/21 04/12/21 Range/Units 12:53 13:18 13:18 WBC 6.5 (3.8-10.6) k/uL RBC 4.99 (4.30-5.90) m/uL Hgb 15.3 (13.0-17.5) gm/dL Hct 46.2 (39.0-53.0) % MCV 92.7 (80.0-100.0) fL MCH 30.6 (25.0-35.0) pg MCHC 33.0 (31.0-37.0) g/dL RDW 13.1 (11.5-15.5) % Plt Count 166 (150-450) k/uL MPV 7.4 Neutrophils % 72 % Lymphocytes % 18 % Monocytes % 6 % Eosinophils % 1 % Basophils % 1 % Neutrophils # 4.7 (1.3-7.7) k/uL Lymphocytes # 1.2 (1.0-4.8) k/uL Monocytes # 0.4 (0-1.0) k/uL Eosinophils # 0.0 (0-0.7) k/uL Basophils # 0.0 (0-0.2) k/uL PT 11.3 (9.0-12.0) sec INR 1.1 (<1.2) APTT 24.4 (22.0-30.0) sec VBG pH (7.31-7.41) VBG pCO2 (37-51) mmHg VBG HCO3 (24-28) mmol/L Sodium (137-145) mmol/L Potassium (3.5-5.1) mmol/L Chloride (98-107) mmol/L Carbon Dioxide (22-30) mmol/L Anion Gap mmol/L BUN (9-20) mg/dL Creatinine (0.66-1.25) mg/dL Est GFR (CKD-EPI)AfAm (>60 ml/min/1.73 sqM) Est GFR (CKD-EPI)NonAf (>60 ml/min/1.73 sqM) Glucose (74-99) mg/dL POC Glucose (mg/dL) 253 H (75-99) mg/dL POC Glu Dope House Operator Helper ID Svacha, II, Anthony Calcium (8.4-10.2) mg/dL Total Bilirubin (0.2-1.3) mg/dL AST (17-59) U/L ALT (4-49) U/L Alkaline Phosphatase (38-126) U/L Ammonia (<30) umol/L Creatine Kinase (55-170) U/L Troponin I (0.000-0.034) ng/mL Total Protein (6.3-8.2) g/dL Albumin (3.5-5.0) g/dL Salicylates mg/dL Acetaminophen ug/mL Serum Alcohol mg/dL Acetone, Qual (Negative) 04/12/21 04/12/21 04/12/21 Range/Units 13:18 13:18 13:18 WBC (3.8-10.6) k/uL RBC (4.30-5.90) m/uL Hgb (13.0-17.5) gm/dL Hct (39.0-53.0) % MCV (80.0-100.0) fL MCH (25.0-35.0) pg MCHC (31.0-37.0) g/dL RDW (11.5-15.5) % Plt Count (150-450) k/uL MPV Neutrophils % % Lymphocytes % % Monocytes % % Eosinophils % % Basophils % % Neutrophils # (1.3-7.7) k/uL Lymphocytes # (1.0-4.8) k/uL Monocytes # (0-1.0) k/uL Eosinophils # (0-0.7) k/uL Basophils # (0-0.2) k/uL PT (9.0-12.0) sec INR (<1.2) APTT (22.0-30.0) sec VBG pH (7.31-7.41) VBG pCO2 (37-51) mmHg VBG HCO3 (24-28) mmol/L Sodium 142 (137-145) mmol/L Potassium 4.2 (3.5-5.1) mmol/L Chloride 102 (98-107) mmol/L Carbon Dioxide 30 (22-30) mmol/L Anion Gap 10 mmol/L BUN 19 (9-20) mg/dL Creatinine 0.73 (0.66-1.25) mg/dL Est GFR (CKD-EPI)AfAm >90 (>60 ml/min/1.73 sqM) Est GFR (CKD-EPI)NonAf >90 (>60 ml/min/1.73 sqM) Glucose 271 H (74-99) mg/dL POC Glucose (mg/dL) (75-99) mg/dL POC Glu Dope House Operator Helper ID Calcium 10.7 H (8.4-10.2) mg/dL Total Bilirubin 0.6 (0.2-1.3) mg/dL AST 28 (17-59) U/L ALT 22 (4-49) U/L Alkaline Phosphatase 62 (38-126) U/L Ammonia 9 (<30) umol/L Creatine Kinase 109 (55-170) U/L Troponin I <0.012 (0.000-0.034) ng/mL Total Protein 7.3 (6.3-8.2) g/dL Albumin 4.7 (3.5-5.0) g/dL Salicylates <1.0 mg/dL Acetaminophen <10.0 ug/mL Serum Alcohol <10 mg/dL Acetone, Qual Negative (Negative) 04/12/21 Range/Units 13:18 WBC (3.8-10.6) k/uL RBC (4.30-5.90) m/uL Hgb (13.0-17.5) gm/dL Hct (39.0-53.0) % MCV (80.0-100.0) fL MCH (25.0-35.0) pg MCHC (31.0-37.0) g/dL RDW (11.5-15.5) % Plt Count (150-450) k/uL MPV Neutrophils % % Lymphocytes % % Monocytes % % Eosinophils % % Basophils % % Neutrophils # (1.3-7.7) k/uL Lymphocytes # (1.0-4.8) k/uL Monocytes # (0-1.0) k/uL Eosinophils # (0-0.7) k/uL Basophils # (0-0.2) k/uL PT (9.0-12.0) sec INR (<1.2) APTT (22.0-30.0) sec VBG pH 7.42 H (7.31-7.41) VBG pCO2 45 (37-51) mmHg VBG HCO3 29 H (24-28) mmol/L Sodium (137-145) mmol/L Potassium (3.5-5.1) mmol/L Chloride (98-107) mmol/L Carbon Dioxide (22-30) mmol/L Anion Gap mmol/L BUN (9-20) mg/dL Creatinine (0.66-1.25) mg/dL Est GFR (CKD-EPI)AfAm (>60 ml/min/1.73 sqM) Est GFR (CKD-EPI)NonAf (>60 ml/min/1.73 sqM) Glucose (74-99) mg/dL POC Glucose (mg/dL) (75-99) mg/dL POC Glu Dope House Operator Helper ID Calcium (8.4-10.2) mg/dL Total Bilirubin (0.2-1.3) mg/dL AST (17-59) U/L ALT (4-49) U/L Alkaline Phosphatase (38-126) U/L Ammonia (<30) umol/L Creatine Kinase (55-170) U/L Troponin I (0.000-0.034) ng/mL Total Protein (6.3-8.2) g/dL Albumin (3.5-5.0) g/dL Salicylates mg/dL Acetaminophen ug/mL Serum Alcohol mg/dL Acetone, Qual (Negative) Disposition Clinical Impression: Altered mental status Disposition: ADMITTED IP TO THIS [facility] Condition: Stable Is patient prescribed a controlled substance at d/c from ED?: No Referrals: None,Stated [Primary Care Provider] - 1-2 days Decision to Admit Reason: Admit from EC Decision Date: 04/12/21 Decision Time: 16:20
[2021-04-12 13:26] LABS: Basophils % (A) 1 %; Eosinophils % (A) 1 %; HCT 46.2 % (39.0-53.0); HGB 15.3 gm/dL (13.0-17.5); Lymphocytes # (A) 1.2 k/uL (1.0-4.8); Lymphocytes % (A) 18 %; MCH 30.6 pg (25.0-35.0); MCV 92.7 fL (80.0-100.0); Mean Platelet Volume 7.4; Monocytes # (A) 0.4 k/uL (0-1.0); Monocytes % (A) 6 %; Neutrophils # (A) 4.7 k/uL (1.3-7.7); Neutrophils % (A) 72 %; Platelet Count 166 k/uL (150-450); RBC 4.99 m/uL (4.30-5.90); RDW 13.1 % (11.5-15.5); WBC 6.5 k/uL (3.8-10.6)
[2021-04-12 13:27] LABS: VBG PH 7.42 (7.31-7.41)
[2021-04-12 13:38] LABS: ALT 22 U/L (4-49); AST 28 U/L (17-59); Acetaminophen <10.0 ug/mL; African American GFR (CKD) >90 (>60 ml/min/1.73 sqM); Albumin 4.7 g/dL (3.5-5.0); Alcohol <10 mg/dL; Alkaline Phosphatase 62 U/L (38-126); Anion Gap 10 mmol/L; Blood Urea Nitrogen 19 mg/dL (9-20); Calcium 10.7 mg/dL (8.4-10.2); Carbon Dioxide 30 mmol/L (22-30); Chloride 102 mmol/L (98-107); Creatine Kinase 109 U/L (55-170); Glucose 271 mg/dL (74-99); Non-African American GFR(CKD) >90 (>60 ml/min/1.73 sqM); Potassium 4.2 mmol/L (3.5-5.1); Salicylate <1.0 mg/dL; Sodium 142 mmol/L (137-145); Total Bilirubin 0.6 mg/dL (0.2-1.3); Total Protein 7.3 g/dL (6.3-8.2)
--- NOTE | 2021-04-12 13:38 | XR ---
EXAMINATION TYPE: XR chest 1V portable DATE OF EXAM: 04/12/2021 COMPARISON: 06/02/2015 HISTORY: Altered mental status TECHNIQUE: Single frontal view of the chest is obtained. FINDINGS: There is no focal air space opacity, pleural effusion, or pneumothorax seen. The cardiac silhouette size is within normal limits. The osseous structures are intact. IMPRESSION: No acute process.
[2021-04-12 13:39] LABS: INR 1.1 (<1.2); Partial Thromboplastin Time 24.4 sec (22.0-30.0); Prothrombin Time 11.3 sec (9.0-12.0)
--- NOTE | 2021-04-12 13:51 | CT ---
EXAMINATION TYPE: CT brain wo con DATE OF EXAM: 04/12/2021 COMPARISON: 06/10/2014 HISTORY: altered mental status CT DLP: 1021.4 mGycm. Automated Exposure Control for Dose Reduction was Utilized. TECHNIQUE: CT scan of the head is performed without contrast. FINDINGS: There is no acute intracranial hemorrhage, mass effect, or midline shift identified. The ventricles and sulci are within normal limits in size. The globes are intact. There are moderate ch ronic inflammatory changes in the right maxillary sinus. There are postsurgical changes involving the left mastoid air cells which are nonaerated IMPRESSION: No acute intracranial hemorrhage, mass effect, or midline shift is seen.
[2021-04-12] MEDS ORDERED: NALOXONE 0.4 MG/ML 1 ML VIAL IV PRN (16:01)
[2021-04-12] MEDS ORDERED: ALBUTEROL NEBULIZED 2.5 MG/3 ML INHALATION PRN (16:50)
[2021-04-12 17:08] LABS: Amorphous Sediment,Urine Rare /hpf; Appearance,Urine Turbid (Clear); Bacteria,Urine Occasional /hpf; Bilirubin,Urine Negative (Negative); Blood,Urine Negative (Negative); Budding Yeast,Urine Few /hpf; Color,Urine Yellow; Glucose,Urine (UA) 4+ (Negative); Ketones,Urine Negative (Negative); Leukocyte Esterase,Urine Negative (Negative); Mucus,Urine Rare /hpf; Nitrite,Urine Negative (Negative); PH, Urine 6.5 (5.0-8.0); Protein,Urine Trace (Negative); RBC,Urine 4 /hpf (0-5); Specific Gravity,Urine 1.024 (1.001-1.035); Squamous Epithelial Cell,Urine 1 /hpf (0-4); Urobilinogen,Urine <2.0 mg/dL (<2.0); WBC,Urine 8 /hpf (0-5)
[2021-04-12 17:12] LABS: Amphetamine Screen,Urine Not Detected (NotDetected); Barbiturate Screen,Urine Not Detected (NotDetected); Benzodiazepines Screen,Urine Detected (NotDetected); Cocaine Screen,Urine Not Detected (NotDetected); Methadone Screen, Urine Not Detected (NotDetected); Opiate Screen,Urine Not Detected (NotDetected); Oxycodone Screen, Urine Not Detected (NotDetected); Phencyclidine Screen,Urine Not Detected (NotDetected); Tricyclic Antidepressant,Urine Not Detected (NotDetected); Urn Cannabinoid Scrn Not Detected (NotDetected)
[2021-04-12 17:19] LABS: Glucose,Whole Blood 185 mg/dL (75-99)
[2021-04-12] MEDS: SODIUM CHLORIDE 0.9% 1,000 ML IV SCH (17:21)
--- NOTE | 2021-04-12 17:23 | P.HPIM ---
History of Present Illness H&P Date: 04/12/21 Chief Complaint: Altered mental status This is a 41-year-old male with past medical history significant for underlying developmental delay who was brought in by EMS for altered mental status. Patient is unable to provide any significant history. He is awake and alert. He is oriented to the place and to himself. According to nursing staff, patient was at [employer] and suddenly became altered so EMS were called to bring him to the ER. Reported elevated blood glucose by EMS in the 400 range but blood glucose here in the hospital was in the 200 range. Patient has underlying diabetes. Patient himself denies any complain or concerns. He has a public legal guardian that I was unable to get hold off. Nursing staff spoke to legal guardian earlier and was informed that patient lived independently. Patient will be placed on observation. Review of Systems Review of system: 14 points review of systems were obtained and were negative except to what were mentioned in the HPI. Past Medical History Past Medical History: Diabetes Mellitus, GERD/Reflux, Hypertension, Neurologic Disorder, Thyroid Disorder Additional Past Medical History / Comment(s): This is obtained by reviewing medical records History of Any Multi-Drug Resistant Organisms: None Reported Past Surgical History: Hernia Repair Additional Past Surgical History / Comment(s): tubes in both ears, cleft lip surgery Past Anesthesia/Blood Transfusion Reactions: No Reported Reaction Past Psychological History: Bipolar, Depression Past Alcohol Use History: Occasional Past Drug Use History: None Reported - Past Family History Father Family Medical History: Cancer Additional Family Medical History / Comment(s): Dad had lung cancer, in 2011 Mother Family Medical History: Rheumatoid Arthritis (RA) Additional Family Medical History / Comment(s): Mother has paranoia schizophrenic Medications and Allergies Home Medications Medication Instructions Recorded Confirmed Type Famotidine [Pepcid] 20 mg PO BID 30 Days tab 11/26/16 04/12/21 Rx cloZAPine [Clozaril] 100 mg PO DAILY 30 Days tab 11/26/16 04/12/21 Rx lisinopriL [Zestril] 10 mg PO DAILY 30 Days tab 11/26/16 04/12/21 Rx Acarbose [Precose] 50 mg PO AC-TID 09/30/17 04/12/21 History Levothyroxine Sodium [Synthroid] 50 mcg PO DAILY 09/30/17 04/12/21 History Simvastatin [Zocor] 20 mg PO HS 09/30/17 04/12/21 History Gabapentin [Neurontin] 300 mg PO BID 11/26/17 04/12/21 History cloZAPine [Clozaril] 400 mg PO HS 11/26/17 04/12/21 History fluPHENAZine decanoate [Prolixin 50 mg IM Q14D 11/26/17 04/12/21 History Decanoate] Albuterol Sulfate [Proair 2 puff PO RT-Q4H PRN 02/19/19 04/12/21 History Respiclick] Cholecalciferol [Vitamin D3 (25 5,000 unit PO DAILY 02/19/19 04/12/21 History Mcg = 1000 Iu)] Desmopressin [Ddavp] 0.2 mg PO HS 02/19/19 04/12/21 History Dapagliflozin/Metformin HCl 1 tab PO DAILY 04/12/21 04/12/21 History [Xigduo Xr 5 mg-1,000 mg Tablet] Insulin Lispro [humaLOG Kwikpen] 5 unit SQ AC-TID 04/12/21 04/12/21 History Magnesium Oxide [Magox 400] 400 mg PO BID 04/12/21 04/12/21 History Melatonin 3 mg PO HS 04/12/21 04/12/21 History Meloxicam [Mobic] 7.5 mg PO DAILY 04/12/21 04/12/21 History Pioglitazone HCl 30 mg PO DAILY 04/12/21 04/12/21 History sitaGLIPtin PHOSPHATE [Januvia] 25 mg PO DAILY 04/12/21 04/12/21 History Allergies Allergy/AdvReac Type Severity Reaction Status Date / Time No Known Allergies Allergy Verified 04/12/21 16:06 Physical Exam Vitals: Vital Signs Temp Pulse Pulse Resp BP BP Pulse Ox 04/12/21 16:53 97.9 F 67 18 94/59 95 04/12/21 14:17 78 18 113/63 99 04/12/21 12:45 99.3 F 68 18 121/73 97 Intake and Output 04/12/21 04/12/21 04/12/21 06:59 14:59 22:59 Other: Weight 68.039 kg General: The patient is awake and alert, in no distress Eye: there is normal conjunctiva bilaterally. Neck: The neck is supple, there is no JVD. Cardiovascular: Normal S1-S2, no S3-S4, no murmurs. Respiratory: Lungs clear to auscultation bilaterally Gastrointestinal: Abdomen is soft, nontender Musculoskeletal: There is no pedal edema. Neurological:. Speech is normal. Skin: Skin is warm and dry Results CBC & Chem 7: 04/12/21 13:18 04/12/21 13:18 Labs: Abnormal Lab Results - Last 24 Hours (Table) 04/12/21 04/12/21 04/12/21 Range/Units 12:53 13:18 13:18 VBG pH (7.31-7.41) VBG HCO3 (24-28) mmol/L Glucose 271 H (74-99) mg/dL POC Glucose (mg/dL) 253 H (75-99) mg/dL Calcium 10.7 H (8.4-10.2) mg/dL Urine Protein Trace H (Negative) Urine Glucose (UA) 4+ H (Negative) Urine WBC 8 H (0-5) /hpf Amorphous Sediment Rare H (None) /hpf Urine Bacteria Occasional H (None) /hpf Urine Mucus Rare H (None) /hpf Urine Yeast (Budding) Few H (None) /hpf U Benzodiazepines Scrn Detected H (NotDetected) 04/12/21 Range/Units 13:18 VBG pH 7.42 H (7.31-7.41) VBG HCO3 29 H (24-28) mmol/L Glucose (74-99) mg/dL POC Glucose (mg/dL) (75-99) mg/dL Calcium (8.4-10.2) mg/dL Urine Protein (Negative) Urine Glucose (UA) (Negative) Urine WBC (0-5) /hpf Amorphous Sediment (None) /hpf Urine Bacteria (None) /hpf Urine Mucus (None) /hpf Urine Yeast (Budding) (None) /hpf U Benzodiazepines Scrn (NotDetected) Assessment and Plan Assessment: This is a 41-year-old male with past medical history noted below significant for underlying developmental delay that presented to the emergency room with altered mental status. Patient was evaluated in the ER and will be placed in observation for further management of his medical problems noted below. 1. altered mental status, transient episode. Apparently patient is back to his baseline. I would contact his public guardian tomorrow to figure out what is his baseline. Computed tomography scan of the brain in the ER with no acute findings. Lab work is mostly unremarkable. Awaiting urinalysis. 2. Type 2 diabetes, with elevated blood glucose on presentation. We will continue sliding scale insulin. Hold home oral medications. Check A1c. 3. Underlying schizophrenia, continue home medication 4. DVT prophylaxis with subcu Lovenox
[2021-04-12] MEDS: ACARBOSE 25 MG TAB PO SCH (17:51)
[2021-04-12] MEDS: INSULIN ASPART (NovoLOG) 100 UNIT/ML VIAL SQ SCH ×3 (17:51→21:01)
[2021-04-12] MEDS: GABAPENTIN 300 MG CAP PO SCH (20:05)
[2021-04-12] MEDS: MAGNESIUM OXIDE 400 MG TAB PO SCH (20:05)
[2021-04-12] MEDS: FAMOTIDINE 20 MG TAB PO SCH (20:06)
[2021-04-12 20:46] LABS: Glucose,Whole Blood 117 mg/dL (75-99)
[2021-04-12] MEDS ORDERED: MELATONIN 3 MG TABLET PO SCH (21:00)
[2021-04-12] MEDS ORDERED: ATORVASTATIN 10 MG TAB PO SCH (21:00)
[2021-04-12] MEDS ORDERED: DESMOPRESSIN 0.2 MG TAB PO SCH (21:00)
[2021-04-12] MEDS ORDERED: cloZAPine 100 MG TAB PO SCH (21:00)
[2021-04-12 23:37] LABS: Hemoglobin A1C 7.8 % (4.0-6.0)
[2021-04-13] MEDS: SODIUM CHLORIDE 0.9% 1,000 ML IV SCH ×2 (03:11→12:26)
[2021-04-13] MEDS ORDERED: LEVOTHYROXINE 50 MCG TAB PO SCH (06:30)
[2021-04-13 07:01] LABS: Glucose,Whole Blood 149 mg/dL (75-99)
[2021-04-13 07:35] VITALS: PULSE 81; RESP 20; TEMP 97.7
[2021-04-13 07:39] VITALS: BP 109/67
[2021-04-13] MEDS: ACARBOSE 25 MG TAB PO SCH ×2 (07:44→13:04)
[2021-04-13] MEDS: INSULIN ASPART (NovoLOG) 100 UNIT/ML VIAL SQ SCH ×4 (07:45→12:57)
[2021-04-13] MEDS: GABAPENTIN 300 MG CAP PO SCH (08:26)
[2021-04-13] MEDS: MAGNESIUM OXIDE 400 MG TAB PO SCH (08:27)
[2021-04-13] MEDS: FAMOTIDINE 20 MG TAB PO SCH (08:27)
[2021-04-13] MEDS ORDERED: lisinopriL 10 MG TAB PO SCH (09:00)
[2021-04-13] MEDS ORDERED: cloZAPine 100 MG TAB PO SCH (09:00)
[2021-04-13] MEDS ORDERED: ENOXAPARIN 40 MG/0.4 ML SYRINGE SQ SCH (09:00)
[2021-04-13] MEDS ORDERED: MELOXICAM 7.5 MG TAB PO SCH (09:00)
[2021-04-13 11:28] LABS: Glucose,Whole Blood 208 mg/dL (75-99)
--- NOTE | 2021-04-13 12:08 | P.CNNES ---
History of Present Illness Consult date: 04/13/21 Requesting physician: Mathew Medrano Reason for Consult: altered mental status History of Present Illness: This is a 41-year-old gentleman with medical history of developmental delay, cleft lip and palate s/p surgical resection, seizure (as child), diabetes mellitus, hypertension, hypothyroidism who presented emergency department on 04/12/2021 for altered mental status. History is obtained from patient public guardian (Christy via phone), patient and medical records. Per the nursing staff it seems that the patient was at [facility] until he became altered. EM arrived to the scene and sugar was 400's per primary note. Patient lives independently. Patient stated that he did not have any jerk in of any extremities that her calls. Denies any urinary or bowel incontinence or feeling his tongue disorder. He feels complete back to normal. He stated that when he was a child he had history of seizures and stated it was generalized tonic-clonic seizures but has not had them as adult and his public guardian agrees that he has not had any seizures as an adult. He denies of any focal deficits currently, visual disturbance, headaches, nausea vomiting. Per EMR patient's home medication consist of Zocor 20 mg daily, lisinopril, Synthroid, clozapine, desmopressin, vitamin D3, gabapentin 300 mg 1 tablet Twice a day, multiple at and so medication. He is not on any antiepileptic drugs. Per the patient's public guardian she is not aware of the patient's history. Some of the workup in the hospital consisted of: Initial vital signs: Blood pressure of 121/73, heart rate of 68, respiratory of 18, temperature of 99.3 Fahrenheit oral and pulse ox of 97% at room air. CT of the head is reported as no acute intracranial hemorrhage, mass effect or midline shift is seen. CBC with differential is unremarkable. Patient initial POC glucose is 253 and the serum glucose is 271. Patient hemoglobin A1c 7.8 which is diabetes is uncontrolled Patient the calcium is 10.7 which slightly elevated but not too remarkable. Otherwise rest of the chemistry panel is within normal limits. AST of 28 ALTs of 22, ammonia is 9. Urine toxicology screen is positive for benzodiazepine otherwise nondetected for the rest. Acetaminophen is less than 10, serum alcohol was less than 10, Salicylates is less than 1.0. Acetone is negative. EKG is reported as normal sinus rhythm. Normal EKG. Chest x-ray is reported as no acute process. Review of Systems Review of system: The 12 point system was reviewed and apparent positive and negative per HPI. Past Medical History Past Medical History: Diabetes Mellitus, GERD/Reflux, Hypertension, Neurologic Disorder, Thyroid Disorder Additional Past Medical History / Comment(s): This is obtained by reviewing medical records History of Any Multi-Drug Resistant Organisms: None Reported Past Surgical History: Hernia Repair Additional Past Surgical History / Comment(s): tubes in both ears, cleft lip surgery Past Anesthesia/Blood Transfusion Reactions: No Reported Reaction Past Psychological History: Bipolar, Depression Additional Psychological History / Comment(s): mild intellectual disorder Smoking Status: Smoker, current status unknown Past Alcohol Use History: Occasional Past Drug Use History: None Reported - Past Family History Father Family Medical History: Cancer Additional Family Medical History / Comment(s): Dad had lung cancer, in 2011 Mother Family Medical History: Rheumatoid Arthritis (RA) Additional Family Medical History / Comment(s): Mother has paranoia schizophrenic Medications and Allergies Home Medications Medication Instructions Recorded Confirmed Type Famotidine [Pepcid] 20 mg PO BID 30 Days tab 11/26/16 04/12/21 Rx cloZAPine [Clozaril] 100 mg PO DAILY 30 Days tab 11/26/16 04/12/21 Rx lisinopriL [Zestril] 10 mg PO DAILY 30 Days tab 11/26/16 04/12/21 Rx Acarbose [Precose] 50 mg PO AC-TID 09/30/17 04/12/21 History Levothyroxine Sodium [Synthroid] 50 mcg PO DAILY 09/30/17 04/12/21 History Simvastatin [Zocor] 20 mg PO HS 09/30/17 04/12/21 History Gabapentin [Neurontin] 300 mg PO BID 11/26/17 04/12/21 History cloZAPine [Clozaril] 400 mg PO HS 11/26/17 04/12/21 History fluPHENAZine decanoate [Prolixin 50 mg IM Q14D 11/26/17 04/12/21 History Decanoate] Albuterol Sulfate [Proair 2 puff PO RT-Q4H PRN 02/19/19 04/12/21 History Respiclick] Cholecalciferol [Vitamin D3 (25 5,000 unit PO DAILY 02/19/19 04/12/21 History Mcg = 1000 Iu)] Desmopressin [Ddavp] 0.2 mg PO HS 02/19/19 04/12/21 History Dapagliflozin/Metformin HCl 1 tab PO DAILY 04/12/21 04/12/21 History [Xigduo Xr 5 mg-1,000 mg Tablet] Insulin Lispro [humaLOG Kwikpen] 5 unit SQ AC-TID 04/12/21 04/12/21 History Magnesium Oxide [Magox 400] 400 mg PO BID 04/12/21 04/12/21 History Melatonin 3 mg PO HS 04/12/21 04/12/21 History Meloxicam [Mobic] 7.5 mg PO DAILY 04/12/21 04/12/21 History Pioglitazone HCl 30 mg PO DAILY 04/12/21 04/12/21 History sitaGLIPtin PHOSPHATE [Januvia] 25 mg PO DAILY 04/12/21 04/12/21 History Allergies Allergy/AdvReac Type Severity Reaction Status Date / Time No Known Allergies Allergy Verified 04/12/21 16:06 Physical Examination - Vital Signs Vital Signs: Vital Signs Temp Pulse Pulse Resp BP BP Pulse Ox 04/13/21 08:20 96 04/13/21 07:51 20 04/13/21 07:00 97.7 F 81 20 109/67 92 L 04/13/21 02:00 98.6 F 86 18 96/60 95 04/13/21 01:09 16 04/12/21 20:00 98.1 F 70 16 98/62 98 04/12/21 16:53 97.9 F 67 18 94/59 95 04/12/21 14:17 78 18 113/63 99 04/12/21 12:45 99.3 F 68 18 121/73 97 Intake and Output 04/12/21 04/13/21 04/13/21 22:59 06:59 14:59 Intake Total 180 Balance 180 Intake: Oral 180 Other: Voiding Method Toilet Toilet Toilet # Voids 1 1 Weight 68.039 kg GENERAL: The patient is lying in bed and is not in acute distress. CHEST: The heart rate is regular rate rhythm. No murmurs to auscultation. LUNG: Clear to auscultation bilaterally no wheezing noted throughout. Not labored breathing. ABDOMEN/GI: Bowel sounds present in all 4 quadrants. No tenderness to palpation throughout. NEUROLOGICAL: Higher mental function: The patient is awake, alert, oriented to self, place and time. He correctly name the current [place]. President. He correctly names objects (pen, watch and glassess). He is always asking to high five him. He seems to be devepmentally delayed. Patient is following commands. No aphasia and no neglect. Cranial nerves: The pupils are round, equal and reactive to light and accommodation. Visual be are full to confrontation throughout. Extraocular movement is intact no nystagmus is noted. Facial sensation is normal to touch throughout. The facial strength is normal throughout. but he has scar over his upper midline lip (has hx of clef lip) Hearing is normal bilaterally to hand rub. Tongue is midline and moved [id number] without any difficulty. Has mild dysarthria and some hoarseness is noted (per patient and his public guardian that is baseline). Shoulder shrug is normal bilaterally. Motor: Gait is walking taking short steps but not swaying towards one side or the other and has normal arm swings. The strength is 5 over 5 throughout. Normal tone and bulk. Cerebellum: Normal finger to nose bilaterally. Sensation: Sensation is normal to touch throughout. Reflexes (right/left): 2+ throughout. Plantars are mute bilaterally. Results Alvares virus PCR is nondetected. Basic coagulation study: Normal. - Laboratory Findings CBC and BMP: 04/12/21 13:18 04/12/21 13:18 Abnormal Lab Findings: Abnormal Labs 04/12/21 04/12/21 04/12/21 12:53 13:18 13:18 VBG pH VBG HCO3 Glucose 271 H POC Glucose (mg/dL) 253 H Hemoglobin A1c Calcium 10.7 H Urine Protein Trace H Urine Glucose (UA) 4+ H Urine WBC 8 H Amorphous Sediment Rare H Urine Bacteria Occasional H Urine Mucus Rare H Urine Yeast (Budding) Few H U Benzodiazepines Scrn Detected H 04/12/21 04/12/21 04/12/21 13:18 17:18 17:21 VBG pH 7.42 H VBG HCO3 29 H Glucose POC Glucose (mg/dL) 185 H Hemoglobin A1c 7.8 H Calcium Urine Protein Urine Glucose (UA) Urine WBC Amorphous Sediment Urine Bacteria Urine Mucus Urine Yeast (Budding) U Benzodiazepines Scrn 04/12/21 04/13/21 20:44 07:00 VBG pH VBG HCO3 Glucose POC Glucose (mg/dL) 117 H 149 H Hemoglobin A1c Calcium Urine Protein Urine Glucose (UA) Urine WBC Amorphous Sediment Urine Bacteria Urine Mucus Urine Yeast (Budding) U Benzodiazepines Scrn Assessment and Plan Assessment: * Encephalopathy: Likely metabolic encephalopathy (his sugar per EMS was in 400's)--mentation improved * Uncontrolled diabetes mellitus (HbA1c 7.8) * History of seizures as a childhoold (not none as adult) * History of cleft lip/palate s/p surgical correction * Developmental delay * Hypertension * Hypothyroidism Plan: * CT of the head is reported as no acute intracranial hemorrhage, mass effect or midline shift is seen. * CBC with differential is unremarkable. * AST of 28 ALTs of 22, ammonia is 9. * I ordered an EEG. I'll not start the patient on an antiepileptic drug unless there is epileptiform discharges or seizure on the EEG but he is refusing. Ordered 2 1/2 hours EEG as outpatient (I highly doubt his current episode was seizure). * I ordered TSH, folate, vitamin B12, vitamin B6. * PT and OT are consulted by the primary team. * Placed on Q4 hours neuro-checks. * Recommend for the patient to follow-up with a neurologist as an outpatient within 1-2 weeks, consider getting MRI of the brain as an outpatient. * Will defer the rest of medical management to the primary team. The plan is discussed with the patient's public guardian (Christy) and his nurse. Thank you for the consultation. Forrest Mckenzie MD Neuro-Hospitalist Time with Patient: Greater than 30
--- NOTE | 2021-04-13 12:58 | P.DS ---
Providers Date of admission: 04/12/21 16:01 Expected date of discharge: 04/13/21 Attending physician: Marilu Shore Consults: 04/12/21 16:02 Consult Physician Routine Consulting Provider: Forrest Mckenzie Consult Reason/Comments: AMS Do you want consulting provider notified?: Yes Primary care physician: Stated None Hospital Course: This is a 41-year-old male with past medical history noted below significant for underlying developmental delay that presented to the emergency room with altered mental status. Patient was evaluated in the ER and will be placed in observation for further management of his medical problems noted below. 1. altered mental status, transient episode. Probably metabolic encephalopathy. Apparently patient is back to his baseline. Computed tomography scan of the brain in the ER with no acute findings. Lab work is mostly unremarkable. Negative urinalysis. Patient was seen and evaluated by urology. Plan to obtain an EEG as an outpatient. 2. Type 2 diabetes, with elevated blood glucose on presentation. Now better controlled. A1c 7.8 3. Underlying schizophrenia, continue home medication Patient's legal guardian was updated about his current condition. Patient will be discharged in a stable condition. Follow-up with PCP as directed. Patient Condition at Discharge: Stable Plan - Discharge Summary Discharge Rx Participant: No New Discharge Prescriptions: Continue Famotidine [Pepcid] 20 mg PO BID 30 Days tab lisinopriL [Zestril] 10 mg PO DAILY 30 Days tab cloZAPine [Clozaril] 100 mg PO DAILY 30 Days tab Simvastatin [Zocor] 20 mg PO HS Acarbose [Precose] 50 mg PO AC-TID Levothyroxine Sodium [Synthroid] 50 mcg PO DAILY fluPHENAZine decanoate [Prolixin Decanoate] 50 mg IM Q14D Gabapentin [Neurontin] 300 mg PO BID cloZAPine [Clozaril] 400 mg PO HS Albuterol Sulfate [Proair Respiclick] 2 puff PO RT-Q4H PRN PRN Reason: Shortness Of Breath Cholecalciferol [Vitamin D3 (25 Mcg = 1000 Iu)] 5,000 unit PO DAILY Desmopressin [Ddavp] 0.2 mg PO HS Dapagliflozin/Metformin HCl [Xigduo Xr 5 mg-1,000 mg Tablet] 1 tab PO DAILY Insulin Lispro [humaLOG Kwikpen] 5 unit SQ AC-TID Melatonin 3 mg PO HS Meloxicam [Mobic] 7.5 mg PO DAILY Magnesium Oxide [Magox 400] 400 mg PO BID Pioglitazone HCl 30 mg PO DAILY sitaGLIPtin PHOSPHATE [Januvia] 25 mg PO DAILY Discharge Medication List Famotidine [Pepcid] 20 mg PO BID 30 Days tab 11/26/16 [Rx] cloZAPine [Clozaril] 100 mg PO DAILY 30 Days tab 11/26/16 [Rx] lisinopriL [Zestril] 10 mg PO DAILY 30 Days tab 11/26/16 [Rx] Acarbose [Precose] 50 mg PO AC-TID 09/30/17 [History] Levothyroxine Sodium [Synthroid] 50 mcg PO DAILY 09/30/17 [History] Simvastatin [Zocor] 20 mg PO HS 09/30/17 [History] Gabapentin [Neurontin] 300 mg PO BID 11/26/17 [History] cloZAPine [Clozaril] 400 mg PO HS 11/26/17 [History] fluPHENAZine decanoate [Prolixin Decanoate] 50 mg IM Q14D 11/26/17 [History] Albuterol Sulfate [Proair Respiclick] 2 puff PO RT-Q4H PRN 02/19/19 [History] Cholecalciferol [Vitamin D3 (25 Mcg = 1000 Iu)] 5,000 unit PO DAILY 02/19/19 [History] Desmopressin [Ddavp] 0.2 mg PO HS 02/19/19 [History] Dapagliflozin/Metformin HCl [Xigduo Xr 5 mg-1,000 mg Tablet] 1 tab PO DAILY 04/12/21 [History] Insulin Lispro [humaLOG Kwikpen] 5 unit SQ AC-TID 04/12/21 [History] Magnesium Oxide [Magox 400] 400 mg PO BID 04/12/21 [History] Melatonin 3 mg PO HS 04/12/21 [History] Meloxicam [Mobic] 7.5 mg PO DAILY 04/12/21 [History] Pioglitazone HCl 30 mg PO DAILY 04/12/21 [History] sitaGLIPtin PHOSPHATE [Januvia] 25 mg PO DAILY 04/12/21 [History] Follow up Appointment(s)/Referral(s): None,Stated [Primary Care Provider] - 1-2 days Discharge Disposition: HOME WITH HOME HEALTH SERVICES
[2021-04-13 15:39] LABS: Folate, Serum 13.9 ng/mL
== END 2021-04-13 13:43 | disposition home health service (06) ==
LOC: EC 12:42 → 6NMEDSUR 16:01
PROVIDERS: ADMIT Internal Medicine; ATTEND Internal Medicine
DX: R41.82 Altered mental status, unspecified (principal); E11.65 Type 2 diabetes mellitus with hyperglycemia; I10 Essential (primary) hypertension; K21.9 Gastro-esophageal reflux disease without esophagitis; E03.9 Hypothyroidism, unspecified; F20.9 Schizophrenia, unspecified; F31.9 Bipolar disorder, unspecified; R62.50 Unspecified lack of expected normal physiological development in childhood; Z20.822 Contact with and (suspected) exposure to COVID-19; Z79.1 Long term (current) use of non-steroidal anti-inflammatories (NSAID); Z79.890 Hormone replacement therapy; Z79.4 Long term (current) use of insulin; Z79.899 Other long term (current) drug therapy; Z86.69 Personal history of other diseases of the nervous system and sense organs; Z87.730 Personal history of (corrected) cleft lip and palate; Z98.890 Other specified postprocedural states; Z80.1 Family history of malignant neoplasm of trachea, bronchus and lung; Z82.61 Family history of arthritis; Z81.8 Family history of other mental and behavioral disorders
CPT/HCPCS: 96361 ×3; 96372; 96360; 99285; 36415; 94760; 93005; 84207; 82747; 80053; 84443; 82607; 82140; 82550; 82746; 82803; 82009; 84484; 85025; 85610; 85730; 81001; 80306; 80143; 83036; 87635; 80179; 71045; 70450; G0378 ×2; G0480; J1650; S0136 ×2; 80320

== ENCOUNTER 2021-04-27 14:57 | Emergency (ER) | payer OTHER ==
[2021-04-27 15:22] VITALS: BP 112/55; PULSE 101; RESP 20; TEMP 98
--- NOTE | 2021-04-27 16:27 | ED ---
Psych HPI - General Chief Complaint: Psychiatric Symptoms Stated Complaint: Suicidal Time Seen by Provider: 04/27/21 15:01 Source: patient Mode of arrival: ambulatory - History of Present Illness Initial Comments: 41-year-old male with a intellectual disabilities presenting to the emergency department for psychiatric evaluation. Patient brought to the ED via EMS. Patient contacted the police and told them that he is feeling suicidal and was going to cut his throat. Patient does report history of self harm by cutting his wrists. States today his his dad's anniversary definitely Versed he has been feeling more depressed and usual. Denying any homicidal thoughts or ideations. - Related Data Home Medications Medication Instructions Recorded Confirmed Acarbose [Precose] 50 mg PO AC-TID 09/30/17 04/27/21 Levothyroxine Sodium [Synthroid] 50 mcg PO DAILY 09/30/17 04/27/21 Simvastatin [Zocor] 20 mg PO HS 09/30/17 04/27/21 Gabapentin [Neurontin] 300 mg PO BID 11/26/17 04/27/21 cloZAPine [Clozaril] 400 mg PO HS 11/26/17 04/27/21 fluPHENAZine decanoate [Prolixin 50 mg IM Q14D 11/26/17 04/27/21 Decanoate] Desmopressin [Ddavp] 0.2 mg PO HS 02/19/19 04/27/21 Dapagliflozin/Metformin HCl 1 tab PO DAILY 04/12/21 04/27/21 [Xigduo Xr 5 mg-1,000 mg Tablet] Magnesium Oxide [Magox 400] 400 mg PO BID 04/12/21 04/27/21 Melatonin 3 mg PO HS 04/12/21 04/27/21 Meloxicam [Mobic] 7.5 mg PO DAILY 04/12/21 04/27/21 Pioglitazone HCl 30 mg PO DAILY 04/12/21 04/27/21 sitaGLIPtin PHOSPHATE [Januvia] 25 mg PO DAILY 04/12/21 04/27/21 Albuterol Sulfate [Albuterol 2 puff PO RT-Q4H PRN 04/27/21 04/27/21 Sulfate Hfa] Cholecalciferol (Vitamin D3) 125 mcg PO DAILY 04/27/21 04/27/21 [Vitamin D3 (5000 Iu)] Previous Rx's Medication Instructions Recorded Famotidine [Pepcid] 20 mg PO BID 30 Days tab 11/26/16 cloZAPine [Clozaril] 100 mg PO DAILY 30 Days tab 11/26/16 lisinopriL [Zestril] 10 mg PO DAILY 30 Days tab 11/26/16 Allergies Allergy/AdvReac Type Severity Reaction Status Date / Time No Known Allergies Allergy Verified 04/27/21 16:36 Review of Systems ROS Statement: Those systems with pertinent positive or pertinent negative responses have been documented in the HPI. ROS Other: All systems not noted in ROS Statement are negative. Past Medical History Past Medical History: Diabetes Mellitus, GERD/Reflux, Hypertension, Neurologic Disorder, Thyroid Disorder Additional Past Medical History / Comment(s): This is obtained by reviewing medical records History of Any Multi-Drug Resistant Organisms: None Reported Past Surgical History: Hernia Repair Additional Past Surgical History / Comment(s): tubes in both ears, cleft lip surgery Past Anesthesia/Blood Transfusion Reactions: No Reported Reaction Past Psychological History: Bipolar, Depression Additional Psychological History / Comment(s): mild intellectual disorder Smoking Status: Smoker, current status unknown Past Alcohol Use History: Occasional Past Drug Use History: None Reported - Past Family History Father Family Medical History: Cancer Additional Family Medical History / Comment(s): Dad had lung cancer, in 2011 Mother Family Medical History: Rheumatoid Arthritis (RA) Additional Family Medical History / Comment(s): Mother has paranoia schizophrenic General Exam Limitations: altered mental status General appearance: alert, in no apparent distress Head exam: Present: atraumatic, normocephalic, normal inspection Eye exam: Present: normal appearance Pupils: Present: normal accommodation ENT exam: Present: normal exam, normal oropharynx (Repaired cleft palate), mucous membranes moist Neck exam: Present: normal inspection, full ROM. Absent: tenderness, lymphadenopathy Respiratory exam: Present: normal lung sounds bilaterally. Absent: respiratory distress Cardiovascular Exam: Present: regular rate, normal rhythm, normal heart sounds Extremities exam: Present: normal inspection, full ROM Back exam: Present: normal inspection, full ROM Neurological exam: Present: alert, oriented X3 Psychiatric exam: Present: normal affect, normal mood, suicidal ideation Skin exam: Present: warm, dry, intact, normal color Course Vital Signs 04/27/21 15:02 Temperature 98.0 F Pulse Rate 101 H Respiratory 20 Rate Blood Pressure 112/55 O2 Sat by Pulse 100 Oximetry Medical Decision Making - Medical Decision Making 41-year-old male with history of intellectual disability with presenting to the emergency department for psychiatric evaluation. EPS evaluated the patient and recommend operation follow-up. Safety plan in place. Patient requested Accu- Chek and his blood glucose is 176. Drug screen unremarkable - Lab Data Lab Results 04/27/21 04/27/21 Range/Units 17:01 17:03 POC Glucose (mg/dL) 176 H (75-99) mg/dL POC Glu Data Processing Auditor ID Vida [email or web address] Urine Opiates Screen Not Detected (NotDetected) Ur Oxycodone Screen Not Detected (NotDetected) Urine Methadone Screen Not Detected (NotDetected) Ur Propoxyphene Screen Not Detected (NotDetected) Ur Barbiturates Screen Not Detected (NotDetected) U Tricyclic Antidepress Not Detected (NotDetected) Ur Phencyclidine Scrn Not Detected (NotDetected) Ur Amphetamines Screen Not Detected (NotDetected) U Methamphetamines Scrn Not Detected (NotDetected) U Benzodiazepines Scrn Not Detected (NotDetected) Urine Cocaine Screen Not Detected (NotDetected) U Marijuana (THC) Screen Not Detected (NotDetected) Disposition Clinical Impression: Adjustment reaction of adult life Disposition: HOME SELF-CARE Condition: Stable Instructions (If sedation given, give patient instructions): Depression (DC) Additional Instructions: Please return to the Emergency Department if symptoms worsen or any other concerns. Is patient prescribed a controlled substance at d/c from ED?: No Referrals: [facility] [Primary Care Provider] - 1-2 days Time of Disposition: 19:31
[2021-04-27 17:12] LABS: Glucose,Whole Blood 176 mg/dL (75-99)
[2021-04-27 17:32] LABS: Amphetamine Screen,Urine Not Detected (NotDetected); Barbiturate Screen,Urine Not Detected (NotDetected); Benzodiazepines Screen,Urine Not Detected (NotDetected); Cocaine Screen,Urine Not Detected (NotDetected); Methadone Screen, Urine Not Detected (NotDetected); Opiate Screen,Urine Not Detected (NotDetected); Oxycodone Screen, Urine Not Detected (NotDetected); Phencyclidine Screen,Urine Not Detected (NotDetected); Tricyclic Antidepressant,Urine Not Detected (NotDetected); Urn Cannabinoid Scrn Not Detected (NotDetected)
== END 2021-04-27 19:55 | disposition home or self-care (01) ==
LOC: EC 14:57
DX: F43.20 Adjustment disorder, unspecified (principal); E11.9 Type 2 diabetes mellitus without complications; I10 Essential (primary) hypertension; K21.9 Gastro-esophageal reflux disease without esophagitis; F17.200 Nicotine dependence, unspecified, uncomplicated; Z79.84 Long term (current) use of oral hypoglycemic drugs; Z79.890 Hormone replacement therapy; Z79.1 Long term (current) use of non-steroidal anti-inflammatories (NSAID); Z79.899 Other long term (current) drug therapy
CPT/HCPCS: 36415; 80306; 82075; 99285

== ENCOUNTER 2022-07-03 16:09 | Inpatient (IN) | payer OTHER ==
[2022-07-03] MEDS ORDERED: SODIUM CHLORIDE 0.9% 1,000 ML IV STA (16:26)
--- NOTE | 2022-07-03 16:26 | ED ---
General Adult HPI - General Chief complaint: Dizziness Stated complaint: Dizziness Time Seen by Provider: 07/03/22 16:23 Source: patient, EMS Mode of arrival: EMS Limitations: no limitations - History of Present Illness Initial comments: Patient brought to the ED by ambulance for evaluation. Patient states that he has felt dizzy and generally weak since this morning. Patient admits to not eating or drinking very much recently, stating that he has not had much of an appetite. Patient otherwise denies having any other symptoms. Patient denies having any pain, fever or chills, headache, focal numbness/weakness/neuro deficit, visual changes, chest pain or pressure, dyspnea, cough or cold symptoms, palpitations, syncope, abdominal pain, nausea/vomiting/diarrhea, bloody or melanotic stool, dysuria or urinary symptoms, or any other symptoms or complaints. Patient denies medication abuse/overdose, illicit drug use or alcohol use. - Related Data Home Medications Medication Instructions Recorded Confirmed Acarbose [Precose] 50 mg PO TID-W/MEALS 09/30/17 07/03/22 Levothyroxine Sodium [Synthroid] 50 mcg PO DAILY 09/30/17 07/03/22 Simvastatin [Zocor] 20 mg PO HS 09/30/17 07/03/22 Gabapentin [Neurontin] 300 mg PO BID 11/26/17 07/03/22 cloZAPine [Clozaril] 400 mg PO HS 11/26/17 07/03/22 fluPHENAZine decanoate [Prolixin 50 mg IM Q14D 11/26/17 07/03/22 Decanoate] Desmopressin [Ddavp] 0.2 mg PO HS 02/19/19 07/03/22 Dapagliflozin/Metformin HCl 1 tab PO BID 04/12/21 07/03/22 [Xigduo Xr 5 mg-1,000 mg Tablet] Magnesium Oxide [Magox 400] 400 mg PO BID 04/12/21 07/03/22 Pioglitazone HCl 30 mg PO DAILY 04/12/21 07/03/22 Cholecalciferol (Vitamin D3) 125 mcg PO DAILY 04/27/21 07/03/22 [Vitamin D3 (5000 Iu)] Meloxicam [Mobic] 15 mg PO DAILY 07/03/22 07/03/22 Omeprazole 20 mg PO BID 07/03/22 07/03/22 Simethicone [Simethicone Chew] 80 mg PO QID 07/03/22 07/03/22 lisinopriL [Zestril] 5 mg PO DAILY 07/03/22 07/03/22 sitaGLIPtin [Januvia] 100 mg PO DAILY 07/03/22 07/03/22 Previous Rx's Medication Instructions Recorded cloZAPine [Clozaril] 100 mg PO DAILY 30 Days tab 11/26/16 Allergies Allergy/AdvReac Type Severity Reaction Status Date / Time No Known Allergies Allergy Verified 07/03/22 19:07 Review of Systems ROS Statement: Those systems with pertinent positive or pertinent negative responses have been documented in the HPI. ROS Other: All systems not noted in ROS Statement are negative. Past Medical History Past Medical History: Diabetes Mellitus, GERD/Reflux, Hypertension, Neurologic Disorder, Thyroid Disorder Additional Past Medical History / Comment(s): This is obtained by reviewing medical records History of Any Multi-Drug Resistant Organisms: None Reported Past Surgical History: Hernia Repair Additional Past Surgical History / Comment(s): tubes in both ears, cleft lip surgery Past Anesthesia/Blood Transfusion Reactions: No Reported Reaction Past Psychological History: Bipolar, Depression Smoking Status: Smoker, current status unknown Past Alcohol Use History: Occasional Past Drug Use History: None Reported - Past Family History Father Family Medical History: Cancer Additional Family Medical History / Comment(s): Dad had lung cancer, in 2011 Mother Family Medical History: Rheumatoid Arthritis (RA) Additional Family Medical History / Comment(s): Mother has paranoia schizophrenic General Exam Limitations: no limitations General appearance: alert, in no apparent distress Head exam: Present: atraumatic Eye exam: Present: normal appearance, PERRL, EOMI ENT exam: Present: mucous membranes dry Neck exam: Present: other (Trachea is in midline). Absent: tenderness, meningismus Respiratory exam: Present: normal lung sounds bilaterally. Absent: respiratory distress, wheezes, rales, rhonchi, stridor Cardiovascular Exam: Present: regular rate, normal rhythm, normal heart sounds, other (Normal radial pulses bilaterally) GI/Abdominal exam: Present: soft. Absent: distended, tenderness, guarding Extremities exam: Absent: tenderness, pedal edema, calf tenderness Neurological exam: Present: alert, oriented X3, CN II-XII intact. Absent: motor sensory deficit Psychiatric exam: Present: normal affect, normal mood Skin exam: Present: warm, dry, intact, normal color Course Vital Signs 07/03/22 07/03/22 07/03/22 16:15 16:38 16:42 Temperature 97.5 F L Pulse Rate 66 93 82 Respiratory 18 18 16 Rate Blood Pressure 59/38 55/44 O2 Sat by Pulse 98 96 Oximetry 07/03/22 07/03/22 07/03/22 16:43 16:48 16:52 Temperature Pulse Rate 82 86 Respiratory Rate Blood Pressure 70/42 69/44 74/48 O2 Sat by Pulse 97 98 96 Oximetry 07/03/22 07/03/22 07/03/22 16:59 17:09 17:16 Temperature Pulse Rate 92 86 83 Respiratory Rate Blood Pressure 81/45 80/47 81/50 O2 Sat by Pulse 98 97 Oximetry 07/03/22 19:53 Temperature Pulse Rate 84 Respiratory 18 Rate Blood Pressure 92/55 O2 Sat by Pulse 97 Oximetry - Reevaluation(s) Reevaluation #1: 07/03/22 21:26 Case, H&P, test results thus far and ED management thus far were discussed with Dr. Alvarez. He accepts hospital admission. He has no further recommendations at this time. 07/03/22 21:29 Patient denies development of any new symptoms while in the ED. Patient remains alert and breathing comfortably. Patient's blood pressure has improved with IV fluid hydration in the ED. Patient is aware of his test results, and he agrees with hospital admission at this time. EKG Findings - EKG Comments: EKG Findings:: Normal sinus rhythm, ventricular rate of 91 bpm, no ectopy, normal [place] and QRS intervals, normal QT interval, normal axis, no ST or T-wave abnormality Medical Decision Making - Medical Decision Making Patient reports that he has not been eating or drinking very much recently. I suspect that the patient's symptoms, low blood pressure readings and lab results are likely secondary to dehydration. Patient has dry mucous membranes noted on physical examination. Patient's blood pressure has responded to IV fluid hydration in the ED. Patient has not yet been able to provide a urine specimen for UA, and he has refused catheterization. Patient's bladder scan measured just about 100 mL of urine. Given inability to rule out UTI since the patient has not provided a urine specimen, particularly given his elevated WBC count and elevated lactic acid level, patient was covered with a dose of IV Zosyn in the ED. Will admit the patient to the hospital for continued monitoring, evaluation and IV fluid hydration. Dr. Alvarez has accepted hospital admission. - Lab Data Result diagrams: 07/03/22 16:55 07/03/22 16:54 Lab Results 07/03/22 07/03/22 07/03/22 Range/Units 16:37 16:54 16:55 WBC 14.5 H (3.8-10.6) k/uL RBC 5.34 (4.30-5.90) m/uL Hgb 16.7 (13.0-17.5) gm/dL Hct 52.0 (39.0-53.0) % MCV 97.3 (80.0-100.0) fL MCH 31.3 (25.0-35.0) pg MCHC 32.2 (31.0-37.0) g/dL RDW 14.5 (11.5-15.5) % Plt Count 241 (150-450) k/uL MPV 7.7 Neutrophils % 77 % Lymphocytes % 12 % Monocytes % 8 % Eosinophils % 0 % Basophils % 1 % Neutrophils # 11.2 H (1.3-7.7) k/uL Lymphocytes # 1.7 (1.0-4.8) k/uL Monocytes # 1.1 H (0-1.0) k/uL Eosinophils # 0.1 (0-0.7) k/uL Basophils # 0.1 (0-0.2) k/uL Sodium 133 L (137-145) mmol/L Potassium 5.8 H (3.5-5.1) mmol/L Chloride 91 L (98-107) mmol/L Carbon Dioxide 15 L (22-30) mmol/L Anion Gap 27 mmol/L BUN 39 H (9-20) mg/dL Creatinine 3.55 H (0.66-1.25) mg/dL Est GFR (CKD-EPI)AfAm 23 (>60 ml/min/1.73 sqM) Est GFR (CKD-EPI)NonAf 20 (>60 ml/min/1.73 sqM) Glucose 200 H (74-99) mg/dL POC Glucose (mg/dL) 191 H (70-110) mg/dL POC Glu Station Worker ID Silver, Darleen Lactic Ac Sepsis Rflx Plasma Lactic Acid Christopher (0.7-2.0) mmol/L Calcium 11.4 H (8.4-10.2) mg/dL Magnesium 2.8 H (1.6-2.3) mg/dL Total Bilirubin 0.8 (0.2-1.3) mg/dL AST 37 (17-59) U/L ALT 18 (4-49) U/L Alkaline Phosphatase 72 (38-126) U/L Troponin I (0.000-0.034) ng/mL Total Protein 9.1 H (6.3-8.2) g/dL Albumin 5.8 H (3.5-5.0) g/dL TSH 2.910 (0.465-4.680) mIU/L Free T4 1.69 (0.78-2.19) ng/dL Serum Alcohol <10 mg/dL Acetone, Qual (Negative) 07/03/22 07/03/22 07/03/22 Range/Units 16:55 16:55 18:09 WBC (3.8-10.6) k/uL RBC (4.30-5.90) m/uL Hgb (13.0-17.5) gm/dL Hct (39.0-53.0) % MCV (80.0-100.0) fL MCH (25.0-35.0) pg MCHC (31.0-37.0) g/dL RDW (11.5-15.5) % Plt Count (150-450) k/uL MPV Neutrophils % % Lymphocytes % % Monocytes % % Eosinophils % % Basophils % % Neutrophils # (1.3-7.7) k/uL Lymphocytes # (1.0-4.8) k/uL Monocytes # (0-1.0) k/uL Eosinophils # (0-0.7) k/uL Basophils # (0-0.2) k/uL Sodium (137-145) mmol/L Potassium (3.5-5.1) mmol/L Chloride (98-107) mmol/L Carbon Dioxide (22-30) mmol/L Anion Gap mmol/L BUN (9-20) mg/dL Creatinine (0.66-1.25) mg/dL Est GFR (CKD-EPI)AfAm (>60 ml/min/1.73 sqM) Est GFR (CKD-EPI)NonAf (>60 ml/min/1.73 sqM) Glucose (74-99) mg/dL POC Glucose (mg/dL) (70-110) mg/dL POC Glu Station Worker ID Lactic Ac Sepsis Rflx Y Plasma Lactic Acid Christopher 5.5 H* (0.7-2.0) mmol/L Calcium (8.4-10.2) mg/dL Magnesium (1.6-2.3) mg/dL Total Bilirubin (0.2-1.3) mg/dL AST (17-59) U/L ALT (4-49) U/L Alkaline Phosphatase (38-126) U/L Troponin I <0.012 (0.000-0.034) ng/mL Total Protein (6.3-8.2) g/dL Albumin (3.5-5.0) g/dL TSH (0.465-4.680) mIU/L Free T4 (0.78-2.19) ng/dL Serum Alcohol mg/dL Acetone, Qual (Negative) 07/03/22 Range/Units 20:00 WBC (3.8-10.6) k/uL RBC (4.30-5.90) m/uL Hgb (13.0-17.5) gm/dL Hct (39.0-53.0) % MCV (80.0-100.0) fL MCH (25.0-35.0) pg MCHC (31.0-37.0) g/dL RDW (11.5-15.5) % Plt Count (150-450) k/uL MPV Neutrophils % % Lymphocytes % % Monocytes % % Eosinophils % % Basophils % % Neutrophils # (1.3-7.7) k/uL Lymphocytes # (1.0-4.8) k/uL Monocytes # (0-1.0) k/uL Eosinophils # (0-0.7) k/uL Basophils # (0-0.2) k/uL Sodium (137-145) mmol/L Potassium (3.5-5.1) mmol/L Chloride (98-107) mmol/L Carbon Dioxide (22-30) mmol/L Anion Gap mmol/L BUN (9-20) mg/dL Creatinine (0.66-1.25) mg/dL Est GFR (CKD-EPI)AfAm (>60 ml/min/1.73 sqM) Est GFR (CKD-EPI)NonAf (>60 ml/min/1.73 sqM) Glucose (74-99) mg/dL POC Glucose (mg/dL) (70-110) mg/dL POC Glu Station Worker ID Lactic Ac Sepsis Rflx Plasma Lactic Acid Christopher (0.7-2.0) mmol/L Calcium (8.4-10.2) mg/dL Magnesium (1.6-2.3) mg/dL Total Bilirubin (0.2-1.3) mg/dL AST (17-59) U/L ALT (4-49) U/L Alkaline Phosphatase (38-126) U/L Troponin I (0.000-0.034) ng/mL Total Protein (6.3-8.2) g/dL Albumin (3.5-5.0) g/dL TSH (0.465-4.680) mIU/L Free T4 (0.78-2.19) ng/dL Serum Alcohol mg/dL Acetone, Qual Negative (Negative) - Radiology Data Chest x-ray: No active cardiopulmonary disease. No change. Critical Care Time Critical Care Time: Yes Total Critical Care Time: 45 Disposition Clinical Impression: Dehydration, Renal insufficiency, Weakness, Hyperkalemia, Hypermagnesemia, Hypercalcemia Disposition: ADMITTED IP TO THIS [facility] Condition: Stable Is patient prescribed a controlled substance at d/c from ED?: No Referrals: [facility] [Primary Care Provider] - 1-2 days Time of Disposition: 21:26
[2022-07-03] MEDS ORDERED: SODIUM CHLORIDE 0.9% 1,000 ML IV ONE ×3 (16:36→21:20)
[2022-07-03 16:37] LABS: Glucose,Whole Blood 191 mg/dL (70-110)
[2022-07-03 17:13] LABS: Basophils # (A) 0.1 k/uL (0-0.2); Basophils % (A) 1 %; Eosinophils # (A) 0.1 k/uL (0-0.7); Eosinophils % (A) 0 %; HGB 16.7 gm/dL (13.0-17.5); Lymphocytes # (A) 1.7 k/uL (1.0-4.8); Lymphocytes % (A) 12 %; MCH 31.3 pg (25.0-35.0); MCHC 32.2 g/dL (31.0-37.0); MCV 97.3 fL (80.0-100.0); Mean Platelet Volume 7.7; Monocytes # (A) 1.1 k/uL (0-1.0); Monocytes % (A) 8 %; Neutrophils # (A) 11.2 k/uL (1.3-7.7); Neutrophils % (A) 77 %; Platelet Count 241 k/uL (150-450); RBC 5.34 m/uL (4.30-5.90); RDW 14.5 % (11.5-15.5); WBC 14.5 k/uL (3.8-10.6)
--- NOTE | 2022-07-03 17:16 | XR ---
EXAMINATION TYPE: XR chest 1V portable DATE OF EXAM: 07/03/2022 COMPARISON: 04/12/2021 HISTORY: Weakness TECHNIQUE: Helical view FINDINGS: Heart and mediastinum are normal. Lungs are clear. Diaphragm is normal. There are chest henok ds. Bony thorax is intact. IMPRESSION: No active cardiopulmonary disease. No change.
[2022-07-03 17:24] LABS: ALT 18 U/L (4-49); AST 37 U/L (17-59); African American GFR (CKD) 23 (>60 ml/min/1.73 sqM); Albumin 5.8 g/dL (3.5-5.0); Alcohol <10 mg/dL; Alkaline Phosphatase 72 U/L (38-126); Anion Gap 27 mmol/L; Blood Urea Nitrogen 39 mg/dL (9-20); Calcium 11.4 mg/dL (8.4-10.2); Carbon Dioxide 15 mmol/L (22-30); Chloride 91 mmol/L (98-107); Glucose 200 mg/dL (74-99); Magnesium 2.8 mg/dL (1.6-2.3); Non-African American GFR(CKD) 20 (>60 ml/min/1.73 sqM); Potassium 5.8 mmol/L (3.5-5.1); Sodium 133 mmol/L (137-145); Total Bilirubin 0.8 mg/dL (0.2-1.3); Total Protein 9.1 g/dL (6.3-8.2)
[2022-07-03 17:39] LABS: T4, Free (Free Thyroxine) 1.69 ng/dL (0.78-2.19)
[2022-07-03] MEDS ORDERED: SODIUM BICARB 8.4% 50 ML SYR (1 MEQ/ML) IV STA (18:01)
[2022-07-03] MEDS ORDERED: PIPERACILLIN-TAZOBACTAM 3.375 GM in SODIUM CHLORIDE 0.9% 100 ML IVPB STA (21:19)
[2022-07-03] MEDS: SODIUM CHLORIDE 0.9% 1,000 ML IV SCH (22:54)
--- NOTE | 2022-07-04 00:30 | P.HPIM ---
History of Present Illness H&P Date: 07/03/22 Chief Complaint: dizziness 42 year old male with developmental delay , DM , hypothyroid patient sent in from a snf, for recurrent episodes of falling, patient denies LOC, or head injuries, but he was getting frequent episodes of postural dizziness today with falls to the ground. reports chills but no fever, denies any URI symptoms , chest pain or trouble breathing, denies any abd pain , nausea vomiting, changes in urinary or bowel habits. patient probably an unreliable historian , but he does answer questions with confidence and appropriately . he has been refusing straight cath in the ED, he remains hypotensive despite multiple 1 L boluses. he admits to tobacco smoking , denies any illicit drugs or alcohol . he has a health care attorney in charge of his medications. workup in the ED showed elevated WBC, BONNIE and lactic acidosis CXR no acute pathology Review of Systems Pertinent positives as noted in HPI. All other systems were reviewed and are negative Past Medical History Past Medical History: Diabetes Mellitus, GERD/Reflux, Hypertension, Neurologic Disorder, Thyroid Disorder Additional Past Medical History / Comment(s): This is obtained by reviewing medical records History of Any Multi-Drug Resistant Organisms: None Reported Past Surgical History: Hernia Repair Additional Past Surgical History / Comment(s): tubes in both ears, cleft lip surgery Past Anesthesia/Blood Transfusion Reactions: No Reported Reaction Past Psychological History: Bipolar, Depression Smoking Status: Smoker, current status unknown Past Alcohol Use History: Occasional Past Drug Use History: None Reported - Past Family History Father Family Medical History: Cancer Additional Family Medical History / Comment(s): Dad had lung cancer, in 2011 Mother Family Medical History: Rheumatoid Arthritis (RA) Additional Family Medical History / Comment(s): Mother has paranoia schizophrenic Medications and Allergies Home Medications Medication Instructions Recorded Confirmed Type cloZAPine [Clozaril] 100 mg PO DAILY 30 Days tab 11/26/16 07/03/22 Rx Acarbose [Precose] 50 mg PO TID-W/MEALS 09/30/17 07/03/22 History Levothyroxine Sodium [Synthroid] 50 mcg PO DAILY 09/30/17 07/03/22 History Simvastatin [Zocor] 20 mg PO HS 09/30/17 07/03/22 History Gabapentin [Neurontin] 300 mg PO BID 11/26/17 07/03/22 History cloZAPine [Clozaril] 400 mg PO HS 11/26/17 07/03/22 History fluPHENAZine decanoate [Prolixin 50 mg IM Q14D 11/26/17 07/03/22 History Decanoate] Desmopressin [Ddavp] 0.2 mg PO HS 02/19/19 07/03/22 History Dapagliflozin/Metformin HCl 1 tab PO BID 04/12/21 07/03/22 History [Xigduo Xr 5 mg-1,000 mg Tablet] Magnesium Oxide [Magox 400] 400 mg PO BID 04/12/21 07/03/22 History Pioglitazone HCl 30 mg PO DAILY 04/12/21 07/03/22 History Cholecalciferol (Vitamin D3) 125 mcg PO DAILY 04/27/21 07/03/22 History [Vitamin D3 (5000 Iu)] Meloxicam [Mobic] 15 mg PO DAILY 07/03/22 07/03/22 History Omeprazole 20 mg PO BID 07/03/22 07/03/22 History Simethicone [Simethicone Chew] 80 mg PO QID 07/03/22 07/03/22 History lisinopriL [Zestril] 5 mg PO DAILY 07/03/22 07/03/22 History sitaGLIPtin [Januvia] 100 mg PO DAILY 07/03/22 07/03/22 History Allergies Allergy/AdvReac Type Severity Reaction Status Date / Time No Known Allergies Allergy Verified 07/03/22 19:07 Physical Exam Vitals: Vital Signs Temp Pulse Resp BP Pulse Ox 07/04/22 00:04 74 19 80/50 97 07/03/22 23:00 82/52 07/03/22 22:00 89/57 07/03/22 19:53 84 18 92/55 97 07/03/22 17:16 83 81/50 97 07/03/22 17:09 86 80/47 98 07/03/22 16:59 92 81/45 07/03/22 16:52 86 74/48 96 07/03/22 16:48 82 69/44 98 07/03/22 16:43 70/42 97 07/03/22 16:42 82 16 55/44 07/03/22 16:38 93 18 59/38 96 07/03/22 16:15 97.5 F L 66 18 98 Intake and Output 07/03/22 07/03/22 07/04/22 14:59 22:59 06:59 Output Total 950 Balance -950 Output: Urine 950 Other: Weight 61.689 kg Constitutional: No acute distress, conversant, cooperative Eyes: Anicteric sclerae, moist conjunctiva, Pupils equal round reactive to light ENMT: NC/AT Oropharynx clear, no erythema, or exudates Neck: Supple, no masses, or JVD No carotid bruits No thyromegaly Lungs: Clear to auscultation Clear to percussion Normal respiratory effort, no accessory muscle use Cardiovascular: Heart regular in rate and rhythm, No murmurs, gallops, or rubs No peripheral edema Abdominal: Soft Nontender, no guarding, rebound or rigidity Abdomen moving with respiration Normoactive bowel sounds No hepatomegaly, No splenomegaly No palpable mass No abdominal wall hernia noted Skin: Normal temperature, tone, texture, turgor No induration No subcutaneous nodules No rash, lesions No ulcers Extremities: No digital cyanosis No clubbing Pedal pulses intact and symmetrical Radial pulses intact and symmetrical No calf tenderness Psychiatric: Alert and oriented to person, place and time Neuro Muscles Strength 5/5 in all 4 extremities Sensation to light touch grossly present throughout Cranial nerves II-XII grossly intact No focal sensory deficits Lymphatics: no palpable cervical or supraclavicular , or inguinal lymph nodes Results CBC & Chem 7: 07/03/22 16:55 07/03/22 16:54 Labs: Abnormal Lab Results - Last 24 Hours (Table) 07/03/22 07/03/22 07/03/22 Range/Units 16:37 16:54 16:55 WBC 14.5 H (3.8-10.6) k/uL Neutrophils # 11.2 H (1.3-7.7) k/uL Monocytes # 1.1 H (0-1.0) k/uL Sodium 133 L (137-145) mmol/L Potassium 5.8 H (3.5-5.1) mmol/L Chloride 91 L (98-107) mmol/L Carbon Dioxide 15 L (22-30) mmol/L BUN 39 H (9-20) mg/dL Creatinine 3.55 H (0.66-1.25) mg/dL Glucose 200 H (74-99) mg/dL POC Glucose (mg/dL) 191 H (70-110) mg/dL Plasma Lactic Acid Christopher (0.7-2.0) mmol/L Calcium 11.4 H (8.4-10.2) mg/dL Magnesium 2.8 H (1.6-2.3) mg/dL Total Protein 9.1 H (6.3-8.2) g/dL Albumin 5.8 H (3.5-5.0) g/dL 07/03/22 Range/Units 16:55 WBC (3.8-10.6) k/uL Neutrophils # (1.3-7.7) k/uL Monocytes # (0-1.0) k/uL Sodium (137-145) mmol/L Potassium (3.5-5.1) mmol/L Chloride (98-107) mmol/L Carbon Dioxide (22-30) mmol/L BUN (9-20) mg/dL Creatinine (0.66-1.25) mg/dL Glucose (74-99) mg/dL POC Glucose (mg/dL) (70-110) mg/dL Plasma Lactic Acid Christopher 5.5 H* (0.7-2.0) mmol/L Calcium (8.4-10.2) mg/dL Magnesium (1.6-2.3) mg/dL Total Protein (6.3-8.2) g/dL Albumin (3.5-5.0) g/dL Assessment and Plan Assessment: sepsis secondary to suspected UTI lactic acidosis refractory hypotension , symptomatic BONNIE plan follow up cultures await urine sample initiated on antibiotics with zosyn aggressive IVF hydration , s/p 4 L normal saline boluses await ICU approval for admission , and start on levophed straight cath PRN avoid nephrotoxic meds CXR no acute pathhhology fall precautions chronic conditions schizophrenia DM , insulin sliding scale hypothyroid , resume levothyroxin full code DVT PPX heparin sc tid
[2022-07-04] MEDS ORDERED: NALOXONE 0.4 MG/ML 1 ML VIAL IV PRN (00:42)
[2022-07-04] MEDS ORDERED: ACETAMINOPHEN TAB 325 MG TAB PO PRN (00:43)
[2022-07-04] MEDS ORDERED: MIDAZOLAM 1 MG/ML 5 ML VIAL IV STA (01:30)
[2022-07-04] MEDS: NOREPINEPHRINE 4 MG in SODIUM CHLORIDE 0.9% 250 ML IV SCH ×2 (01:30→15:59)
--- NOTE | 2022-07-04 02:04 | ED ---
Medical Decision Making - Medical Decision Making 42 male to the emergency department for for evaluation, blood pressures have remained low in the area of sepsis with shock. Patient is started on antibiotics prior to me seeing, I did place central line for vasopressors and patient will be admitted to the ICU - Lab Data Result diagrams: 07/03/22 16:55 07/03/22 16:54 Lab Results 07/03/22 07/03/22 07/03/22 Range/Units 16:37 16:54 16:55 WBC 14.5 H (3.8-10.6) k/uL RBC 5.34 (4.30-5.90) m/uL Hgb 16.7 (13.0-17.5) gm/dL Hct 52.0 (39.0-53.0) % MCV 97.3 (80.0-100.0) fL MCH 31.3 (25.0-35.0) pg MCHC 32.2 (31.0-37.0) g/dL RDW 14.5 (11.5-15.5) % Plt Count 241 (150-450) k/uL MPV 7.7 Neutrophils % 77 % Lymphocytes % 12 % Monocytes % 8 % Eosinophils % 0 % Basophils % 1 % Neutrophils # 11.2 H (1.3-7.7) k/uL Lymphocytes # 1.7 (1.0-4.8) k/uL Monocytes # 1.1 H (0-1.0) k/uL Eosinophils # 0.1 (0-0.7) k/uL Basophils # 0.1 (0-0.2) k/uL Sodium 133 L (137-145) mmol/L Potassium 5.8 H (3.5-5.1) mmol/L Chloride 91 L (98-107) mmol/L Carbon Dioxide 15 L (22-30) mmol/L Anion Gap 27 mmol/L BUN 39 H (9-20) mg/dL Creatinine 3.55 H (0.66-1.25) mg/dL Est GFR (CKD-EPI)AfAm 23 (>60 ml/min/1.73 sqM) Est GFR (CKD-EPI)NonAf 20 (>60 ml/min/1.73 sqM) Glucose 200 H (74-99) mg/dL POC Glucose (mg/dL) 191 H (70-110) mg/dL POC Glu Compliance Spec ID Darleen Sheppard Lactic Ac Sepsis Rflx Plasma Lactic Acid Christopher (0.7-2.0) mmol/L Calcium 11.4 H (8.4-10.2) mg/dL Magnesium 2.8 H (1.6-2.3) mg/dL Total Bilirubin 0.8 (0.2-1.3) mg/dL AST 37 (17-59) U/L ALT 18 (4-49) U/L Alkaline Phosphatase 72 (38-126) U/L Troponin I (0.000-0.034) ng/mL Total Protein 9.1 H (6.3-8.2) g/dL Albumin 5.8 H (3.5-5.0) g/dL TSH 2.910 (0.465-4.680) mIU/L Free T4 1.69 (0.78-2.19) ng/dL Serum Alcohol <10 mg/dL Acetone, Qual (Negative) 07/03/22 07/03/22 07/03/22 Range/Units 16:55 16:55 18:09 WBC (3.8-10.6) k/uL RBC (4.30-5.90) m/uL Hgb (13.0-17.5) gm/dL Hct (39.0-53.0) % MCV (80.0-100.0) fL MCH (25.0-35.0) pg MCHC (31.0-37.0) g/dL RDW (11.5-15.5) % Plt Count (150-450) k/uL MPV Neutrophils % % Lymphocytes % % Monocytes % % Eosinophils % % Basophils % % Neutrophils # (1.3-7.7) k/uL Lymphocytes # (1.0-4.8) k/uL Monocytes # (0-1.0) k/uL Eosinophils # (0-0.7) k/uL Basophils # (0-0.2) k/uL Sodium (137-145) mmol/L Potassium (3.5-5.1) mmol/L Chloride (98-107) mmol/L Carbon Dioxide (22-30) mmol/L Anion Gap mmol/L BUN (9-20) mg/dL Creatinine (0.66-1.25) mg/dL Est GFR (CKD-EPI)AfAm (>60 ml/min/1.73 sqM) Est GFR (CKD-EPI)NonAf (>60 ml/min/1.73 sqM) Glucose (74-99) mg/dL POC Glucose (mg/dL) (70-110) mg/dL POC Glu Compliance Spec ID Lactic Ac Sepsis Rflx Y Plasma Lactic Acid Christopher 5.5 H* (0.7-2.0) mmol/L Calcium (8.4-10.2) mg/dL Magnesium (1.6-2.3) mg/dL Total Bilirubin (0.2-1.3) mg/dL AST (17-59) U/L ALT (4-49) U/L Alkaline Phosphatase (38-126) U/L Troponin I <0.012 (0.000-0.034) ng/mL Total Protein (6.3-8.2) g/dL Albumin (3.5-5.0) g/dL TSH (0.465-4.680) mIU/L Free T4 (0.78-2.19) ng/dL Serum Alcohol mg/dL Acetone, Qual (Negative) 07/03/22 Range/Units 20:00 WBC (3.8-10.6) k/uL RBC (4.30-5.90) m/uL Hgb (13.0-17.5) gm/dL Hct (39.0-53.0) % MCV (80.0-100.0) fL MCH (25.0-35.0) pg MCHC (31.0-37.0) g/dL RDW (11.5-15.5) % Plt Count (150-450) k/uL MPV Neutrophils % % Lymphocytes % % Monocytes % % Eosinophils % % Basophils % % Neutrophils # (1.3-7.7) k/uL Lymphocytes # (1.0-4.8) k/uL Monocytes # (0-1.0) k/uL Eosinophils # (0-0.7) k/uL Basophils # (0-0.2) k/uL Sodium (137-145) mmol/L Potassium (3.5-5.1) mmol/L Chloride (98-107) mmol/L Carbon Dioxide (22-30) mmol/L Anion Gap mmol/L BUN (9-20) mg/dL Creatinine (0.66-1.25) mg/dL Est GFR (CKD-EPI)AfAm (>60 ml/min/1.73 sqM) Est GFR (CKD-EPI)NonAf (>60 ml/min/1.73 sqM) Glucose (74-99) mg/dL POC Glucose (mg/dL) (70-110) mg/dL POC Glu Compliance Spec ID Lactic Ac Sepsis Rflx Plasma Lactic Acid Christopher (0.7-2.0) mmol/L Calcium (8.4-10.2) mg/dL Magnesium (1.6-2.3) mg/dL Total Bilirubin (0.2-1.3) mg/dL AST (17-59) U/L ALT (4-49) U/L Alkaline Phosphatase (38-126) U/L Troponin I (0.000-0.034) ng/mL Total Protein (6.3-8.2) g/dL Albumin (3.5-5.0) g/dL TSH (0.465-4.680) mIU/L Free T4 (0.78-2.19) ng/dL Serum Alcohol mg/dL Acetone, Qual Negative (Negative) Disposition Clinical Impression: Dehydration, Renal insufficiency, Weakness, Hyperkalemia, Hypermagnesemia, Hypercalcemia, Shock, Altered mental status, Mild intellectual disabilities, Lactic acidosis, BONNIE (acute kidney injury) Disposition: ADMITTED IP TO THIS [facility] Condition: Serious Is patient prescribed a controlled substance at d/c from ED?: No Procedures - Central Line Placement Right IJ Consent Obtained: verbal consent Patient Placed on Monitor/Pulse Ox: Yes MD Prep: mask, gown, gloves Central Line Prep: Chlorhexidine scrub Local Anesthesia Used: Lidocaine 1% Ultrasound Used for Placement: Yes Central Line Lumen Inserted: triple Central Line Position: good blood return, all ports aspirated, flushed, capped, sutured in place with nylon Dressing Applied: Tegaderm Post Procedure X-Ray: tip of catheter in good position Patient Tolerated Procedure: well Complications: none
[2022-07-04] MEDS ORDERED: SODIUM CHLORIDE 0.9% 1,000 ML IV ONE (02:05)
[2022-07-04 02:25] LABS: Acetaminophen <10.0 ug/mL; Salicylate <1.0 mg/dL
[2022-07-04 03:14] LABS: Glucose,Whole Blood 113 mg/dL (70-110)
[2022-07-04 04:19] LABS: Albumin 3.4 g/dL (3.5-5.0); Calcium 8.4 mg/dL (8.4-10.2); Magnesium 2.2 mg/dL (1.6-2.3); Potassium 4.5 mmol/L (3.5-5.1); Total Bilirubin 0.4 mg/dL (0.2-1.3); Total Protein 5.4 g/dL (6.3-8.2)
[2022-07-04 04:26] LABS: Appearance,Urine Cloudy (Clear); Color,Urine Yellow; Protein,Urine 1+ (Negative)
[2022-07-04 04:27] LABS: Bacteria,Urine Rare /hpf; Bilirubin,Urine Negative (Negative); Blood,Urine Trace (Negative); Budding Yeast,Urine Many /hpf; Glucose,Urine (UA) 3+ (Negative); Granular Casts,Urine 1 /lpf (0); Hyaline Casts,Urine 32 /lpf (0-2); Ketones,Urine Trace (Negative); Leukocyte Esterase,Urine Small (Negative); Mucus,Urine Rare /hpf; Nitrite,Urine Negative (Negative); RBC,Urine 2 /hpf (0-5); Squamous Epithelial Cell,Urine 2 /hpf (0-4); Urobilinogen,Urine <2.0 mg/dL (<2.0); WBC,Urine 8 /hpf (0-5)
[2022-07-04 04:29] LABS: Basophils % (A) 0 %; Eosinophils # (A) 0.1 k/uL (0-0.7); Eosinophils % (A) 1 %; HCT 39.8 % (39.0-53.0); Lymphocytes # (A) 1.7 k/uL (1.0-4.8); Lymphocytes % (A) 20 %; MCH 31.9 pg (25.0-35.0); MCHC 32.4 g/dL (31.0-37.0); MCV 98.4 fL (80.0-100.0); Mean Platelet Volume 7.8; Monocytes # (A) 0.6 k/uL (0-1.0); Monocytes % (A) 7 %; Neutrophils # (A) 5.8 k/uL (1.3-7.7); Neutrophils % (A) 69 %; Platelet Count 167 k/uL (150-450); RBC 4.04 m/uL (4.30-5.90); RDW 14.9 % (11.5-15.5); WBC 8.4 k/uL (3.8-10.6)
[2022-07-04 04:31] LABS: HGB 12.9 gm/dL (13.0-17.5)
[2022-07-04] MEDS: LEVOTHYROXINE 50 MCG TAB PO SCH (06:28)
[2022-07-04] MEDS: PIPERACILLIN-TAZOBACTAM 3.375 GM in SODIUM CHLORIDE 0.9% 100 ML IVPB SCH ×3 (06:28→16:29)
[2022-07-04 06:31] LABS: Glucose,Whole Blood 139 mg/dL (70-110)
[2022-07-04] MEDS: INSULIN ASPART (NovoLOG) 100 UNIT/ML VIAL SQ SCH ×4 (06:57→20:19)
[2022-07-04] MEDS: HEPARIN SODIUM,PORCINE/PF 5,000 UNIT/0.5 ML SYRINGE SQ SCH ×2 (08:09→16:00)
[2022-07-04] MEDS: PANTOPRAZOLE 40 MG TABLET PO SCH ×2 (08:28→20:20)
[2022-07-04] MEDS: SODIUM CHLORIDE 0.9% 1,000 ML IV SCH ×2 (08:29→17:01)
--- NOTE | 2022-07-04 08:58 | US ---
EXAMINATION TYPE: US renals and bladder DATE OF EXAM: 07/04/2022 COMPARISON: NONE CLINICAL HISTORY: 42-year-old male BONNIE, pyelonephritis. ICU patient TECHNIQUE: Multiple sonographic images of the kidneys and bladder are obtained. FINDINGS: EXAM MEASUREMENTS: Right Kidney: 9.7 x 4.7 x 4.3 cm Left Kidney: 9.6 x 4.7 x 5.5 cm Right Kidney: Limited visualization of the lower pole due to bowel gas shadowing. Otherwise, no gross abnormality. No hydronephrosis. Left Kidney: Very limited views due to immobile, uncooperative patient in ICU. Both upper and lower p oles are shadowed out by bowel gas. No hydronephrosis seen. Bladder: Oakley catheter in place compressing the bladder. Bilateral Jets seen: No IMPRESSION: 1. Exam limitations due to uncooperative, nonmobile ICU patient. No evident hydronephrosis on either side. 2. Oakley catheter in place.
--- NOTE | 2022-07-04 09:15 | P.NPCON ---
History of Present Illness - Reason for Consult acute renal failure - History of Present Illness reason for consultation: Acute kidney injury History of present illness: Patient is a 42-year-old male seen in renal consultation for acute kidney injury. Patient was brought to the hospital but the EMS from a care home due to poor intake the last few days. Patient was also noted to be dizzy prior to admission and was very hypotensive with systolic blood pressure in the 50s. He did receive 5 L of normal saline bolus and is currently maintained on normal saline at 100 mL an hour. He is also on low-dose Levophed. Patient is nonoliguric. no fever or chills. Patient does a history of diabetes. He was taking lisinopril as well as Bina at home which are both currently held. Patient is unsure of his medications but these are listed in his home medication list. He was also on an sglt2i at home which is currently held. patient's white count is normal. no vomiting or diarrhea. No hematuria. patient's creatinine in March 2021 was 0.73 and was 3.55 on admission. It is 3.39 today. Vital signs are stable. on vasopressor support. General: await. No acute distress. HEENT: Head exam is unremarkable. LUNGS: Breath sounds decreased. HEART: Rate and Rhythm are regular. ABDOMEN: soft, no distention. EXTREMITITES: No edema. Past Medical History Past Medical History: Diabetes Mellitus, GERD/Reflux, Hypertension, Neurologic Disorder, Thyroid Disorder Additional Past Medical History / Comment(s): This is obtained by reviewing nd dical records History of Any Multi-Drug Resistant Organisms: None Reported Past Surgical History: Hernia Repair Additional Past Surgical History / Comment(s): tubes in both ears, cleft lip surgery Past Anesthesia/Blood Transfusion Reactions: No Reported Reaction Past Psychological History: Bipolar, Depression Smoking Status: Smoker, current status unknown Past Alcohol Use History: Occasional Past Drug Use History: None Reported - Past Family History Father Family Medical History: Cancer Additional Family Medical History / Comment(s): Dad had lung cancer, in 2011 Mother Family Medical History: Rheumatoid Arthritis (RA) Additional Family Medical History / Comment(s): Mother has paranoia schizophrenic Medications and Allergies Home Medications Medication Instructions Recorded Confirmed Type cloZAPine [Clozaril] 100 mg PO DAILY 30 Days tab 11/26/16 07/03/22 Rx Acarbose [Precose] 50 mg PO TID-W/MEALS 09/30/17 07/03/22 History Levothyroxine Sodium [Synthroid] 50 mcg PO DAILY 09/30/17 07/03/22 History Simvastatin [Zocor] 20 mg PO HS 09/30/17 07/03/22 History Gabapentin [Neurontin] 300 mg PO BID 11/26/17 07/03/22 History cloZAPine [Clozaril] 400 mg PO HS 11/26/17 07/03/22 History fluPHENAZine decanoate [Prolixin 50 mg IM Q14D 11/26/17 07/03/22 History Decanoate] Desmopressin [Ddavp] 0.2 mg PO HS 02/19/19 07/03/22 History Dapagliflozin/Metformin HCl 1 tab PO BID 04/12/21 07/03/22 History [Xigduo Xr 5 mg-1,000 mg Tablet] Magnesium Oxide [Magox 400] 400 mg PO BID 04/12/21 07/03/22 History Pioglitazone HCl 30 mg PO DAILY 04/12/21 07/03/22 History Cholecalciferol (Vitamin D3) 125 mcg PO DAILY 04/27/21 07/03/22 History [Vitamin D3 (5000 Iu)] Meloxicam [Mobic] 15 mg PO DAILY 07/03/22 07/03/22 History Omeprazole 20 mg PO BID 07/03/22 07/03/22 History Simethicone [Simethicone Chew] 80 mg PO QID 07/03/22 07/03/22 History lisinopriL [Zestril] 5 mg PO DAILY 07/03/22 07/03/22 History sitaGLIPtin [Januvia] 100 mg PO DAILY 07/03/22 07/03/22 History Allergies Allergy/AdvReac Type Severity Reaction Status Date / Time No Known Allergies Allergy Verified 07/03/22 19:07 Physical Exam Vitals: Vital Signs Temp Pulse Resp BP Pulse Ox 07/04/22 08:00 96.8 F L 86 12 99/55 96 07/04/22 07:00 90 11 L 110/62 96 07/04/22 06:00 72 14 94/54 96 07/04/22 05:45 79 10 L 96/52 93 L 07/04/22 05:30 75 16 90/48 93 L 07/04/22 05:15 81 19 91/48 94 L 07/04/22 05:00 86 21 91/48 95 07/04/22 04:45 89 24 87/48 07/04/22 04:30 87 14 79/38 86 L 07/04/22 04:15 80 7 L 87/44 94 L 07/04/22 04:00 97.7 F 82 12 88/50 94 L 07/04/22 03:45 80 14 92/54 07/04/22 03:30 84 12 101/53 07/04/22 03:15 97 07/04/22 02:08 78/44 07/04/22 00:04 74 19 80/50 97 07/03/22 23:00 82/52 07/03/22 22:00 89/57 07/03/22 19:53 84 18 92/55 97 07/03/22 17:16 83 81/50 97 07/03/22 17:09 86 80/47 98 07/03/22 16:59 92 81/45 07/03/22 16:52 86 74/48 96 07/03/22 16:48 82 69/44 98 07/03/22 16:43 70/42 97 07/03/22 16:42 82 16 55/44 07/03/22 16:38 93 18 59/38 96 07/03/22 16:15 97.5 F L 66 18 98 Intake and Output 07/03/22 07/04/22 07/04/22 22:59 06:59 14:59 Intake Total 1503.511 250 Output Total 950 330 445 Balance -950 1173.511 -195 Intake: IV 100 Sodium Chloride 0.9% 1, 100 000 ml @ 100 mls/hr IV . Q10H [facility] Rx#:[id number] Intake, IV Titration 1453.511 100 Amount Norepinephrine 4 mg In 53.511 Sodium Chloride 0.9% 250 ml @ 0.05 MCG/KG/MIN 11. 752 mls/hr IV .[id number] [facility] Rx#:[id number] Piperacillin-Tazobactam 3 100 .375 gm In Sodium Chloride 0.9% 100 ml @ 25 mls/hr IVPB Q8HR [facility] Rx# :[id number] Sodium Chloride 0.9% 1, 300 100 000 ml @ 100 mls/hr IV . Q10H [facility] Rx#:[id number] Sodium Chloride 0.9% 1, 1000 000 ml @ 999 mls/hr IV . Q1H1M [facility] Rx#:[id number] Oral 50 50 Output: Urine 950 330 445 Other: Voiding Method Indwelling Catheter Weight 61.689 kg Results - Lab Results Most recent lab results Calcium 8.4 mg/dL (8.4-10.2) 07/04/22 03:25 Magnesium 2.2 mg/dL (1.6-2.3) 07/04/22 03:25 07/04/22 03:25 07/04/22 03:25 Assessment and Plan Plan: assessment: 1. Acute kidney injury secondary to ATN secondary to hypotension and further worsened with the use of lisinopril and NSAIDs. Creatinine 3.55 on admission and is 3.39 today. Creatinine March 2021 was 0.73. no hydronephrosis noted on kidney ultrasound. 2. Metabolic acidosis secondary to acute kidney injury, lactic acidosis and metformin. Improved. 3. Hypotension secondary to antihypertensives and hypovolemia. Improved with IV hydration. Currently on low-dose Levophed. ?sepsis. 4. Hypercalcemia secondary to volume contraction. Resolved with IV hydration. 5. Hyperkalemia secondary to acute kidney injury, metabolic acidosis and lisinopril. improved. 6. Hypovolemic hyponatremia improved with IV hydration. 7. Diabetes mellitus. Plan: Maintain IV fluids. Wean off vasopressors. follow-up cultures. Continue antibiotics. Continue to hold antihypertensives, metformin and sglt2i. Avoid nephrotoxins. Continue to monitor renal function and urine output. Thank you for the consultation. I will continue to follow the patient with you during his hospital stay.
[2022-07-04] MEDS: cloZAPine 100 MG TAB PO SCH ×2 (09:41→20:20)
[2022-07-04 09:43] LABS: Urine Alcohol Positive (Negative); Urine Barbiturate Negative (Negative); Urine Cocaine Negative (Negative); Urine Methadone Negative (Negative); Urine Opiates Negative (Negative); Urine Phencyclidine Negative (Negative)
--- NOTE | 2022-07-04 09:57 | P.CNPUL ---
History of Present Illness Consult date: 07/04/22 Requesting physician: Ronit Alvarez Chief complaint: Hypotension. History of present illness: Pulmonary consult dated 07/04/2022. 42-year-old with a handicap male, who was evaluated in the emergency room, on July 03. The patient states that he was dizzy, falling at home, had not been eating. The patient has a history of diabetes, hypertension, bipolar disorder, and an underactive thyroid. He lives in a home, with other young man. He was admitted on the with dehydration, and acute kidney injury. He came to the intensive care unit on July 04, because of hypotension. I was called by the hospital doctor, because despite fluid administration, the patient was still hypotensive. Anyway, he is resting comfortably in the ICU, room 253. He is not receiving any supplemental oxygen. He is getting saline at 100 mL an hour, and norepinephrine at 4 mcg/m. White count 8.4, hemoglobin 12.9, hemat ocrit 39.8, platelet count 267,000. Sodium 136, potassium 4.5, chlorides 104, CO2 21, anion gap 11, BUN 41, creatinine 3.39. Albumin is 3.4. Urine is yellow and cloudy. There is 1+ protein and 3+ glucose. Leukocyte esterase was small positive. There is a WBCs, and rare bacteria. Drug screen was positive for alcohol. Everything else was negative. Also, the patient states that he does smoke cigarettes. Chest x-ray was normal. EKG showed normal sinus rhythm. Renal ultrasound showed no evidence of hydronephrosis. Review of Systems REVIEW OF SYSTEMS: CONSTITUTIONAL: Poor appetite, falling at home. NEUROLOGIC: Dizziness. HEENT: [ Negative.] CARDIAC: [Negative.] PULMONARY: [Negative.] GI: Poor appetite. : [Negative.] RHEUMATOLOGIC: [ Negative.] IMMUNOLOGIC: [ Negative.] ENDOCRINE: [Negative. ] DERMATOLOGIC: [Negative.] Past Medical History Past Medical History: Diabetes Mellitus, GERD/Reflux, Hypertension, Neurologic Disorder, Thyroid Disorder Additional Past Medical History / Comment(s): This is obtained by reviewing medical records History of Any Multi-Drug Resistant Organisms: None Reported Past Surgical History: Hernia Repair Additional Past Surgical History / Comment(s): tubes in both ears, cleft lip surgery Past Anesthesia/Blood Transfusion Reactions: No Reported Reaction Past Psychological History: Bipolar, Depression Smoking Status: Smoker, current status unknown Past Alcohol Use History: Occasional Past Drug Use History: None Reported - Past Family History Father Family Medical History: Cancer Additional Family Medical History / Comment(s): Dad had lung cancer, in 2011 Mother Family Medical History: Rheumatoid Arthritis (RA) Additional Family Medical History / Comment(s): Mother has paranoia schizophrenic Medications and Allergies Home Medications Medication Instructions Recorded Confirmed Type cloZAPine [Clozaril] 100 mg PO DAILY 30 Days tab 11/26/16 07/03/22 Rx Acarbose [Precose] 50 mg PO TID-W/MEALS 09/30/17 07/03/22 History Levothyroxine Sodium [Synthroid] 50 mcg PO DAILY 09/30/17 07/03/22 History Simvastatin [Zocor] 20 mg PO HS 09/30/17 07/03/22 History Gabapentin [Neurontin] 300 mg PO BID 11/26/17 07/03/22 History cloZAPine [Clozaril] 400 mg PO HS 11/26/17 07/03/22 History fluPHENAZine decanoate [Prolixin 50 mg IM Q14D 11/26/17 07/03/22 History Decanoate] Desmopressin [Ddavp] 0.2 mg PO HS 02/19/19 07/03/22 History Dapagliflozin/Metformin HCl 1 tab PO BID 04/12/21 07/03/22 History [Xigduo Xr 5 mg-1,000 mg Tablet] Magnesium Oxide [Magox 400] 400 mg PO BID 04/12/21 07/03/22 History Pioglitazone HCl 30 mg PO DAILY 04/12/21 07/03/22 History Cholecalciferol (Vitamin D3) 125 mcg PO DAILY 04/27/21 07/03/22 History [Vitamin D3 (5000 Iu)] Meloxicam [Mobic] 15 mg PO DAILY 07/03/22 07/03/22 History Omeprazole 20 mg PO BID 07/03/22 07/03/22 History Simethicone [Simethicone Chew] 80 mg PO QID 07/03/22 07/03/22 History lisinopriL [Zestril] 5 mg PO DAILY 07/03/22 07/03/22 History sitaGLIPtin [Januvia] 100 mg PO DAILY 07/03/22 07/03/22 History Allergies Allergy/AdvReac Type Severity Reaction Status Date / Time No Known Allergies Allergy Verified 07/03/22 19:07 Physical Exam Osteopathic Statement: *. No significant issues noted on an osteopathic structural exam other than those noted in the History and Physical/Consult. Vitals: Vital Signs Temp Pulse Resp BP Pulse Ox 07/04/22 08:00 96.8 F L 86 12 99/55 96 07/04/22 07:00 90 11 L 110/62 96 07/04/22 06:00 72 14 94/54 96 07/04/22 05:45 79 10 L 96/52 93 L 07/04/22 05:30 75 16 90/48 93 L 07/04/22 05:15 81 19 91/48 94 L 07/04/22 05:00 86 21 91/48 95 07/04/22 04:45 89 24 87/48 07/04/22 04:30 87 14 79/38 86 L 07/04/22 04:15 80 7 L 87/44 94 L 07/04/22 04:00 97.7 F 82 12 88/50 94 L 07/04/22 03:45 80 14 92/54 07/04/22 03:30 84 12 101/53 07/04/22 03:15 97 07/04/22 02:08 78/44 07/04/22 00:04 74 19 80/50 97 07/03/22 23:00 82/52 07/03/22 22:00 89/57 07/03/22 19:53 84 18 92/55 97 07/03/22 17:16 83 81/50 97 07/03/22 17:09 86 80/47 98 07/03/22 16:59 92 81/45 07/03/22 16:52 86 74/48 96 07/03/22 16:48 82 69/44 98 07/03/22 16:43 70/42 97 07/03/22 16:42 82 16 55/44 07/03/22 16:38 93 18 59/38 96 07/03/22 16:15 97.5 F L 66 18 98 Intake and Output 07/03/22 07/04/22 07/04/22 22:59 06:59 14:59 Intake Total 1503.511 450 Output Total 950 330 620 Balance -950 1173.511 -170 Intake: IV 300 Sodium Chloride 0.9% 1, 300 000 ml @ 100 mls/hr IV . Q10H [facility] Rx#:[id number] Intake, IV Titration 1453.511 100 Amount Norepinephrine 4 mg In 53.511 Sodium Chloride 0.9% 250 ml @ 0.05 MCG/KG/MIN 11. 752 mls/hr IV .[id number] [facility] Rx#:[id number] Piperacillin-Tazobactam 3 100 .375 gm In Sodium Chloride 0.9% 100 ml @ 25 mls/hr IVPB Q8HR [facility] Rx# :[id number] Sodium Chloride 0.9% 1, 300 100 000 ml @ 100 mls/hr IV . Q10H [facility] Rx#:[id number] Sodium Chloride 0.9% 1, 1000 000 ml @ 999 mls/hr IV . Q1H1M [facility] Rx#:[id number] Oral 50 50 Output: Urine 950 330 620 Other: Voiding Method Indwelling Catheter Weight 61.689 kg No acute distress, oriented 3. Not on any supplemental oxygen. No respiratory distress. HEENT examination is grossly unremarkable. Well-healed scar on the upper lip from cleft lip surgery. Neck supple. Full range of motion. No adenopathy thyromegaly or neck vein distention. Cardiovascular examination reveals regular rhythm rate. S1-S2 normal. No S3 or S4. No discernible murmur noted. Heart rate 80 bpm. Lungs reveal clear breath sounds. Breath sounds are equal bilaterally. No adventitious lung sounds including wheezes rhonchi or crackles. Saturations on room air is 96%. Abdomen soft bowel sounds are heard. No masses or tenderness. Extremities are intact. No cyanosis clubbing or edema. Skin is without rash or lesion. Neurologic examination is brief but nonfocal. Results - Laboratory Findings CBC and BMP: 07/04/22 03:25 07/04/22 03:25 Abnormal lab findings: Abnormal Labs 07/03/22 07/03/22 07/03/22 16:37 16:54 16:55 WBC 14.5 H RBC Hgb Neutrophils # 11.2 H Monocytes # 1.1 H Sodium 133 L Potassium 5.8 H Chloride 91 L Carbon Dioxide 15 L BUN 39 H Creatinine 3.55 H Glucose 200 H POC Glucose (mg/dL) 191 H Plasma Lactic Acid Christopher Calcium 11.4 H Magnesium 2.8 H Total Protein 9.1 H Albumin 5.8 H Urine Protein Urine Glucose (UA) Urine Ketones Urine Blood Ur Leukocyte Esterase Urine WBC Urine Bacteria Hyaline Casts Urine Mucus Urine Yeast (Budding) Urine Alcohol 07/03/22 07/04/22 07/04/22 16:55 03:12 03:25 WBC RBC 4.04 L Hgb 12.9 L D Neutrophils # Monocytes # Sodium Potassium Chloride Carbon Dioxide BUN Creatinine Glucose POC Glucose (mg/dL) 113 H Plasma Lactic Acid Christopher 5.5 H* Calcium Magnesium Total Protein Albumin Urine Protein Urine Glucose (UA) Urine Ketones Urine Blood Ur Leukocyte Esterase Urine WBC Urine Bacteria Hyaline Casts Urine Mucus Urine Yeast (Budding) Urine Alcohol 07/04/22 07/04/22 07/04/22 03:25 03:27 03:30 WBC RBC Hgb Neutrophils # Monocytes # Sodium 136 L Potassium Chloride Carbon Dioxide 21 L BUN 41 H Creatinine 3.39 H Glucose 127 H POC Glucose (mg/dL) Plasma Lactic Acid Christopher Calcium Magnesium Total Protein 5.4 L Albumin 3.4 L Urine Protein 1+ H Urine Glucose (UA) 3+ H Urine Ketones Trace H Urine Blood Trace H Ur Leukocyte Esterase Small H Urine WBC 8 H Urine Bacteria Rare H Hyaline Casts 32 H Urine Mucus Rare H Urine Yeast (Budding) Many H Urine Alcohol Positive A 07/04/22 06:30 WBC RBC Hgb Neutrophils # Monocytes # Sodium Potassium Chloride Carbon Dioxide BUN Creatinine Glucose POC Glucose (mg/dL) 139 H Plasma Lactic Acid Christopher Calcium Magnesium Total Protein Albumin Urine Protein Urine Glucose (UA) Urine Ketones Urine Blood Ur Leukocyte Esterase Urine WBC Urine Bacteria Hyaline Casts Urine Mucus Urine Yeast (Budding) Urine Alcohol - Diagnostic Findings Chest x-ray: image reviewed Assessment and Plan Assessment: Hypotension, likely related to dehydration. Possible underlying sepsis, from a urinary source. Acute kidney injury, possibly prerenal azotemia from dehydration with ATN. No evidence of hydronephrosis on ultrasound. History of type 2 diabetes. History of hypertension. History of hypothyroidism. History of bipolar disorder/schizophrenia. Ongoing history of tobacco use. Prior surgery for cleft lip. Plan: Plan dated 07/04/2022. The patient has been well-hydrated. The patient is on a small dose of norepinephrine, at 4 mcg/m. Mean arterial pressures currently about 70. The norepinephrine weaned off. The patient should have a random cortisol done, as well as a TSH. Additional recommendations and suggestions are forthcoming. The patient has been seen by nephrology for the acute kidney injury. The patient's counseled about the importance of smoking cessation. The patient's not requiring any supplemental oxygen. Time with Patient: Greater than 30
[2022-07-04 11:41] LABS: Glucose,Whole Blood 136 mg/dL (70-110)
--- NOTE | 2022-07-04 14:51 | P.PN ---
Subjective Progress Note Date: 07/04/22 (patient seen at 1045) He is a 42-year-old male with diabetes, hypertension, hypothyroidism, and schizophrenia who presented to the ER from his longterm secondary to recurrent falls. On arrival to the ER he was hypotensive with a blood pressure of 59/38. Laboratory analysis showed a white blood cell count of 14.5, sodium 133, potassium 5.8, chloride 91, carbon dioxide 15, anion gap 27, BUN 39, creatinine 3.55, lactic acid 5.5, calcium 11.4, urinalysis demonstrated a white blood cells but many budding yeast 32 hyalin casts. CXR was negative for any acute process. In the ER he was given 4 L of normal saline was started on Zosyn. Arrangements were made for admission. He continued to be hypotensive and he was started on levo and admitted to the ICU. Patient seen and examined at bedside. He denies any abdominal pain. He complains of pain in his right toes. He denies any nausea, vomiting, diarrhea. No chest pain or shortness of breath. General: ill appearing, no distress, appears at stated age Derm: warm, dry Head: atraumatic, normocephalic, symmetric Eyes: EOMI, no lid lag, anicteric sclera Mouth: no lip lesion, mucus membranes moist Cardiovascular: S1S2 reg, no murmur, positive posterior tibial pulse bilateral, + DP on right, Cap refill intact on right Lungs: CTA bilateral, no rhonchi, no rales , no accessory muscle use Abdominal: soft, nontender to palpation, no guarding, no appreciable organomegaly Ext: no gross muscle atrophy, no edema, no contractures Neuro: CN II-XI grossly intact, no focal neuro deficits Psych: Alert, oriented, blunted affect Assessment/plan: Urinary tract infection with septic shock Lactic acidosis -Await cultures -Continue Zosyn -IV fluids -Wean levo as able -Critical care consult Acute kidney injury Hypercalcemia - IV fluids - Follow creatinine - Hold lisinopril, Mobic, Metformin - consult nephro - renal US ordered and negative Diabetes mellitus type 2 -Januvia on hold secondary to renal dysfunction -Continue to hold dapagliflozin and metformin - Hold Acarbose - SSI - follow BS - Check A1C Hypothyroidism - synthroid Schizophrenia - clozaril - fluphenazine IM q2 weeks Resolved: Hyponatremia Hyperkalemia DVT prophylaxis: Heparin Discussed with: patient, nursing Anticipated discharge: pending clinical course Anticipated 35 minutes was spent on the care of this complex patient more than 50% of the time was spent in counseling and care coordination. Objective - Vital Signs Vital signs: Vital Signs Temp 97.7 F 07/04/22 04:00 Pulse 90 07/04/22 07:00 Resp 11 L 07/04/22 07:00 BP 110/62 07/04/22 07:00 Pulse Ox 96 07/04/22 07:00 FiO2 Intake & Output 07/03/22 07/04/22 07/04/22 18:59 06:59 18:59 Intake Total 1503.511 150 Output Total 1280 225 Balance 223.511 -75 Weight 61.689 kg Intake: Intake, IV Titration 1453.511 100 Amount Norepinephrine 4 mg In 53.511 Sodium Chloride 0.9% 250 ml @ 0.05 MCG/KG/MIN 11. 752 mls/hr IV .[id number] [facility] Rx#:[id number] Piperacillin-Tazobactam 3 100 .375 gm In Sodium Chloride 0.9% 100 ml @ 25 mls/hr IVPB Q8HR [facility] Rx# :[id number] Sodium Chloride 0.9% 1, 300 100 000 ml @ 100 mls/hr IV . Q10H [facility] Rx#:[id number] Sodium Chloride 0.9% 1, 1000 000 ml @ 999 mls/hr IV . Q1H1M [facility] Rx#:[id number] Oral 50 50 Output: Urine 1280 225 Other: Voiding Method Indwelling Catheter - Labs CBC & Chem 7: 07/04/22 03:25 07/04/22 03:25 Labs: Abnormal Lab Results - Last 24 Hours (Table) 07/03/22 07/03/22 07/03/22 Range/Units 16:37 16:54 16:55 WBC 14.5 H (3.8-10.6) k/uL RBC (4.30-5.90) m/uL Hgb (13.0-17.5) gm/dL Neutrophils # 11.2 H (1.3-7.7) k/uL Monocytes # 1.1 H (0-1.0) k/uL Sodium 133 L (137-145) mmol/L Potassium 5.8 H (3.5-5.1) mmol/L Chloride 91 L (98-107) mmol/L Carbon Dioxide 15 L (22-30) mmol/L BUN 39 H (9-20) mg/dL Creatinine 3.55 H (0.66-1.25) mg/dL Glucose 200 H (74-99) mg/dL POC Glucose (mg/dL) 191 H (70-110) mg/dL Plasma Lactic Acid Christopher (0.7-2.0) mmol/L Calcium 11.4 H (8.4-10.2) mg/dL Magnesium 2.8 H (1.6-2.3) mg/dL Total Protein 9.1 H (6.3-8.2) g/dL Albumin 5.8 H (3.5-5.0) g/dL Urine Protein (Negative) Urine Glucose (UA) (Negative) Urine Ketones (Negative) Urine Blood (Negative) Ur Leukocyte Esterase (Negative) Urine WBC (0-5) /hpf Urine Bacteria (None) /hpf Hyaline Casts (0-2) /lpf Urine Mucus (None) /hpf Urine Yeast (Budding) (None) /hpf 07/03/22 07/04/22 07/04/22 Range/Units 16:55 03:12 03:25 WBC (3.8-10.6) k/uL RBC 4.04 L (4.30-5.90) m/uL Hgb 12.9 L D (13.0-17.5) gm/dL Neutrophils # (1.3-7.7) k/uL Monocytes # (0-1.0) k/uL Sodium (137-145) mmol/L Potassium (3.5-5.1) mmol/L Chloride (98-107) mmol/L Carbon Dioxide (22-30) mmol/L BUN (9-20) mg/dL Creatinine (0.66-1.25) mg/dL Glucose (74-99) mg/dL POC Glucose (mg/dL) 113 H (70-110) mg/dL Plasma Lactic Acid Christopher 5.5 H* (0.7-2.0) mmol/L Calcium (8.4-10.2) mg/dL Magnesium (1.6-2.3) mg/dL Total Protein (6.3-8.2) g/dL Albumin (3.5-5.0) g/dL Urine Protein (Negative) Urine Glucose (UA) (Negative) Urine Ketones (Negative) Urine Blood (Negative) Ur Leukocyte Esterase (Negative) Urine WBC (0-5) /hpf Urine Bacteria (None) /hpf Hyaline Casts (0-2) /lpf Urine Mucus (None) /hpf Urine Yeast (Budding) (None) /hpf 07/04/22 07/04/22 07/04/22 Range/Units 03:25 03:27 06:30 WBC (3.8-10.6) k/uL RBC (4.30-5.90) m/uL Hgb (13.0-17.5) gm/dL Neutrophils # (1.3-7.7) k/uL Monocytes # (0-1.0) k/uL Sodium 136 L (137-145) mmol/L Potassium (3.5-5.1) mmol/L Chloride (98-107) mmol/L Carbon Dioxide 21 L (22-30) mmol/L BUN 41 H (9-20) mg/dL Creatinine 3.39 H (0.66-1.25) mg/dL Glucose 127 H (74-99) mg/dL POC Glucose (mg/dL) 139 H (70-110) mg/dL Plasma Lactic Acid Christopher (0.7-2.0) mmol/L Calcium (8.4-10.2) mg/dL Magnesium (1.6-2.3) mg/dL Total Protein 5.4 L (6.3-8.2) g/dL Albumin 3.4 L (3.5-5.0) g/dL Urine Protein 1+ H (Negative) Urine Glucose (UA) 3+ H (Negative) Urine Ketones Trace H (Negative) Urine Blood Trace H (Negative) Ur Leukocyte Esterase Small H (Negative) Urine WBC 8 H (0-5) /hpf Urine Bacteria Rare H (None) /hpf Hyaline Casts 32 H (0-2) /lpf Urine Mucus Rare H (None) /hpf Urine Yeast (Budding) Many H (None) /hpf
[2022-07-04 16:31] LABS: Glucose,Whole Blood 160 mg/dL (70-110)
[2022-07-04 20:07] LABS: Glucose,Whole Blood 175 mg/dL (70-110)
[2022-07-04] MEDS: ATORVASTATIN 10 MG TAB PO SCH (20:20)
[2022-07-04] MEDS ORDERED: DESMOPRESSIN 0.2 MG TAB PO SCH (21:00)
[2022-07-05] MEDS: PIPERACILLIN-TAZOBACTAM 3.375 GM in SODIUM CHLORIDE 0.9% 100 ML IVPB SCH ×3 (00:46→16:29)
[2022-07-05] MEDS: HEPARIN SODIUM,PORCINE/PF 5,000 UNIT/0.5 ML SYRINGE SQ SCH ×3 (00:47→16:30)
[2022-07-05] MEDS: SODIUM CHLORIDE 0.9% 1,000 ML IV SCH ×2 (06:41→19:30)
[2022-07-05] MEDS: LEVOTHYROXINE 50 MCG TAB PO SCH (06:42)
[2022-07-05 06:45] LABS: Glucose,Whole Blood 104 mg/dL (70-110)
[2022-07-05] MEDS: INSULIN ASPART (NovoLOG) 100 UNIT/ML VIAL SQ SCH ×4 (06:54→20:36)
[2022-07-05 07:06] LABS: HCT 39.8 % (39.0-53.0); HGB 12.5 gm/dL (13.0-17.5); Hypochromasia Slight; MCHC 31.4 g/dL (31.0-37.0); MCV 98.7 fL (80.0-100.0); Mean Platelet Volume 7.7; Platelet Count 146 k/uL (150-450); RBC 4.03 m/uL (4.30-5.90); RDW 14.6 % (11.5-15.5); WBC 5.8 k/uL (3.8-10.6)
[2022-07-05 07:20] LABS: ALT 11 U/L (4-49); AST 27 U/L (17-59); African American GFR (CKD) >90 (>60 ml/min/1.73 sqM); Albumin 3.5 g/dL (3.5-5.0); Alkaline Phosphatase 51 U/L (38-126); Anion Gap 8 mmol/L; Blood Urea Nitrogen 22 mg/dL (9-20); Calcium 8.8 mg/dL (8.4-10.2); Carbon Dioxide 24 mmol/L (22-30); Chloride 110 mmol/L (98-107); Glucose 109 mg/dL (74-99); Magnesium 1.5 mg/dL (1.6-2.3); Non-African American GFR(CKD) >90 (>60 ml/min/1.73 sqM); Potassium 4.6 mmol/L (3.5-5.1); Sodium 142 mmol/L (137-145); Total Bilirubin 0.6 mg/dL (0.2-1.3); Total Protein 5.6 g/dL (6.3-8.2)
[2022-07-05] MEDS ORDERED: Magnesium Replacement Protocol 1 EACH MISC MISCELLANE PRN (07:26)
[2022-07-05] MEDS: PANTOPRAZOLE 40 MG TABLET PO SCH ×2 (08:08→20:33)
[2022-07-05] MEDS: cloZAPine 100 MG TAB PO SCH ×2 (08:08→20:34)
[2022-07-05] MEDS: MAGNESIUM SULFATE-D5W PMX 1 GM in DEXTROSE/WATER 1 100ML.BAG IVPB SCH ×2 (08:08→09:39)
--- NOTE | 2022-07-05 08:39 | P.PN ---
Subjective Progress Note Date: 07/05/22 42-year-old with a handicap male, who was evaluated in the emergency room, on July 03. The patient states that he was dizzy, falling at home, had not been eating. The patient has a history of diabetes, hypertension, bipolar disorder, and an underactive thyroid. He lives in a home, with other young man. He was admitted on the with dehydration, and acute kidney injury. He came to the intensive care unit on July 04, because of hypotension. I was called by the hospital doctor, because despite fluid administration, the patient was still hypotensive. Anyway, he is resting comfortably in the ICU, room 253. He is not receiving any supplemental oxygen. He is getting saline at 100 mL an hour, and norepinephrine at 4 mcg/m. White count 8.4, hemoglobin 12.9, hematocrit 39.8, platelet count 267,000. Sodium 136, potassium 4.5, chlorides 104, CO2 21, anion gap 11, BUN 41, creatinine 3.39. Albumin is 3.4. Urine is yellow and cloudy. There is 1+ protein and 3+ glucose. Leukocyte esterase was small positive. There is a WBCs, and rare bacteria. Drug screen was positive for alcohol. Everything else was negative. Also, the patient states that he does smoke cigarettes. Chest x-ray was normal. EKG showed normal sinus rhythm. Renal ultrasound showed no evidence of hydronephrosis. On today's evaluation of 07/05/2022, the patient is doing extremely well. The patient is awake and alert and the patient on room air oxygen. Blood pressure is normalized and the patient is currently off pressors. Hemodynamically stable. White cell count is improved. Renal function is improving and creatinine is normalized. Creatinine is down to 0.5. The patient is afebrile. Blood cultures of been negative. The patient is on empiric antibiotic coverage with IV Zosyn. Normal renal function. Sodium level is at 42. Potassium level is at 4.6. Hemoglobin is at 12.5 with a white cell count of 5.8. The ultrasound the kidneys showed no acute abnormalities. There was no evidence of any hydronephrosis. This is a is on Clozaril 100 mg in the morning of 4 mg and a evening. Patient is also on Lipitor. I see that the patient was also taken DDAVP on outpatient basis milligrams twice a day. Objective - Vital Signs Vital signs: Vital Signs Temp 98 F 07/04/22 20:00 Pulse 93 07/05/22 07:00 Resp 14 07/05/22 07:00 BP 111/71 07/05/22 07:00 Pulse Ox 99 07/05/22 07:22 FiO2 Intake & Output 07/04/22 07/05/22 07/05/22 18:59 06:59 18:59 Intake Total 8762.540 5634.175 325 Output Total 3970 2715 150 Balance -2453.125 -453.825 175 Weight 61.689 kg 76.5 kg Intake: IV 1200 1100 100 Sodium Chloride 0.9% 1, 1200 1100 100 000 ml @ 100 mls/hr IV . Q10H [facility] Rx#:[id number] Intake, IV Titration 266.875 156.175 Amount Norepinephrine 4 mg In 166.875 56.175 Sodium Chloride 0.9% 250 ml @ 0.05 MCG/KG/MIN 11. 752 mls/hr IV .[id number] [facility] Rx#:[id number] Piperacillin-Tazobactam 3 100 .375 gm In Sodium Chloride 0.9% 100 ml @ 25 mls/hr IVPB Q8HR [facility] Rx# :[id number] Sodium Chloride 0.9% 1, 100 000 ml @ 100 mls/hr IV . Q10H [facility] Rx#:[id number] Oral 50 1005 225 Output: Urine 3970 2715 150 Other: Voiding Method Indwelling Catheter Indwelling Catheter Indwelling Catheter - Exam No acute distress, oriented 3. Not on any supplemental oxygen. No respiratory distress. HEENT examination is grossly unremarkable. Well-healed scar on the upper lip from cleft lip surgery. Neck supple. Full range of motion. No adenopathy thyromegaly or neck vein distention. Cardiovascular examination reveals regular rhythm rate. S1-S2 normal. No S3 or S4. No discernible murmur noted. Heart rate 80 bpm. Lungs reveal clear breath sounds. Breath sounds are equal bilaterally. No adventitious lung sounds including wheezes rhonchi or crackles. Saturations on room air is 96%. Abdomen soft bowel sounds are heard. No masses or tenderness. Extremities are intact. No cyanosis clubbing or edema. Skin is without rash or lesion. Neurologic examination is brief but nonfocal. Moving all 4 extremities without any limitation - Labs CBC & Chem 7: 07/05/22 06:36 07/05/22 06:36 Labs: Abnormal Lab Results - Last 24 Hours (Table) 07/04/22 07/04/22 07/04/22 Range/Units 03:30 11:39 16:29 RBC (4.30-5.90) m/uL Hgb (13.0-17.5) gm/dL Plt Count (150-450) k/uL Chloride (98-107) mmol/L BUN (9-20) mg/dL Glucose (74-99) mg/dL POC Glucose (mg/dL) 136 H 160 H (70-110) mg/dL Magnesium (1.6-2.3) mg/dL Total Protein (6.3-8.2) g/dL Urine Alcohol Positive A (Negative) 07/04/22 07/05/22 07/05/22 Range/Units 20:05 06:36 06:36 RBC 4.03 L (4.30-5.90) m/uL Hgb 12.5 L (13.0-17.5) gm/dL Plt Count 146 L (150-450) k/uL Chloride 110 H (98-107) mmol/L BUN 22 H (9-20) mg/dL Glucose 109 H (74-99) mg/dL POC Glucose (mg/dL) 175 H (70-110) mg/dL Magnesium 1.5 L (1.6-2.3) mg/dL Total Protein 5.6 L (6.3-8.2) g/dL Urine Alcohol (Negative) Microbiology - Last 24 Hours (Table) 07/03/22 22:27 Blood Culture - Preliminary Blood No Growth after 24 hours 07/03/22 22:00 Blood Culture - Preliminary Blood No Growth after 24 hours Assessment and Plan Plan: Hypotension, likely related to dehydration. Possible underlying sepsis, from a urinary source. Patient required pressors overnight and the patient is currently off pressors. Receiving IV fluids in the form of normal saline at the rate of 100 mL an hour. Acute kidney injury, possibly prerenal azotemia from dehydration with ATN. No evidence of hydronephrosis on ultrasound. Adequate urine output and the patient has normalized renal function and creatinine is down to 0.9. No major electrolyte disturbance at this point in time. History of type 2 diabetes. History of hypertension. History of hypothyroidism. History of bipolar disorder/schizophrenia. Ongoing history of tobacco use. Prior surgery for cleft lip. Acute leukocytosis, improved and normalized Acute lactic acidosis secondary to above, improved Plan: Continue IV fluids with normal saline at the rate of 100 mL an hour Electrolytes are within normal limits Patient is currently off pressors Blood cultures are negative May continue IV Zosyn for another 24 hours until we confirm negative cultures We will clarify the issue of DDAVP with a liquid fertilizer servicer. We'll monitor the urine output. We will restart the medication there is any trend towards increased urine output and development of hypernatremia. For now, the patient remains on normal saline at the rate of 100 mL an hour. Blood sugars are under adequate control. The patient was taken off the metfor min for now. He is only receiving sliding scale insulin coverage for now.
[2022-07-05] MEDS: GABAPENTIN 300 MG CAP PO SCH ×2 (09:39→20:33)
[2022-07-05] MEDS: LINAGLIPTIN 5 MG TABLET PO SCH (09:39)
--- NOTE | 2022-07-05 09:44 | P.PN ---
Subjective Progress Note Date: 07/05/22 He is a 42-year-old male with diabetes, hypertension, hypothyroidism, and schizophrenia who presented to the ER from his custodial secondary to recurrent falls. On arrival to the ER he was hypotensive with a blood pressure of 59/38. Laboratory analysis showed a white blood cell count of 14.5, sodium 133, potassium 5.8, chloride 91, carbon dioxide 15, anion gap 27, BUN 39, creatinine 3.55, lactic acid 5.5, calcium 11.4, urinalysis demonstrated a white blood cells but many budding yeast 32 hyalin casts. CXR was negative for any acute process. In the ER he was given 4 L of normal saline was started on Zosyn. Arrangements were made for admission. He continued to be hypotensive and he was started on levo and admitted to the ICU. He did well and levo was able to be discontinued. His renal ultrasound was a technically limited study but showed no signs of hydronephrosis. Nephrology was consulted and his renal function normalized. Unfortunately, his urine did not get sent for culture. Blood cultures remained negative. Patient seen and examined at bedside. He feels well, no complaints, no nausea, no vomiting, no diarrhea. General: ill appearing, no distress, appears at stated age Derm: warm, dry Head: atraumatic, normocephalic, symmetric Eyes: EOMI, no lid lag, anicteric sclera Mouth: no lip lesion, mucus membranes moist Cardiovascular: S1S2 reg, no murmur, positive posterior tibial pulse bilateral Lungs:Decreased bs bilateral, no rhonchi, no rales , no accessory muscle use Abdominal: soft, nontender to palpation, no guarding, no appreciable organomegaly Ext: no gross muscle atrophy, no edema, no contractures Neuro: CN II-XI grossly intact, no focal neuro deficits Psych: Alert, oriented, blunted affect Assessment/plan: Urinary tract infection with septic shock - Blood cultures negative to date -Continue Zosyn -IV fluids -Critical care recs Acute kidney injury - IV fluids - Follow creatinine - Hold lisinopril, Mobic, Metformin - nehrology - renal US ordered and negative Diabetes mellitus type 2 - Januvia resumed - Continue to hold dapagliflozin and metformin - Hold Acarbose - SSI - follow BS - Await A1C Hypothyroidism - synthroid Schizophrenia - clozaril - fluphenazine IM q2 weeks Resolved: Hyponatremia Hyperkalemia Lactic acidosis Hypercalcemia D/C solano, voiding trial, DDAVP reordered by critical care. Transfer to med/surg. DVT prophylaxis: Heparin Discussed with: patient, nursing Anticipated discharge: pending clinical course Anticipated 25 minutes was spent on the care of this complex patient more than 50% of the time was spent in counseling and care coordination. Objective - Vital Signs Vital signs: Vital Signs Temp 98 F 07/04/22 20:00 Pulse 93 07/05/22 07:00 Resp 14 07/05/22 07:00 BP 111/71 07/05/22 07:00 Pulse Ox 99 07/05/22 07:22 FiO2 Intake & Output 07/04/22 07/05/22 07/05/22 18:59 06:59 18:59 Intake Total 2467.203 3606.175 325 Output Total 3970 2715 150 Balance -2453.125 -453.825 175 Weight 61.689 kg 76.5 kg Intake: IV 1200 1100 100 Sodium Chloride 0.9% 1, 1200 1100 100 000 ml @ 100 mls/hr IV . Q10H [facility] Rx#:[id number] Intake, IV Titration 266.875 156.175 Amount Norepinephrine 4 mg In 166.875 56.175 Sodium Chloride 0.9% 250 ml @ 0.05 MCG/KG/MIN 11. 752 mls/hr IV .[id number] [facility] Rx#:[id number] Piperacillin-Tazobactam 3 100 .375 gm In Sodium Chloride 0.9% 100 ml @ 25 mls/hr IVPB Q8HR [facility] Rx# :[id number] Sodium Chloride 0.9% 1, 100 000 ml @ 100 mls/hr IV . Q10H [facility] Rx#:[id number] Oral 50 1005 225 Output: Urine 3970 2715 150 Other: Voiding Method Indwelling Catheter Indwelling Catheter Indwelling Catheter - Labs CBC & Chem 7: 07/05/22 06:36 07/05/22 06:36 Labs: Abnormal Lab Results - Last 24 Hours (Table) 07/04/22 07/04/22 07/04/22 Range/Units 03:30 11:39 16:29 RBC (4.30-5.90) m/uL Hgb (13.0-17.5) gm/dL Plt Count (150-450) k/uL Chloride (98-107) mmol/L BUN (9-20) mg/dL Glucose (74-99) mg/dL POC Glucose (mg/dL) 136 H 160 H (70-110) mg/dL Magnesium (1.6-2.3) mg/dL Total Protein (6.3-8.2) g/dL Urine Alcohol Positive A (Negative) 07/04/22 07/05/22 07/05/22 Range/Units 20:05 06:36 06:36 RBC 4.03 L (4.30-5.90) m/uL Hgb 12.5 L (13.0-17.5) gm/dL Plt Count 146 L (150-450) k/uL Chloride 110 H (98-107) mmol/L BUN 22 H (9-20) mg/dL Glucose 109 H (74-99) mg/dL POC Glucose (mg/dL) 175 H (70-110) mg/dL Magnesium 1.5 L (1.6-2.3) mg/dL Total Protein 5.6 L (6.3-8.2) g/dL Urine Alcohol (Negative) Microbiology - Last 24 Hours (Table) 07/03/22 22:27 Blood Culture - Preliminary Blood No Growth after 24 hours 07/03/22 22:00 Blood Culture - Preliminary Blood No Growth after 24 hours
--- NOTE | 2022-07-05 11:13 | P.PN ---
Subjective Patient is seen for follow-up for acute kidney injury associated with volume depletion and hypotension. Patient is maintained on IV fluids. Serum creatinine has improved significantly from 3.5 on admission to 0.9 today. Patient has had good urine output. Maintained on IV fluids at 100 mL an hour. Objective - Vital Signs Vital signs: Vital Signs Temp 98.2 F 07/05/22 08:00 Pulse 93 07/05/22 09:00 Resp 20 07/05/22 09:00 BP 113/67 07/05/22 09:00 Pulse Ox 97 07/05/22 09:00 FiO2 Intake & Output 07/04/22 07/05/22 07/05/22 18:59 06:59 18:59 Intake Total 1174.586 3853.175 1175 Output Total 3970 2715 1105 Balance -2453.125 -453.825 70 Weight 61.689 kg 76.5 kg Intake: IV 1200 1100 300 Sodium Chloride 0.9% 1, 1200 1100 300 000 ml @ 100 mls/hr IV . Q10H [facility] Rx#:[id number] Intake, IV Titration 266.875 156.175 200 Amount Magnesium Sulfate-D5w Pmx 100 1 gm In Dextrose/Water 1 100ml.bag @ 100 mls/hr IVPB Q1H [facility] Rx#: [id number] Norepinephrine 4 mg In 166.875 56.175 Sodium Chloride 0.9% 250 ml @ 0.05 MCG/KG/MIN 11. 752 mls/hr IV .[id number] [facility] Rx#:[id number] Piperacillin-Tazobactam 3 100 100 .375 gm In Sodium Chloride 0.9% 100 ml @ 25 mls/hr IVPB Q8HR [facility] Rx# :[id number] Sodium Chloride 0.9% 1, 100 000 ml @ 100 mls/hr IV . Q10H [facility] Rx#:[id number] Oral 50 1005 675 Output: Urine 3970 2715 1105 Other: Voiding Method Indwelling Catheter Indwelling Catheter Indwelling Catheter - Exam Patient is awake, comfortable, not in any acute distress Examination of the heart S1 and S2 Examination of the lungs bilateral breath sounds are heard Abdomen is soft nontender Examination of the lower extremities shows no evidence of edema FLIGHT CONTROL MANAGER exam shows patient is moving all 4 extremities. - Labs CBC & Chem 7: 07/05/22 06:36 07/05/22 06:36 Labs: Abnormal Lab Results - Last 24 Hours (Table) 07/04/22 07/04/22 07/04/22 Range/Units 11:39 16:29 20:05 RBC (4.30-5.90) m/uL Hgb (13.0-17.5) gm/dL Plt Count (150-450) k/uL Chloride (98-107) mmol/L BUN (9-20) mg/dL Glucose (74-99) mg/dL POC Glucose (mg/dL) 136 H 160 H 175 H (70-110) mg/dL Magnesium (1.6-2.3) mg/dL Total Protein (6.3-8.2) g/dL 07/05/22 07/05/22 Range/Units 06:36 06:36 RBC 4.03 L (4.30-5.90) m/uL Hgb 12.5 L (13.0-17.5) gm/dL Plt Count 146 L (150-450) k/uL Chloride 110 H (98-107) mmol/L BUN 22 H (9-20) mg/dL Glucose 109 H (74-99) mg/dL POC Glucose (mg/dL) (70-110) mg/dL Magnesium 1.5 L (1.6-2.3) mg/dL Total Protein 5.6 L (6.3-8.2) g/dL Microbiology - Last 24 Hours (Table) 07/03/22 22:27 Blood Culture - Preliminary Blood No Growth after 24 hours 07/03/22 22:00 Blood Culture - Preliminary Blood No Growth after 24 hours Assessment and Plan Assessment: 1. Acute kidney injury secondary to ATN secondary to hypotension and further worsened with the use of lisinopril and NSAIDs. Creatinine 3.55 on admission and is down to 0.9 today. Creatinine March 2021 was 0.73. no hydronephrosis noted on kidney ultrasound. 2. Metabolic acidosis secondary to acute kidney injury, lactic acidosis and metformin. Improved. 3. Hypotension secondary to antihypertensives and hypovolemia. Improved with IV hydration. Currently off of pressors. 4. Hypercalcemia secondary to volume contraction. Resolved with IV hydration. 5. Hyperkalemia secondary to acute kidney injury, metabolic acidosis and lisinopril. improved. 6. Hypovolemic hyponatremia improved with IV hydration. 7. Diabetes mellit Plan: Continue IV fluids Repeat labs in a.m. Encourage increased oral intake.
[2022-07-05 11:20] LABS: Glucose,Whole Blood 153 mg/dL (70-110)
[2022-07-05 16:25] LABS: Glucose,Whole Blood 101 mg/dL (70-110)
[2022-07-05 20:21] LABS: Glucose,Whole Blood 133 mg/dL (70-110)
[2022-07-05] MEDS: ATORVASTATIN 10 MG TAB PO SCH (20:33)
[2022-07-05] MEDS ORDERED: DESMOPRESSIN 0.2 MG TAB PO SCH (21:00)
[2022-07-06] MEDS: HEPARIN SODIUM,PORCINE/PF 5,000 UNIT/0.5 ML SYRINGE SQ SCH ×2 (00:03→08:44)
[2022-07-06] MEDS: PIPERACILLIN-TAZOBACTAM 3.375 GM in SODIUM CHLORIDE 0.9% 100 ML IVPB SCH ×2 (00:06→09:20)
[2022-07-06] MEDS: SODIUM CHLORIDE 0.9% 1,000 ML IV SCH ×2 (00:08→09:20)
[2022-07-06 06:48] LABS: Glucose,Whole Blood 107 mg/dL (70-110)
[2022-07-06] MEDS: INSULIN ASPART (NovoLOG) 100 UNIT/ML VIAL SQ SCH ×2 (06:50→12:11)
[2022-07-06 06:51] LABS: HCT 45.9 % (39.0-53.0); HGB 14.5 gm/dL (13.0-17.5); Hypochromasia Slight; MCH 31.5 pg (25.0-35.0); MCHC 31.6 g/dL (31.0-37.0); MCV 99.8 fL (80.0-100.0); Macrocytosis Slight; Mean Platelet Volume 8.4; Platelet Count 155 k/uL (150-450); RBC 4.59 m/uL (4.30-5.90); RDW 14.6 % (11.5-15.5); WBC 5.3 k/uL (3.8-10.6)
[2022-07-06] MEDS: LEVOTHYROXINE 50 MCG TAB PO SCH (06:57)
[2022-07-06 07:02] LABS: African American GFR (CKD) >90 (>60 ml/min/1.73 sqM); Anion Gap 10 mmol/L; Blood Urea Nitrogen 18 mg/dL (9-20); Calcium 9.2 mg/dL (8.4-10.2); Carbon Dioxide 23 mmol/L (22-30); Chloride 106 mmol/L (98-107); Glucose 118 mg/dL (74-99); Magnesium 1.3 mg/dL (1.6-2.3); Non-African American GFR(CKD) >90 (>60 ml/min/1.73 sqM); Potassium 4.7 mmol/L (3.5-5.1); Sodium 139 mmol/L (137-145)
--- NOTE | 2022-07-06 08:11 | P.PN ---
Subjective Progress Note Date: 07/06/22 42-year-old with a handicap male, who was evaluated in the emergency room, on July 03. The patient states that he was dizzy, falling at home, had not been eating. The patient has a history of diabetes, hypertension, bipolar disorder, and an underactive thyroid. He lives in a home, with other young man. He was admitted on the with dehydration, and acute kidney injury. He came to the intensive care unit on July 04, because of hypotension. I was called by the hospital doctor, because despite fluid administration, the patient was still hypotensive. Anyway, he is resting comfortably in the ICU, room 253. He is not receiving any supplemental oxygen. He is getting saline at 100 mL an hour, and norepinephrine at 4 mcg/m. White count 8.4, hemoglobin 12.9, hematocrit 39.8, platelet count 267,000. Sodium 136, potassium 4.5, chlorides 104, CO2 21, anion gap 11, BUN 41, creatinine 3.39. Albumin is 3.4. Urine is yellow and cloudy. There is 1+ protein and 3+ glucose. Leukocyte esterase was small positive. There is a WBCs, and rare bacteria. Drug screen was positive for alcohol. Everything else was negative. Also, the patient states that he does smoke cigarettes. Chest x-ray was normal. EKG showed normal sinus rhythm. Renal ultrasound showed no evidence of hydronephrosis. On today's evaluation of 07/05/2022, the patient is doing extremely well. The patient is awake and alert and the patient on room air oxygen. Blood pressure is normalized and the patient is currently off pressors. Hemodynamically stable. White cell count is improved. Renal function is improving and creatinine is normalized. Creatinine is down to 0.5. The patient is afebrile. Blood cultures of been negative. The patient is on empiric antibiotic coverage with IV Zosyn. Normal renal function. Sodium level is at 42. Potassium level is at 4.6. Hemoglobin is at 12.5 with a white cell count of 5.8. The ultrasound the kidneys showed no acute abnormalities. There was no evidence of any hydronephrosis. This is a is on Clozaril 100 mg in the morning of 4 mg and a evening. Patient is also on Lipitor. I see that the patient was also taken DDAVP on outpatient basis milligrams twice a day. 07/06/2022, the patient is hemodynamically stable. Doing well. Alert and awake and he denies having any specific complaints. No other significant events overnight and the plan is to transfer this patient out of the intensive care unit today. He remains on empiric antibiotic coverage with IV Zosyn. He was started on DDAVP yesterday. His urine output is adequate at this point in time. The rest of the electrolytes from today shows a sodium level of 139, potassium of 4.7, BUN of 18 with a creatinine of 0.85 and potassium level of 4.7. The white cell count is at 5.3 with hemoglobin 14.5 and a platelet count of 155. He is afebrile. His on room air oxygen with a pulse ox of 96%. Objective - Vital Signs Vital signs: Vital Signs Temp 98.1 F 07/06/22 02:00 Pulse 78 07/06/22 02:00 Resp 13 07/06/22 02:00 BP 138/82 07/06/22 02:00 Pulse Ox 96 07/06/22 02:00 FiO2 Intake & Output 07/05/22 07/06/22 07/06/22 18:59 06:59 18:59 Intake Total 1975 2700 Output Total 1105 Balance 870 2700 Intake: IV 1100 1200 Sodium Chloride 0.9% 1, 1100 1200 000 ml @ 100 mls/hr IV . Q10H [facility] Rx#:[id number] Intake, IV Titration 200 Amount Magnesium Sulfate-D5w Pmx 100 1 gm In Dextrose/Water 1 100ml.bag @ 100 mls/hr IVPB Q1H [facility] Rx#: [id number] Piperacillin-Tazobactam 3 100 .375 gm In Sodium Chloride 0.9% 100 ml @ 25 mls/hr IVPB Q8HR [facility] Rx# :[id number] Oral 675 1500 Output: Urine 1105 Other: Voiding Method Indwelling Catheter Indwelling Catheter # Voids 5 5 - Exam No acute distress, oriented 3. Not on any supplemental oxygen. No respiratory distress. HEENT examination is grossly unremarkable. Well-healed scar on the upper lip from cleft lip surgery. Neck supple. Full range of motion. No adenopathy thyromegaly or neck vein distention. Cardiovascular examination reveals regular rhythm rate. S1-S2 normal. No S3 or S4. No discernible murmur noted. Heart rate 80 bpm. Lungs reveal clear breath sounds. Breath sounds are equal bilaterally. No adventitious lung sounds including wheezes rhonchi or crackles. Saturations on room air is 96%. Abdomen soft bowel sounds are heard. No masses or tenderness. Extremities are intact. No cyanosis clubbing or edema. Skin is without rash or lesion. Neurologic examination is brief but nonfocal. Moving all 4 extremities without any limitation - Labs CBC & Chem 7: 07/06/22 06:20 07/06/22 06:20 Labs: Abnormal Lab Results - Last 24 Hours (Table) 07/05/22 07/05/22 07/05/22 Range/Units 06:36 11:19 20:19 Glucose (74-99) mg/dL POC Glucose (mg/dL) 153 H 133 H (70-110) mg/dL Hemoglobin A1c 6.3 H (0.0-6.0) % Magnesium (1.6-2.3) mg/dL 07/06/22 Range/Units 06:20 Glucose 118 H (74-99) mg/dL POC Glucose (mg/dL) (70-110) mg/dL Hemoglobin A1c (0.0-6.0) % Magnesium 1.3 L (1.6-2.3) mg/dL Microbiology - Last 24 Hours (Table) 07/03/22 22:00 Blood Culture - Preliminary Blood No Growth after 48 hours 07/03/22 22:27 Blood Culture - Preliminary Blood No Growth after 48 hours Assessment and Plan Plan: Hypotension, likely related to dehydration. Possible underlying sepsis, from a urinary source. Patient required pressors overnight and the patient is currently off pressors. Receiving IV fluids in the form of normal saline at the rate of 100 mL an hour. The patient remains normotensive at this point in time. IV fluids can be obviously reduced. Acute kidney injury, possibly prerenal azotemia from dehydration with ATN. No evidence of hydronephrosis on ultrasound. Adequate urine output and the patient has normalized renal function and there is no electrolyte disturbance at this point in time. History of type 2 diabetes. History of hypertension. History of hypothyroidism. History of bipolar disorder/schizophrenia. Ongoing history of tobacco use. Prior surgery for cleft lip. Acute leukocytosis, improved and normalized Acute lactic acidosis secondary to above, improved Plan: Change IV fluids to KVO Electrolytes are within normal limits Patient is currently off pressors Blood cultures are negative May discontinued IV Zosyn The patient can be chest that out of the intensive care unit today. Blood sugar management per medicine Home medications were pretty much resume and the patient can be transferred out of the intensive care unit today.
[2022-07-06] MEDS: GABAPENTIN 300 MG CAP PO SCH (08:44)
[2022-07-06] MEDS: LINAGLIPTIN 5 MG TABLET PO SCH (08:44)
[2022-07-06] MEDS: PANTOPRAZOLE 40 MG TABLET PO SCH (08:44)
[2022-07-06] MEDS: MAGNESIUM SULFATE-D5W PMX 1 GM in DEXTROSE/WATER 1 100ML.BAG IVPB SCH ×4 (08:45→12:28)
[2022-07-06] MEDS: cloZAPine 100 MG TAB PO SCH (09:02)
--- NOTE | 2022-07-06 10:50 | P.DS ---
Providers Date of admission: 07/03/22 21:26 Expected date of discharge: 07/06/22 Attending physician: Ronit Alvarez MD Consults: 07/04/22 00:42 Consult Physician Stat Consulting Provider: Mathew Mckenzie Consult Reason/Comments: refractory hypotension , sepsis possible UTI Do you want consulting provider notified?: Already Contacted 07/04/22 07:39 Consult Physician Routine Consulting Provider: Jonny Meraz Consult Reason/Comments: BONNIE Do you want consulting provider notified?: Yes Primary care physician: [facility] Hospital Course: Discharge Diagnosis: Urinary tract infection with septic shock-- no culture available. Acute kidney injury Diabetes mellitus type 2 Hypothyroidism Schizophrenia Hyponatremia Hyperkalemia Lactic acidosis Hypercalcemia Hospital Course: Patient is a 42-year-old male with diabetes, hypertension, hypothyroidism, and schizophrenia who presented to the ER from his custodial secondary to recurrent falls. On arrival to the ER he was hypotensive with a blood pressure of 59/38. Laboratory analysis showed a white blood cell count of 14.5, sodium 133, po tassium 5.8, chloride 91, carbon dioxide 15, anion gap 27, BUN 39, creatinine 3.55, lactic acid 5.5, calcium 11.4, urinalysis demonstrated a white blood cells but many budding yeast 32 hyalin casts. CXR was negative for any acute process. In the ER he was given 4 L of normal saline was started on Zosyn. Arrangements were made for admission. He continued to be hypotensive and he was started on l denys and admitted to the ICU. He did well and levo was able to be discontinued. His renal ultrasound was a technically limited study but showed no signs of hydronephrosis. Nephrology was consulted and his renal function normalized. Unfortunately, his urine did not get sent for culture. Blood cultures remained negative. He continued to do well. He was determined stable for discharge home. Follow-up: Complete 3 more days of oral antibiotics, off mobic at home, follow- [facility] with [facility]. No urine culture done in admission. Patient seen and examined at bedside. Doing well, no compliants, no nausea, no diarrhea. Vital signs reviewed and stable. General: nontoxic, no distress, appears at stated age Derm: warm, dry Eyes: EOMI, no lid lag, anicteric sclera Cardiovascular: S1S2 reg, no murmur, positive posterior tibial pulse bilateral, Lungs: CTA bilateral, no rhonchi, no rales , no accessory muscle use Abdominal: soft, nontender to palpation, no guarding, no appreciable organomeg yoshi Ext: no gross muscle atrophy, no edema, no contractures Neuro: CN II-XI grossly intact, no focal neuro deficits Psych: Alert, oriented, appropriate affect A total of 35 minutes of time were spent preparing this complex discharge summary. Patient was discharged on 07/06/22. Patient Condition at Discharge: Stable Plan - Discharge Summary New Discharge Prescriptions: New Cefpodoxime Proxetil [Vantin] 100 mg PO Q12HR #6 tab Continue cloZAPine [Clozaril] 100 mg PO DAILY 30 Days tab Simvastatin [Zocor] 20 mg PO HS Acarbose [Precose] 50 mg PO TID-W/MEALS Levothyroxine Sodium [Synthroid] 50 mcg PO DAILY fluPHENAZine decanoate [Prolixin Decanoate] 50 mg IM Q14D Gabapentin [Neurontin] 300 mg PO BID cloZAPine [Clozaril] 400 mg PO HS Desmopressin [Ddavp] 0.2 mg PO HS Simethicone [Simethicone Chew] 80 mg PO QID Magnesium Oxide [Magox 400] 400 mg PO BID Pioglitazone HCl 30 mg PO DAILY Cholecalciferol (Vitamin D3) [Vitamin D3 (5000 Iu)] 125 mcg PO DAILY Omeprazole 20 mg PO BID sitaGLIPtin [Januvia] 100 mg PO DAILY lisinopriL [Zestril] 5 mg PO DAILY Discontinued Dapagliflozin/Metformin HCl [Xigduo Xr 5 mg-1,000 mg Tablet] 1 tab PO BID Meloxicam [Mobic] 15 mg PO DAILY Discharge Medication List cloZAPine [Clozaril] 100 mg PO DAILY 30 Days tab 11/26/16 [Rx] Acarbose [Precose] 50 mg PO TID-W/MEALS 09/30/17 [History] Levothyroxine Sodium [Synthroid] 50 mcg PO DAILY 09/30/17 [History] Simvastatin [Zocor] 20 mg PO HS 09/30/17 [History] Gabapentin [Neurontin] 300 mg PO BID 11/26/17 [History] cloZAPine [Clozaril] 400 mg PO HS 11/26/17 [History] fluPHENAZine decanoate [Prolixin Decanoate] 50 mg IM Q14D 11/26/17 [History] Desmopressin [Ddavp] 0.2 mg PO HS 02/19/19 [History] Magnesium Oxide [Magox 400] 400 mg PO BID 04/12/21 [History] Pioglitazone HCl 30 mg PO DAILY 04/12/21 [History] Cholecalciferol (Vitamin D3) [Vitamin D3 (5000 Iu)] 125 mcg PO DAILY 04/27/21 [History] Omeprazole 20 mg PO BID 07/03/22 [History] Simethicone [Simethicone Chew] 80 mg PO QID 07/03/22 [History] lisinopriL [Zestril] 5 mg PO DAILY 07/03/22 [History] sitaGLIPtin [Januvia] 100 mg PO DAILY 07/03/22 [History] Cefpodoxime Proxetil [Vantin] 100 mg PO Q12HR #6 tab 07/06/22 [Rx] Follow up Appointment(s)/Referral(s): [facility] [Primary Care Provider] - 1-2 days Activity/Diet/Wound Care/Special Instructions: Activity: as tolerated Diet: regular Special Instructions: Start New antibiotic tomorrow 07/07. Stay off Mobic Discharge Disposition: HOME SELF-CARE
[2022-07-06] MEDS ORDERED: lisinopriL 5 MG TAB PO SCH (11:00)
[2022-07-06 12:07] LABS: Glucose,Whole Blood 128 mg/dL (70-110)
[2022-07-06 13:49] VITALS: BP 132/54; PULSE 77; RESP 17; TEMP 95.6
== END 2022-07-06 15:37 | disposition home or self-care (01) | DRG 871 ==
LOC: EC 16:09 → 3SCARD 21:26 → 2SICU 07-04 00:28 → 4SSUR 07-06 07:55
PROVIDERS: ADMIT Internal Medicine; ATTEND Internal Medicine
PROC: 05HM33Z Insertion of Infusion Device into Right Internal Jugular Vein, Percutaneous Approach (ICD-10-PCS; principal; 2022-07-04)
PROC: 3E043XZ Introduction of Vasopressor into Central Vein, Percutaneous Approach (ICD-10-PCS; 2022-07-04)
DX: A41.9 Sepsis, unspecified organism (principal); N17.0 Acute kidney failure with tubular necrosis; R65.21 Severe sepsis with septic shock; N39.0 Urinary tract infection, site not specified; E87.2 Acidosis; E87.1 Hypo-osmolality and hyponatremia; W18.30XA Fall on same level, unspecified, initial encounter; R29.6 Repeated falls; I10 Essential (primary) hypertension; F31.9 Bipolar disorder, unspecified; F20.9 Schizophrenia, unspecified; E11.9 Type 2 diabetes mellitus without complications; F17.210 Nicotine dependence, cigarettes, uncomplicated; F70 Mild intellectual disabilities; E03.9 Hypothyroidism, unspecified; E83.41 Hypermagnesemia; E83.52 Hypercalcemia; E86.0 Dehydration; I95.2 Hypotension due to drugs; T46.4X5A Adverse effect of angiotensin-converting-enzyme inhibitors, initial encounter; T39.395A Adverse effect of other nonsteroidal anti-inflammatory drugs [NSAID], initial encounter; T38.3X5A Adverse effect of insulin and oral hypoglycemic [antidiabetic] drugs, initial encounter; E86.1 Hypovolemia; E87.5 Hyperkalemia; K21.9 Gastro-esophageal reflux disease without esophagitis; Y92.099 Unspecified place in other non-institutional residence as the place of occurrence of the external cause; Z79.899 Other long term (current) drug therapy; Z79.890 Hormone replacement therapy; Z79.84 Long term (current) use of oral hypoglycemic drugs; Z79.1 Long term (current) use of non-steroidal anti-inflammatories (NSAID); Z91.81 History of falling
CPT/HCPCS: 36415; 51798; 71045; 76770; 80048; 80053; 80143; 80179; 80306; 80320; 81001; 82009; 82533; 83036; 83605; 83735; 84439; 84443; 84484; 85025; 85027; 87040; 93005; 96361; 96365; 96375; 99291

== ENCOUNTER → 2022-07-26 | Outpatient (CLI) | payer OTHER ==
--- NOTE | 2022-07-26 12:36 | XR ---
Right foot HISTORY: Pain, trauma July 03, swelling 3 views of the right foot, no comparisons There are fractures involving the distal second, third and fourth metatarsals with some displacement and volar angulation. Bone mineralization is reduced. Arthropathy is present at the metatarsophalange al joint of the first digit, interphalangeal joints. Digits are flexed. There is soft tissue swelling . IMPRESSION: Second, third and fourth distal metatarsal fractures.
== END | disposition home or self-care (01) ==
LOC: RADXRMAIN 09:41
PROVIDERS: ATTEND Nurse Practitioner
DX: S92.321A Displaced fracture of second metatarsal bone, right foot, initial encounter for closed fracture (principal); S92.331A Displaced fracture of third metatarsal bone, right foot, initial encounter for closed fracture; S92.341A Displaced fracture of fourth metatarsal bone, right foot, initial encounter for closed fracture

== ENCOUNTER 2023-05-27 14:21 | Emergency (ER) | payer OTHER ==
[2023-05-27 14:26] VITALS: TEMP 97.5
[2023-05-27 16:15] LABS: Glucose,Whole Blood 130 mg/dL (70-110)
--- NOTE | 2023-05-27 16:43 | ED ---
General Adult HPI - General Chief complaint: Recheck/Abnormal Lab/Rx Stated complaint: weakness Time Seen by Provider: 05/27/23 15:59 Source: patient, EMS Mode of arrival: EMS - History of Present Illness Initial comments: Dictation was produced using Stripe dictation software. please excuse any grammatical, word or spelling errors. Chief Complaint: 43-year-old male presents emergency department for hyperglycemia History of Present Illness: Is 43-year-old male he has history of mental debility. Lives at a residential. His medications allegedly are administered by staff at the residential. Patient's history of diabetes take oral oral anti-hyperglycemics. Is brought in by EMS for hypoglycemia. EMS states that upon initial arrival he is the glucose was 120. Dementia had a blood glucose of 40 this morning. Patient complaining of bilateral knee pain states that he fell couple times. He is able to ambulate The ROS documented in this emergency department record has been reviewed and confirmed by me. Those systems with pertinent positive or negative responses have been documented in the HPI. All other systems are other negative and/or noncontributory. - Related Data Home Medications Medication Instructions Recorded Confirmed Acarbose [Precose] 50 mg PO TID-W/MEALS 09/30/17 05/27/23 Levothyroxine Sodium [Synthroid] 50 mcg PO DAILY 09/30/17 05/27/23 Simvastatin [Zocor] 20 mg PO HS 09/30/17 05/27/23 Gabapentin [Neurontin] 300 mg PO BID 11/26/17 05/27/23 cloZAPine [Clozaril] 400 mg PO HS 11/26/17 05/27/23 Desmopressin [Ddavp] 0.2 mg PO HS 02/19/19 05/27/23 Magnesium Oxide [Magox 400] 400 mg PO TID 04/12/21 05/27/23 Pioglitazone HCl 30 mg PO DAILY 04/12/21 05/27/23 Cholecalciferol (Vitamin D3) 125 mcg PO DAILY 04/27/21 05/27/23 [Vitamin D3 (5000 Iu)] Omeprazole 20 mg PO BID 07/03/22 05/27/23 Simethicone [Simethicone Chew] 80 mg PO QID 07/03/22 05/27/23 lisinopriL [Zestril] 5 mg PO DAILY 07/03/22 05/27/23 sitaGLIPtin [Januvia] 100 mg PO DAILY 07/03/22 05/27/23 Dapagliflozin/Metformin HCl 1 tab PO DAILY 05/27/23 05/27/23 [Xigduo Xr 5 mg-1,000 mg Tablet] [place] Carbonate 600 mg PO HS 05/27/23 05/27/23 Previous Rx's Medication Instructions Recorded cloZAPine [Clozaril] 100 mg PO DAILY 30 Days tab 11/26/16 Allergies Allergy/AdvReac Type Severity Reaction Status Date / Time No Known Allergies Allergy Verified 05/27/23 16:31 Review of Systems ROS Statement: Those systems with pertinent positive or pertinent negative responses have been documented in the HPI. ROS Other: All systems not noted in ROS Statement are negative. Past Medical History Past Medical History: Diabetes Mellitus, GERD/Reflux, Hypertension, Neurologic Disorder, Thyroid Disorder Additional Past Medical History / Comment(s): This is obtained by reviewing [facility] records History of Any Multi-Drug Resistant Organisms: None Reported Past Surgical History: Hernia Repair Additional Past Surgical History / Comment(s): tubes in both ears, cleft lip surgery Past Anesthesia/Blood Transfusion Reactions: No Reported Reaction Past Psychological History: Bipolar, Depression Smoking Status: Smoker, current status unknown Past Alcohol Use History: Occasional Past Drug Use History: None Reported - Past Family History Father Family Medical History: Cancer Additional Family Medical History / Comment(s): Dad had lung cancer, in 2011 Mother Family Medical History: Rheumatoid Arthritis (RA) Additional Family Medical History / Comment(s): Mother has paranoia schizophrenic General Exam - General Exam Comments Initial Comments: PHYSICAL EXAM: General Impression: Alert and oriented x3, not in acute distress HEENT: Normocephalic atraumatic, extra-ocular movements intact, pupils equal and reactive to light bilaterally, mucous membranes moist. Cardiovascular: Heart regular rate and rhythm Chest: Able to complete full sentences, no retractions, no tachypnea Abdomen: abdomen soft, non-tender, non-distended, no organomegaly Musculoskeletal: Pulses present and equal in all extremities, no peripheral edema, abrasions to the bilateral knees Motor: no focal deficits noted Neurological: CN II-XII grossly intact, no focal motor or sensory deficits noted Skin: Intact with no visualized rashes Psych: Normal affect and mood Course Vital Signs 05/27/23 14:23 Temperature 97.5 F L Pulse Rate 69 Respiratory 16 Rate O2 Sat by Pulse 94 L Oximetry - Reevaluation(s) Reevaluation #1: 05/27/23 16:43 Medications reviewed. I had our hydrology technician contact patient's pharmacy to get updated list of patient's medications. Patient is on multiple oral anti- hyperglycemics. Medical Decision Making - Medical Decision Making Was pt. sent in by a medical professional or institution (, MIMI, MATH TEACHER, urgent care, hospital, or fdc...) When possible be specific @ -No Did you speak to anyone other than the patient for history (EMS, parent, family, police, friend...)? What history was obtained from this source @ -No Did you review nursing and triage notes (agree or disagree)? Why? @ -I reviewed and agree with nursing and triage notes Were old charts reviewed (outside hosp., previous admission, EMS record, old EKG, old radiological studies, urgent care reports/EKG's, fdc records)? Report findings @ -No old charts were reviewed Differential Diagnosis (chest pain, altered mental status, abdominal pain women, abdominal pain men, vaginal bleeding, musculoskeletal, weakness, fever, dyspnea, syncope, headache, dizziness, GI bleed, back pain, seizure, CVA, palpatations, mental health)? @ -not applicable EKG interpreted by me (3pts min.). @ -None done X-rays interpreted by me (1pt min.). @ -None done CT interpreted by me (1pt min.). @ -None done U/S interpreted by me (1pt. min.). @ -None done What testing was considered but not performed or refused? (CT, X-rays, U/S, labs)? Why? @ -None What meds were considered but not given or refused? Why? @ -None Did you discuss the management of the patient with other professionals (pr ofessionals i.e. MIMI Chambers, MATH TEACHER, lab, RT, psych nurse, social work supervisor, marking devices assembler, teacher, safety instruction police officer, manager case)? Give summary @ -No Was smoking cessation discussed for >3mins.? @ -No Was critical care preformed (if so, how long)? @ -No Were there social determinants of health that impacted care today? How? (Homelessness, low income, unemployed, alcoholism, drug addiction, transport ation, low edu. Level, literacy, decrease access to med. care, prison, rehab)? @ -No Was there de-escalation of care discussed even if they declined (Discuss DNR or withdrawal of care, Hospice)? DNR status @ -No What co-morbidities impacted this encounter? (DM, HTN, Smoking, COPD, CAD, Cancer, CVA, ARF, Chemo, Hep., AIDS, mental health diagnosis, sleep apnea, morbid obesity)? @ -None Was patient admitted / discharged? Hospital course, mention meds given and route, prescriptions, significant lab abnormalities, going to OR and other pertinent info. @ -43-year-old male presents to the emergency room for alleged hypoglycemia. EMS did not have any hypoglycemic levels. Vital signs stable. Patient's blood glucose trended never fell below 100. She does have findings of increased renal markers. Patient notified of these findings and instructions to follow primary care doctor placed him discharge paperwork given that patient has mental debility. CBC is unremarkable. Patient will be discharged. Guardian notified of patient's discharge. Bilateral knee x-rays unremarkable Undiagnosed new problem with uncertain prognosis? @ -No Drug Therapy requiring intensive monitoring for toxicity (Heparin, Nitro, Insulin, Cardizem)? @ -No Were any procedures done? @ -No Diagnosis/symptom? Acute, or Chronic, or Acute on Chronic? Uncomplicated (without systemic symptoms) or Complicated (systemic symptoms)? @ -1. Hypoglycemia Side effects of treatment? @ -No Exacerbation, Progression, or Severe Exacerbation? @ -No Poses a threat to life or bodily function? How? (Chest pain, USA, ID, pneumonia, PE, COPD, DKA, ARF, appy, cholecystitis, CVA, Diverticulitis, Homicidal, Suicidal, threat to staff... and all critical care pts) @ -yes - Lab Data Result diagrams: 05/27/23 16:21 05/27/23 16:21 Lab Results 05/27/23 05/27/23 05/27/23 Range/Units 16:14 16:21 16:21 WBC 14.2 H (3.8-10.6) k/uL RBC 4.44 (4.30-5.90) m/uL Hgb 14.5 (13.0-17.5) gm/dL Hct 43.2 (39.0-53.0) % MCV 97.2 (80.0-100.0) fL MCH 32.7 (25.0-35.0) pg MCHC 33.6 (31.0-37.0) g/dL RDW 13.1 (11.5-15.5) % Plt Count 153 (150-450) k/uL MPV 8.1 Neutrophils % 83 % Lymphocytes % 10 % Monocytes % 5 % Eosinophils % 1 % Basophils % 0 % Neutrophils # 11.8 H (1.3-7.7) k/uL Lymphocytes # 1.4 (1.0-4.8) k/uL Monocytes # 0.7 (0-1.0) k/uL Eosinophils # 0.2 (0-0.7) k/uL Basophils # 0.0 (0-0.2) k/uL Sodium 133 L (137-145) mmol/L Potassium 4.5 (3.5-5.1) mmol/L Chloride 99 (98-107) mmol/L Carbon Dioxide 21 L (22-30) mmol/L Anion Gap 13 mmol/L BUN 55 H (9-20) mg/dL Creatinine 1.99 H (0.66-1.25) mg/dL Est GFR (CKD-EPI)AfAm 47 (>60 ml/min/1.73 sqM) Est GFR (CKD-EPI)NonAf 41 (>60 ml/min/1.73 sqM) Glucose 121 H (74-99) mg/dL POC Glucose (mg/dL) 130 H (70-110) mg/dL POC Glu Wool Washer Feeder ID Petty Diana Calcium 9.7 (8.4-10.2) mg/dL 05/27/23 05/27/23 Range/Units 17:46 19:19 WBC (3.8-10.6) k/uL RBC (4.30-5.90) m/uL Hgb (13.0-17.5) gm/dL Hct (39.0-53.0) % MCV (80.0-100.0) fL MCH (25.0-35.0) pg MCHC (31.0-37.0) g/dL RDW (11.5-15.5) % Plt Count (150-450) k/uL MPV Neutrophils % % Lymphocytes % % Monocytes % % Eosinophils % % Basophils % % Neutrophils # (1.3-7.7) k/uL Lymphocytes # (1.0-4.8) k/uL Monocytes # (0-1.0) k/uL Eosinophils # (0-0.7) k/uL Basophils # (0-0.2) k/uL Sodium (137-145) mmol/L Potassium (3.5-5.1) mmol/L Chloride (98-107) mmol/L Carbon Dioxide (22-30) mmol/L Anion Gap mmol/L BUN (9-20) mg/dL Creatinine (0.66-1.25) mg/dL Est GFR (CKD-EPI)AfAm (>60 ml/min/1.73 sqM) Est GFR (CKD-EPI)NonAf (>60 ml/min/1.73 sqM) Glucose (74-99) mg/dL POC Glucose (mg/dL) 114 H 125 H (70-110) mg/dL POC Glu Wool Washer Feeder ID [place], Pettybriseyda [place]on, Petty Calcium (8.4-10.2) mg/dL Disposition Clinical Impression: Hypoglycemia Disposition: HOME SELF-CARE Condition: Good Instructions (If sedation given, give patient instructions): Hypoglycemia in a Person with Diabetes (ED), Acute Kidney Injury (DC) Additional Instructions: follow up w primary care doctor noemy for follow up of elevated kidney markers. Is patient prescribed a controlled substance at d/c from ED?: No Referrals: None,Stated [REFERRING] - 1-2 days Time of Disposition: 19:27
[2023-05-27 17:17] LABS: Basophils % (A) 0 %; Eosinophils # (A) 0.2 k/uL (0-0.7); Eosinophils % (A) 1 %; HCT 43.2 % (39.0-53.0); HGB 14.5 gm/dL (13.0-17.5); Lymphocytes # (A) 1.4 k/uL (1.0-4.8); Lymphocytes % (A) 10 %; MCH 32.7 pg (25.0-35.0); MCHC 33.6 g/dL (31.0-37.0); MCV 97.2 fL (80.0-100.0); Mean Platelet Volume 8.1; Monocytes # (A) 0.7 k/uL (0-1.0); Monocytes % (A) 5 %; Neutrophils # (A) 11.8 k/uL (1.3-7.7); Neutrophils % (A) 83 %; Platelet Count 153 k/uL (150-450); RBC 4.44 m/uL (4.30-5.90); RDW 13.1 % (11.5-15.5); WBC 14.2 k/uL (3.8-10.6)
[2023-05-27 17:26] LABS: African American GFR (CKD) 47 (>60 ml/min/1.73 sqM); Anion Gap 13 mmol/L; Blood Urea Nitrogen 55 mg/dL (9-20); Calcium 9.7 mg/dL (8.4-10.2); Carbon Dioxide 21 mmol/L (22-30); Chloride 99 mmol/L (98-107); Glucose 121 mg/dL (74-99); Non-African American GFR(CKD) 41 (>60 ml/min/1.73 sqM); Potassium 4.5 mmol/L (3.5-5.1); Sodium 133 mmol/L (137-145)
[2023-05-27 17:48] LABS: Glucose,Whole Blood 114 mg/dL (70-110)
--- NOTE | 2023-05-27 18:21 | XR ---
EXAMINATION TYPE: XR knee complete bilateral DATE OF EXAM: 05/27/2023 COMPARISON: NONE HISTORY: 43-year-old male with knee pain TECHNIQUE: 3 views each side FINDINGS: Extensor mechanisms are intact and normal in size. No significant joint effusions. No acute fracture, subluxations, or dislocations. IMPRESSION: No joint effusions or acute osseous abnormality seen.
[2023-05-27] MEDS ORDERED: SODIUM CHLORIDE 0.9% 1,000 ML IV STA (18:24)
[2023-05-27 19:21] LABS: Glucose,Whole Blood 125 mg/dL (70-110)
[2023-05-27 19:45] VITALS: BP 131/58; PULSE 97; RESP 18
== END 2023-05-27 19:45 | disposition home or self-care (01) ==
LOC: EC 14:21
DX: E11.649 Type 2 diabetes mellitus with hypoglycemia without coma (principal); S80.212A Abrasion, left knee, initial encounter; S80.211A Abrasion, right knee, initial encounter; I10 Essential (primary) hypertension; K21.9 Gastro-esophageal reflux disease without esophagitis; E07.9 Disorder of thyroid, unspecified; F31.9 Bipolar disorder, unspecified; F17.200 Nicotine dependence, unspecified, uncomplicated; Z79.84 Long term (current) use of oral hypoglycemic drugs; Z79.890 Hormone replacement therapy; Z79.899 Other long term (current) drug therapy; W19.XXXA Unspecified fall, initial encounter
CPT/HCPCS: 36415; 80048; 85025; 96360; 99284

== ENCOUNTER 2023-05-29 09:55 | Observation (INO) | payer OTHER ==
[2023-05-29] MEDS ORDERED: SODIUM CHLORIDE 0.9% 1,000 ML IV STA (10:08)
--- NOTE | 2023-05-29 10:28 | ED ---
General Adult HPI - General Chief complaint: Seizure Stated complaint: Neuro symptoms Time Seen by Provider: 05/29/23 10:02 Source: patient, RN notes reviewed, old records reviewed Mode of arrival: EMS Limitations: altered mental status - History of Present Illness Initial comments: 43-year-old male presenting for evaluation of generalized twitching. Patient does have seizure disorder. There was no tonic-clonic activity was noted that while the patient was ambulating he had some generalized twitching. He was alert during this period he is presenting from the custodial and history from the patient is somewhat limited. He has no pain complaints. No headache. No focal numbness or weakness. - Related Data Home Medications Medication Instructions Recorded Confirmed Acarbose [Precose] 50 mg PO TID-W/MEALS 09/30/17 05/27/23 Levothyroxine Sodium [Synthroid] 50 mcg PO DAILY 09/30/17 05/27/23 Simvastatin [Zocor] 20 mg PO HS 09/30/17 05/27/23 Gabapentin [Neurontin] 300 mg PO BID 11/26/17 05/27/23 cloZAPine [Clozaril] 400 mg PO HS 11/26/17 05/27/23 Desmopressin [Ddavp] 0.2 mg PO HS 02/19/19 05/27/23 Magnesium Oxide [Magox 400] 400 mg PO TID 04/12/21 05/27/23 Pioglitazone HCl 30 mg PO DAILY 04/12/21 05/27/23 Cholecalciferol (Vitamin D3) 125 mcg PO DAILY 04/27/21 05/27/23 [Vitamin D3 (5000 Iu)] Omeprazole 20 mg PO BID 07/03/22 05/27/23 Simethicone [Simethicone Chew] 80 mg PO QID 07/03/22 05/27/23 lisinopriL [Zestril] 5 mg PO DAILY 07/03/22 05/27/23 sitaGLIPtin [Januvia] 100 mg PO DAILY 07/03/22 05/27/23 Dapagliflozin/Metformin HCl 1 tab PO DAILY 05/27/23 05/27/23 [Xigduo Xr 5 mg-1,000 mg Tablet] [place] Carbonate 600 mg PO HS 05/27/23 05/27/23 Previous Rx's Medication Instructions Recorded cloZAPine [Clozaril] 100 mg PO DAILY 30 Days tab 11/26/16 Allergies Allergy/AdvReac Type Severity Reaction Status Date / Time No Known Allergies Allergy Verified 05/27/23 16:31 Review of Systems ROS Statement: Those systems with pertinent positive or pertinent negative responses have been documented in the HPI. ROS Other: All systems not noted in ROS Statement are negative. Past Medical History Past Medical History: Diabetes Mellitus, GERD/Reflux, Hypertension, Neurologic Disorder, Thyroid Disorder Additional Past Medical History / Comment(s): This is obtained by reviewing medical records History of Any Multi-Drug Resistant Organisms: None Reported Past Surgical History: Hernia Repair Additional Past Surgical History / Comment(s): tubes in both ears, cleft lip surgery Past Anesthesia/Blood Transfusion Reactions: No Reported Reaction Past Psychological History: Bipolar, Depression Smoking Status: Smoker, current status unknown Past Alcohol Use History: Occasional Past Drug Use History: None Reported - Past Family History Father Family Medical History: Cancer Additional Family Medical History / Comment(s): Dad had lung cancer, in 2011 Mother Family Medical History: Rheumatoid Arthritis (RA) Additional Family Medical History / Comment(s): Mother has paranoia schizophrenic General Exam Limitations: altered mental status General appearance: alert, in no apparent distress Head exam: Present: atraumatic, normocephalic Eye exam: Present: PERRL ENT exam: Present: mucous membranes dry Neck exam: Present: normal inspection. Absent: tenderness, meningismus Respiratory exam: Present: normal lung sounds bilaterally. Absent: respiratory distress, wheezes Cardiovascular Exam: Present: regular rate, normal rhythm GI/Abdominal exam: Present: soft. Absent: distended, tenderness, guarding Neurological exam: Present: alert, oriented X3, CN II-XII intact. Absent: motor sensory deficit Psychiatric exam: Present: flat affect Skin exam: Present: warm, dry Course Vital Signs 05/29/23 05/29/23 05/29/23 09:58 10:38 11:38 Temperature 98.1 F Pulse Rate 86 87 82 Respiratory 18 24 16 Rate Blood Pressure 109/64 118/62 O2 Sat by Pulse 97 97 Oximetry 05/29/23 05/29/23 11:39 11:52 Temperature Pulse Rate 82 81 Respiratory 18 20 Rate Blood Pressure 82/31 100/50 O2 Sat by Pulse 100 98 Oximetry Medical Decision Making - Medical Decision Making Was pt. sent in by a medical professional or institution (Dr., PA, BUCKLE INSPECTOR, urgent care, hospital, or fdc...) When possible be specific @ -No Did you speak to anyone other than the patient for history (EMS, parent, family, police, friend...)? What history was obtained from this source @ -Paramedics Did you review nursing and triage notes (agree or disagree)? Why? @ -I reviewed and agree with nursing and triage notes Were old charts reviewed (outside hosp., previous admission, EMS record, old EKG, old radiological studies, urgent care reports/EKG's, fdc records)? Report findings @ -No old charts were reviewed Differential Diagnosis (chest pain, altered mental status, abdominal pain women, abdominal pain men, vaginal bleeding, weakness, fever, dyspnea, syncope, headache, dizziness, GI bleed, back pain, seizure, CVA, palpatations, mental health, musculoskeletal)? @ Differential Seizure: Recurrent seizure disorder, febrile seizure, alcohol withdrawal, stimulants, meningitis, encephalitis, intercranial hemorrhage, intracranial tumor, stroke, eclampsia, thyrotoxicosis, hypocalcemia, hyponatremia, hypernatremia, hypomagnesemia, psychogenic, this is not meant to be an all-inclusive list. EKG interpreted by me (3pts min.). @Sinus rhythm rate of 85, VA interval 161, QRS duration 100, QTC [address] segment elevation. X-rays interpreted by me (1pt min.). @ -None done CT interpreted by me (1pt min.). @ -None done U/S interpreted by me (1pt. min.). @ -None done What testing was considered but not performed or refused? (CT, X-rays, U/S, labs)? Why? @ -None What meds were considered but not given or refused? Why? @ -None Did you discuss the management of the patient with other professionals (professionals i.e. , PA, BUCKLE INSPECTOR, lab, RT, psych nurse, administrator social welfare, tie puller, teacher, contact officer, rn case management)? Give summary @ -[Sound physician group Was smoking cessation discussed for >3mins.? @ -No Was critical care preformed (if so, how long)? @ -No Were there social determinants of health that impacted care today? How? (Homelessness, low income, unemployed, alcoholism, drug addiction, transportation, low edu. Level, literacy, decrease access to med. care, fpc, rehab)? @ -No Was there de-escalation of care discussed even if they declined (Discuss DNR or withdrawal of care, Hospice)? DNR status @ -No What co-morbidities impacted this encounter? (DM, HTN, Smoking, COPD, CAD, Cancer, CVA, ARF, Chemo, Hep., AIDS, mental health diagnosis, sleep apnea, morbid obesity)? @ -[Diabetes, cognitive impairment Was patient admitted / discharged? Hospital course, mention meds given and route, prescriptions, significant lab abnormalities, going to OR and other pertinent info. @ -[43-year-old male with suspected seizure activity although the history did not support a tonic-clonic seizure was described more as a twitching sensation to which the patient was alert however while in the emergency department he had full tonic-clonic seizure lasting approximately 1 minute. He has no an tiepileptic medications listed on his current medications. He is given Keppra in the emergency department. Additionally he has worsening renal function which is acute. His creatinine is 2.73 which is up trending from her normal baseline. He is acidotic with a CO2 of 14 and has a current urinary tract infection. He is treated for the UTI as well as dehydration. He will be observed overnight with acute kidney injury, UTI, and seizure activity. Undiagnosed new problem with uncertain prognosis? @ -No Drug Therapy requiring intensive monitoring for toxicity (Heparin, Nitro, Insulin, Cardizem)? @ -No Were any procedures done? @ -No Diagnosis/symptom? @ -Seizure, BONNIE, UTI Acute, or Chronic, or Acute on Chronic? @ -[Acute Uncomplicated (without systemic symptoms) or Complicated (systemic symptoms)? @ -default Side effects of treatment? @ -No Exacerbation, Progression, or Severe Exacerbation? @ -No Poses a threat to life or bodily function? How? (Chest pain, [place], NH, pneumonia, PE, COPD, DKA, ARF, appy, cholecystitis, CVA, Diverticulitis, Homicidal, Suicidal, threat to staff... and all critical care pts) @ -yes, seizure, sepsis - Lab Data Result diagrams: 05/29/23 10:31 05/29/23 11:35 Lab Results 05/29/23 05/29/23 05/29/23 Range/Units 10:31 10:31 10:31 WBC 12.4 H (3.8-10.6) k/uL RBC 3.93 L (4.30-5.90) m/uL Hgb 13.1 (13.0-17.5) gm/dL Hct 39.4 (39.0-53.0) % MCV 100.1 H (80.0-100.0) fL MCH 33.2 (25.0-35.0) pg MCHC 33.2 (31.0-37.0) g/dL RDW 13.1 (11.5-15.5) % Plt Count 134 L (150-450) k/uL MPV 8.0 Neutrophils % 87 % Lymphocytes % 7 % Monocytes % 4 % Eosinophils % 1 % Basophils % 0 % Neutrophils # 10.7 H (1.3-7.7) k/uL Lymphocytes # 0.8 L (1.0-4.8) k/uL Monocytes # 0.5 (0-1.0) k/uL Eosinophils # 0.1 (0-0.7) k/uL Basophils # 0.0 (0-0.2) k/uL Hypochromasia Slight VBG pH 7.50 H (7.31-7.41) VBG pCO2 30 L (37-51) mmHg VBG HCO3 24 (24-28) mmol/L Sodium (137-145) mmol/L Potassium (3.5-5.1) mmol/L Chloride (98-107) mmol/L Carbon Dioxide (22-30) mmol/L Anion Gap mmol/L BUN (9-20) mg/dL Creatinine (0.66-1.25) mg/dL Est GFR (CKD-EPI)AfAm (>60 ml/min/1.73 sqM) Est GFR (CKD-EPI)NonAf (>60 ml/min/1.73 sqM) Glucose (74-99) mg/dL Calcium (8.4-10.2) mg/dL Magnesium (1.6-2.3) mg/dL Total Bilirubin (0.2-1.3) mg/dL AST (17-59) U/L ALT (4-49) U/L Alkaline Phosphatase (38-126) U/L Total Protein (6.3-8.2) g/dL Albumin (3.5-5.0) g/dL Urine Color Yellow Urine Appearance Cloudy (Clear) Urine pH 6.0 (5.0-8.0) Ur Specific [place] 1.019 (1.001-1.035) Urine Protein 1+ H (Negative) Urine Glucose (UA) 4+ H (Negative) Urine Ketones Negative (Negative) Urine Blood Negative (Negative) Urine Nitrite Negative (Negative) Urine Bilirubin Negative (Negative) Urine Urobilinogen <2.0 (<2.0) mg/dL Ur Leukocyte Esterase Large H (Negative) Urine RBC 11 H (0-5) /hpf Urine WBC 126 H (0-5) /hpf Urine WBC Clumps Few H (None) /hpf Ur Squamous Epith Cells 26 H (0-4) /hpf Urine Bacteria Rare H (None) /hpf Hyaline Casts 13 H (0-2) /lpf Urine Mucus Rare H (None) /hpf Urine Opiates Screen Not Detected (NotDetected) Ur Oxycodone Screen Not Detected (NotDetected) Urine Methadone Screen Not Detected (NotDetected) Ur Propoxyphene Screen Not Detected (NotDetected) Ur Barbiturates Screen Not Detected (NotDetected) U Tricyclic Antidepress Not Detected (NotDetected) Ur Phencyclidine Scrn Not Detected (NotDetected) Ur Amphetamines Screen Not Detected (NotDetected) U Methamphetamines Scrn Not Detected (NotDetected) U Benzodiazepines Scrn Not Detected (NotDetected) Urine Cocaine Screen Not Detected (NotDetected) U Marijuana (THC) Screen Not Detected (NotDetected) 05/29/23 Range/Units 11:35 WBC (3.8-10.6) k/uL RBC (4.30-5.90) m/uL Hgb (13.0-17.5) gm/dL Hct (39.0-53.0) % MCV (80.0-100.0) fL MCH (25.0-35.0) pg MCHC (31.0-37.0) g/dL RDW (11.5-15.5) % Plt Count (150-450) k/uL MPV Neutrophils % % Lymphocytes % % Monocytes % % Eosinophils % % Basophils % % Neutrophils # (1.3-7.7) k/uL Lymphocytes # (1.0-4.8) k/uL Monocytes # (0-1.0) k/uL Eosinophils # (0-0.7) k/uL Basophils # (0-0.2) k/uL Hypochromasia VBG pH (7.31-7.41) VBG pCO2 (37-51) mmHg VBG HCO3 (24-28) mmol/L Sodium 134 L (137-145) mmol/L Potassium 3.8 (3.5-5.1) mmol/L Chloride 99 (98-107) mmol/L Carbon Dioxide 14 L (22-30) mmol/L Anion Gap 21 mmol/L BUN 39 H (9-20) mg/dL Creatinine 2.73 H (0.66-1.25) mg/dL Est GFR (CKD-EPI)AfAm 32 (>60 ml/min/1.73 sqM) Est GFR (CKD-EPI)NonAf 28 (>60 ml/min/1.73 sqM) Glucose 123 H (74-99) mg/dL Calcium 9.5 (8.4-10.2) mg/dL Magnesium 2.1 (1.6-2.3) mg/dL Total Bilirubin 0.7 (0.2-1.3) mg/dL AST 54 (17-59) U/L ALT 30 (4-49) U/L Alkaline Phosphatase 100 (38-126) U/L Total Protein 6.5 (6.3-8.2) g/dL Albumin 4.0 (3.5-5.0) g/dL Urine Color Urine Appearance (Clear) Urine pH (5.0-8.0) Ur Specific [place] (1.001-1.035) Urine Protein (Negative) Urine Glucose (UA) (Negative) Urine Ketones (Negative) Urine Blood (Negative) Urine Nitrite (Negative) Urine Bilirubin (Negative) Urine Urobilinogen (<2.0) mg/dL Ur Leukocyte Esterase (Negative) Urine RBC (0-5) /hpf Urine WBC (0-5) /hpf Urine WBC Clumps (None) /hpf Ur Squamous Epith Cells (0-4) /hpf Urine Bacteria (None) /hpf Hyaline Casts (0-2) /lpf Urine Mucus (None) /hpf Urine Opiates Screen (NotDetected) Ur Oxycodone Screen (NotDetected) Urine Methadone Screen (NotDetected) Ur Propoxyphene Screen (NotDetected) Ur Barbiturates Screen (NotDetected) U Tricyclic Antidepress (NotDetected) Ur Phencyclidine Scrn (NotDetected) Ur Amphetamines Screen (NotDetected) U Methamphetamines Scrn (NotDetected) U Benzodiazepines Scrn (NotDetected) Urine Cocaine Screen (NotDetected) U Marijuana (THC) Screen (NotDetected) Disposition Clinical Impression: BONNIE (acute kidney injury), Generalized seizure, Dehydration Disposition: ADMITTED IP TO THIS [facility] Instructions (If sedation given, give patient instructions): Seizure/Epilepsy Discharge Instructions & Follow-Up Referrals: [facility] [Primary Care Provider] - 1-2 days Time of Disposition: 12:16
[2023-05-29 10:38] LABS: Basophils % (A) 0 %; Eosinophils # (A) 0.1 k/uL (0-0.7); Eosinophils % (A) 1 %; HCT 39.4 % (39.0-53.0); HGB 13.1 gm/dL (13.0-17.5); Hypochromasia Slight; Lymphocytes # (A) 0.8 k/uL (1.0-4.8); Lymphocytes % (A) 7 %; MCH 33.2 pg (25.0-35.0); MCHC 33.2 g/dL (31.0-37.0); MCV 100.1 fL (80.0-100.0); Monocytes # (A) 0.5 k/uL (0-1.0); Monocytes % (A) 4 %; Neutrophils # (A) 10.7 k/uL (1.3-7.7); Neutrophils % (A) 87 %; Platelet Count 134 k/uL (150-450); RBC 3.93 m/uL (4.30-5.90); RDW 13.1 % (11.5-15.5); WBC 12.4 k/uL (3.8-10.6)
[2023-05-29 10:39] LABS: VBG PH 7.5 (7.31-7.41)
[2023-05-29 11:29] LABS: Appearance,Urine Cloudy (Clear); Bacteria,Urine Rare /hpf; Bilirubin,Urine Negative (Negative); Blood,Urine Negative (Negative); Glucose,Urine (UA) 4+ (Negative); Hyaline Casts,Urine 13 /lpf (0-2); Ketones,Urine Negative (Negative); Leukocyte Esterase,Urine Large (Negative); Mucus,Urine Rare /hpf; Nitrite,Urine Negative (Negative); Protein,Urine 1+ (Negative); RBC,Urine 11 /hpf (0-5); Specific Gravity,Urine 1.019 (1.001-1.035); Squamous Epithelial Cell,Urine 26 /hpf (0-4); Urobilinogen,Urine <2.0 mg/dL (<2.0); WBC,Urine 126 /hpf (0-5)
[2023-05-29 11:33] LABS: Amphetamine Screen,Urine Not Detected (NotDetected); Barbiturate Screen,Urine Not Detected (NotDetected); Benzodiazepines Screen,Urine Not Detected (NotDetected); Cocaine Screen,Urine Not Detected (NotDetected); Methadone Screen, Urine Not Detected (NotDetected); Opiate Screen,Urine Not Detected (NotDetected); Oxycodone Screen, Urine Not Detected (NotDetected); Phencyclidine Screen,Urine Not Detected (NotDetected); Tricyclic Antidepressant,Urine Not Detected (NotDetected); Urn Cannabinoid Scrn Not Detected (NotDetected)
[2023-05-29 11:34] LABS: Color,Urine Yellow
[2023-05-29] MEDS ORDERED: LORazepam 2 MG/ML INJ IV STA (11:38)
[2023-05-29 12:04] LABS: ALT 30 U/L (4-49); AST 54 U/L (17-59); African American GFR (CKD) 32 (>60 ml/min/1.73 sqM); Alkaline Phosphatase 100 U/L (38-126); Anion Gap 21 mmol/L; Blood Urea Nitrogen 39 mg/dL (9-20); Calcium 9.5 mg/dL (8.4-10.2); Carbon Dioxide 14 mmol/L (22-30); Chloride 99 mmol/L (98-107); Glucose 123 mg/dL (74-99); Magnesium 2.1 mg/dL (1.6-2.3); Non-African American GFR(CKD) 28 (>60 ml/min/1.73 sqM); Potassium 3.8 mmol/L (3.5-5.1); Sodium 134 mmol/L (137-145); Total Bilirubin 0.7 mg/dL (0.2-1.3); Total Protein 6.5 g/dL (6.3-8.2)
[2023-05-29] MEDS ORDERED: cefTRIAXone IN SWFI 1,000 MG/10 ML SYRINGE IVP STA (12:09)
[2023-05-29] MEDS ORDERED: ACETAMINOPHEN TAB 325 MG TAB PO PRN (12:10)
[2023-05-29] MEDS ORDERED: NALOXONE 0.4 MG/ML 1 ML VIAL IV PRN (12:10)
[2023-05-29] MEDS ORDERED: levETIRAcetam IV 2,000 MG in SODIUM CHLORIDE 0.9% 250 ML IVPB ONE (12:30)
[2023-05-29] MEDS: SODIUM CHLORIDE 0.9% 1,000 ML IV SCH ×2 (12:31→15:20)
[2023-05-29 17:02] LABS: Glucose,Whole Blood 105 mg/dL (70-110)
[2023-05-29] MEDS: MAGNESIUM OXIDE 400 MG TAB PO SCH (17:26)
[2023-05-29] MEDS: ACARBOSE 25 MG TAB PO SCH (17:29)
[2023-05-29] MEDS: SIMETHICONE 80 MG CHEWABLE PO SCH ×2 (17:29→22:00)
--- NOTE | 2023-05-29 17:51 | P.HPIM ---
History of Present Illness H&P Date: 05/29/23 Chief Complaint: Seizure 43-year-old man with medical history of seizure disorder, hypothyroidism, diabetes, hypertension, [facility] resident good intellectual disability pres ented for evaluation generalized twitching. Case was discussed with the emergency physician and the history is obtained from their signout as well as chart review as the patient is a poor historian and cannot participate in interview or review of systems. From my understanding, patient was having some generalized twitching in his [place] [facility] which prompted manager internship concern that patient was having recurrent seizures, therefore they called emergency medical services and the patient was transferred to the hospital. During his ER course, he was noted to have a generalized tonic-clonic seizure, prompting consideration of observation admission. Notably he also had several lab anomalies including acute kidney injury and concern for urinary tract infection. In the emergency room, patient was afebrile, 92/56, heart rate 70, 99% on room air. CBC showed leukocytosis 12.4, MCV of 100.1. Sodium was 134, CO2 is 14, anion gap was 21, BUN was 39, creatinine is 2.73. UA was contaminated. Urine tox screen is negative. ABG demonstrated pH of 7.5, pCO2 of 30. EKG demonstrated normal sinus rhythm, normal axis, no ischemic changes. Case was discussed with emergency physician decision was made to admit the patient to observation for seizure as well as acute kidney injury. Review of systems could not be completed due to patient's mental status Gen: Patient appears postictal, agitated upon waking Eyes: PERRL, no scleral injection or icterus HENT: normocephalic, atraumatic, good hearing acuity, moist mucous membranes Neck: no tracheal deviation, full range of motion Resp: good air exchange, breathing comfortably with no accessory muscle use, no tactile fremitus CVS: good distal perfusion x 4, no pitting edema GI: soft, NTTP, ND, no hepatosplenomegaly : no suprapubic tenderness, no CVAT, solano catheter not present MSK: no clubbing, no cyanosis, no noted contractures of extremities Skin: no noted rashes, petechiae; temperature of skin is appropriate Neuro: moving all extremities without signs of weakness, CN II-XII intact Labs and images reviewed as above Assessment: Seizure Acute kidney injury Hypothyroidism Diabetes type 2 Hypertension Hyperlipidemia Schizophrenia Plan: Vital signs reviewed and noted in the HPI Lab work reviewed and noted in the HPI EKG are personally interpreted and noted in the HPI Case was discussed with the Emergency Room provider and decision was made to admit the patient for seizure, acute kidney injury Continue patient's gabapentin, lithium Obtain lithium level Seizure precautions Neurology consult IV fluids: Normal saline at 100 mL per hour Patient was given a dose of Keppra in the emergency room Past Medical History Past Medical History: Diabetes Mellitus, GERD/Reflux, Hypertension, Neurologic Disorder, Thyroid Disorder Additional Past Medical History / Comment(s): This is obtained by reviewing medical records History of Any Multi-Drug Resistant Organisms: None Reported Past Surgical History: Hernia Repair Additional Past Surgical History / Comment(s): tubes in both ears, cleft lip surgery Past Anesthesia/Blood Transfusion Reactions: No Reported Reaction Past Psychological History: Bipolar, Depression Smoking Status: Smoker, current status unknown Past Alcohol Use History: Occasional Past Drug Use History: None Reported - Past Family History Father Family Medical History: Cancer Additional Family Medical History / Comment(s): Dad had lung cancer, in 2011 Mother Family Medical History: Rheumatoid Arthritis (RA) Additional Family Medical History / Comment(s): Mother has paranoia schizophrenic Medications and Allergies Home Medications Medication Instructions Recorded Confirmed Type cloZAPine [Clozaril] 100 mg PO DAILY 30 Days tab 11/26/16 05/29/23 Rx Acarbose [Precose] 50 mg PO TID-W/MEALS 09/30/17 05/29/23 History Levothyroxine Sodium [Synthroid] 50 mcg PO DAILY 09/30/17 05/29/23 History Simvastatin [Zocor] 20 mg PO HS 09/30/17 05/29/23 History Gabapentin [Neurontin] 300 mg PO BID 11/26/17 05/29/23 History cloZAPine [Clozaril] 400 mg PO HS 11/26/17 05/29/23 History Desmopressin [Ddavp] 0.2 mg PO HS 02/19/19 05/29/23 History Magnesium Oxide [Magox 400] 400 mg PO TID 04/12/21 05/29/23 History Pioglitazone HCl 30 mg PO DAILY 04/12/21 05/29/23 History Cholecalciferol (Vitamin D3) 125 mcg PO DAILY 04/27/21 05/29/23 History [Vitamin D3 (5000 Iu)] Omeprazole 20 mg PO BID 07/03/22 05/29/23 History Simethicone [Simethicone Chew] 80 mg PO QID 07/03/22 05/29/23 History lisinopriL [Zestril] 5 mg PO DAILY 07/03/22 05/29/23 History sitaGLIPtin [Januvia] 100 mg PO DAILY 07/03/22 05/29/23 History Dapagliflozin/Metformin HCl 1 tab PO DAILY 05/27/23 05/29/23 History [Xigduo Xr 5 mg-1,000 mg Tablet] [place] Carbonate 600 mg PO HS 05/27/23 05/29/23 History Allergies Allergy/AdvReac Type Severity Reaction Status Date / Time No Known Allergies Allergy Verified 05/29/23 12:38 Physical Exam Osteopathic Statement: *. No significant issues noted on an osteopathic structural exam other than those noted in the History and Physical/Consult. Vitals: Vital Signs Temp Pulse Pulse Resp BP BP Pulse Ox 05/29/23 14:05 97.7 F 70 16 92/56 99 05/29/23 13:13 81 18 110/63 97 05/29/23 12:23 80 18 98/52 96 05/29/23 11:52 81 20 100/50 98 05/29/23 11:39 82 18 82/31 100 05/29/23 11:38 82 16 05/29/23 10:38 87 24 118/62 97 05/29/23 09:58 98.1 F 86 18 109/64 97 Intake and Output 05/29/23 05/29/23 05/29/23 06:59 14:59 22:59 Output Total 100 Balance -100 Output: Urine 100 Uretheral ([place]) 100 Other: Voiding Method Diaper Weight 63.503 kg Results CBC & Chem 7: 05/29/23 10:31 05/29/23 11:35 Labs: Abnormal Lab Results - Last 24 Hours (Table) 05/29/23 05/29/23 05/29/23 Range/Units 10:31 10:31 10:31 WBC 12.4 H (3.8-10.6) k/uL RBC 3.93 L (4.30-5.90) m/uL MCV 100.1 H (80.0-100.0) fL Plt Count 134 L (150-450) k/uL Neutrophils # 10.7 H (1.3-7.7) k/uL Lymphocytes # 0.8 L (1.0-4.8) k/uL VBG pH 7.50 H (7.31-7.41) VBG pCO2 30 L (37-51) mmHg Sodium (137-145) mmol/L Carbon Dioxide (22-30) mmol/L BUN (9-20) mg/dL Creatinine (0.66-1.25) mg/dL Glucose (74-99) mg/dL Urine Protein 1+ H (Negative) Urine Glucose (UA) 4+ H (Negative) Ur Leukocyte Esterase Large H (Negative) Urine RBC 11 H (0-5) /hpf Urine WBC 126 H (0-5) /hpf Urine WBC Clumps Few H (None) /hpf Ur Squamous Epith Cells 26 H (0-4) /hpf Urine Bacteria Rare H (None) /hpf Hyaline Casts 13 H (0-2) /lpf Urine Mucus Rare H (None) /hpf // Range/Units 11:35 WBC (3.8-10.6) k/uL RBC (4.30-5.90) m/uL MCV (80.0-100.0) fL Plt Count (150-450) k/uL Neutrophils # (1.3-7.7) k/uL Lymphocytes # (1.0-4.8) k/uL VBG pH (7.31-7.41) VBG pCO2 (37-51) mmHg Sodium 134 L (137-145) mmol/L Carbon Dioxide 14 L (22-30) mmol/L BUN 39 H (9-20) mg/dL Creatinine 2.73 H (0.66-1.25) mg/dL Glucose 123 H (74-99) mg/dL Urine Protein (Negative) Urine Glucose (UA) (Negative) Ur Leukocyte Esterase (Negative) Urine RBC (0-5) /hpf Urine WBC (0-5) /hpf Urine WBC Clumps (None) /hpf Ur Squamous Epith Cells (0-4) /hpf Urine Bacteria (None) /hpf Hyaline Casts (0-2) /lpf Urine Mucus (None) /hpf
[2023-05-29 20:40] LABS: Glucose,Whole Blood 115 mg/dL (70-110)
[2023-05-29] MEDS ORDERED: LITHIUM CARBONATE 300 MG CAP PO SCH (21:00)
[2023-05-29] MEDS: cloZAPine 100 MG TAB PO SCH (22:00)
[2023-05-29] MEDS: DESMOPRESSIN 0.2 MG TAB PO SCH (22:00)
[2023-05-29] MEDS: ATORVASTATIN 10 MG TAB PO SCH (22:00)
[2023-05-30] MEDS: GABAPENTIN 300 MG CAP PO SCH ×3 (03:27→22:31)
[2023-05-30] MEDS: MAGNESIUM OXIDE 400 MG TAB PO SCH ×4 (03:27→22:30)
[2023-05-30 03:29] LABS: Basophils % (A) 0 %; Eosinophils # (A) 0.2 k/uL (0-0.7); Eosinophils % (A) 2 %; HCT 38.6 % (39.0-53.0); HGB 12.5 gm/dL (13.0-17.5); Lymphocytes # (A) 1.3 k/uL (1.0-4.8); Lymphocytes % (A) 17 %; MCH 32.3 pg (25.0-35.0); MCHC 32.5 g/dL (31.0-37.0); MCV 99.5 fL (80.0-100.0); Mean Platelet Volume 8.1; Monocytes # (A) 0.4 k/uL (0-1.0); Monocytes % (A) 5 %; Neutrophils # (A) 5.7 k/uL (1.3-7.7); Neutrophils % (A) 73 %; Platelet Count 128 k/uL (150-450); RBC 3.88 m/uL (4.30-5.90); RDW 13.3 % (11.5-15.5); WBC 7.8 k/uL (3.8-10.6)
[2023-05-30 04:13] LABS: African American GFR (CKD) 57 (>60 ml/min/1.73 sqM); Anion Gap 7 mmol/L; Blood Urea Nitrogen 33 mg/dL (9-20); Carbon Dioxide 22 mmol/L (22-30); Chloride 105 mmol/L (98-107); Glucose 112 mg/dL (74-99); Lithium 1.8 mmol/L; Non-African American GFR(CKD) 49 (>60 ml/min/1.73 sqM); Potassium 3.9 mmol/L (3.5-5.1); Sodium 134 mmol/L (137-145)
[2023-05-30 07:22] LABS: Glucose,Whole Blood 113 mg/dL (70-110)
[2023-05-30] MEDS: PANTOPRAZOLE 40 MG TABLET PO SCH (07:22)
[2023-05-30] MEDS: ACARBOSE 25 MG TAB PO SCH ×3 (07:22→17:23)
[2023-05-30] MEDS: LEVOTHYROXINE 50 MCG TAB PO SCH (07:22)
[2023-05-30] MEDS: CHOLECALCIFEROL 125 MCG (5000 IU) TABLET PO SCH (08:29)
[2023-05-30] MEDS: SIMETHICONE 80 MG CHEWABLE PO SCH ×4 (08:29→22:30)
[2023-05-30] MEDS: cloZAPine 100 MG TAB PO SCH ×2 (08:29→22:31)
[2023-05-30] MEDS: SODIUM CHLORIDE 0.9% 1,000 ML IV SCH ×2 (08:31→12:12)
--- NOTE | 2023-05-30 11:33 | P.PN ---
Subjective Progress Note Date: 05/30/23 Pt is doing much btter today. Feels back to baseline. [place] level improving to 1.8 Gen: awake, alert HEENT: normocephalic, atraumatic, good hearing acuity, moist mucous membranes Resp: good air exchange, breathing comfortably with no accessory muscle use CVS: good distal perfusion x 4, GI: soft, NTTP, ND : no SPT, no CVAT, solano catheter not present MSK: no pitting edema, no clubbing Neuro: non-focal, moving all extremities Psych: cooperative, euthymic mood Hospital Course: 43-year-old man with medical history of seizure disorder, hypothyroidism, diabetes, hypertension, shelter resident good intellectual disability presented for evaluation generalized twitching. In the emergency room, patient was afebrile, 92/56, heart rate 70, 99% on room air. CBC showed leukocytosis 12.4, MCV of 100.1. Sodium was 134, CO2 is 14, anion gap was 21, BUN was 39, creatinine is 2.73. UA was contaminated. Urine tox screen is negative. ABG demonstrated pH of 7.5, pCO2 of 30. EKG demonstrated normal sinus rhythm, normal axis, no ischemic changes. Case was discussed with emergency physician decision was made to admit the patient to observation for seizure as well as acute kidney injury. Assessment: Seizure Acute kidney injury Elevated [place] level Hypothyroidism Diabetes type 2 Hypertension Hyperlipidemia Schizophrenia Plan: [place] level down to 1.8 BMP shows improving Cr to 1.7 Nephrology consult pending Neurology consult pending Continue patient's gabapentin [place] discontinued Seizure precautions IV fluids: Normal saline at 100 mL per hour Patient was given a dose of Keppra in the emergency room Objective - Vital Signs Vital signs: Vital Signs Temp 99.0 F 05/30/23 11:08 Pulse 77 05/30/23 11:08 Resp 18 05/30/23 11:08 BP 100/66 05/30/23 11:08 Pulse Ox 98 05/30/23 11:08 FiO2 Intake & Output 05/29/23 05/30/23 05/30/23 18:59 06:59 18:59 Output Total 100 Balance -100 Weight 63.503 kg 66 kg Output: Urine 100 Uretheral ([place]) 100 Other: Voiding Method Diaper Diaper Bedside Commode # Voids 1 1 - Labs CBC & Chem 7: 05/30/23 03:02 05/30/23 03:02 Labs: Abnormal Lab Results - Last 24 Hours (Table) 05/29/23 05/29/23 05/29/23 Range/Units 11:35 11:35 19:35 RBC (4.30-5.90) m/uL Hgb (13.0-17.5) gm/dL Hct (39.0-53.0) % Plt Count (150-450) k/uL Sodium 134 L (137-145) mmol/L Carbon Dioxide 14 L (22-30) mmol/L BUN 39 H (9-20) mg/dL Creatinine 2.73 H (0.66-1.25) mg/dL Glucose 123 H (74-99) mg/dL POC Glucose (mg/dL) (70-110) mg/dL [place] 2.0 H* 1.9 H* mmol/L 05/29/23 05/29/23 05/30/23 Range/Units 20:36 23:30 03:02 RBC 3.88 L (4.30-5.90) m/uL Hgb 12.5 L (13.0-17.5) gm/dL Hct 38.6 L (39.0-53.0) % Plt Count 128 L (150-450) k/uL Sodium (137-145) mmol/L Carbon Dioxide (22-30) mmol/L BUN (9-20) mg/dL Creatinine (0.66-1.25) mg/dL Glucose (74-99) mg/dL POC Glucose (mg/dL) 115 H (70-110) mg/dL [place] 1.9 H* mmol/L 05/30/23 05/30/23 Range/Units 03:02 07:09 RBC (4.30-5.90) m/uL Hgb (13.0-17.5) gm/dL Hct (39.0-53.0) % Plt Count (150-450) k/uL Sodium 134 L (137-145) mmol/L Carbon Dioxide (22-30) mmol/L BUN 33 H (9-20) mg/dL Creatinine 1.70 H (0.66-1.25) mg/dL Glucose 112 H (74-99) mg/dL POC Glucose (mg/dL) 113 H (70-110) mg/dL [place] mmol/L
[2023-05-30 11:52] LABS: Glucose,Whole Blood 129 mg/dL (70-110)
--- NOTE | 2023-05-30 12:32 | P.CNNES ---
History of Present Illness Consult date: 05/30/23 Requesting physician: Andreia Mota Reason for Consult: seizure History of Present Illness: This is a 43-year-old gentleman with history of cleft lip/palate s/p surgical correction, seizures (as child), developemental delay who presents to the emergency department for generalized twitching. Some of the history is obtained from patient nursing staff/case worker and medical records. It seems the patient resides in a longterm and having some generalized twitching and he is alert during these episodes. Per the nurse it seems he notified her that he had a generalized tonic-clonic seizure. He is on Rattan for his mood. He is on Gabapentin 300mg bid. Some of the work-up during this hospital visit consisted of: Initial creatinine is 2.73 currently is 1.70. Sodium is 134. At initial serum glucose is 123. Calcium is 9.5, magnesium is 2.1. Urine analysis seems possible suggestive of underlying tract infection. Initial lithium level was 2.0 with recent is 1.8. Other urine drug screen was not detected. Review of Systems Review of systems Limited but the parent positive and negative aspiration eye. Past Medical History Past Medical History: Diabetes Mellitus, GERD/Reflux, Hypertension, Neurologic Disorder, Thyroid Disorder Additional Past Medical History / Comment(s): This is obtained by reviewing medical records History of Any Multi-Drug Resistant Organisms: None Reported Past Surgical History: Hernia Repair Additional Past Surgical History / Comment(s): tubes in both ears, cleft lip surgery Past Anesthesia/Blood Transfusion Reactions: No Reported Reaction Smoking Status: Current every day smoker - Past Family History Father Family Medical History: Cancer Additional Family Medical History / Comment(s): Dad had lung cancer, in 2011 Mother Family Medical History: Rheumatoid Arthritis (RA) Additional Family Medical History / Comment(s): Mother has paranoia schizophrenic Medications and Allergies Home Medications Medication Instructions Recorded Confirmed Type cloZAPine [Clozaril] 100 mg PO DAILY 30 Days tab 11/26/16 05/29/23 Rx Acarbose [Precose] 50 mg PO TID-W/MEALS 09/30/17 05/29/23 History Levothyroxine Sodium [Synthroid] 50 mcg PO DAILY 09/30/17 05/29/23 History Simvastatin [Zocor] 20 mg PO HS 09/30/17 05/29/23 History Gabapentin [Neurontin] 300 mg PO BID 11/26/17 05/29/23 History cloZAPine [Clozaril] 400 mg PO HS 11/26/17 05/29/23 History Desmopressin [Ddavp] 0.2 mg PO HS 02/19/19 05/29/23 History Magnesium Oxide [Magox 400] 400 mg PO TID 04/12/21 05/29/23 History Pioglitazone HCl 30 mg PO DAILY 04/12/21 05/29/23 History Cholecalciferol (Vitamin D3) 125 mcg PO DAILY 04/27/21 05/29/23 History [Vitamin D3 (5000 Iu)] Omeprazole 20 mg PO BID 07/03/22 05/29/23 History Simethicone [Simethicone Chew] 80 mg PO QID 07/03/22 05/29/23 History lisinopriL [Zestril] 5 mg PO DAILY 07/03/22 05/29/23 History sitaGLIPtin [Januvia] 100 mg PO DAILY 07/03/22 05/29/23 History Dapagliflozin/Metformin HCl 1 tab PO DAILY 05/27/23 05/29/23 History [Xigduo Xr 5 mg-1,000 mg Tablet] Rattan Carbonate 600 mg PO HS 05/27/23 05/29/23 History Allergies Allergy/AdvReac Type Severity Reaction Status Date / Time No Known Allergies Allergy Verified 05/29/23 12:38 Physical Examination - Vital Signs Vital Signs: Vital Signs Temp Pulse Pulse Resp BP BP Pulse Ox 05/30/23 11:08 99.0 F 77 18 100/66 98 05/30/23 07:07 98.4 F 81 18 98/64 96 05/30/23 02:42 97.7 F 70 18 92/56 99 05/30/23 02:00 98.0 F 85 18 87/55 97 05/29/23 23:16 79 18 05/29/23 18:51 98.9 F 79 18 105/67 94 L 05/29/23 14:05 97.7 F 70 16 92/56 99 05/29/23 13:13 81 18 110/63 97 05/29/23 12:23 80 18 98/52 96 Intake and Output 05/29/23 05/30/23 05/30/23 22:59 06:59 14:59 Other: Voiding Method Diaper Diaper Bedside Commode # Voids 1 1 Weight 66 kg GENERAL: The patient is lying in bed and is not in acute distress. NEUROLOGICAL: Higher mental function: The patient is awake, alert, oriented to self and time. He stated he was in the hospital. Patient is following simple commands. No aphasia and no neglect. Cranial nerves: The pupils are round, equal and reactive to light. Visual be are full to confrontation throughout. Extraocular movement is intact no nystagmus is noted. Facial sensation is normal to touch throughout. Has scar over the middle upper lip. The facial strength is normal throughout. Hearing appear normal bilaterally to hand rub. Tongue is midline and moved [id number] without any difficulty. Mild dysarthria is noted. Shoulder shrug is normal bilaterally. Motor: The strength is hard to assess individual because of his cooperation but lifting all extremities above gravity and no focality. Normal tone and bulk. Cerebellum: Normal finger to nose bilaterally. Sensation: Sensation is normal to touch throughout. Reflexes (right/left): 2+. Plantars are mute bilaterally. Results - Laboratory Findings CBC and BMP: 05/30/23 03:02 05/30/23 03:02 Abnormal Lab Findings: Abnormal Labs 05/29/23 05/29/23 05/29/23 10:31 10:31 10:31 WBC 12.4 H RBC 3.93 L Hgb Hct MCV 100.1 H Plt Count 134 L Neutrophils # 10.7 H Lymphocytes # 0.8 L VBG pH 7.50 H VBG pCO2 30 L Sodium Carbon Dioxide BUN Creatinine Glucose POC Glucose (mg/dL) Urine Protein 1+ H Urine Glucose (UA) 4+ H Ur Leukocyte Esterase Large H Urine RBC 11 H Urine WBC 126 H Urine WBC Clumps Few H Ur Squamous Epith Cells 26 H Urine Bacteria Rare H Hyaline Casts 13 H Urine Mucus Rare H Rattan 05/29/23 05/29/23 05/29/23 11:35 11:35 19:35 WBC RBC Hgb Hct MCV Plt Count Neutrophils # Lymphocytes # VBG pH VBG pCO2 Sodium 134 L Carbon Dioxide 14 L BUN 39 H Creatinine 2.73 H Glucose 123 H POC Glucose (mg/dL) Urine Protein Urine Glucose (UA) Ur Leukocyte Esterase Urine RBC Urine WBC Urine WBC Clumps Ur Squamous Epith Cells Urine Bacteria Hyaline Casts Urine Mucus Rattan 2.0 H* 1.9 H* 05/29/23 05/29/23 05/30/23 20:36 23:30 03:02 WBC RBC 3.88 L Hgb 12.5 L Hct 38.6 L MCV Plt Count 128 L Neutrophils # Lymphocytes # VBG pH VBG pCO2 Sodium Carbon Dioxide BUN Creatinine Glucose POC Glucose (mg/dL) 115 H Urine Protein Urine Glucose (UA) Ur Leukocyte Esterase Urine RBC Urine WBC Urine WBC Clumps Ur Squamous Epith Cells Urine Bacteria Hyaline Casts Urine Mucus Rattan 1.9 H* 05/30/23 05/30/23 05/30/23 03:02 07:09 11:49 WBC RBC Hgb Hct MCV Plt Count Neutrophils # Lymphocytes # VBG pH VBG pCO2 Sodium 134 L Carbon Dioxide BUN 33 H Creatinine 1.70 H Glucose 112 H POC Glucose (mg/dL) 113 H 129 H Urine Protein Urine Glucose (UA) Ur Leukocyte Esterase Urine RBC Urine WBC Urine WBC Clumps Ur Squamous Epith Cells Urine Bacteria Hyaline Casts Urine Mucus Rattan Assessment and Plan Assessment: This is 43-year-old gentleman with history of cleft lip/palate s/p surgical correction, seizures (as child), developemental delay who presents to the emergency department for generalized twitching but was responsive during these episodes and reported GTC seizure. Patient presented with [place] level of 2.0 (potentially toxic) with BONNIE. Also has possible UTI Generalized body shaking and reported GTC seizure/break-through seizure: Possibly provoked due to toxic and acute UTI. Cannot rule out underlying epilepsy especially with hx of seizure and cleft lip/palate with developmental d elay which can increase risk for seizure History of mood disorder and is on Rattan and has potentially toxic level as high as 2.0--resolved BONNIE Possible acute UTI History of cleft lip/palate s/p correction Developmental delay Hypothyroidism Hypertension Plan: I ordered CT head and routine EEG. I ordered TSH level In the ED patient was started loaded Keppra 2gm once. I started the patient on Vimpat 50mg bid. I will not start on Keppra because of his mood history. Seizure-precaution and pads. Will defer the rest of management to primary team. Because of his seizure, avoid driving for 6 month until seizure free per [place] DMV, avoid heights, avoid swimming unassisted or using heavy machinery. Will defer the rest of medical management to primary team. Upon discharge recommend patient to follow-up with neurologist as outpatient within 2-3 weeks. The plan is discussed with primary attending and his nurse. Thank you for the consultation. Time with Patient: Greater than 30
[2023-05-30] MEDS: LACOSAMIDE 50 MG TABLET PO SCH ×2 (13:20→22:31)
--- NOTE | 2023-05-30 13:28 | P.NPCON ---
History of Present Illness - Reason for Consult acute renal failure - History of Present Illness Patient is a 43-year-old male with history of seizure disorder, and hypertension, intellectual disability who is admitted to the hospital with history of generalized twitching with concern for recurrent seizures. Patient did have a generalized tonic-clonic seizure in the ER. Serum creatinine was elevated at 2.7 on initial admission. Patient is maintained on IV fluids. Creatinine has decreased to 1.7. Blood pressure has been low with systolic in the 80s and 90s. Patient is voiding in brief/bedside commode Prien noted on home med list, currently discontinued. Prien level was elevated at 1.9 No NSAIDs noted. Review of Systems As per HPI. Past Medical History Past Medical History: Diabetes Mellitus, GERD/Reflux, Hypertension, Neurologic Disorder, Thyroid Disorder Additional Past Medical History / Comment(s): This is obtained by reviewing medical records History of Any Multi-Drug Resistant Organisms: None Reported Past Surgical History: Hernia Repair Additional Past Surgical History / Comment(s): tubes in both ears, cleft lip surgery Past Anesthesia/Blood Transfusion Reactions: No Reported Reaction Smoking Status: Current every day smoker - Past Family History Father Family Medical History: Cancer Additional Family Medical History / Comment(s): Dad had lung cancer, in 2011 Mother Family Medical History: Rheumatoid Arthritis (RA) Additional Family Medical History / Comment(s): Mother has paranoia schizophrenic Medications and Allergies Home Medications Medication Instructions Recorded Confirmed Type cloZAPine [Clozaril] 100 mg PO DAILY 30 Days tab 11/26/16 05/29/23 Rx Acarbose [Precose] 50 mg PO TID-W/MEALS 09/30/17 05/29/23 History Levothyroxine Sodium [Synthroid] 50 mcg PO DAILY 09/30/17 05/29/23 History Simvastatin [Zocor] 20 mg PO HS 09/30/17 05/29/23 History Gabapentin [Neurontin] 300 mg PO BID 11/26/17 05/29/23 History cloZAPine [Clozaril] 400 mg PO HS 11/26/17 05/29/23 History Desmopressin [Ddavp] 0.2 mg PO HS 02/19/19 05/29/23 History Magnesium Oxide [Magox 400] 400 mg PO TID 04/12/21 05/29/23 History Pioglitazone HCl 30 mg PO DAILY 04/12/21 05/29/23 History Cholecalciferol (Vitamin D3) 125 mcg PO DAILY 04/27/21 05/29/23 History [Vitamin D3 (5000 Iu)] Omeprazole 20 mg PO BID 07/03/22 05/29/23 History Simethicone [Simethicone Chew] 80 mg PO QID 07/03/22 05/29/23 History lisinopriL [Zestril] 5 mg PO DAILY 07/03/22 05/29/23 History sitaGLIPtin [Januvia] 100 mg PO DAILY 07/03/22 05/29/23 History Dapagliflozin/Metformin HCl 1 tab PO DAILY 05/27/23 05/29/23 History [Xigduo Xr 5 mg-1,000 mg Tablet] Prien Carbonate 600 mg PO HS 05/27/23 05/29/23 History Allergies Allergy/AdvReac Type Severity Reaction Status Date / Time No Known Allergies Allergy Verified 05/29/23 12:38 Physical Exam Vitals: Vital Signs Temp Pulse Resp BP Pulse Ox 05/30/23 11:08 99.0 F 77 18 100/66 98 05/30/23 07:07 98.4 F 81 18 98/64 96 05/30/23 02:42 97.7 F 70 18 92/56 99 05/30/23 02:00 98.0 F 85 18 87/55 97 05/29/23 23:16 79 18 05/29/23 18:51 98.9 F 79 18 105/67 94 L 05/29/23 14:05 97.7 F 70 16 92/56 99 Intake and Output 05/29/23 05/30/23 05/30/23 22:59 06:59 14:59 Other: Voiding Method Diaper Diaper Bedside Commode # Voids 1 1 Weight 66 kg Patient is awake, comfortable, smiles and responds to simple questions. Examination of the heart S1 and S2 Examination of the lungs bilateral breath sounds are heard Abdomen is soft nontender Examination lower extremity shows no evidence of edema cleft lip noted Results - Lab Results Most recent lab results Calcium 9.0 mg/dL (8.4-10.2) 05/30/23 03:02 Magnesium 2.0 mg/dL (1.6-2.3) 05/30/23 03:02 05/30/23 03:02 08/14/23 03:02 Assessment and Plan Assessment: 1. Acute kidney injury, prerenal and hemodynamic ATN currently improving with IV hydration. Nonoliguric. Continue with IV hydration. Patient was also maintained on lithium which is now appropriately discontinued. Prien level was borderline elevated at 1.9. Rule out rhabdo my lysis. Check CK level. UA shows 1+ protein WBCs 126 wbc clumps noted 2. Seizure disorder with recurrent seizures. Being followed by neurology 3. Intellectual disability 4. History of diabetes insipidus maintained on DDAVP. Sodium is 134 Plan: Continue with IV fluids May need to hold DDAVP if sodium is lower in a.m. Repeat labs in a.m. Agree with discontinuation of lithium. Continue off of GUSTAVO inhibitor's as well. Check ultrasound of the kidneys Check urine culture Thank you for the consultation. We will continue to follow the patient with you during his hospitalization
--- NOTE | 2023-05-30 13:51 | CT ---
EXAMINATION TYPE: CT brain wo con DATE OF EXAM: 05/30/2023 COMPARISON: 04/12/2021. HISTORY: Seizure. CT DLP: 1165 mGycm. Automated Exposure Control for Dose Reduction was Utilized. TECHNIQUE: CT scan of the head is performed without contrast. FINDINGS: There is no acute intracranial hemorrhage, mass effect, or midline shift identified. The ventricles and sulci are within normal limits in size. The globes are intact. There is mucosal thick ening of the right maxillary sinus. There is also mucosal thickening seen within the left sphenoid si nus. There are no air-fluid levels identified. IMPRESSION: No acute intracranial hemorrhage, mass effect, or midline shift is seen. Mild sinus dise ase.
[2023-05-30 17:05] LABS: Glucose,Whole Blood 130 mg/dL (70-110)
--- NOTE | 2023-05-30 19:17 | EEG ---
ELECTROENCEPHALOGRAM REPORT CLINICAL HISTORY: This is a 43-year-old gentleman with a history of seizures and developmental delay, who had reported seizure-like activity in our facility. The video EEG is obtained to evaluate for seizure and epileptiform activity. RELEVANT MEDICATIONS: 1. Gabapentin. 2. Vimpat. 3. Idana. EEG TYPE: This is a routine 21-channel EEG with video using the 10/20 electrode placement system. DESCRIPTION: The background was somewhat hard to obtain because of artifact, but appears low-to- moderate voltage of 6 to 7 Hz activity. At times, the background consists of diffuse nonrhythmic delta activity. There is no physiological sleep architecture. There is no focal slowing. INTERICTAL AND ICTAL: There appear to be sharply contoured spike/polyspike, and slow waves over the left temporal/frontal region suspicious for epileptiform discharge. No clear seizure is noted. ACTIVATION PROCEDURE: Photic stimulation did not evoke a posterior driving response. There is no abnormality during the photic stimulation. Hyperventilation is not performed. CLINICAL INTERPRETATION: This is a limited routine EEG. The background slowing is suggestive of mild encephalopathy. There appear to be epileptiform discharges over the left temporal/frontal region. There is no seizure noted or any focal slowing. Again, the study is limited because of diffuse artifact. Recommend a prolonged EEG for further delineation. Clinical correlation is recommended. MMODL / IJN: [id number] / LUCY
[2023-05-30 20:38] LABS: Glucose,Whole Blood 120 mg/dL (70-110)
[2023-05-30] MEDS: ATORVASTATIN 10 MG TAB PO SCH (22:31)
[2023-05-30] MEDS: DESMOPRESSIN 0.2 MG TAB PO SCH (22:31)
[2023-05-31] MEDS: LEVOTHYROXINE 50 MCG TAB PO SCH (05:40)
[2023-05-31] MEDS: SODIUM CHLORIDE 0.9% 1,000 ML IV SCH ×2 (05:43→17:08)
[2023-05-31 07:04] LABS: Glucose,Whole Blood 132 mg/dL (70-110)
[2023-05-31 08:43] VITALS: RESP 18
[2023-05-31] MEDS: GABAPENTIN 300 MG CAP PO SCH ×2 (09:21→19:39)
[2023-05-31] MEDS: ACARBOSE 25 MG TAB PO SCH ×3 (09:21→17:23)
[2023-05-31] MEDS: CHOLECALCIFEROL 125 MCG (5000 IU) TABLET PO SCH (09:22)
[2023-05-31] MEDS: MAGNESIUM OXIDE 400 MG TAB PO SCH ×3 (09:22→19:39)
[2023-05-31] MEDS: PANTOPRAZOLE 40 MG TABLET PO SCH (09:22)
[2023-05-31] MEDS: cloZAPine 100 MG TAB PO SCH ×2 (09:22→19:41)
[2023-05-31] MEDS: LACOSAMIDE 50 MG TABLET PO SCH ×2 (09:22→19:39)
[2023-05-31] MEDS: SIMETHICONE 80 MG CHEWABLE PO SCH ×4 (09:23→19:40)
[2023-05-31 12:33] LABS: Glucose,Whole Blood 198 mg/dL (70-110)
--- NOTE | 2023-05-31 14:26 | P.PN ---
Subjective Progress Note Date: 05/31/23 Pt is doing much btter today. Feels back to baseline. Gen: awake, alert HEENT: normocephalic, atraumatic, good hearing acuity, moist mucous membranes Resp: good air exchange, breathing comfortably with no accessory muscle use CVS: good distal perfusion x 4, GI: soft, NTTP, ND : no SPT, no CVAT, solano catheter not present MSK: no pitting edema, no clubbing Neuro: non-focal, moving all extremities Psych: cooperative, euthymic mood Hospital Course: 43-year-old man with medical history of seizure disorder, hypothyroidism, diabetes, hypertension, [facility] resident good intellectual disability pr esented for evaluation generalized twitching. In the emergency room, patient was afebrile, 92/56, heart rate 70, 99% on room air. CBC showed leukocytosis 12.4, MCV of 100.1. Sodium was 134, CO2 is 14, anion gap was 21, BUN was 39, creatinine is 2.73. UA was contaminated. Urine tox screen is negative. ABG demonstrated pH of 7.5, pCO2 of 30. EKG demonstrated normal sinus rhythm, normal axis, no ischemic changes. Case was discussed with emergency physician decision was made to admit the patient to observation for seizure as well as acute kidney injury. Assessment: Seizure Acute kidney injury Elevated [place] level Hypothyroidism Diabetes type 2 Hypertension Hyperlipidemia Schizophrenia Plan: Continue patient's gabapentin [place] discontinued Seizure precautions IV fluids: Normal saline at 100 mL per hour Patient was given a dose of Keppra in the emergency room Objective - Vital Signs Vital signs: Vital Signs Temp 98.3 F 05/31/23 12:14 Pulse 71 05/31/23 12:14 Resp 18 05/31/23 12:14 BP 110/68 05/31/23 12:14 Pulse Ox 97 05/31/23 12:14 FiO2 Intake & Output 05/30/23 05/31/23 05/31/23 18:59 06:59 18:59 Intake Total 1200 Balance 1200 Weight 66 kg Intake: Intake, IV Titration 1200 Amount Sodium Chloride 0.9% 1, 1200 000 ml @ 100 mls/hr IV . Q10H YEMI Rx#:[id number] Other: Voiding Method Bedside Commode Bedside Commode Bedside Commode # Voids 4 1 - Labs CBC & Chem 7: 05/30/23 03:02 05/30/23 03:02 Labs: Abnormal Lab Results - Last 24 Hours (Table) 05/30/23 05/30/23 05/30/23 Range/Units 06:39 17:04 20:36 POC Glucose (mg/dL) 130 H 120 H (70-110) mg/dL [place] 1.50 H (0.50-1.20) mmol/L 05/31/23 05/31/23 Range/Units 07:02 12:31 POC Glucose (mg/dL) 132 H 198 H (70-110) mg/dL [place] (0.50-1.20) mmol/L Microbiology - Last 24 Hours (Table) 05/29/23 12:45 Urine Culture - Final Urine,Clean Catch
[2023-05-31 15:32] LABS: African American GFR (CKD) >90 (>60 ml/min/1.73 sqM); Anion Gap 9 mmol/L; Blood Urea Nitrogen 11 mg/dL (9-20); Calcium 9.2 mg/dL (8.4-10.2); Carbon Dioxide 21 mmol/L (22-30); Chloride 108 mmol/L (98-107); Glucose 108 mg/dL (74-99); Non-African American GFR(CKD) >90 (>60 ml/min/1.73 sqM); Sodium 138 mmol/L (137-145)
[2023-05-31 15:49] LABS: Potassium 4.9 mmol/L (3.5-5.1)
[2023-05-31 16:55] LABS: Glucose,Whole Blood 123 mg/dL (70-110)
--- NOTE | 2023-05-31 17:21 | P.PN ---
Subjective Progress Note Date: 05/31/23 The patient seen at bedside and the upon seen him he was sleeping. He states he is doing well. No further seizures per nursing staff. Objective - Vital Signs Vital signs: Vital Signs Temp 98.3 F 05/31/23 12:14 Pulse 71 05/31/23 12:14 Resp 18 05/31/23 12:14 BP 110/68 05/31/23 12:14 Pulse Ox 97 05/31/23 12:14 FiO2 Intake & Output 05/30/23 05/31/23 05/31/23 18:59 06:59 18:59 Intake Total 1200 Balance 1200 Weight 66 kg Intake: Intake, IV Titration 1200 Amount Sodium Chloride 0.9% 1, 1200 000 ml @ 100 mls/hr IV . Q10H COUNT INCLUDES THE [facility] Rx#:[id number] Other: Voiding Method Bedside Commode Bedside Commode Bedside Commode # Voids 4 1 - Exam GENERAL: The patient is lying in bed and is not in acute distress. NEUROLOGICAL: Higher mental function: The patient is awake, alert, oriented to self and time. He stated he was in the hospital. Patient is following simple commands. No aphasia and no neglect. Cranial nerves: The pupils are round, equal and reactive to light. Visual be are full to confrontation throughout. Extraocular movement is intact no nystagmus is noted. Facial sensation is normal to touch throughout. Has scar over the middle upper lip. The facial strength is normal throughout. Hearing appear normal bilaterally to hand rub. Tongue is midline and moved [id number] without any difficulty. Mild dysarthria is noted. Shoulder shrug is normal bilaterally. Motor: The strength is hard to assess individual because of his cooperation but lifting all extremities above gravity and no focality. Normal tone and bulk. Cerebellum: Normal finger to nose bilaterally. Sensation: Sensation is normal to touch throughout. Reflexes (right/left): 2+. Plantars are mute bilaterally. Some of the work-up during this hospital visit consisted of: Initial creatinine is 2.73 currently is 1.70. Sodium is 134. At initial serum glucose is 123. Calcium is 9.5, magnesium is 2.1. TSH is 5.290. Free T4 is 1.53. Urine analysis seems possible suggestive of underlying tract infection. Initial lithium level was 2.0 with recent is 1.8. Other urine drug screen was not detected. CT head is reported as no acute intracranial hemorrhage, mass effect or midline shift is seen. Mild sinus disease. Routine EEG on 05/30/23: Limited study. The background slowing is suggestive of mild encephalopathy. There appears to be epileptiform discharges let temporal/frontal region. There is no seizure note or focal slowing. Again, the study is limited because of diffuse artifact. Recommend a prolonged EEG for further delineation. - Labs CBC & Chem 7: 05/30/23 03:02 05/31/23 14:30 Labs: Abnormal Lab Results - Last 24 Hours (Table) 05/30/23 05/30/23 05/31/23 Range/Units 06:39 20:36 07:02 Chloride (98-107) mmol/L Carbon Dioxide (22-30) mmol/L Creatinine (0.66-1.25) mg/dL Glucose (74-99) mg/dL POC Glucose (mg/dL) 120 H 132 H (70-110) mg/dL [place] 1.50 H (0.50-1.20) mmol/L 05/31/23 05/31/23 05/31/23 Range/Units 12:31 14:30 16:54 Chloride 108 H (98-107) mmol/L Carbon Dioxide 21 L (22-30) mmol/L Creatinine 0.55 L (0.66-1.25) mg/dL Glucose 108 H (74-99) mg/dL POC Glucose (mg/dL) 198 H 123 H (70-110) mg/dL [place] (0.50-1.20) mmol/L Microbiology - Last 24 Hours (Table) 05/29/23 12:45 Urine Culture - Final Urine,Clean Catch Assessment and Plan Assessment: This is 43-year-old gentleman with history of cleft lip/palate s/p surgical correction, seizures (as child), developemental delay who presents to the emergency department for generalized twitching but was responsive during these episodes and reported GTC seizure. Patient presented with [place] level of 2.0 (potentially toxic) with BONNIE. Also has possible UTI Generalized body shaking and reported GTC seizure/break-through seizure: On EEG has epileptiform discharge over left fronto/temporal region but no seizure but study was limited. Unsure if provoked due to toxic and acute UTI. Cannot rule out underlying epilepsy especially with hx of seizure and cleft lip/palate with developmental delay which can increase risk for seizure---no further seizures per nurse. History of mood disorder and is on [place] and has potentially toxic level as high as 2.0--resolved BONNIE Possible acute UTI History of cleft lip/palate s/p correction Developmental delay Hypothyroidism Hypertension Plan: I ordered a prolonged EEG and pending result. I started the patient on Vimpat 50mg bid. I will not start on Keppra because of his mood history. Seizure-precaution and pads. Will defer the rest of management to primary team. Because of his seizure, avoid driving for 6 month until seizure free per [place] DMV, avoid heights, avoid swimming unassisted or using heavy machinery. Will defer the rest of medical management to primary team. Upon discharge recommend patient to follow-up with neurologist as outpatient within 2-3 weeks. The plan is discussed with his nurse. Time with Patient: Less than 30
[2023-05-31] MEDS: DESMOPRESSIN 0.2 MG TAB PO SCH (19:39)
[2023-05-31] MEDS: ATORVASTATIN 10 MG TAB PO SCH (19:40)
[2023-05-31 21:10] LABS: Glucose,Whole Blood 144 mg/dL (70-110)
--- NOTE | 2023-05-31 22:50 | EEG ---
ELECTROENCEPHALOGRAM REPORT ELECTROENCEPHALOGRAM (EEG) REPORT: TECHNIQUE: A routine 18-channel EEG was performed with video using the 10/20 international electrode placement system. HISTORY: Seizure, acute kidney injury. The patient came to the ER from his [facility] for twitching and potentially a generalized tonic-clonic seizure. OTHER MEDICAL HISTORY: Includes diabetes, hypertension, gastroesophageal reflux. CURRENT MEDICATIONS: 1. Neurontin. 2. Vimpat. 3. Protonix, and others. STUDY DURATION: 62 minutes. FINDINGS: BACKGROUND: Please note that the patient was drowsy or asleep for the majority of this recording. During the periods of increased alertness, background frequencies were seen in the unsustained 7 to 8 hertz range with intermixed lower frequencies. ACTIVATION: Hyperventilation: Not performed. Photic stimulation: Not performed. Sleep: Stages I and II sleep noted. ABNORMALITIES: 1. During the periods of increased arousal, intermittent diffuse theta range slowing was seen, in the 4 to 6 hertz range. 2. Also rare to occasional triphasic waves were seen. 3. Occasional frontally predominant delta range slowing was seen. IMPRESSION: Limited study, predominantly sleep EEG. No seizures were recorded. The triphasic waves mentioned above are not epileptiform in nature. Triphasic waves can be seen in the setting of a metabolic encephalopathy. The diffuse theta range slowing as well as the frontally predominant delta range slowing mentioned above is not epileptiform in nature. In combination, these findings indicate mild to moderate diffuse cerebral dysfunction as may be seen in a toxometabolic encephalopathy. These findings were called to the consulting neurologist at 4:05 p.m. on 05/31/2023. MMODL / IJN: [id number] /
[2023-06-01 02:00] VITALS: PULSE 84
[2023-06-01] MEDS: SODIUM CHLORIDE 0.9% 1,000 ML IV SCH (03:23)
[2023-06-01] MEDS: LEVOTHYROXINE 50 MCG TAB PO SCH (05:27)
[2023-06-01 06:55] LABS: Basophils % (A) 0 %; Eosinophils # (A) 0.1 k/uL (0-0.7); Eosinophils % (A) 2 %; Lymphocytes # (A) 1.4 k/uL (1.0-4.8); Lymphocytes % (A) 21 %; MCH 32.1 pg (25.0-35.0); MCHC 32.5 g/dL (31.0-37.0); MCV 98.6 fL (80.0-100.0); Mean Platelet Volume 7.8; Monocytes # (A) 0.5 k/uL (0-1.0); Monocytes % (A) 7 %; Neutrophils # (A) 4.5 k/uL (1.3-7.7); Neutrophils % (A) 66 %; Platelet Count 134 k/uL (150-450); RBC 4.36 m/uL (4.30-5.90); RDW 13.1 % (11.5-15.5); WBC 6.8 k/uL (3.8-10.6)
[2023-06-01 07:13] LABS: Glucose,Whole Blood 127 mg/dL (70-110)
[2023-06-01 07:48] VITALS: BP 121/72; TEMP 98.6
[2023-06-01] MEDS: ACARBOSE 25 MG TAB PO SCH (08:25)
[2023-06-01] MEDS: cloZAPine 100 MG TAB PO SCH (08:25)
[2023-06-01] MEDS: SIMETHICONE 80 MG CHEWABLE PO SCH (08:26)
[2023-06-01] MEDS: GABAPENTIN 300 MG CAP PO SCH (08:26)
[2023-06-01] MEDS: LACOSAMIDE 50 MG TABLET PO SCH (08:26)
[2023-06-01] MEDS: MAGNESIUM OXIDE 400 MG TAB PO SCH (08:26)
[2023-06-01] MEDS: PANTOPRAZOLE 40 MG TABLET PO SCH (08:26)
[2023-06-01] MEDS: CHOLECALCIFEROL 125 MCG (5000 IU) TABLET PO SCH (08:26)
--- NOTE | 2023-06-01 10:27 | P.DS ---
Providers Date of admission: 05/29/23 12:10 Expected date of discharge: 06/01/23 Attending physician: Andreia Mota MD Consults: 05/29/23 17:49 Consult Physician Routine Consulting Provider: Forrest Mckenzie Consult Reason/Comments: Seizure Do you want consulting provider notified?: Yes 05/29/23 19:04 Consult Physician Routine Consulting Provider: Taisha Xiong Consult Reason/Comments: lithium elevation, BONNIE Do you want consulting provider notified?: Yes Primary care physician: [facility] Hospital Course: Assessment: Seizure Acute kidney injury Elevated [address] level Hypothyroidism Diabetes type 2 Hypertension Hyperlipidemia Schizophrenia Hospital Course: 43-year-old man with medical history of seizure disorder, hypothyroidism, diabetes, hypertension, skilled nursing resident good intellectual disability presented for evaluation generalized twitching. In the emergency room, patient was afebrile, 92/56, heart rate 70, 99% on room air. CBC showed leukocytosis 12.4, MCV of 100.1. Sodium was 134, CO2 is 14, anion gap was 21, BUN was 39, creatinine is 2.73. UA was contaminated. Urine tox screen is negative. ABG demonstrated pH of 7.5, pCO2 of 30. EKG demonstrated normal sinus rhythm, normal axis, no ischemic changes. Case was discussed with emergency physician decision was made to admit the patient to observation for seizure as well as acute kidney injury. Pt was treated with IVF and BONNIE resolved. [address] level returned significantly elevated and was dsicontinued. Neuroloyg did EEG which showed triphasic waves c/w metabolic encephalopathy. Pt was started on lacosamide for seizures. Discharged home in stable condition. He should f/u with PCP and Neuroloyg. I spent 40 minutes coordinating this discharge on 06/01 Gen: awake, alert HEENT: normocephalic, atraumatic, good hearing acuity, moist mucous membranes Resp: good air exchange, breathing comfortably with no accessory muscle use CVS: good distal perfusion x 4, GI: soft, NTTP, ND : no SPT, no CVAT, solano catheter not present MSK: no pitting edema, no clubbing Neuro: non-focal, moving all extremities Psych: cooperative, euthymic mood Patient Condition at Discharge: Good Plan - Discharge Summary Discharge Rx Participant: No New Discharge Prescriptions: New Lacosamide [Vimpat] 50 mg PO BID #60 tab Continue cloZAPine [Clozaril] 100 mg PO DAILY 30 Days tab Simvastatin [Zocor] 20 mg PO HS Acarbose [Precose] 50 mg PO TID-W/MEALS Levothyroxine Sodium [Synthroid] 50 mcg PO DAILY Gabapentin [Neurontin] 300 mg PO BID cloZAPine [Clozaril] 400 mg PO HS Desmopressin [Ddavp] 0.2 mg PO HS Simethicone [Simethicone Chew] 80 mg PO QID Magnesium Oxide [Magox 400] 400 mg PO TID Pioglitazone HCl 30 mg PO DAILY Cholecalciferol (Vitamin D3) [Vitamin D3 (5000 Iu)] 125 mcg PO DAILY Omeprazole 20 mg PO BID sitaGLIPtin [Januvia] 100 mg PO DAILY lisinopriL [Zestril] 5 mg PO DAILY Dapagliflozin/Metformin HCl [Xigduo Xr 5 mg-1,000 mg Tablet] 1 tab PO DAILY Discontinued [address] Carbonate 600 mg PO HS Discharge Medication List cloZAPine [Clozaril] 100 mg PO DAILY 30 Days tab 11/26/16 [Rx] Acarbose [Precose] 50 mg PO TID-W/MEALS 09/30/17 [History] Levothyroxine Sodium [Synthroid] 50 mcg PO DAILY 09/30/17 [History] Simvastatin [Zocor] 20 mg PO HS 09/30/17 [History] Gabapentin [Neurontin] 300 mg PO BID 11/26/17 [History] cloZAPine [Clozaril] 400 mg PO HS 11/26/17 [History] Desmopressin [Ddavp] 0.2 mg PO HS 02/19/19 [History] Magnesium Oxide [Magox 400] 400 mg PO TID 04/12/21 [History] Pioglitazone HCl 30 mg PO DAILY 04/12/21 [History] Cholecalciferol (Vitamin D3) [Vitamin D3 (5000 Iu)] 125 mcg PO DAILY 04/27/21 [History] Omeprazole 20 mg PO BID 07/03/22 [History] Simethicone [Simethicone Chew] 80 mg PO QID 07/03/22 [History] lisinopriL [Zestril] 5 mg PO DAILY 07/03/22 [History] sitaGLIPtin [Januvia] 100 mg PO DAILY 07/03/22 [History] Dapagliflozin/Metformin HCl [Xigduo Xr 5 mg-1,000 mg Tablet] 1 tab PO DAILY 05/27/23 [History] Lacosamide [Vimpat] 50 mg PO BID #60 tab 06/01/23 [Rx] Follow up Appointment(s)/Referral(s): [facility] [Primary Care Provider] - 1-2 days Patient Instructions/Handouts: Seizure/Epilepsy Discharge Instructions & Follow-Up Discharge Disposition: OTHER INSTITUTION NOT DEFINED
--- NOTE | 2023-06-01 11:08 | P.PN ---
Subjective Progress Note Date: 06/01/23 Follow-up see the patient and the he feels he is doing great. No further seizure like activity. Objective - Vital Signs Vital signs: Vital Signs Temp 98.6 F 06/01/23 07:47 Pulse 84 06/01/23 07:47 Resp 18 06/01/23 07:47 BP 121/72 06/01/23 07:47 Pulse Ox 98 06/01/23 07:47 FiO2 Intake & Output 05/31/23 06/01/23 06/01/23 18:59 06:59 18:59 Weight 62.5 kg Other: Voiding Method Bedside Commode Bedside Commode Bedside Commode # Voids 2 1 - Exam GENERAL: The patient is lying in bed and is not in acute distress. NEUROLOGICAL: Higher mental function: The patient is awake, alert, oriented to self and time. He stated he was in the hospital. Patient is following simple commands. No aphasia and no neglect. Cranial nerves: The pupils are round, equal and reactive to light. Visual eb are full to confrontation throughout. Extraocular movement is intact no nystagmus is noted. Facial sensation is normal to touch throughout. Has scar o srinivasa the middle upper lip. The facial strength is normal throughout. Hearing appear normal bilaterally to hand rub. Tongue is midline and moved [id number] without any difficulty. Mild dysarthria is noted. Shoulder shrug is normal bilaterally. Motor: The strength is hard to assess individual because of his cooperation but lifting all extremities above gravity and no focality. Normal tone and bulk. Cerebellum: Normal finger to nose bilaterally. Sensation: Sensation is normal to touch throughout. Reflexes (right/left): 2+. Plantars are mute bilaterally. Some of the work-up during this hospital visit consisted of: Initial creatinine is 2.73 currently is 1.70. Sodium is 134. At initial serum glucose is 123. Calcium is 9.5, magnesium is 2.1. TSH is 5.290. Free T4 is 1.53. Urine analysis seems possible suggestive of underlying tract infection. Initial lithium level was 2.0 with recent is 1.8. Other urine drug screen was not detected. CT head is reported as no acute intracranial hemorrhage, mass effect or midline shift is seen. Mild sinus disease. Routine EEG on 05/30/23: Limited study. The background slowing is suggestive of mild encephalopathy. There appears to be epileptiform discharges let temporal/frontal region. There is no seizure note or focal slowing. Again, the study is limited because of diffuse artifact. Recommend a prolonged EEG for further delineation. A 62 minutes prolonged EEG was performed on 05/31/2023: It is reported as limited study, predominantly sleep EEG. No seizure were recorded. Triphasic waves mentioned above are not epileptiform in nature. Triphasic waves can be seen in the setting of metabolic encephalopathy. The diffuse theta range slowing as well as the frontal predominant delta slowing mentioned above is not performed in nature. In combination these finding indicated mild to moderate diffuse cerebral dysfunction as may be seen in toxic metabolic encephalopathy. - Labs CBC & Chem 7: 06/01/23 06:26 05/31/23 14:30 Labs: Abnormal Lab Results - Last 24 Hours (Table) 05/31/23 05/31/23 05/31/23 Range/Units 12:31 14:30 16:54 Plt Count (150-450) k/uL Chloride 108 H (98-107) mmol/L Carbon Dioxide 21 L (22-30) mmol/L Creatinine 0.55 L (0.66-1.25) mg/dL Glucose 108 H (74-99) mg/dL POC Glucose (mg/dL) 198 H 123 H (70-110) mg/dL 05/31/23 06/01/23 06/01/23 Range/Units 21:07 06:26 07:12 Plt Count 134 L (150-450) k/uL Chloride (98-107) mmol/L Carbon Dioxide (22-30) mmol/L Creatinine (0.66-1.25) mg/dL Glucose (74-99) mg/dL POC Glucose (mg/dL) 144 H 127 H (70-110) mg/dL Microbiology - Last 24 Hours (Table) 05/29/23 12:45 Urine Culture - Final Urine,Clean Catch Assessment and Plan Assessment: This is 43-year-old gentleman with history of cleft lip/palate s/p surgical correction, seizures (as child), developemental delay who presents to the emergency department for generalized twitching but was responsive during these episodes and reported GTC seizure. Patient presented with [place] level of 2.0 (potentially toxic) with BONNIE. Also has possible UTI Generalized body shaking and reported GTC seizure/break-through seizure: On EEG has epileptiform discharge over left fronto/temporal region but no seizure but study was limited. On prolonged EEG on 05/31/23 no seizure or discharges. Unsure if provoked due to toxic and acute UTI. Cannot rule out underlying epilepsy especially with hx of seizure and cleft lip/palate with developmental delay which can increase risk for seizure. ---no further seizures per nurse. History of mood disorder and is on [place] and has potentially toxic level as high as 2.0--resolved BONNIE Possible acute UTI History of cleft lip/palate s/p correction Developmental delay Hypothyroidism Hypertension Plan: A 62 minutes prolonged EEG was performed on 05/31/2023: It is reported as limited study, predominantly sleep EEG. No seizure were recorded. Triphasic waves mentioned above are not epileptiform in nature. Triphasic waves can be seen in the setting of metabolic encephalopathy. The diffuse theta range slowing as well as the frontal predominant delta slowing mentioned above is not performed in nature. In combination these finding indicated mild to moderate diffuse cerebral dysfunction as may be seen in toxic metabolic encephalopathy. Continue Vimpat 50mg bid. I will not start on Keppra because of his mood history. Seizure-precaution and pads. Will defer the rest of management to primary team. Because of his seizure, avoid driving for 6 month until seizure free per [place] DMV, avoid heights, avoid swimming unassisted or using heavy machinery. Will defer the rest of medical management to primary team. Upon discharge recommend patient to follow-up with neurologist as outpatient within 2-3 weeks. The plan is discussed with his primary attending. There is no further neurological work-up. Will sign off. Please reconsult if needed. Time with Patient: Less than 30
--- NOTE | 2023-06-01 14:24 | P.PN ---
Subjective Patient is seen for follow-up for acute kidney injury. Renal function has improved. Serum creatinine down to 0.5 mg/dL. Patient is maintained on IV fluids. There are plans for possible discharge today. Objective - Vital Signs Vital signs: Vital Signs Temp 98.6 F 06/01/23 07:47 Pulse 84 06/01/23 07:47 Resp 18 06/01/23 07:47 BP 121/72 06/01/23 07:47 Pulse Ox 98 06/01/23 07:47 FiO2 Intake & Output 05/31/23 06/01/23 06/01/23 18:59 06:59 18:59 Weight 62.5 kg Other: Voiding Method Bedside Commode Bedside Commode Bedside Commode # Voids 2 1 - Exam Patient is awake, comfortable, smiles and responds to simple questions. Examination of the heart S1 and S2 Examination of the lungs bilateral breath sounds are heard Abdomen is soft nontender Examination lower extremity shows no evidence of edema cleft lip note - Labs CBC & Chem 7: 06/01/23 06:26 05/31/23 14:30 Labs: Abnormal Lab Results - Last 24 Hours (Table) 05/31/23 05/31/23 05/31/23 Range/Units 14:30 16:54 21:07 Plt Count (150-450) k/uL Chloride 108 H (98-107) mmol/L Carbon Dioxide 21 L (22-30) mmol/L Creatinine 0.55 L (0.66-1.25) mg/dL Glucose 108 H (74-99) mg/dL POC Glucose (mg/dL) 123 H 144 H (70-110) mg/dL 06/01/23 06/01/23 Range/Units 06:26 07:12 Plt Count 134 L (150-450) k/uL Chloride (98-107) mmol/L Carbon Dioxide (22-30) mmol/L Creatinine (0.66-1.25) mg/dL Glucose (74-99) mg/dL POC Glucose (mg/dL) 127 H (70-110) mg/dL Assessment and Plan Assessment: 1. Acute kidney injury, prerenal and hemodynamic ATN currently improving with IV hydration. Nonoliguric. Continue with IV hydration. Patient was also maintained on lithium which is now appropriately discontinued. [place] level was borderline elevated at 1.9. Rule out rhabdo my lysis. . UA shows 1+ protein WBCs 126 wbc clumps noted 2. Seizure disorder with recurrent seizures. Being followed by neurology 3. Intellectual disability 4. History of diabetes insipidus maintained on DDAVP. Sodium is 138 Plan: Continue to monitor electrolytes as outpatient Encourage increased oral intake.
== END 2023-06-01 12:57 | disposition other institution (70) ==
LOC: EC 09:55 → 5NMEDONC 12:10
PROVIDERS: ADMIT Internal Medicine; ATTEND Internal Medicine
DX: G40.409 Other generalized epilepsy and epileptic syndromes, not intractable, without status epilepticus (principal); N17.0 Acute kidney failure with tubular necrosis; E86.0 Dehydration; E23.2 Diabetes insipidus; E11.9 Type 2 diabetes mellitus without complications; D72.829 Elevated white blood cell count, unspecified; R78.89 Finding of other specified substances, not normally found in blood; E03.9 Hypothyroidism, unspecified; I10 Essential (primary) hypertension; E78.5 Hyperlipidemia, unspecified; K21.9 Gastro-esophageal reflux disease without esophagitis; F17.200 Nicotine dependence, unspecified, uncomplicated; F31.9 Bipolar disorder, unspecified; F20.9 Schizophrenia, unspecified; F79 Unspecified intellectual disabilities; F39 Unspecified mood [affective] disorder; Z79.890 Hormone replacement therapy; Z79.84 Long term (current) use of oral hypoglycemic drugs; Z79.899 Other long term (current) drug therapy; Z87.730 Personal history of (corrected) cleft lip and palate; Z98.890 Other specified postprocedural states; Z80.1 Family history of malignant neoplasm of trachea, bronchus and lung; Z82.61 Family history of arthritis; Z81.8 Family history of other mental and behavioral disorders
CPT/HCPCS: 96361 ×4; 96365; 96375; 99285; 36415; 94760; 95816; 95813; 93005; 84439; 80053; 80048 ×2; 84443; 82803; 80178 ×2; 83735 ×2; 85025 ×3; 81001; 80306; 87086; 70450; G0378 ×4; J0696; S0136 ×3; J1953

== ENCOUNTER → 2023-06-10 | Outpatient (CLI) | payer OTHER ==
[2023-06-11 01:41] LABS: ALT 26 U/L (10-49); AST 29 U/L (14-35); Albumin 4.5 d/dL (3.8-4.9); Albumin/Globulin Ratio 2.05 Ratio (1.60-3.17); Alkaline Phosphatase 79 U/L (41-126); BUN/Creat Ratio 13.88 Ratio (12.00-20.00); Blood Urea Nitrogen 11.1 mg/dL (9.0-27.0); Calcium 9.7 mg/dL (8.7-10.3); Carbon Dioxide 22.5 mmol/L (21.6-31.8); Chloride 97 mmol/L (96-109); Chol/HDL Ratio 2.39 Ratio; Globulin 2.2 d/dL (1.6-3.3); Glucose 92 mg/dL (70-110); Magnesium 1.6 mg/dL (1.5-2.4); Potassium 4.8 mmol/L (3.5-5.5); Sodium 131 mmol/L (135-145); Total Bilirubin 0.2 mg/dL (0.3-1.2); Total Protein 6.7 d/dL (6.2-8.2)
[2023-06-11 01:56] LABS: Basophils # (A) 0.03 X 10*3/uL (0.00-0.10); Basophils % (A) 0.5 %; Eosinophils # (A) 0.06 X 10*3/uL (0.04-0.35); Eosinophils % (A) 0.9 %; HCT 45.4 % (39.6-50.0); HGB 14.7 d/dL (13.0-17.0); Lymphocytes # (A) 1.18 X 10*3/uL (0.90-5.00); Lymphocytes % (A) 18.5 %; MCH 32.1 pg (27.0-32.0); MCHC 32.4 d/dL (32.0-37.0); MCV 99.1 FL (80.0-97.0); Monocytes # (A) 0.34 X 10*3/uL (0.20-1.00); Monocytes % (A) 5.3 %; NRBC Per 100 WBC 0 X 10*3/uL (0.00-0.01); Neutrophils # (A) 4.75 X 10*3/uL (1.80-7.70); Neutrophils % (A) 74.5 %; Platelet Count 272 X 10*3/uL (140-440); RBC 4.58 X 10*6/uL (4.40-5.60); RDW 14.1 % (11.5-14.5); WBC 6.38 X 10*3/uL (4.50-10.00)
[2023-06-11 02:14] LABS: T4, Free (Free Thyroxine) 1.88 ng/dL (0.80-1.80)
== END | disposition home or self-care (01) ==
LOC: LABWHC1 09:43
PROVIDERS: ATTEND Nurse Practitioner
DX: I10 Essential (primary) hypertension (principal); E11.9 Type 2 diabetes mellitus without complications; E53.9 Vitamin B deficiency, unspecified; E55.9 Vitamin D deficiency, unspecified; E03.9 Hypothyroidism, unspecified; E78.49 Other hyperlipidemia
CPT/HCPCS: 36415; 80053; 80061; 82306; 82607; 83036; 83735; 84439; 84443; 85025

== ENCOUNTER → 2023-10-26 | Outpatient (CLI) | payer OTHER ==
--- NOTE | 2023-10-26 11:17 | XR ---
EXAMINATION TYPE: XR lumbar spine 2 or 3V DATE OF EXAM: 10/26/2023 Comparison: None Clinical History: 43-year-old male M54.50 LOW BACK PAIN Findings: Large stool burden. Correlate for constipation. There are the osteopenia. There is levoconvex curvatu re centered on the upper lumbar spine. 5 lumbar type vertebral bodies. Vertebral body heights are pre served and alignment is maintained. Disc interspaces also relatively preserved. Impression: Levoconvex scoliosis of the upper lumbar spine. No vertebral compression collapse or malalignment. Th ere may be a large stool burden, possible constipation. Clinically correlate.
== END | disposition home or self-care (01) ==
LOC: RADXRMAIN 10:00
PROVIDERS: ATTEND Registered Nurse
DX: M41.86 Other forms of scoliosis, lumbar region (principal)
CPT/HCPCS: 72100